=== PATIENT | female | born 1975 | race Caucasian/White ===

== ENCOUNTER 2023-03-31 22:08 | Emergency (ER) | payer MEDICARE, MEDICAID, SELFPAY ==
[2023-03-31 22:15] VITALS: BP 126/83; PULSE 85; RESP 16; TEMP 36.7; O2SAT 96; BMI 14.8
[2023-03-31 22:23] LABS: Appearance Urine Clear (Clear); Bilirubin Urine Negative (Negative); Blood Urine Negative (Negative); Color Urine Yellow (Yellow); Glucose Urine Negative (Negative); Ketones Urine Negative (Negative); Leukocyte Esterase Urine Negative (Negative); Nitrite Urine Negative (Negative); Protein Urine Negative (Negative); Urobilinogen Urine 0.2 (0.2-1.0)
--- NOTE | 2023-03-31 22:23 | ED.GENADULT ---
HPI - General Adult General Time Seen by Provider: 22:24 Date Seen: 03/31/23 Chief complaint: Flank Pain Stated complaint: Abdominal Right-side pain Time Seen by Provider: 03/31/23 22:10 Source: patient Mode of arrival: ambulatory Limitations: no limitations History of Present Illness HPI narrative: Patient is a 47-year-old female history of chronic degenerative disc disease presented emergency department for right flank pain. She says she initially thought the pain was just her back pain flaring up prescribed the past 24 hours. She states it got worse around 20:00 she took a Percocet which is not improving her symptoms. She denies having pain like this before. No history of kidney stones. Denies fevers, chills, shortness of breath, vaginal bleeding, vaginal discharge, nausea, vomiting, dysuria, weakness, numbness, diarrhea, constipation. States the pain is nonradiating but is very sharp in nature. Order previous abdominal surgery was gastric bypass surgery 23 years ago with no residual complications. Related Data Home Medications Medication Instructions Recorded Confirmed amitriptyline 10 mg PO DAILY 03/31/23 03/31/23 cyclobenzaprine 5 mg PO .8h PRN 03/31/23 03/31/23 gabapentin 800 mg PO QID 03/31/23 03/31/23 oxycodone-acetaminophen 1 tab PO Q4H PRN 03/31/23 03/31/23 Allergies Allergy/AdvReac Type Severity Reaction Status Date / Time erythromycin base Allergy Mild Itching Verified 03/31/23 23:03 dexamethasone AdvReac Intermediate Verified 03/31/23 23:03 NSAIDS (Non-Steroidal AdvReac Intermediate Verified 03/31/23 23:03 Anti-Inflamma Review of Systems Status of ROS: Reports: 10 or more systems reviewed and unremarkable except as noted in History and below [facility] Medical History (Updated 03/31/23 @ 23:22 by Vignesh Sloan, DO) Chronic back pain ?M54.9 - Dorsalgia, unspecified (ICD-10) ?G89.29 - Other chronic pain (ICD-10) Social History Smoking Status: Current every day smoker What tobacco products do you use: cigarettes Smoking packs per day: 2 Smoking cigarettes per day: 40.0 How often do you have a drink containing alcohol: never AUDIT-C Alcohol total score: 0 Non-prescribed substance use: denies use Exam Narrative: Exam Narrative: Const: Thin build, in moderate distress Eyes: PERRL, no conjunctival injection, and symmetrical lids ENMT: Atraumatic external nose and ears. Moist mucous membranes. Neck: Symmetric, trachea midline, No thyromegaly. CVS: RRR, No murmurs or gallops. Peripheral pulses 2+ and equal in all extremities RESP: Unlabored respiratory effort. Clear to auscultation bilaterally. GI: Nontender/Nondistended, No rebound or guarding. Right CVA tenderness MSK:Extremities w/o deformity, Normal Active ROM Skin: Warm, Dry. No rashes or lesions. Neuro: Normal Muscle tone, No focal neurological deficits. Psych: Awake, Alert, & Oriented x3. Appropriate mood and affect. Const: Vital Signs, click to edit/add: Vital Signs - 24 hr 03/31/23 22:15 03/31/23 22:32 Temperature 98.0 F Pulse Rate [Left P ulse Oximeter] 85 Respiratory Rate 16 Blood Pressure [Ri ght Upper Arm] 126/83 Pulse Oximetry 96 99 Oxygen Delivery Me thod Room Air Course Vital Signs Vital signs: Initial Vital Signs Temperature 98.0 F 03/31/23 22:15 Temperature Source Temporal Artery Scan 03/31/23 22:15 Pulse Rate 85 03/31/23 22:15 Respiratory Rate 16 03/31/23 22:15 Blood Pressure 126/83 03/31/23 22:15 Blood Pressure Mean 97 03/31/23 22:15 Blood Pressure Position Sitting 03/31/23 22:15 Pulse Oximetry 96 03/31/23 22:15 Oxygen Delivery Method Room Air 03/31/23 22:15 Vital Signs Temperature 98.0 F 03/31/23 22:15 Pulse Rate 85 03/31/23 22:15 Respiratory Rate 16 03/31/23 22:15 Blood Pressure 126/83 03/31/23 22:15 Pulse Oximetry 96 03/31/23 22:15 Oxygen Delivery Method Room Air 03/31/23 22:15 Temperature 98.0 F 03/31/23 22:15 Pulse Rate 85 03/31/23 22:15 Respiratory Rate 16 03/31/23 22:15 Blood Pressure 126/83 03/31/23 22:15 Pulse Oximetry 99 03/31/23 22:32 Oxygen Delivery Method Room Air 03/31/23 22:15 Medical Decision Making MDM Narrative Medical decision making narrative: Patient's for 47-year-old year female presenting for right flank pain that started she thinks yesterday but got worse around 20:00 today. She has tried Percocet without improvement in her symptoms. She has no history of kidney stones. Continue her symptoms nephrolithiasis is high on my differential at this time is CT scan without contrast will be ordered. We will also order CBC, CMP, lipase urinalysis, urine test. Patient was given morphine for pain. Other things on the differential would be cholelithiasis, muscle strain. With her age unlikely to be aortic aneurysm she is a smoker though. However returned showing no concerning abnormalities. No signs of UTI. LFTs are only mildly elevated and unlikely to be a sign that was causing her pain. CT scan was done. It shows avascular necrosis of the right femoral head but this is not anywhere near where her pain is is unlikely associated. She does not have a gallbladder. No signs of kidney stones. CBC shows no concerning abnormalities. I am unsure what is clearly causing her pain at this time. Is not appear to be any immediate life-threatening or debilitating cause. After she received morphine she states her symptoms resolved. She will be discharged home agrees with this plan. Lab Data Labs: Lab Results 03/31/23 03/31/23 Range/Units 22:17 22:31 WBC 5.62 (4.50-11.00) K/uL RBC 4.10 (4.00-5.20) m/uL Hgb 13.4 (12.0-16.0) gm/dL Hct 39.7 (33.0-51.0) % MCV 97 (80-100) fL MCH 33 (26-34) pg MCHC 34 (32-36) gm/dL RDW Coeff of Carlos 13.1 (11.5-15.5) % Plt Count 371 (140-440) K/uL Neut % (Auto) 32.7 L (42.0-72.0) % Lymph % (Auto) 58.0 H (20-44) % [place] % (Auto) 5.5 (0.0-11.0) % Eos % (Auto) 1.4 (0.0-7.0) % Baso % (Auto) 2.0 (0.0-3.0) % Neut # (Auto) 1.80 (1.7-7.0) K/uL Lymph # (Auto) 3.30 H (0.90-2.90) K/uL [place] # (Auto) 0.30 (0.00-0.90) K/UL Eos # (Auto) 0.08 (0.00-0.50) K/uL Baso # (Auto) 0.11 (0.00-0.30) K/uL Abs Immat Gran (auto) 0.02 (0.00-0.30) K/uL Imm/Tot Granulo (auto) 0.4 % Sodium 133 L (135-149) mmol/L Potassium 3.8 (3.6-5.1) mmol/L Chloride 100 (96-114) mmol/L Carbon Dioxide 26 (20-32) mmol/L BUN 7 (5-24) mg/dL Creatinine 0.6 (0.5-1.5) mg/dL Estimated Creat Clear 83.00 Estimated GFR 111 ml/min Glucose 212 H (60-115) mg/dL Calcium 9.4 (8.4-10.6) mg/dL Total Bilirubin 0.5 (0.1-1.5) mg/dL AST 50 H (12-35) U/L ALT 40 H (4-35) U/L Alkaline Phosphatase 80 (40-150) U/L Total Protein 7.9 (6.0-8.3) g/dL Albumin 4.7 (3.3-5.0) g/dL Lipase 42 (23-300) U/L Urine Color Yellow (Yellow) Urine Appearance Clear (Clear) Urine pH 6.0 (5.0-8.5) Ur Specific [place] 1.010 (1.000-1.030) Urine Protein Negative (Negative) Urine Glucose (UA) Negative (Negative) Urine Ketones Negative (Negative) Urine Blood Negative (Negative) Urine Nitrite Negative (Negative) Urine Bilirubin Negative (Negative) Urine Urobilinogen 0.2 (0.2-1.0) Ur Leukocyte Esterase Negative (Negative) Urine RBC 0-2 (0-2) Urine WBC 0-2 (0-5) Ur Squamous Epith Cells Few (None-Few) Urine Bacteria None (None) Urine HCG, Qual Negative (Negative) Discharge Plan Discharge Clinical Impression: Acute flank pain, Avascular necrosis of bone of right hip Patient Disposition: Home, Self-Care Condition: Stable Instructions: Flank Pain (ED) Additional Instructions: Your lab work returns showing no concerning abnormalities. The CT scan showed no signs of a kidney stone. I am unsure right now was causing this pain. Follow-up with the primary care provider. Speak to him about the possible avascular necrosis of the right hip and possibly need to see orthopedic referral. Return for any new or worsening symptoms. Prescriptions: No Action oxycodone-acetaminophen [Percocet] 1 tab PO Q4H PRN Rx Instructions: 10-325 gabapentin 800 mg PO QID amitriptyline 10 mg PO DAILY cyclobenzaprine 5 mg PO .8h PRN Stand Alone Forms: [employer] Info Instructions
[2023-03-31 22:31] LABS: Ur HCG Qualitative* Negative (Negative)
[2023-03-31 22:32] VITALS: O2SAT 99
--- NOTE | 2023-03-31 22:33 | CRLHL7_ITS ---
For Patients: As a result of the Century Cures Act, medical imaging exams and procedure reports are released immediately into your electronic medical record. You may view this report before your referring provider. If you have questions, please contact your health care provider. INDICATION: Right flank pain TECHNIQUE: CT abdomen and pelvis acquired with 49 cc Isovue 370 IV contrast. COMPARISON: None FINDINGS: Lower chest: Unremarkable. Liver: Unremarkable. Spleen: Unremarkable. Pancreas: Unremarkable. Gallbladder and bile ducts: S/p cholecystectomy. Adrenal glands: Unremarkable. Kidneys: Unremarkable. No renal stone or hydronephrosis. GI tract: Status post gastric bypass. Appendix is not seen. Vascular structures: Unremarkable. Lymph nodes: Unremarkable. Miscellaneous: Marked lack of body fat. No free air or significant free fluid. Pelvic Organs: Unremarkable. Bones: Mild dextroscoliosis of the lumbar spine. Degenerative changes in the lumbar spine. Curvilinear sclerotic densities on the right femoral head. IMPRESSION: Study is limited by marked lack of body fat. No acute abnormality identified. AVN of the right femoral head. Status post gastric bypass procedure and cholecystectomy. Please note that all CT scans at this facility use dose modulation, iterative reconstruction, and/or weight-based dosing when appropriate to reduce radiation dose to as low as reasonably achievable. Dictated by Hannah Vick MD @ 03/31/2023 11:14:03 PM (Electronically Signed)
[2023-03-31 22:38] LABS: RBC Urine 0-2 (0-2); Squamous Epithelial Cell Urine Few (None-Few); WBC Urine 0-2 (0-5)
[2023-03-31 22:39] LABS: Basophils Absolute Auto 0.11 K/uL (0.00-0.30); Eosinophils Absolute Auto 0.08 K/uL (0.00-0.50); Eosinophils Percent Auto 1.4 % (0.0-7.0); Hematocrit 39.7 % (33.0-51.0); Hemoglobin* 13.4 gm/dL (12.0-16.0); Immature Granulocytes Abs Auto 0.02 K/uL (0.00-0.30); Immature Granulocytes Pct Auto 0.4 %; Mean Corpuscular HGB Conc 34 gm/dL (32-36); Mean Corpuscular Hemoglobin 33 pg (26-34); Mean Corpuscular Volume 97 fL (80-100); Monocytes Percent Auto 5.5 % (0.0-11.0); Neutrophils Percent Auto 32.7 % (42.0-72.0); Platelet Count* 371 K/uL (140-440); RDW Coefficient of Variation % 13.1 % (11.5-15.5); White Blood Count* 5.62 K/uL (4.50-11.00)
[2023-03-31] MEDS: MORPHINE 4 MG/ML INJ IVP (22:41)
[2023-03-31 22:43] LABS: Slide Review Reflex No
[2023-03-31 22:52] LABS: Albumin* 4.7 g/dL (3.3-5.0); Chloride* 100 mmol/L (96-114)
[2023-03-31 22:53] LABS: Potassium* 3.8 mmol/L (3.6-5.1); Sodium* 133 mmol/L (135-149)
[2023-03-31 22:55] LABS: Alkaline Phosphatase* 80 U/L (40-150); Aspartate Amino Transferase* 50 U/L (12-35); Bilirubin Total* 0.5 mg/dL (0.1-1.5); Blood Urea Nitrogen* 7 mg/dL (5-24); Carbon Dioxide* 26 mmol/L (20-32); Creatinine* 0.6 mg/dL (0.5-1.5); Estimated Glomerular Filt Rate 111 ml/min; Lipase* 42 U/L (23-300); Total Protein* 7.9 g/dL (6.0-8.3)
[2023-03-31 22:56] LABS: Alanine Aminotransferase* 40 U/L (4-35); Calcium* 9.4 mg/dL (8.4-10.6); Glucose* 212 mg/dL (60-115)
[2023-03-31 23:35] VITALS: BP 118/74; PULSE 79; RESP 16; TEMP 36.7; O2SAT 99
[2023-03-31 23:44] VITALS: BP 118/74; PULSE 79; RESP 16; TEMP 36.7
== END 2023-03-31 23:51 | disposition home or self-care (01) ==
LOC: ED 23:49
PROVIDERS: Emergency Provider Student in an Organized Health Care Education/Training Program; PCP Family Medicine
DX: R10.9 Unspecified abdominal pain (principal); M87.9 Osteonecrosis, unspecified
CPT/HCPCS: 36415; 74177; 80053; 81001; 81025; 83690; 85025; 94761; 96374; 99283; 99284; 99285; J2270; Q9967

== ENCOUNTER 2023-12-14 00:40 | Emergency (ER) | payer MEDICARE, MEDICAID, SELFPAY ==
[2023-12-14 00:48] VITALS: BP 96/72; PULSE 99; RESP 16; TEMP 36.6; O2SAT 97; BMI 16.7
--- NOTE | 2023-12-14 01:07 | CT_ITS ---
Patient: NATALY DOOLEY Facility:?[facility] Patient ID:?[id number] Site Patient ID:?[id number]. Site :?[id number] Study:?CT-Abdomen/Pelvis W/56CC [id number]/22/2024 1:46:46 AM Ordering Physician:DANNY Final Report: INDICATION: Epigastric pain. TECHNIQUE: CT abdomen and pelvis acquired with 56 cc Isovue 370 IV contrast. COMPARISON: None. FINDINGS: Lower chest: Unremarkable. Liver: Unremarkable. Normal in size and attenuation. No suspicious masses. Gallbladder and bile ducts: Mildly prominent bile ducts, likely secondary to post cholecystectomy state. Spleen: Unremarkable. Normal in size. No masses. Adrenal glands: Unremarkable. No nodules. Pancreas: Unremarkable. No mass or inflammation. Kidneys: Unremarkable. No suspicious masses, stones, or hydronephrosis. GI tract: Postsurgical changes of gastric bypass. GI tract is normal in caliber. No evidence of obstruction. Appendix is not visualized. Lymph nodes: No lymphadenopathy. Vasculature: Mild scattered atherosclerotic calcifications. Abdominal aorta is normal in caliber. Omentum/Peritoneum/Abdominal Wall: Unremarkable. No free air or significant free fluid. Pelvis: Unremarkable. Bones: Degenerative changes. Dextroconvex curvature of the lumbar spine. Chronic L1 superior endplate deformity. Right femoral head AVN. IMPRESSION: No acute abdominal or pelvic abnormality. Please note that all CT scans at this facility use dose modulation, iterative reconstruction, and/or weight-based dosing when appropriate to reduce radiation dose to as low as reasonably achievable. Dictated by Tacos Luna MD @ 12/14/2023 2:48:52 AM Signed by:?Tacos Luna MD @12/14/2023 2:48:52 AM (Electronic Signature)
--- NOTE | 2023-12-14 01:11 | ED_ITS ---
HPI - General Adult General Chief complaint: Abdominal Pain Stated complaint: abdominal pain Time Seen by Provider: 12/14/23 00:49 Source: patient Mode of arrival: ambulatory History of Present Illness HPI narrative: 48-year-old female presents to the emergency department with 4 hour history of increased nausea and epigastric pain. Does have chronic nausea and takes Zofran 1-2 times daily for this. She does use cannabis containing products either in the form of vape or edibles daily as well. 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 She states that she has had ongoing issues with chronic nausea, epigastric issues and weight loss. She has a history of gastric bypass 10 years ago. She reports that she had gastric perforation about 5 years ago and had a pancreatic mass around that time. She had follow-up CTs but it has been at least 4 probably closer to 5 years on that as well. From her description, I question it it was a pancreatic pseudocyst but I do not have quickly available records on this. States that she has had very poor weight gain over the last 5 years. Weight had been stable at 180 lb after her gastric bypass for several years and then she has been around 110 lb for the last few years. It does not sound as though she is regularly using recommended vitamins. Reports that they also took out her gallbladder and she still has her appendix. Has not had a menstrual cycle in about 4 years, is not on control. States that her periods stopped when she continued to lose weight. She takes omeprazole daily for her chronic GI issues and Zofran 1-2 times per day. Pain today is worse than usual, constant and achy, does radiate down to the lower abdomen and a little bit into the anterior thighs which is new for her. No unusual vaginal discharge, no dysuria, no history of kidney stones. No fever or bloody stools. Did not try any other interventions besides her home oral Zofran prior to coming to ED. Past medical history notable for chronic pain. Home medications are Flexeril, amitriptyline, gabapentin and oxycodone. Total daily dosing of the oxycodone is 40-50 mg daily in the gabapentin is over 3000 mg daily. Drug allergies listed, noted. Does vape and uses cannabis containing products every day. Denies alcohol. ROS notable for the GI issues and abdominal pain as stated above, otherwise denies times 12 systems. Related Data Home Medications Medication Instructions Recorded Confirmed amitriptyline 10 mg PO DAILY 03/31/23 03/31/23 cyclobenzaprine 5 mg PO .8h PRN 03/31/23 03/31/23 gabapentin 800 mg PO QID 03/31/23 03/31/23 oxycodone-acetaminophen 1 tab PO Q4H PRN 03/31/23 03/31/23 Previous Rx's Medication Instructions Recorded olanzapine 5 mg tablet 5 mg PO QHS #30 tabs 12/14/23 Allergies Allergy/AdvReac Type Severity Reaction Status Date / Time erythromycin base Allergy Mild Itching Verified 12/14/23 01:47 dexamethasone AdvReac Intermediate Verified 12/14/23 01:47 NSAIDS (Non-Steroidal AdvReac Intermediate Verified 12/14/23 01:47 Anti-Inflamma [facility] Medical History Tobacco abuse ?Z72.0 - Tobacco use (ICD-10) ROBERTO II (cervical intraepithelial neoplasia II) ?N87.1 - Moderate cervical dysplasia (ICD-10) Hyperopic astigmatism of left eye ?H52.202 - Unspecified astigmatism, left eye (ICD-10) Pancreatic lesion ?K86.9 - Disease of pancreas, unspecified (ICD-10) Myopia of right eye with astigmatism ?H52.11 - Myopia, right eye (ICD-10) ?H52.201 - Unspecified astigmatism, right eye (ICD-10) Presbyopia ?H52.4 - Presbyopia (ICD-10) Chronic prescription opiate use ?Z79.891 - 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 of opiate analgesic (ICD-10) Multiple lung nodules ?R91.8 - Other nonspecific abnormal finding of lung field (ICD-10) Lumbar herniated disc ?M51.26 - Other intervertebral disc displacement, lumbar region (ICD-10) STALIN (generalized anxiety disorder) ?F41.1 - Generalized anxiety disorder (ICD-10) Chronic back pain ?M54.9 - Dorsalgia, unspecified (ICD-10) ?G89.29 - Other chronic pain (ICD-10) Surgical History History of gastric bypass ?Z98.84 - Bariatric surgery status (ICD-10) Social History Smoking Status: Current every day smoker What tobacco products do you use: cigarettes Smoking packs per day: 2 Smoking cigarettes per day: 40.0 How often do you have a drink containing alcohol: never AUDIT-C Alcohol total score: 0 Non-prescribed substance use: denies use Exam Const: Vital Signs, click to edit/add: Vital Signs - 24 hr 12/14/23 00:48 Temperature 98 F Pulse Rate [Pulse Oximeter] 99 Respiratory Rate 16 Blood Pressure [Ri ght Upper Arm] 96/72 Pulse Oximetry 97 Oxygen Delivery Me thod Room Air Documenting provider has reviewed patient's vital signs: yes Common normals: no apparent distress General appearance: cooperative Other: Appears mildly uncomfortable, not in acute distress. Good historian. HENMT: Common normals: normocephalic Head and scalp: normocephalic Face and sinus: normal facial exam Mouth: oral and palatal mucosa normal Eye: Common normals: conjunctivae normal General eye: normal appearance of both eyes Conjunctiva: conjunctiva(e) normal Neck & C-Spine: Common normals: full ROM and no lymphadenopathy General: normal visual inspection Resp: Common normals: normal respiratory effort and no use of accessory muscles Effort & inspection: able to speak in complete sentences Cardio: Common normals: regular rate, regular rhythm, S1 normal heart sound, S2 normal heart sound and no murmurs Rate: regular rate Rhythm: regular rhythm Heart sounds: S1 normal and S2 normal GI: Other: Thin. Abdomen consistent with prior obesity and surgical scars consistent with history. No obvious mass, no hepatosplenomegaly. Bowel sounds are normoactive throughout. Diffusely tender to epigastrium and suprapubic area, no rebound tenderness or guarding. Extremity: Common normals: normal to inspection and normal capillary refill Neuro: Speech: speech normal Psych: Appearance: grossly normal Attitude: engaged Insight: insight good Judgement: judgment good Skin: Common normals: no rashes or lesions noted General skin exam: no ra shes or lesions noted Course Course ED Course: 48-year-old female with complicated prior abdominal history, chronic pain and chronic nausea. History of gastric perforation and pancreatic mass as well as cervical dysplasia. Differential diagnosis including gastric perforation, gastritis, gastroenteritis, obstruction, pancreatitis, colitis, gynecological issues, complication, exacerbation of chronic pain, kidney stone, among others. Recommend basic labs, 1 L normal saline, IV Zofran, will withhold pain medication for now. CT of the abdomen and pelvis, urinalysis and test. Reevaluation(s) Time of Reevaluation #1: 03:24 Reevaluation #1: Counseled patient on findings. Overall CT looks great. No obstruction, no perforation. There is some gas and constipation and unfortunately some chronic degenerative changes which are not likely the cause of her acute symptoms. Counseled patient that I do think that her chronic nausea could be multifactorial but she may have cyclic vomiting syndrome. We discussed need for vitamin replacement in the setting of her bariatric surgery. She admitted that she has not been doing this for quite some time and is willing to restart this at least somewhat. We discussed continuing her Zofran as needed but I recommended a trial of olanzapine at bedtime preventatively for a week or 2 and see if this makes a difference with her nausea. She will get a dose here tonight and then a 30 day prescription. She needs to follow up with her primary care provider in 48 hours if she is not starting to improve and then long-term in a couple of weeks to see how the olanzapine is going. Written instructions provided, all questions answered. She was given a copy of her CT report that shows that she has no further pancreatic mass. Vital Signs Vital signs: Initial Vital Signs Temperature 98 F 12/14/23 00:48 Temperature Source Temporal Artery Scan 12/14/23 00:48 Pulse Rate 99 12/14/23 00:48 Respiratory Rate 16 12/14/23 00:48 Blood Pressure 96/72 12/14/23 00:48 Blood Pressure Mean 80 12/14/23 00:48 Blood Pressure Position Sitting 12/14/23 00:48 Pulse Oximetry 97 12/14/23 00:48 Oxygen Delivery Method Room Air 12/14/23 00:48 Vital Signs Temperature 98 F 12/14/23 00:48 Pulse Rate 99 12/14/23 00:48 Respiratory Rate 16 12/14/23 00:48 Blood Pressure 96/72 12/14/23 00:48 Pulse Oximetry 97 12/14/23 00:48 Oxygen Delivery Method Room Air 12/14/23 00:48 Temperature 98 F 12/14/23 00:48 Pulse Rate 99 12/14/23 00:48 Respiratory Rate 16 12/14/23 00:48 Blood Pressure 96/72 12/14/23 00:48 Pulse Oximetry 97 12/14/23 00:48 Oxygen Delivery Method Room Air 12/14/23 00:48 Medications Administered Medications: Discontinued Medications Generic Name Dose Route Start Last Admin Trade Name Freq PRN Reason Stop Dose Admin Sodium Chloride 1,000 mls @ 1,000 mls/hr 12/14/23 01:08 12/14/23 02:21 0.9 % Sodium Chloride 1000 Ml IV 12/14/23 02:07 Infused .Q1H LAURA Infusion Ondansetron HCl 4 mg 12/14/23 01:07 12/14/23 01:25 Ondansetron 2 Mg/Ml Inj IVP 12/14/23 01:08 4 mg ONCE ONE Administration Medical Decision Making Lab Data Labs: Lab Results 12/14/23 12/14/23 Range/Units 01:20 01:27 WBC 6.87 (4.50-11.00) K/uL RBC 3.83 L (4.00-5.20) m/uL Hgb 12.2 (12.0-16.0) gm/dL Hct 36.3 (33.0-51.0) % MCV 95 (80-100) fL MCH 32 (26-34) pg MCHC 34 (32-36) gm/dL RDW Coeff of Carlos 13.4 (11.5-15.5) % Plt Count 309 (140-440) K/uL Neut % (Auto) 63.6 (42.0-72.0) % Lymph % (Auto) 28.1 (20-44) % [place] % (Auto) 4.5 (0.0-11.0) % Eos % (Auto) 1.3 (0.0-7.0) % Baso % (Auto) 1.5 (0.0-3.0) % Neut # (Auto) 4.37 (1.7-7.0) K/uL Lymph # (Auto) 1.93 (0.90-2.90) K/uL [place] # (Auto) 0.30 (0.00-0.90) K/UL Eos # (Auto) 0.09 (0.00-0.50) K/uL Baso # (Auto) 0.10 (0.00-0.30) K/uL Abs Immat Gran (auto) 0.07 (0.00-0.30) K/uL Imm/Tot Granulo (auto) 1.0 % Sodium 133 L (135-149) mmol/L Potassium 3.7 (3.6-5.1) mmol/L Chloride 105 (96-114) mmol/L Carbon Dioxide 25 (20-32) mmol/L Anion Gap 3 L (7-15) mEq/L BUN 4 L (5-24) mg/dL Creatinine 0.5 (0.5-1.5) mg/dL Estimated Creat Clear 108.38 Estimated GFR 116 ml/min Glucose 103 (60-115) mg/dL Lactate 1.2 (0.5-1.9) mmol/L Calcium 9.2 (8.4-10.6) mg/dL Total Bilirubin 0.4 (0.1-1.5) mg/dL AST 51 H (12-35) U/L ALT 72 H (4-35) U/L Alkaline Phosphatase 92 (40-150) U/L C-Reactive Protein < 0.5 L (0.5-1.0) mg/dL Total Protein 7.1 (6.0-8.3) g/dL Albumin 4.0 (3.3-5.0) g/dL Lipase 80 (23-300) U/L Urine Color Yellow (Yellow) Urine Appearance Clear (Clear) Urine pH 7.0 (5.0-8.5) Ur Specific [place] 1.020 (1.000-1.030) Urine Protein Negative (Negative) Urine Glucose (UA) Negative (Negative) Urine Ketones Negative (Negative) Urine Blood Negative (Negative) Urine Nitrite Negative (Negative) Urine Bilirubin Negative (Negative) Urine Urobilinogen 0.2 (0.2-1.0) Ur Leukocyte Esterase Negative (Negative) Urine HCG, Qual Negative (Negative) Imaging Data CT scan - abdomen: Attestation: I have reviewed the pertinent imaging results. My impression: Scoliosis and degenerative changes in hip and back. Lots of gas, some mild constipation but no signs of obstruction, perforation or other significant abnormality. Radiologist's impression: IMPRESSION: No acute abdominal or pelvic abnormality. Discharge Plan Discharge Clinical Impression: Vomiting Patient Disposition: Home w/ Parent or Adult Condition: Improved Instructions: Cyclic Vomiting Syndrome (ED) Additional Instructions: As we discussed, your CT scan today looks great. There is certainly some gas and constipation which could be contributing to your lower abdominal pain but there are no signs of perforation, obstruction or surgical complication today. This is great news. As we discussed, I think her chronic nausea and the episode of vomiting today could part of a chronic condition called cyclic vomiting syndrome. This is commonly seen in people who use cannabis containing products long-term and tends to worsen over time. This certainly could just be a stomach flu but as we discussed, I think he might benefit from a trial of olanzapine, also known as Zyprexa to see if this helps your symptoms on an ongoing basis. Your given a dose here in the emergency department. I will send a 30 day supply to your pharmacy. You may take this once nightly to hopefully reduce and prevent some of your ongoing nausea. If it makes you too sleepy or you have side effects, you could save it for the episodes of flare up with your vomiting. You may continue taking your Zofran if needed as well. Follow up with your primary care provider if you are not noticing any improvement in 48 hours. Remember that after bariatric surgery, it is important that you are taking your vitamins. It will be impossible for your gut to absorb nutrients an your medications properly without these. At the bare minimum, please take a Flintstones chewables with iron once daily, a sublingual B12 twice weekly, and A B complex vitamin once weekly. If your primary care provider has recommended a different, stronger regimen, please default to that. These are the bare minimum that our surgical team likes for us to pass along to patients who have gotten behind on their vitamin recommendations. Activity Level: No Restrictions Discharge Diet: Regular Prescriptions: New olanzapine 5 mg tablet 5 mg PO QHS Qty: 30 0RF No Action oxycodone-acetaminophen [Percocet] 1 tab PO Q4H PRN Rx Instructions: 10-325 gabapentin 800 mg PO QID amitriptyline 10 mg PO DAILY cyclobenzaprine 5 mg PO .8h PRN Follow Up/Referrals: Ilia Connors MD [Primary Care Provider] - Stand Alone Forms: [employer]! Info Instructions
[2023-12-14 01:25] LABS: Lactate* 1.2 mmol/L (0.5-1.9)
[2023-12-14] MEDS: ONDANSETRON 2 MG/ML inj 4 MG IVP (01:25)
[2023-12-14] MEDS: 0.9 % SODIUM CHLORIDE 1000 ml 1,000 ML IV (01:25)
--- OUTSIDE RECORDS SUMMARY | 2023-12-14 01:26 | XMS_ITS | Encounter Summary ---
Author Name Unknown Organization [place] Address [facility] [place] [address] Care Team Providers Care Roofer Assistant Name Role Phone Guerita Romero MD Primary Care Provider [phone] Jose Rabago MD Unavailable [phone] [facility] Primary Care Pr ovider Unavailable Encounter Details Date Type Department Care Team (Late st Contact Info) Description 03/01/2021 Documentation Only [facility] Emergency Dept [address] [place] [address] Unknown, Provider Social History Tobacco Use Types Packs/Day Years Used Date Smoking Tobacco: Every Day Cigarettes Smokeless Tobacco: Never Alcohol Use Standard Drinks/Week Comments No 0 (1 standard drink = 0.6 oz pur e alcohol) Sex and Gender Information Value Date Recorded Sex Assigned at Not on file Gender Identity Not on file Sexual Orientation Not on file COVID-19 Exposure Response Date Recorded In the last month, have you been in contact with someone who was confirmed or suspected to have Coronavirus / COVID-19? No / Unsure 02/28/2021 11:04 AM CDT documented as of this encounter Plan of Treatment Not on file documented as of this encounter Visit Diagnoses Not on filedocumented in this encounter Care Teams Roofer Assistant Relationship Specialty Start Date End Date Guerita Romero MD PCP - General 09/06/11 09/29/22 [facility] [address] [address] PCP - General 09/30/22 11/28/22 Jose Rabago MD [address] [id number] Assigned Surgical Provider 02/24/2108/29/22 documented as of this encounter
--- OUTSIDE RECORDS SUMMARY | 2023-12-14 01:26 | XMS_ITS | Referral Summary ---
Author Name Unknown Organization [facility] Address [address] [place] [address]. [place] [address] Care Team Providers Care Data Steward Name Role Phone Unavailable Primary Care Provider Unavailabl e Allergies Active Allergy Reactions Criticality Noted Date Comments Dexamethasone Visual Disturbance 06/09/2019 Erythromycin Itching 09/06/2011 Medications Medication Sig Dispensed Refills Start Date End Date Status pantoprazole (PROTONIX) 40 MG enteric coated tabletIndications:U pper GI bleed Take 1 tablet by mouth 2 times daily. Take 30-60 minutes before a meal. 90 tablet 1 04/10/2012 Active ALPRAZolam (XANAX PO) Take 0.5 mg by mouth 2 times daily as needed Active AMITRIPTYLINE HCL PO Take 20 mg by mouth nightly as needed Active ondansetron (ZOFRAN ODT) 4 MG ODT tab Take 1 tablet (4 mg) by mouth every 8 hours as needed for nausea or vomiting 15 tablet 02/20/2021 Active gabapentin (NEURONTIN) 800 MG tablet Take 800 mg by mouth 4 times daily Active oxyCODONE-acetamino phen (PERCOCET) 10-325 MG per tablet Take 1 tablet by mouth every 6 hours as needed for severe pain Active albuterol (PROAIR HFA/PROVENTIL HFA/VENTOLIN HFA) 108 (90 Base) MCG/ACT inhaler 1-2 puffs every 6 hours as needed 12/04/2019 Active multivitamins w/minerals tablet Take 1 tablet by mouth daily Active naloxone (NARCAN) 4 MG/0.1ML nasal spray [place] 4 mg into one nostril alternating nostrils once as needed Active norethindrone (MICRONOR) 0.35 MG tablet Take 0.35 mg by mouth daily 12/05/2020 Active sodium fluoride 1.1 % CREA BRUSH 2 TIMES PER DAY. DO NOT EAT OR DRINK FOR 30 MINUTES AFTER 06/23/2020 Active cyclobenzaprine (FLEXERIL) 5 MG tabletIndications:B iliary colic Take 1 tablet (5 mg) by mouth 3 times daily as needed for muscle spasms 15 tablet 03/05/2021 Active Buprenorphine HCl (BELBUCA) [address] 600 mcg inside cheek every 12 hours Active Active Problems Problem Noted Date Diagnosed Date Biliary colic 02/21/2021 Overview: Added automatically from request for surgery [id number] Lumbago 11/05/2012 Hematemesis 04/09/2012 Rhabdomyolysis 09/13/2011 Foot drop, left 09/13/2011 Acute renal failure (H24) 09/13/2011 Overview: Problem list name updated by automated process. Provider to review Lumbar radiculopathy 09/13/2011 Nicotine dependence 09/13/2011 Immunizations Name Administration Dates Next Due Pneumococcal 23 valent 01/26/2012 Social History Tobacco Use Types Packs/Day Years Used Date Smoking Tobacco: Every Day Cigarettes Smokeless Tobacco: Never Tobacco Cessation:Counseling Given: Yes Alcohol Use Standard Drinks/Week Comments No 0 (1 standard drink = 0.6 oz pur e alcohol) Adolescent Education Answer Date Record ed Getting School Help Needed Not on file 05/23 Sex and Gender Information Value Date Recorded Sex Assigned at Not on file Gender Identity Not on file Sexual Orientation Not on file Last Filed Vital Signs Vital Sign Reading Time Taken Comments Blood Pressure 97/68 09/30/2022 8:21 PM GRADING CLERK Pulse 81 09/30/2022 8:21 PM GRADING CLERK Temperature 36.7 ??C (98.1 ??F) 09/30/2022 4:57 PM CS T Respiratory Rate 22 09/30/2022 4:57 PM GRADING CLERK Oxygen Saturation 98% 09/30/2022 8:11 PM GRADING CLERK Inhaled Oxygen Concentration - - Weight 77.1 kg (170 lb) 03/01/2021 2:51 PM CDT Height 172.7 cm (5' 8) 09/30/2022 4:57 PM GRADING CLERK Body Mass Index 25.1 03/01/2021 2:51 PM CDT Plan of Treatment Not on file Procedures Procedure Name Priority Date/Time Associated Diagnosis Comments COMPREHENSIVE METABOLIC PANEL STAT 09/30/2022 5:05 PM GRADING CLERK ZZCL AFF HEMOGRAM/PLATELET Routine 04/22/1999 1:14 PM CDT Malig Ned Temporal Lobe (H) Chemotherapy Session from Last 3 Months or Most Recently Relevant to Health Maintenance Results * (ABNORMAL) Comprehensive metabolic panel (09/30/2022 5:05 PM GRADING CLERK) [facility] Sodium 139 136 - 145 mmol/L 09/30/2022 6:21 PM [facility] Potassium 3.8 3.4 - 5.3 mmol/L 09/30/2022 6:21 PM [facility] Chloride 101 98 - 107 mmol/L 09/30/2022 6:21 PM [facility] Carbon Dioxide (CO2) 28 22 - 29 mmol/L 09/30/2022 6:21 PM [facility] Anion Gap 10 7 - 15 mmol/L 09/30/2022 6:21 PM [facility] Urea Nitrogen 6.6 6.0 - 20.0 mg/dL 09/30/2022 6:21 PM [facility] Creatinine 0.73 0.51 - 0.95 mg/dL 09/30/2022 6:21 PM [facility] Calcium 9.2 8.6 - 10.0 mg/dL 09/30/2022 6:21 PM [facility] Glucose 95 70 - 99 mg/dL 09/30/2022 6:21 PM [facility] Alkaline Phosphatase 105(H) 35 - 104 U/L 09/30/2022 6:21 PM [facility] AST 76(H) 10 - 35 U/L 09/30/2022 6:21 PM [facility] ALT 147(H) 10 - 35 U/L 09/30/2022 6:21 PM [facility] Protein Total 6.6 6.4 - 8.3 g/dL 09/30/2022 6:21 PM [facility] Albumin 3.8 3.5 - 5.2 g/dL 09/30/2022 6:21 PM [facility] Bilirubin Total 0.3 <=1.2 mg/dL 09/30/2022 6:21 PM GRADING CLERK [facility] GFR Estimate >90 >60 mL/min/1.7 3m2 09/30/2022 6:21 PM GRADING CLERK LABORATORY Comment:eGFR calculated us2020 CKD-EPI equation. Blood VENOUS LINE / Unknown Venipuncture / Unknown 09/30/2022 5:05 PM GRADING CLERK 09/30/2022 5:23 PM GRADING CLERK Jose Murrell MD LAB - BLOOD ORDERABL ES RH LABORATORY [facility] [address] (1st floor, no room number) [place] [address], [facility] [phone] * (ABNORMAL) HEMOGRAM W/ PLATELET COUNT (04/22/1999 1:14 PM CDT) WBC 2.6(A) 4.3 - 11 Thousand/CU. MM [facility] RBC Count 4.14(A) 4.2 - 5.4 Thousand/CU. MM [facility] Hemoglobin 12.5 12 - 16 G/DL [facility] Hematocrit 36.3(A) 38 - 47 Percent [facility] MCV 87.7 82 - 100 FL [facility] MCH 30.2 26 - 33 PG [facility] MCHC 34.4 31 - 36 PERCENT [facility] Platelet Count 79.0(A) 150 - 375 Thousand/CU. MM [facility] Whole blood specimen (specimen) 04/22/1999 1:14 PM CDT Tsering Beltrán MD LABORATORY [facility] from Last 3 Months or Most Recently Relevant to Health Maintenance Advance Directives For more information, please contact: [phone] * Full Code (Latest Code Status on File) Date Activated Date Inactivated Comments 09/30/2022 8:46 PM 10/01/2022 9:50 AM All basic and advanced life-sustaining interventions are performed as appropriate Question Answer Comments Code status determined by: Discussion with patie nt/ legal decision maker * Full Code Date Activated Date Inactivated Comments 04/09/2012 6:42 AM 04/10/2012 3:59 PM * Full Code Date Activated Date Inactivated Comments 01/25/2012 3:44 PM 01/26/2012 3:11 PM
--- OUTSIDE RECORDS SUMMARY | 2023-12-14 01:26 | XMS_ITS | Encounter Summary ---
Author Name Unknown Organization [employer] [place] Address [facility] [place] [address] Care Team Providers Care Nephrologist Name Role Phone Guerita Romero MD Primary Care Provider [phone] Jose Rabago MD Unavailable [phone] Clinic, [facility] Primary Care Pr ovider Unavailable Encounter Details Date Type Department Care Team (Late st Contact Info) Description 03/18/2021 [facility] Medical Advice [facility] [place] [address] [place] [address] Shira Martins PA-C [address] [address] [place] [address] Social History Tobacco Use Types Packs/Day Years [...] on filedocumented in this encounter Care Teams Nephrologist Relationship Specialty Start Date End Date Guerita Romreo MD PCP - General 09/06/11 09/29/22 [facility] [address] [address] PCP - General 09/30/22 11/28/22 Jose Rabago MD [address] [id number] Assigned Surgical Provider 02/24/2108/29/22 documented as of this encounter
--- OUTSIDE RECORDS SUMMARY | 2023-12-14 01:26 | XMS_ITS | Clinical Summary ---
Author Name Unknown Organization [facility] Address [address] [place] [address]. [place] [address] Care Team Providers Care Account [employer] Name Role Phone Unavailable Primary Care Provider [...] Active naloxone (NARCAN) 4 MG/0.1ML nasal spray [place] 4 mg into one nostril alternating nostrils [...] Overview: Added automatically from request for surgery [id number] Lumbago 11/05/2012 Hematemesis 04/09/2012 Rhabdomyolysis 09/13/2011 Foot [...] Comments Blood Pressure 97/68 09/30/2022 8:21 PM BEHAVIORAL SCIENCE CHAIR Pulse 81 09/30/2022 8:21 PM BEHAVIORAL SCIENCE CHAIR Temperature 36.7 ??C (98.1 ??F) 09/30/2022 4:57 PM CS T Respiratory Rate 22 09/30/2022 4:57 PM BEHAVIORAL SCIENCE CHAIR Oxygen Saturation 98% 09/30/2022 8:11 PM BEHAVIORAL SCIENCE CHAIR Inhaled Oxygen Concentration - - Weight 77.1 kg (170 lb) 03/01/2021 2:51 PM CDT Height 172.7 cm (5' 8) 09/30/2022 4:57 PM BEHAVIORAL SCIENCE CHAIR Body Mass Index 25.1 03/01/2021 2:51 PM CDT Plan of Treatment Health Maintenance Due Date Last Done Comments ADVANCE CARE PLANNING 1975 ANNUAL REVIEW OF HM ORDERS 1975 CT COLONOGRAPHY 1975 FIT 1975 FLEX SIG 1975 sDNA (Cologuard) 1975 COLONOSCOPY 1985 COLORECTAL CANCER SCREENING 1985 HIV SCREENING 1990 HEPATITIS C SCREENING 1993 HEPATITIS B IMMUNIZATION (1 of 3 - 19+ 3-dose series) 1994 PAP 1996 Pneumococcal Vaccine: Pediatrics (0 to 5 Years) and At-Risk Patients (6 to 64 Years) (2 of 2 - PCV) 01/25/2013 01/26/2012 LIPID 2015 MAMMO SCREENING 02/04/2023 02/04/2021 MEDICARE ANNUAL WELLNESS VISIT 04/16/2023 04/16/2022 COVID-19 Vaccine ( season) 2023 INFLUENZA VACCINE (#1) 2023 , 06/08/2019, 06/26/2018, Additional history exists PHQ-2 (once per calendar year) 2023 GLUCOSE 09/30/2025 09/30/2022, 07/0 04/2021, 02/20/2021, Additional history exists DTAP/TDAP/TD IMMUNIZATION (3 - Td or Tdap) 11/08/2028 11/08/2018, 06/11/2006, 08/24/1996 HPV IMMUNIZATION Aged Out No longer e ligible based on patient's age to complete this topic IPV IMMUNIZATION Aged Out No longer e ligible based on patient's age to complete this topic MENINGITIS IMMUNIZATION Aged Out No l onger eligible based on patient's age to complete this topic RSV MONOCLONAL ANTIBODY Aged Out No l onger eligible based on patient's age to complete this topic Procedures Procedure Name Priority Date/Time Associated Diagnosis Comments COMPREHENSIVE METABOLIC PANEL STAT 09/30/2022 5:05 PM BEHAVIORAL SCIENCE CHAIR ZZCL AFF HEMOGRAM/PLATELET Routine 04/22/1999 1:14 PM CDT Malig Ned Temporal Lobe (H) Chemotherapy Session from Last 3 Months or Most Recently Relevant to Health Maintenance Results * (ABNORMAL) Comprehensive metabolic panel (09/30/2022 5:05 PM [facility]) [facility] Sodium 139 136 - 145 mmol/L 09/30/2022 6:21 PM [facility] Potassium 3.8 3.4 - 5.3 mmol/L 09/30/2022 6:21 PM [facility] Chloride 101 98 - 107 mmol/L 09/30/2022 6:21 PM [facility] Carbon Dioxide (CO2) 28 22 - 29 mmol/L 09/30/2022 6:21 PM [facility] Anion Gap 10 7 - 15 mmol/L 09/30/2022 6:21 PM [facility] Urea Nitrogen 6.6 6.0 - 20.0 mg/dL 09/30/2022 6:21 PM [facility] Creatinine 0.73 0.51 - 0.95 mg/dL 09/30/2022 6:21 PM [facility] Calcium 9.2 8.6 - 10.0 mg/dL 09/30/2022 6:21 PM [facility] Glucose 95 70 - 99 mg/dL 09/30/2022 6:21 PM [facility] Alkaline Phosphatase 105(H) 35 - 104 U/L 09/30/2022 6:21 PM [facility] AST 76(H) 10 - 35 U/L 09/30/2022 6:21 PM [facility] ALT 147(H) 10 - 35 U/L 09/30/2022 6:21 PM [facility] Protein Total 6.6 6.4 - 8.3 g/dL 09/30/2022 6:21 PM [facility] Albumin 3.8 3.5 - 5.2 g/dL 09/30/2022 6:21 PM [facility] Bilirubin Total 0.3 <=1.2 mg/dL 09/30/2022 6:21 PM [facility] GFR Estimate >90 >60 mL/min/1.7 3m2 09/30/2022 6:21 PM [facility] Comment:eGFR calculated us2020 CKD-EPI equation. Blood VENOUS LINE / Unknown Venipuncture / Unknown 09/30/2022 5:05 PM BEHAVIORAL SCIENCE CHAIR 09/30/2022 5:23 PM BEHAVIORAL SCIENCE CHAIR Jose Murrell MD LAB - BLOOD ORDERABL ES LABORATORY [facility] [address] [facility] (1st floor, no room number) [place] [address], [facility] [phone] * (ABNORMAL) HEMOGRAM W/ PLATELET COUNT (04/22/1999 [...] Advance Directives For more information, please contact: [phone] * Full Code (Latest Code Status on File) Date Activated Date Inactivated Comments 09/30/2022 8:46 PM 10/01/2022 9:50 AM All basic and advanced life-sustaining interventions are performed as appropriate Question Answer Comments Code status determined by: Discussion with heena nt/ legal decision maker * Full Code Date Activated Date Inactivated Comments 04/09/2012 6:42 AM 04/10/2012 3:59 PM * Full Code Date Activated Date Inactivated Comments 01/25/2012 3:44 PM 01/26/2012 3:11 PM
[2023-12-14 01:27] LABS: Basophils Percent Auto 1.5 % (0.0-3.0); Eosinophils Absolute Auto 0.09 K/uL (0.00-0.50); Eosinophils Percent Auto 1.3 % (0.0-7.0); Hematocrit 36.3 % (33.0-51.0); Hemoglobin* 12.2 gm/dL (12.0-16.0); Immature Granulocytes Abs Auto 0.07 K/uL (0.00-0.30); Lymphocytes Absolute Auto 1.93 K/uL (0.90-2.90); Lymphocytes Percent Auto 28.1 % (20-44); Mean Corpuscular HGB Conc 34 gm/dL (32-36); Mean Corpuscular Hemoglobin 32 pg (26-34); Mean Corpuscular Volume 95 fL (80-100); Monocytes Percent Auto 4.5 % (0.0-11.0); Neutrophils Absolute Auto 4.37 K/uL (1.7-7.0); Neutrophils Percent Auto 63.6 % (42.0-72.0); Platelet Count* 309 K/uL (140-440); RDW Coefficient of Variation % 13.4 % (11.5-15.5); Red Blood Count 3.83 m/uL (4.00-5.20); White Blood Count* 6.87 K/uL (4.50-11.00)
--- OUTSIDE RECORDS SUMMARY | 2023-12-14 01:27 | XMS_ITS | Continuity of Care Document ---
Author Name Unknown Organization [facility] Address [address] [address] [place] [address] Phone Care Team Providers Care Cover Assembler Name Role Phone Jr VALENCIAMona Unavailable Unavailabl e Allergies, Adverse Reactions, Alerts Substance Reaction Status Criticality erythromycin base ItchingItching Active No Infor mation erythromycin base Itching Active No Informa tion Medications Medication Instructions Dosage Effective Dates (start - stop) Status Comments lansoprazole 30 mg capsule,delayed release take 1 capsule by oral route 2 times every day before a meal 30 MG - Active Open capsule and sprinkle on apple sauce or yogurt sucralfate 1 gram tablet take 1 tablet by oral route 2 times every day as a slurry - Active fluconazole 100 mg tablet take 1 tablet by oral route every day 100 MG - Active tizanidine 4 mg tablet take 1 tablet by oral route every day 4 MG - Active oxycodone-acetamino phen 10 mg-325 mg tablet take 1 tablet by oral route every 6 hours as needed 1.00 tablet - Active amitriptyline 10 mg tablet take 1-2 tablets by oral route at bedtime - Active gabapentin 800 mg tablet take as directed - Active multivitamin tablet take 1 tablet by ORAL route every day with food 1 tablet - Active Procedures Procedure Date Ugi Endo; Dx W/wo Collec Specm Established Level 4 Offic/outpt E&m Estab Low-mod 1 Ugi Endo; W/us Guid Asp/bx Ugi Endo; W/bx 1/mx Offic/outpt E&m Estab Mod-hi 2 19 Routine Serum Collection Gg; Iga, Igd, Igg, Igm, Ea Offic/outpt E&m Estab Low-mod 9 Ugi Endo; W/bx 1/mx Level Iv-surg Path Gross/micro 19 Special Stains; Grp I Microorg 19 Offic/outpt E&m Estab Mod-hi 2 19 Routine Serum Collection Bld Ct; Hg/pltlt Ct Auto/compl 19 Comp Metabolic Panel Offic/outpt E&m Estab Low-mod 8 Offic/outpt E&m Estab Low-mod 8 Ugi Endo; W/bx 1/mx Level Iv-surg Path Gross/micro 17 Offic/outpt E&m Estab Mod-hi 2 17 Routine Serum Collection Lipase Hepatic Function Panel Offic/outpt E&m Estab Mod-hi 2 15 Ugi Endo; W/bx 1/mx Level Iv-surg Path Gross/micro 15 Advance Directives Directive Yes / No Effective Date File Name No Information Encounters Encounter Description Practice Location Reason(s) For Visit Diagnoses Date Provider Providers Copied on Encounter [facility], [address] [address], [place], [id number], [place] tel:[phone] [facility] No Information 3 Jr Dunn. [address] [facility], [place], [place], [id number], [place]. tel:[phone] [facility], [address] [address], [place], [id number], [place] tel:[phone] [facility] No Information 3 Mart Balderrama. [address] [facility], [facility] [address], [place], [place], [id number], [place]. tel:[phone] [facility], [address] [address], [place], [id number], [place] tel:[phone] [facility] History of gastric bypassAnastomoti c ulcerNausea with vomiting, unspecifiedHeart burn 2 Mart Balderrama. [address] [facility], [facility] [address], [place], [id number], [place]. tel:[phone] Referring Provider: Referral Self, USE FOR SELF REFERRALS. Established Level 4 [facility], [address] [address], [place], [id number], [place] tel:[phone] [facility] GI Symptoms or Concerns (chief complaint) Epigastric painBariatric surgery status 2 Jr Dunn. [address] [facility], [address], [id number], [place]. tel:[phone] Referring Provider: Referral Self, USE FOR SELF REFERRALS. [facility], [address] [address], [place], [id number], [place] tel:[phone] [facility] No Information 2 Saud Roberts. [address] [facility], [address], [id number], [place]. tel:[phone] [facility], [address] [address], [place], [address], [place] tel:[phone] [facility] RUQ pain 1 Janet Parrish [address] [facility], [address], [id number], [place]. tel:[phone] Referring Provider: Referral Self, USE FOR SELF REFERRALS. [facility], [address] [address], [place], [id number], [place] tel:[phone] [facility] Pancreas cyst 1 Janet Parrish [address] [facility], [facility] [address], [place], [id number], [place]. tel:[phone] [facility], [address] [address], [place], [id number], [place] tel:[phone] [facility] No Information 1 Janet Parrish [address] [facility], [facility] [address], [place], [address], [place]. tel:[phone] Offic/outpt E&m Estab Low-mod [facility], [address] [address], [place], [id number], [place] tel:[phone] [facility] GI Symptoms or Concerns (chief complaint) Chronic GERDPancreas cyst 1 Janet Parrish [address] [facility], [address], [id number], [place]. [phone] Referring Provider: Referral Self, USE FOR SELF REFERRALS. [facility], [address] [address], [place], [address], [place] tel:[phone] [facility] No Information 1 Janet Parrish [address] [facility], [facility] [address], [id number], [place]. tel:[phone] [facility], [address] [address], [facility] [place], [address], [place] tel:[phone] [facility] No Information 1 Saud Roberts. [address] [facility], [facility] [address], [place], [address], [place]. tel:[phone] [facility], [address] [address], [place], [id number], [place] tel:[phone] [facility] Pancreas cyst 0 Janet Parrish [address] [facility], [facility] [address], [place], [address], [place]. tel:[phone] [facility], [address] [address], [place], [id number], [place] tel:[phone] [facility] No Information Jan- 0 Janet Parrish [address] [facility], [facility] [address], [place], [place], [id number], [place]. tel:[phone] Referring Provider: Haley Gonzales MD, [address] [facility] [address], [place], [address] . tel:[phone] [facility], [address] [address], [place], [address], [place] tel:[phone] [facility] Pancreas cyst 9 Janet Parrish [address] [facility], [facility] [address], [place], [place], [address], [place]. tel:[phone] [facility], [address] [address], [place], [address], [place] tel:[phone] [facility] Unintentional weight lossPancreas cyst 0 9 Janet Parrish [address] [facility], [facility] [address], [place], [place], [address], [place]. tel:[phone] Offic/outpt E&m Estab Mod-hi 2 [facility], [address] [address], [place], [address], [place] tel:[phone] [facility] GI Symptoms or Concerns (chief complaint) Unintentional weight lossGastric perforationPancr eas cyst Jun-0 9 Janet Parrish [address] [facility], [facility] [address], [place], [place], [address], [place]. tel:[phone] Referring Provider: Guerita Romero MD C, [address], [place], [address]. tel:[phone] [facility], [address] [address], [place], [id number], [place] tel:[phone] [facility] No Information Saud Roberts. [address] [facility], [address] [address], [place], [place], [address], [place]. tel:[phone] Offic/outpt E&m Estab Low-mod [facility], [address] [address], [place], [place], [address], [place] tel:[phone] [facility] GI Symptoms or Concerns (chief complaint) Candidal esophagitisWeigh t loss, abnormal 9 [facility] PAC Sujata. [address] [facility], [facility] [address], [place], [address], [place]. tel:[phone] Referring Provider: Referral Self, USE FOR SELF REFERRALS. [facility], [address] [address], [place], [place], [address], [place] tel:[phone] [facility] Other somatoform disordersDysphag ia, unspecified typeBariatric surgery statusReflux esophagitisCandi neela esophagitisDysph agia, unspecifiedBaria tric surgery status Eliot Camarillo. [address] [facility], [address], [id number], [place]. tel:[phone] Referring Provider: Referral Self, USE FOR SELF REFERRALS. Offic/outpt E&m Estab Mod-hi 2 [facility], [address] [address], [place], [place], [id number], tel:[phone] [facility] GI Symptoms or Concerns (chief complaint) Globus sensationWeight loss, abnormal 9 [facility] Sujata. [address] [facility], [facility] [address], [place], [id number], [place]. tel:[phone] Referring Provider: Referral Self, USE FOR SELF REFERRALS. Offic/outpt E&m Estab Low-mod [facility], [address] [address], [place], [place], [address], [place] tel:[phone] [facility] GI Symptoms or Concerns (chief complaint) HeartburnEpigast christian painGlobus sensationDietary counseling and surveillance 8 No Information Referring Provider: Guerita Gonzalez, [address], [place], [address]. tel:[phone] Offic/outpt E&m Estab Low-mod [facility], [address] [address], [place], [place], [address], [place] tel:[phone] [facility] GI Symptoms or Concerns (chief complaint) Gastritis, unspecified, without bleedingLeft upper quadrant painBariatric surgery status 8 No Information [facility], [address] [address], [place], [place], [address], [place] tel:[phone] [facility] Status post gastric banding surgeryGastritis without bleeding, unspecified chronicity, unspecified gastritis typePeriumbilica l abdominal painDisease of stomach and duodenum, unspecifiedBaria tric surgery statusGastritis, unspecified, without bleeding Shawn Haley. [address] [place] [address], [id number], [place]. tel:[phone] Referring Provider: Referral Self, USE FOR SELF REFERRALS. Offic/outpt E&m Estab Mod-hi 2 [facility], [address] [address], [place], [place], [address], [place] tel:[phone] [facility] GI Symptoms or Concerns (chief complaint) Periumbilical abdominal painDietary counseling and surveillance No Information Referring Provider: Referral Self, USE FOR SELF REFERRALS. Offic/outpt E&m Estab Mod-hi 2 [facility], [address] [address], [place], [place], [address], [place] tel:[phone] [facility] GI Symptoms or Concerns (chief complaint) GERDAbdominal PainDietary Surveil/pet counselor 5 Shawn Haley. [address] [place] [address], [id number], [place]. tel:[phone] Referring Provider: Guerita Gonzalez, [address], [place], [address]. tel:[phone] [facility], [address] [address], [place], [address], [place] tel:[phone] Anders [facility] GastritisGastrit is, biopsy fpr H. pyloriGastroduod enal Dis NosAbdominal Pain 5 Shawn Haley. [address] [facility], [facility] [address], [place], [id number], [place]. tel:[phone] Referring Provider: Guerita Gonzalez, [address], [place], [address]. tel:[phone] [facility], [address] [address], [facility] [place], [address], [place] tel:[phone] [facility] External Referral 5 Biju Johnson. [address] [facility] [address], [place], [address], [place]. tel:[phone] Referring Provider: Guerita Gonzalez, [address], [place], [address]. tel:[phone] Family History Family Member Type Diagnosis Age At Onset Son Problem (finding) Alive and well Brother Problem (finding) Alive and well Sister Problem (finding) Alive and well Mother Problem (finding) Colon polyps Father Problem (finding) Alive and well Immunizations Vaccine Date Status Comments Afluria Qd administered Note: M [facility] bi-directional interface ; Source: Other Registry Afluria Qd administered Note: M [facility]IC bi-directional interface ; Source: Other Registry Influenza administered Note: [facility] bi-d irectional interface ; Source: Other Registry tetanus toxoid, reduced diphtheria toxoid, and acellular pertussis vaccine, adsorbed administered Note: [facility] bi-direct ional interface ; Source: Other Registry Influenza, injectable, MDCK, preservative free Flucelvax Quad Y administered Source: Other Provid er Influenza administered Note: [facility] bi-d irectional interface ; Source: Other Registry Influenza administered Note: [facility] bi-d irectional interface ; Source: Other Registry Influenza virus vaccine, injectable, quadrivalent, split virus, preservative free, 3 years or older Fluarix, Flulaval or Fluzone Quad administered Note: Invalid docume nted admin date was . ; Source: Other Provider Pneumovax 23 administered Note: [facility] bi-d irectional interface ; Source: Other Registry tetanus and diphtheria toxoi ds, adsorbed, preservative free, for adult use (5 Lf of tetanus toxoid and 2 Lf of diphtheria toxoid) administered Note: [facility] bi-direct ional interface ; Source: Other Registry measles, mumps and rubella virus vaccine administered Note: [facility] bi-direct ional interface ; Source: Other Registry Payers Payer name Insurance type Covered alliance party ID Authoriza tion(s) No Information Social History Type Description Quantity Date Captured Comments Alcohol Use Details Unknown Caffeine Use Details Unknown Tobacco Use Status Smoking Status No Information Sex Female Chief Complaint And Reason For Visit No Information Reason For Referral Reason For Referral No Information Plan Of Treatment Date Type Action Status Goal Lifestyle education regardin g diet completed Goal Lifestyle education regardin g diet completed Goal Lifestyle education regardin g diet completed Referral Ordered: Hepatic Function Panel Appointment date/timeframe: -today ordered Referral Ordered: follow-up visit 1 Year Appointment date/timeframe: 1 Year ordered Referral Ordered: MRI Pancreas WITH Contrast Appointment date/timeframe: 07/12/2019 ordered Referral Ordered: Colonoscopy Appointment date/timeframe: 08/30/2019 ordered Referral Ordered: MRI Pancreas WITHOUT Contrast Appointment date/timeframe: 08/28/2019 ordered Referral Ordered: EUS Appointment date/timeframe: 12/27/2019 ordered Referral Ordered: Xray Chest; AP Lateral Appointment date/timeframe: 05/24/2019 ordered Referral Ordered: CT Abdomen And Pelvis WITH Contrast Appointment date/timeframe: 05/24/2019 ordered Referral Ordered: CT Abdomen And Pelvis WITHOUT And WITH Contrast Appointment date/timeframe: 02/12/2017 ordered History Of Present Illness Encounter Date Complaint History Of Prese nt Illness GI Symptoms or Concerns Sandy is a 46-year-old female seen today in follow-up for concern of abdominal pain, reflux, recurrent nausea and vomiting and unintentional weight loss. Patient consented to being seen via virtual visit. She was in a private place and her , Aayush was present for the visit as well. Past medical history is significant for gastric bypass, gastric perforation and pancreatic cyst. She has been maintained on pantoprazole 40 milligram twice daily for some time for management of reflux. Last visit was with Dr. Gonzales in December of 2020. At this visit she had reported reflux symptoms were under good control . An MRI of the pancreas was completed in January of 2021 to follow-up of pancreatic cyst. This revealed a stable cystic lesion within the distal pancreatic body. Follow-up MRI was advised in about 2 years. Recently, patient reports she has developed abdominal pain that occasionally makes her double over. Pain has been constant for approximately the last week and is associated with some nausea and vomiting. She continues to take pantoprazole 40 milligrams twice daily. Denies any clear exacerbating factors although reports she does feel nauseous with eating. She has been taking a large amount of Tums and notes this is briefly helpful. She denies any difficulty swallowing, early satiety, fever or chills. She does note an unintentional weight loss of about 10 pounds over the last month. Patient continues to smoke tobacco. Reports she smokes 1 pack per day. Denies any alcohol use. Patient has never had a colonoscopy. She reports she did have a grandmother that of colon cancer in her 70s. Denies family history of colon cancer in immediate family. GI Symptoms or Concerns Sandy Lemus is a pleasant 45-year-old female with history of acid reflux and pancreas cyst. I saw her in followup today with a virtual visit. From a GI standpoint, she is doing well. Last January I did an EUS for a small benign-appearing pancreas cyst. She is post gastric bypass. An MRI was ordered for January 2021 to follow up on her cyst.When I last saw her, her reflux symptoms were not under good control and I increased the dose of her pantoprazole to 40 mg p.o. b.i.d. This is working well for her. She has no breakthrough reflux or heartburn symptoms. She had a shoulder injury earlier this year and had to take ibuprofen for few days and did get some GI upset with that. She has since stopped taking the ibuprofen. She does need a refill on her pantoprazole. Otherwise, she has no complaints today. GI Symptoms or Concerns Sandy Lemus is a pleasant 43-year-old female with history of gastric bypass surgery done 20 years ago, reflux, obesity, peptic ulcer disease, discectomy. I saw her in clinic today in followup. She was recently hospitalized at [facility] for hemoperitoneum. She was originally presented to [facility]. CT scan showed pneumoperitoneum likely originating from a gastric pouch. This was not certain. Her small bowel anastomotic loop was dilated to 4.4 cm. She was transferred to [place]. She was managed conservatively with antibiotics. She was discharged on June 13, 2019. She was thought to have a perforation around her gastric pouch, but this was not definitively defined. 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 She was started on antibiotics and made NPO. Repeat CT scan showed clearance of the intraperitoneal air. Of note, the CT also showed a 1 cm GI Symptoms or Concerns Najma christianson is a 43-year-old female who presents for followup of dysphagia and weight loss.She was evaluated in clinic 1 month ago for symptoms of heartburn, dysphagia, globus sensation, and weight loss. EGD on May 11 revealed jeferson esophagitis and postsurgical stomach. She was treated with fluconazole for 3 weeks and notes that her dysphagia symptoms have considerably improved. She had been taking pantoprazole 40 mg twice daily, but is now only taking it once daily with good relief of reflux. She denies abdominal pain, nausea, vomiting, bowel changes, or rectal bleeding.Extensive evaluation was performed for weight loss including CBC, CMP, chest x-ray, and CT abdomen and pelvis. All were unremarkable except for CT, which revealed endometrial thickening up to 3 cm. The patient reviewed this finding with her PCP who did not recommend further evaluation. The patient continues to report for appetite and early satiety. She has lost an additional 5 pounds in the p GI Symptoms or Concerns Najma christianson is a 43-year-old female with chronic GERD who presents in clinic today with continued symptoms.For the past 1 year, she has experienced a persistent sensation of a lump in her throat. This is associated with some intermittent dysphagia to solids and liquids. It feels like food is stuck in the back of the throat and has trouble moving down the esophagus. Over the past few months, the patient has also begun to developed hoarseness and scratchy voice. She continues to experience daily heartburn, which is worse on an empty stomach. There is associated nausea and rare vomiting. Most notably, the patient reports 20-pound weight loss unintentionally, and in review of our prior records, it does appear that she has lost 20 pounds since December 2017. This is despite no changes to diet or medications. The patient denies abdominal pain, diarrhea, constipation, or rectal bleeding. Currently, she takes omeprazole 40 mg in the morning and ranitidine in the evening. She may take GI Symptoms or Concerns Ms. Daja wilder is a very pleasant 42-year-old female who presents in followup today regarding epigastric pain and heartburn.Her history is significant for Leonides-en-Y and degenerative disk disease, which she was previously taking high doses of NSAIDs. We have maintained her on daily PPI to help protect her stomach as we have previously discussed the risks of NSAID use in Leonides-en-Y patient. She is also a daily smoker.She is currently maintained on omeprazole 40 mg once a day and uses ranitidine as needed. She needs ranitidine/Zantac on a daily basis. She is taking the omeprazole before bedtime. She reports that the epigastric pain is mildly improved, but remains an issue for her. She describes this as a burning pain with associated heartburn and reflux. In the past few weeks, she has noticed a globus sensation in the back of her throat. This may be acid related. She has not noticed any cold or postnasal drip. She is a smoker and we did discuss that if it persists, upper e GI Symptoms or Concerns Sandy is a very pleasant 42-year-old female who presents in followup today regarding abdominal pain.Her past medical history is significant for reported history of Leonides-en-Y. She also has chronic degenerative disk disease causing significant pain. She reports she is taking 1600 to 2400 mg of ibuprofen daily for this pain. She does follow up with the pain clinic and reports that she has a followup with them next week.She was last seen a year ago regarding abdominal pain. Given her ibuprofen use as well as continued tobacco use, an upper endoscopy was recommended. This was completed on 02/05/2017 with findings of gastritis. Stomach biopsy showed mild reactive gastropathy, but negative for chronic gastritis and H. pylori. She reports that she has been taking omeprazole at bedtime and ranitidine 2 to 3 times per day. Despite taking these medicines, she has ongoing abdominal pain. She describes the pain as a left upper quadrant burning that is worse when she has an empty GI Symptoms or Concerns Ms. Daja wilder is a very pleasant 41-year-old female with a past medical history of previous Leonides-en-Y, who presents today regarding periumbilical abdominal pain.She reports that she has been having worsening pain symptoms for the past few weeks. She describes the pain as a sharp burning pain, that is right above the umbilicus. It does seem to come on when she has an empty stomach. Eating or taking her heartburn medicines somewhat relieves the pain, but it generally takes quite a few hours. She has been taking Advil about four per week. She also continues to smoke about a pack per day. She is currently taking omeprazole 40 mg at night as well as ranitidine about four to six times per day. She thinks that this somewhat helps, but has not completely alleviated the pain. She has not had any blood work or imaging to further evaluate this.Her last endoscopy was in December 2014, and at that time, she had a normal esophagus, gastritis with mild erosions and a normal anastomosis, GI Symptoms or Concerns Brayan rowley is a very pleasant 39-year-old woman whom we are evaluating [facility] for gastroesophageal reflux and abdominal pain.The patient reports today that she has constant heartburn. She reports that she has had symptoms for at least ten years. She describes it as a reflux of acid up into her chest and it also causes burning in her mouth and burning in her mid-abdomen. She describes a burning in her abdomen as abdominal pain, it sometimes radiates straight to the back and sometimes radiates to her left shoulder. It is worse when her stomach is empty and it is worse with high-fat foods. She has no symptoms of vomiting or nausea and has had no significant weight loss. She reports that her symptoms are not worse with any particular food group except spicy foods.The patient has been on long-term proton-pump inhibitors. She was on pantoprazole and Carafate, but she felt like Carafate did not improve her symptoms and caused foaming and more reflux. She Functional Status Date Functional Assessmen t No Information Instructions Date Instruction Additional Infor anthony 1. MRI of the pancre as, January 2021.2. Continue pantoprazole 40 mg b.i.d. This was refilled for 1 year. She can try weaning down the dose if able.3. Follow up in 1 year.Thank you for allowing me to participate in the care of your patient. Please feel free to call with any questions or concerns. Related to Chronic GERD 1. Schedule EGD to e valuate to her stomach and for small bowel biopsies to exclude celiac disease. We will schedule colonoscopy as well. Terminal ileum should be evaluated to look for signs of inflammatory bowel disease. We will do this in 6 to 8 week giving time for her stomach to heal.2. For pancreatic cyst, we will get an MRI now and plan to do an EUS in 6 months depending on the results of her MRI.3. For further evaluation of her weight loss, we will check celiac antibodies as well as a thyroid cascade profile.4. We will have the patient follow up in clinic in 2 to 3 months. Related to Unintentional weight loss -Increase omeprazole to 40 mg twice a day. It is most effective before a meal. Increase the dose for 2-4 weeks. Notify me if no improvement of heartburn/feeling of something in your throat. Upper endoscopy and ENT referral should be considered-You can you ranitidine/Zantac as needed at bedtime or for breakthrough symptoms-I strongly encourage you to quit smoking. I would be hopeful to decrease the omeprazole dose skilled nursing to 20 mg once a day if you quit smoking and work on healthy eating-Continue to avoid NSAID medications such as ibuprofen/Advil/Aleve-Follow up as needed or in 1 year if you need annual refill. Call if no improvement on higher dose Related to Heartburn Lifestyle education regarding di et Related to Dietary counseling and surveillance -Talk to pain medici ne doctor about decreasing NSAID use-I strongly encourage you to quit smoking as this also irritates the stomach-Take omperazole (Prilosec) 30 minutes before breakfast and dinner-Take Zantac/ranitidine at bedtime -Follow up in 6 months. If you are doing well and decreasing NSAIDs, then you can decrease omeprazole to once a day Related to Gastritis, unspecified, without bleeding CT Abdomen And Pelvi s WITHOUT And WITH Contrast Lifestyle education regarding di et Related to Dietary counseling and surveillance Lifestyle education regarding di et Related to Dietary surveillance and counseling Gastroesophageal Reflux Disease Related to GERD Assessments Type Assessment Date No Information Patient Care Teams Name Effective Dates (start - stop) Status Members No Information
--- OUTSIDE RECORDS SUMMARY | 2023-12-14 01:27 | XMS_ITS | Clinical Summary ---
Author Name Unknown Organization [facility] Address [place], [place] [address] Care Team Providers Care Registered Nurse Maternity Name Role Phone Heriberto Valencia Unavailable Ilia Connors MD Primary Care Provider Wagner Dahl DO Unavailable [phone] Allergies Active Allergy Reactions Criticality Noted Date Comments Dexamethasone Psychosis,Visual Disturbances Erythromycin Hives,Itching 03/05/2006 Erythromycin Base Flushing,Itching Medium 04/16/2020 Medications Medication Sig Dispensed Refills Start Date End Date Status multivitamins with minerals tablet Take 1 tablet by mouth once daily. Active naloxone (NARCAN) 4 mg/actuation spry Narcan 4 mg/actuation nasal spray 03/01/2019 Active oxyCODONE-acetaminoph en, 10-325 mg, (PERCOCET) 10-325 mg per tabletIndications:Lum bar herniated disc,Cervical spinal stenosis,Chronic bilateral low back pain with left-sided sciatica,Issue of repeat prescription Take 1 tablet by mouth every 4 hours if needed 105 tablet 11/22/2019 Active VENTOLIN HFA 90 mcg/actuation inhalerIndications:SO B (shortness of breath) INHALE 2 PUFFS BY MOUTH EVERY 4 HOURS IF NEEDED 1 Inhaler 12/04/2019 Active gabapentin (NEURONTIN) 800 mg tablet Take 800 mg by mouth 4 times daily. 12/29/2019 Active amitriptyline (ELAVIL) 10 mg tablet 01/21/2020 Act uche Sodium Fluoride 1.1 % crea BRUSH 2 TIMES PER DAY. DO NOT EAT OR DRINK FOR 30 MINUTES AFTER 06/23/2020 Active omeprazole (PRILOSEC) 20 mg Delayed-Release capsule Take 1 capsule by mouth once daily. Active nystatin (MYCOSTATIN) creamIndications:Oral thrush Apply topically to affected area(s) 2 times daily. To corners of mouth 1 Tube 03/31/2021 Active cyclobenzaprine (FLEXERIL) 5 mg tablet TAKE 1-2 tablets by mouth every 8 hours NEEDED 04/08/2022 Active lansoprazole (PREVACID) 30 mg capsule take 1 capsule by ORAL route 2 times every day before a meal. OPEN CAPSULE AND SPRINKLE ON APPLE SAUCE OR YOGURT 04/27/2022 Active hydrOXYzine HCL (ATARAX) 25 mg tabletIndications:Anx iety Take 1 Tablet (25 mg) by mouth every 6 hours if needed for Anxiety. 20 Tablet 2 01/02/2023 Active buprenorphine (Belbuca) 900 mcg buccal filmIndications:Chron ic prescription opiate use Place 1 Film (900 mcg) in mouth, between cheek & gum every 12 hours. 60 Each 01/02/2023 Active norethindrone, Contraceptive, (Betty) 0.35 mg tabletIndications:Enc ounter for contraceptive management, unspecified type Take 1 Tablet (0.35 mg) by mouth once daily. 84 Tablet 1 06/13/2023 Active ondansetron (ZOFRAN ODT) 4 mg disintegrating tabletIndications:Roberth sea Place 1 Tablet (4 mg) on the tongue every 8 hours if needed for Nausea/Vomiting. 30 Tablet 10/09/2023 Active ALPRAZolam (XANAX) 0.5 mg tablet Active chlorhexidine (PERIDEX) 0.12 % solution RINSE WITH 1 CAPFUL TWICE DAILY* 03/26/2023 Active fluconazole (DIFLUCAN) 200 mg tablet Active HYDROcodone-acetamino phen (7.5-325 mg/tablet) TAKE 1 TABLET BY MOUTH EVERY 6 TO 8 HOURS NEEDED FOR PAIN 02/11/2023 Active ibuprofen (ADVIL; MOTRIN) 800 mg tablet TAKE ONE TABLET BY MOUTH EVERY SIX TO EIGHT HOURS NEEDED FOR PAIN* 02/02/2023 Active metroNIDAZOLE (FLAGYL) 500 mg tablet Active pantoprazole (PROTONIX) 40 mg delayed-release tablet Active Active Problems Problem Noted Date Diagnosed Date Underweight 02/04/2023 Pancreatic lesion 02/04/2023 Myopia of right eye with astigmatism 09/09/2018 Presbyopia 11/11/2016 Hyperopic astigmatism of left eye 11/11/2016 STALIN (generalized anxiety disorder) 06/13/2015 Overview: Taper xanax per pain clinic. Sep-Nov 12 30 pills Nov 12-Dec 13 15 pills then off Signed narcotics agreement 01/07/21 Other pulmonary embolism and infarction 01/29/20 12 Multiple lung nodules 01/29/2012 Overview: indeterminant largest 6 mm, recommend repeat CT in 6 months Found incidentally 01/26/2012 Left leg weakness 10/29/2011 Gastric bypass status for obesity 10/29/2011 Lumbar herniated disc 09/17/2011 ROBERTO II (cervical intraepithelial neoplasia II) 0 03/21/2010 Overview: 2006 LEEP, ROBERTO II Pap/HPV every 3 years until 03/2022 NIL/HPV negative Next due 03/2025 Tobacco use disorder 01/22/2007 Chronic prescription opiate use Overview: [facility] Resolved Problems Problem Noted Date Diagnosed Date Resolved Date Abdominal pain 06/09/2019 02/14/2021 Pneumoperitoneum 06/09/2019 02/14/2021 Anticoagulation monitoring, INR range 2-3 02/21/2013 07/20/2013 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 01/06/2012 02/02/2013 Schizoaffective disorder, un specified condition 11/12/2011 01/06/2012 Behavioral disorder 10/29/2011 11/10/19 12 Wound dehiscence 10/29/2011 02/02/2013 Encephalopathy 10/29/2011 11/10/2011 Iatrogenic cushingoid features 10/29/2011 02/02/2013 Complications of gastric bypass surgery 10/29/2011 02/02/2013 Unspecified psychosis 10/26/20112011 Rhabdomyolysis 09/17/2011 10/16/2011 Overview: Cause unknown; presented with acutely swollen L lower leg; w/u did not reveal cause ARF (acute renal failure) 09/17/2011 Overview: Secondary to rhabdomyolysis Sinus bradycardia 09/17/2011 10/16/2011 Elevated blood pressure read ing without diagnosis of hypertension 09/17/2011 02/02/2013 Overview: Secondary to ARF from rhabdomyolysis. On chlorthalidone for a few weeks. Now with normalized BP and creatinine. Supervision of other normal 10/12/2008 01/28/2009 Encounters Date Type Department Care Team Description 12/09/2023 2:30 PM CDT Office Visit [facility] [address] [place] [address] Paul Baez MD Follow Up (Discuss surgical options - cervical) 12/09/2023 Travel 11/27/2023 Telephone [facility] at [facility] [address] [place] [address] Heriberto Valencia PA Questions 11/27/2023 Orders Only [facility] [address] [place] [address] Heriberto Valencia PA 2 scans: (2-Ord) [facility], CERVICAL SPINE WO CONTRAST, 11/24/2023 11/25/2023 9:30 AM CDT Office Visit [facility] [address] [place] [address] Paul Baez MD Follow Up (Cervical Spine) 11/25/2023 Travel 11/04/2023 11:45 AM CDT Office Visit [facility] [address] [place] [address] Heriberto Valencia PA Follow Up 11/04/2023 Travel 10/09/2023 Refill [facility] [address] [place] [address] Ilia Connors MD Refill Request (ondansetron (ZOFRAN ODT) 4 mg disintegrating tablet) from Last 3 Months Immunizations Name Administration Dates Next Due Influenza Virus, Unspecified 06/26/2018,06/02/20 17,05/14/2016 Influenza, IIV3 (Age >=3 years) 05/24/20 18,05/08/2016,06/13/2013,2011,08/02/2012 Influenza, IIV4 05/07/2020,05/16/2015 Influenza, IIV4 (=>6mos) MDV 06/08/2019,06/02/20 17,05/14/2016 MMR 12/19/1992 Pneumococcal Poly,23-Valent (Pneumovax) 01/26/2012 Td (Age >=7 Years) 08/24/1996 Td, Preservative Free (age > = 7 Years) 06/11/2006 Tdap 11/08/2018 Family History Medical History Relation Name Comments COPD Father Cancer Maternal Grandfather Cancer Maternal Grandmother Cancer-breast Maternal Grandmother unknow n age Diabetes Mother Other Other No anesthesia r xn, bleeding disorders, or blood clots. Cancer Paternal Grandfather Cancer Paternal Grandmother Cancer-breast Paternal Grandmother unknow n age Relation Name Status Comments Father Maternal Grandfather Maternal Grandmother Mother Other great grand mot her Paternal Grandfather Paternal Grandmother Social History Tobacco Use Types Packs/Day Years Used Date Smoking Tobacco: Every Day Cigarettes Smokeless Tobacco: Never Tobacco Cessation:Ready to Q uit: Not Asked; Counseling Given: No Comments:pt declines info Alcohol Use Standard Drinks/Week Comments Not Currently 0 (1 standard drink = 0.6 oz pur e alcohol) increased use PHQ-2 Answer Date Recorded PHQ-2 TOTAL SCORE 2 04/16/2022 Social Connections Answer Date Recorded Frequency of Communication with Friends and Fami ly 0 02/04/2023 Financial Resource Strain Answer Date R ecorded Difficulty of Paying Living Expenses 3 02/04/2023 Difficulty of Paying Living Expenses Not on file 02/04/2023 Food Insecurity Answer Date Recorded Worried About Running Out of Food in the Last Ye ar 1 02/04/2023 Transportation Needs Answer Date Record ed Lack of Transportation (Medical) 1 02/04/2023 Housing Stability Answer Date Recorded Unable to Pay for Housing in the Last Year 1 02/04/2023 Sex and Gender Information Value Date Recorded Sex Assigned at Not on file Gender Identity Not on file Sexual Orientation Not on file Obstetrics History Para Term AB IAB SAB Ectopic Multiple Livin g Live Births 2 2 2 2 Date Outcome GA Total Labor Labor/2nd/3rd Weight Sex Delivery Anes PTL Geetha A1 A5 Name Cl in Term M Vag-Spont Term Last Filed Vital Signs Vital Sign Reading Time Taken Comments Blood Pressure 100/50 02/04/2023 1:30 PM CDT Pulse 85 02/04/2023 1:30 PM CDT Temperature 36.7 ??C (98.1 ??F) 02/04/2023 1:30 PM CD T Respiratory Rate 18 01/24/2020 1:11 PM CDT Oxygen Saturation 98% 02/04/2023 1:30 PM CDT Inhaled Oxygen Concentration - - Weight 49.9 kg (110 lb) 12/09/2023 2:28 PM CDT Height 172.7 cm (5' 8) 12/09/2023 2:28 PM CDT Body Mass Index 16.73 12/09/2023 2:28 PM CDT Plan of Treatment Health Maintenance Due Date Last Done Comments HIV for age 15-65 1990 Hepatitis C screening for ag e 18-79 1993 Pneumococcal series for age 6-64 (2 of 2 - PCV) 01/25/2013 01/26/2012 Colonoscopy through age 75 2020 Mammogram for age 45-75 02/04/2022 02/05/20 21, 02/03/2020, 11/12/2018, Additional history exists Depression screening for age 12+ 04/16/2023 04/16/2022, 12/18/2021, 03/25/2021, Additional history exists COVID-19 vaccine series ( season) 2023 Lipids for age 45-75 11/09/2023 11/08/2018 Influenza for age 9-49 04/24/2024 0, 06/08/2019, 06/26/2018, Additional history exists BMI (ht and wt on same day) for age 18+ 12/08/2024 12/09/2023, 11/25/2023, 11/04/2023, Additional history exists Pap test for age 21-65 04/16/2025 2, 04/16/2022, 11/05/2017, Additional history exists Tetanus booster 11/08/2028 11/08/2018, 05/24, 06/11/2006, Additional history exists Tdap Completed 11/08/2018 Procedures Procedure Name Priority Date/Time Associated Diagnosis Comments MR SPINE CERVICAL WO Routine 11/24/2023 12:00 AM CDT Cervical radiculopathy XR SPINE CERVICAL 4 OR 5 VIEWS Routine 11/24/2023 12:00 AM CDT Cervical radiculopathy HPV THIN PREP Routine 04/16/2022 1:43 PM CDT Pap smear for cervical cancer screening XR MAMMO OKSANA BILAT SCREEN Routine 02/04/2021 3:18 PM CDT Visit for screening mammogram LIPID PANEL W REFLEX MEASURED LDL Routine 11/08/2018 11:23 AM CDT Lipid screening from Last 3 Months or Most Recently Relevant to Health Maintenance Results * MR SPINE CERVICAL WO (11/24/2023 12:00 AM CDT) Anatomical Region Laterality Modality Spine, CERVICAL SPINE Magnetic R esonance Heriberto LLAMAS MR * XR SPINE CERVICAL 4 OR 5 VIEWS (11/24/2023 12:00 AM CDT) Anatomical Region Laterality Modality Spine, CERVICAL SPINE Digital Ra diography Heriberto LLAMAS GENERAL IMAGI NG * HPV HIGH RISK (04/16/2022 1:43 PM CDT) TYPE 16 Negative Negative 04/18/2022 5:13 PM CDT [facility] TYPE 18 Negative Negative 04/18/2022 5:13 PM CDT [facility] OTHER HIGH RISK TYPES Negative Negative 04/18/2022 5:13 PM CDT [facility] Other (Cervical) Non-Blood / Unknown 04/16/2022 1:43 PM CDT 04/17/2022 9:25 AM CDT [facility]ative [facility] - 04/18/2022 5:13 PM CDT HPV types 16, 18, 31, 33, 35, 39, 45, 51, 52, 56, 58, 59, 66 and 68 DNA were undetectable or below the pre-set threshold. Methodology: Adriana Napoleon 4800 HPV Test Guerita Romero MD MICROBIOLOGY [facility] [address] [place] [address], [place] * XR MAMMO OKSANA BILAT SCREEN (02/04/2021 3:18 PM CDT) Anatomical Region Laterality Modality BREASTS, Breast Left, Breast Right Bilateral Mammography Impressions 02/05/2021 4:46 PM CDT ??There is no radiographic evidence for malignancy. ??Recommend annual mammograms. MAMMOGRAM ASSESSMENT: ??ACR 2 Benign PATIENTS: You will also receive a letter with your examination results in an easy to read format. ??If you have questions about your results, please contact your referring provider. Narrative 02/05/2021 4:46 PM CDT XR MAMMO OKSANA BILAT SCREEN [[id number]] CLINICAL HISTORY: ??This is an asymptomatic 45 y.o. patient. INDICATION FOR EXAM: Mammogram Screening. TECHNIQUE: CC & MLO views were obtained. ??This ?? study was evaluated with the assistance of Computer-Aided Detection. Breast Tomosynthesis was used in interpretation. COMPARISON FILMS: Yes 02/03/20 ?? 11/08/18 ?? FINDINGS: ??The breasts have scattered areas of fibroglandular density. ??No suspicious masses or microcalcifications. ??Benign appearing mass(es) within left breast, previously biopsied as a fibroadenoma. Guerita Romero MD MAMMO * LIPID PANEL W REFLEX MEASURED LDL (11/08/2018 11:23 AM CDT) CHOLESTEROL,TOTAL 190 100 - 199 mg/dL 11/08/2018 7:14 PM CDT [facility] TRIGLYCERIDES 80 <150 mg/dL 11/08/2018 7:14 PM CDT [email or web address] HDL CHOLESTEROL 54 >40 mg/dL 9 7:14 PM CDT [facility] NON-HDL CHOLESTEROL 136 <145 mg/dl 11/08/2018 7:14 PM CDT [email or web address] CHOL/HDL RATIO 3.52 <4.50 11/08/2018 7:14 PM CDT [facility] LDL CHOLESTEROL 120 <=130 mg/dL 11/08/2018 7:14 PM CDT [email or web address] PROVIDER ORDERED STATUS RANDOM 11/08/2018 7:14 PM CDT [email or web address] Blood BLOOD SPECIMEN / Unknown Venipuncture / Unknown 11/08/2018 11:23 AM CDT 11/08/2018 11:23 AM CDT Guerita Romero MD CHEMISTRY [email or web address] [address] [place] [address], [place] from Last 3 Months or Most Recently Relevant to Health Maintenance Advance Directives * Full Code (Latest Code Status on File) Date Activated Date Inactivated Comments 06/09/2019 8:13 PM 06/13/2019 5:52 PM * Full Code Date Activated Date Inactivated Comments 10/26/2011 3:38 AM 11/21/2011 5:02 PM * Full Code Date Activated Date Inactivated Comments 11/10/2008 6:46 AM 11/11/2008 2:01 PM * Full Code Date Activated Date Inactivated Comments 11/10/2008 3:15 AM 11/10/2008 6:46 AM * Full Code Date Activated Date Inactivated Comments 11/10/2008 2:47 AM 11/10/2008 3:15 AM Care Teams Registered Nurse Maternity Relationship Specialty [place] [address] [place] [address] PCP - General Family Practice 07/02/22 Heriberto Valencia PA Neurosurgery 02/02/13 Wagner Dahl DO [address] [facility] [address] [place] [address] Endocrinology 10/14/22
--- OUTSIDE RECORDS SUMMARY | 2023-12-14 01:27 | XMS_ITS | Clinical Summary ---
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 Formerly [facility] Allergies Active Allergy Reactions Criticality Noted Date Comments Erythromycin Hives High 08/03/2017 Medications Medication Sig Dispensed Refills Start Date End Date Status gabapentin (NEURONTIN) 600 MG tablet Take 600 mg by mouth three times a day. Active cyclobenzaprine (FLEXERIL) 5 MG tablet Take 5 mg by mouth three times a day as needed for Muscle Spasms. Active oxyCODONE-acetamin ophen (PERCOCET) 7.5-500 MG tablet Take 5 Tablets by mouth every 4 hours as needed for Pain. Active raNITIdine (ZANTAC) 75 MG tablet Take 75 mg by mouth two times a day. Active amitriptyline (ELAVIL) 25 MG tablet Take 25 mg by mouth every evening. Active sodium fluoride (AKA DENTA,PREVIDENT) 1.1 % cream [place] 2x/day. Do not eat or drink for 30 minutes after. 51 g 6 08/03/2017 Active Additional Information Patient not taking.Reported on 07/11/2021 dexamethasone (DECADRON) 6 MG tablet Take 6 mg by mouth two times a day with meals. Active multivitamin with minerals (CERTAVITE,MYADEC) tablet Take 1 Tab by mouth daily. Active Collagen 500 MG Active cyanocobalamin (VITAMIN B12) 100 MCG tablet Take 100 mcg by mouth daily. Active cholecalciferol (VITAMIND3) 2000 units tablet Take 2,000 Units by mouth daily. Active Biotin [address] [place] Wort 300 MG Active sodium fluoride (PREVIDENT) 1.1 % cream [place] 2x/day. Do not eat or drink for 30 minutes after. 51 g 6 06/12/2020 Active Additional Information Patient not taking.Reported on 03/28/2021 ALPRAZolam (XANAX) 0.5 MG tablet Take 0.5 mg by mouth. 12/03/2020 Active Norethindrone, Contraceptive, (ANGIE) 0.35 MG tablet Take 0.35 mg by mouth. 12/05/2020 Active omeprazole (PRILOSEC) 20 MG capsule Take 1 Capsule by mouth. Active pantoprazole (PROTONIX) 40 MG tablet take 1 tablet by mouth 2 times every day 11/22/2020 Active tiZANidine (ZANAFLEX) 4 MG tablet Take 4 mg by mouth three times a day. 11/22/2020 Active amitriptyline (ELAVIL) 10 MG tablet 10 mg two times a day. 11/22/2020 Active gabapentin (NEURONTIN) 800 MG tablet TAKE ONE TABLET BY MOUTH FOUR TIMES DAILY FOR CHRONIC PAIN 11/22/2020 Active oxyCODONE-acetamin ophen (PERCOCET) 10-325 MG tablet TAKE 1 TABLET EVERY 4 TO 6 HOURS NEEDED. MAXIMUM OF 5 TABLETS PER DAY. 11/22/2020 Active ibuprofen (MOTRIN) 600 MG tablet Take 1 Tablet by mouth every 6 hours as needed for Pain. 30 Tablet 1 03/26/2021 Active amoxicillin (AMOXIL) 500 MG capsule Take 1 Capsule (500 mg) by mouth three times a day. 21 Capsule 07/24/2022 Active Active Problems No known active problems Social History Tobacco Use Types Packs/Day Years Used Date Smoking Tobacco: Every Day Cigarettes 1 25 Smokeless Tobacco: Never Alcohol Use Standard Drinks/Week Comments No 0 (1 standard drink = 0.6 oz pur e alcohol) Sex and Gender Information Value Date Recorded Sex Assigned at Female 05/15/2021 7:21 PM CDT Gender Identity Female 05/15/2021 7:21 PM CDT Sexual Orientation Straight 05/15/2021 7: 21 PM CDT Last Filed Vital Signs Vital Sign Reading Time Taken Comments Blood Pressure 112/78 09/23/2018 12:[address] Pulse 83 03/28/2021 7:17 AM CDT Temperature - - Respiratory Rate - - Oxygen Saturation 100% 03/26/2021 8:15 AM CDT Inhaled Oxygen Concentration - - Weight 77.1 kg (170 lb) 12/06/2020 2:21 PM CDT Height 175.3 cm (5' 9) 12/06/2020 2:21 PM CDT Body Mass Index 25.1 12/06/2020 2:21 PM CDT Plan of Treatment Health Maintenance Due Date Last Done Comments Cervical Cancer Screening Due 1975 Colon Cancer Screening Plan Due 1975 Hep C Screening (Preventive Services) 1975 HIV Screening (Preventive Services) 1991 Adult Preventive Visit 1993 HepB (1) 1994 Pneumococcal (2 - PCV) 01/25/2013 01/26/2012 Cholesterol 2020 COVID-19 Vaccine (1 - season) 2023 Influenza (#1) 2023 05/07/2020, 05/24, 06/26/2018, Additional history exists Zoster/Shingles (1 of 2) 2025 DTaP/Tdap/Td (2 - Tdap) 11/08/2028 11/09/19 19, 06/11/2006, 08/24/1996 HepA Aged Out No longer eligi ble based on patient's age to complete this topic Hib Aged Out No longer eligi ble based on patient's age to complete this topic IPV (Polio) Aged Out No longer eligi ble based on patient's age to complete this topic MCV4 Aged Out No longer eligi ble based on patient's age to complete this topic Care Teams [employer] 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
--- OUTSIDE RECORDS SUMMARY | 2023-12-14 01:27 | XMS_ITS | Continuity of Care Document ---
Author Name Unknown Organization [facility] Address [address] [place] [address] Phone Care Team Providers Care Heel Packer Name Role Phone Will Manish DESAI Unavailable Unavailabl e Allergies, Adverse Reactions, Alerts Substance Reaction Status Criticality dexamethasone Drug-induced psychosis Active No I nformation erythromycin base itching Active No Informa tion Medications Medication Instructions Dosage Effective Dates (start - stop) Status Comments Narcan 4 mg/actuation nasal spray spray 0.1 milliliter by intranasal route in 1 nostril may repeat dose every 2-3 minutes as needed alternating nostrils with each dose 4 MG - Active Prilosec OTC 20 mg tablet,delayed release take 1 tablet by oral route once per day as directed - Active alprazolam 0.5 mg tablet take 1 tablet by oral route 2 times every day 0.5 MG - Active ranitidine 150 mg capsule take 1 capsule by oral route every day - Active omeprazole 20 mg capsule,delayed release take 1 capsule by oral route every day 30 minutes to 1 hour before a meal 20 MG - Active Procedures Procedure Date OFFICE/OUTPATIENT VISIT, EST Drug Urine Toxology With Chromatography OFFICE/OUTPATIENT VISIT, EST OFFICE/OUTPATIENT VISIT, EST OFFICE/OUTPATIENT VISIT, EST OFFICE/OUTPATIENT VISIT, EST Drug test def 22+ classes Drug Urine Toxology With Chromatography OFFICE/OUTPATIENT VISIT, EST OFFICE/OUTPATIENT VISIT, EST OFFICE/OUTPATIENT VISIT, EST OFFICE/OUTPATIENT VISIT, EST OFFICE/OUTPATIENT VISIT, EST OFFICE/OUTPATIENT VISIT, EST OFFICE/OUTPATIENT VISIT, EST OFFICE/OUTPATIENT VISIT, EST Drug test def 22+ classes Drug Urine Toxology With Chromatography OFFICE/OUTPATIENT VISIT, EST OFFICE/OUTPATIENT VISIT, EST OFFICE/OUTPATIENT VISIT, EST Drug test def 22+ classes Drug Urine Toxology With Chromatography OFFICE/OUTPATIENT VISIT, EST OFFICE/OUTPATIENT VISIT, EST OFFICE/OUTPATIENT VISIT, EST OFFICE/OUTPATIENT VISIT, EST OFFICE/OUTPATIENT VISIT, EST OFFICE/OUTPATIENT VISIT, EST OFFICE/OUTPATIENT VISIT, EST N BLOCK INJ, OCCIPITAL Betamethasone acet sod phosp Lidocaine injection OFFICE/OUTPATIENT VISIT, EST OFFICE/OUTPATIENT VISIT, EST OFFICE/OUTPATIENT VISIT, EST OFFICE/OUTPATIENT VISIT, EST OFFICE/OUTPATIENT VISIT, EST OFFICE/OUTPATIENT VISIT, EST OFFICE/OUTPATIENT VISIT, EST OFFICE/OUTPATIENT VISIT, EST OFFICE/OUTPATIENT VISIT, EST OFFICE/OUTPATIENT VISIT, EST OFFICE/OUTPATIENT VISIT, EST OFFICE/OUTPATIENT VISIT, EST OFFICE/OUTPATIENT VISIT, EST OFFICE/OUTPATIENT VISIT, EST OFFICE/OUTPATIENT VISIT, EST OFFICE/OUTPATIENT VISIT, EST OFFICE/OUTPATIENT VISIT, EST OFFICE/OUTPATIENT VISIT, EST OFFICE/OUTPATIENT VISIT, EST OFFICE/OUTPATIENT VISIT, EST OFFICE/OUTPATIENT VISIT, EST OFFICE/OUTPATIENT VISIT, EST OFFICE/OUTPATIENT VISIT, EST OFFICE/OUTPATIENT VISIT, EST OFFICE/OUTPATIENT VISIT, EST OFFICE/OUTPATIENT VISIT, EST OFFICE/OUTPATIENT VISIT, EST OFFICE/OUTPATIENT VISIT, EST INJECT SPINE C/T RIGHT Surgical trays FLUOROGUIDE FOR SPINE INJECT Lidocaine injection Betamethasone acet&sod phosp Omnipaque 240 50ml Omnipaque 240 Per 50ml Fentanyl citrate injeciton Inj midazolam hydrochloride MOD CS BY SAME PHYS, 5 YRS + OFFICE/OUTPATIENT VISIT, EST OFFICE/OUTPATIENT VISIT, EST OFFICE/OUTPATIENT VISIT, EST OFFICE/OUTPATIENT VISIT, EST RF Lumb/Sacral Single Level LEFT 2014 RF Lumb/Sacral 2nd Level LEFT 5 FLUOROGUIDE FOR SPINE INJECT MOD CS BY SAME PHYS, 5 YRS + Surgical trays Dexamethasone sodium phos Inj midazolam hydrochloride Fentanyl citrate injeciton OFFICE/OUTPATIENT VISIT, EST INJ FORAMEN EPIDURAL L/S RIGHT 15 Surgical trays FLUOROGUIDE FOR SPINE INJECT Dexamethasone sodium phos Omnipaque 240 50ml Omnipaque 240 Per 50ml Fentanyl citrate injeciton Inj midazolam hydrochloride MOD CS BY SAME PHYS, 5 YRS + OFFICE/OUTPATIENT VISIT, EST RF Lumb/Sacral Single Level RIGHT RF Lumb/Sacral 2nd Level RIGHT 14 Surgical trays FLUOROGUIDE FOR SPINE INJECT MOD CS BY SAME PHYS, 5 YRS + Dexamethasone sodium phos Fentanyl citrate injeciton Inj midazolam hydrochloride OFFICE/OUTPATIENT VISIT, EST OFFICE/OUTPATIENT VISIT, EST OFFICE/OUTPATIENT VISIT, EST NEUROMUSCULAR REEDUCATION THERAPEUTIC EXERCISES INJ TRIGGER POINT, 08/25 MUSCL Betamethasone acet&sod phosp OFFICE/OUTPATIENT VISIT, EST NEUROMUSCULAR REEDUCATION THERAPEUTIC EXERCISES INJECT SPINE C/T-Office Surgical trays FLUOROGUIDE FOR SPINE INJECT Betamethasone acet&sod phosp Omnipaque 240 50ml Omnipaque 240 Per 50ml OFFICE/OUTPATIENT VISIT, EST INJ FORAMEN EPIDURAL L/S BILATERAL INJ FORAMEN EPIDURAL ADD-ON Surgical trays FLUOROGUIDE FOR SPINE INJECT Dexamethasone sodium phos Omnipaque 240 50ml Omnipaque 240 Per 50ml NEUROMUSCULAR REEDUCATION PT EVALUATION OFFICE/OUTPATIENT VISIT, EST OFFICE/OUTPATIENT VISIT, NEW Advance Directives Directive Yes / No Effective Date File Name No Information Encounters Encounter Description Practice Location Reason(s) For Visit Diagnoses Date Provider Providers Copied on Encounter [facility], [address], [place], [id number] , [place] tel:[phone] [facility] No Information 2 Martinez Hammond. [address], [place], [id number], [place]. tel:[phone] OFFICE/OUTPA TIENT VISIT, [facility], [address], [place], [id number] , [place] tel:[phone] [facility] [place] low back pain (chief complaint) Neck pain (chief complaint) Other intervertebral disc displacement, lumbar regionPostlaminec allan syndrome, not elsewhere classifiedOther cervical disc degeneration at C5-C6 levelOther intervertebral disc displacement, lumbosacral regionLong term (current) use of opiate analgesic 9 Manny Dunn. [address] [place] [address], [id number], [place]. tel:[phone] Specialist: Heriberto VALENCIA, [address] [place] [address] [address], [place], [address]. tel:[phone] ring Provider: Manish Sweeney, [address] [place] [address], [address]. tel:[phone] OFFICE/OUTPA TIENT VISIT, [facility], [address] [place] [address], [id number] , [place] tel:[phone] [facility] low back pain (chief complaint) Neck Pain (chief complaint) intermediate (current) use of opiate analgesicOther intervertebral disc displacement, lumbar regionPostlaminec allan syndrome, not elsewhere classifiedOther cervical disc degeneration at C5-C6 levelOther intervertebral disc displacement, lumbosacral regionEncounter for therapeutic drug level monitoring Manny Mona. [address] [place] [address], [id number], [place]. tel:[phone] Specialist: Heriberto VALENCIA, [address] [place] [address] [address], [place], [address]. tel:[phone] ring Provider: Manish Sweeney, [address] [place] [address], [address]. 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 [address], [place], [id number], [place]. tel:[phone] Specialist: Heriberto VALENCIA, [address] [place] [address] [address], [place], [address]. tel:[phone] ring Provider: Manish Sweeney, [address] [place] [address], [address]. tel:[phone] OFFICE/OUTPA TIENT VISIT, [facility], [address] [place] [address], [id number] , [place] tel:[phone] [facility] low back pain (chief complaint) intermediate (current) use of opiate analgesicOther intervertebral disc displacement, lumbar regionPostlaminec allan syndrome, not elsewhere classifiedOther cervical disc degeneration at C5-C6 levelOther intervertebral disc displacement, lumbosacral region Jeramie-0 9-201 9 Manny Mona. [address] [place] [address], [id number], [place]. tel:[phone] Specialist: Heriberto VALENCIA, [address] [address], [place], [address]. tel:[phone] Provider: Manish Sweeney, [address] [place] [address], [address]. tel:[phone] OFFICE/OUTPA TIENT VISIT, [facility], [address] [place] [address], [id number] , [place] tel:[phone] [facility] low back pain (chief complaint) intermediate (current) use of opiate analgesicOther intervertebral disc displacement, lumbar regionPostlaminec allan syndrome, not elsewhere classifiedOther cervical disc degeneration at C5-C6 levelOther intervertebral disc displacement, lumbosacral region May-1 0-201 9 Manny Dunn. [address] [place] [address], [id number], [place]. tel:[phone] Specialist: Heriberto VALENCIA, [address] [address], [place], [address]. tel:[phone] Provider: Manish Sweeney, [address] [place] [address], [address]. tel:[phone] OFFICE/OUTPA TIENT VISIT, [facility], [address] [place] [address], [id number] , [place] tel:[phone] [facility] low back pain (chief complaint) Neck Pain (chief complaint) Other intervertebral disc displacement, lumbar regionPostlaminec allan syndrome, not elsewhere classifiedOther cervical disc degeneration at C5-C6 levelOther intervertebral disc displacement, lumbosacral regionLong term (current) use of opiate analgesicEncounte r for therapeutic drug level monitoring Manny Mona. [address] [place] [address], [id number], [place]. tel:[phone] Specialist: Heriberto VALENCIA, [facility] [address] [place] [address], [place], [address]. tel:[phone] ring Provider: Manish Sweeney, [address] [place] [address], [address]. tel:[phone] OFFICE/OUTPA TIENT VISIT, [facility], [address] [place] [address], [id number] , [place] tel:[phone] [facility] low back pain (chief complaint) Other intervertebral disc displacement, lumbar regionRadiculopat hy, cervical regionPostlaminec allan syndrome, not elsewhere classifiedOther cervical disc degeneration at C5-C6 levelOther intervertebral disc displacement, lumbosacral region Manny Dunn. [address] [place] [address], [id number], [place]. tel:[phone] Specialist: Heriberto VALENCIA, [facility] [address] [address], [place], [address]. tel:[phone] ring Provider: Manish Sweeney, [address] [place] [address], [address]. tel:[phone] OFFICE/OUTPA TIENT VISIT, [facility], [address] [place] [address], [id number] , [place] [phone] [facility] low back pain (chief complaint) Other intervertebral disc displacement, lumbar regionOther intervertebral disc displacement, lumbosacral regionOther cervical disc degeneration at C5-C6 levelRadiculopath y, cervical regionPostlaminec allan syndrome, not elsewhere classified Manny Dunn. [address] [place] [address], [id number], [place]. tel:[phone] Specialist: Heriberto VALENCIA, [address] [address], [place], [address]. tel:[phone] Provider: Manish Sweeney, [address] [place] [address], [address]. tel:[phone] OFFICE/OUTPA TIENT VISIT, EST [facility], [address] [place] [address], [id number] , [place] tel:[phone] [facility] low back pain (chief complaint) Radiculopathy, cervical regionPostlaminec allan syndrome, not elsewhere classifiedOther intervertebral disc displacement, lumbosacral regionOther cervical disc degeneration at C5-C6 levelOther intervertebral disc displacement, lumbar region 8 Manny Dunn. [address] [place] [address], [id number], [place]. tel:[phone] Specialist: Heriberto VALENCIA, [facility] [address] [address], [place], [address]. tel:[phone] ring Provider: Manish Sweeney, [address] [place] [address], [address]. tel:[phone] OFFICE/OUTPA TIENT VISIT, EST [facility], [address] [place] [address], [id number] , [place] tel:[phone] [facility] low back pain (chief complaint) Neck pain (chief complaint) Other intervertebral disc displacement, lumbar regionOther intervertebral disc displacement, lumbosacral regionLong term (current) use of opiate analgesicPostlami nectomy syndrome, not elsewhere classifiedOther cervical disc degeneration at C5-C6 levelRadiculopath y, cervical region 8 Manny Dunn. [address] [place] [address], [id number], [place]. tel:[phone] Specialist: Heriberto VALENCIA, [address] [address], [place], [address]. tel:[phone] ring Provider: Manish Sweeney, [address] [place] [address], [address]. tel:[phone] OFFICE/OUTPA TIENT VISIT, [facility], [address] [place] [address], [id number] , [place] tel:[phone] [facility] low back pain (chief complaint) Neck pain (chief complaint) Other intervertebral disc displacement, lumbosacral regionOther intervertebral disc displacement, lumbar regionPostlaminec allan syndrome, not elsewhere classifiedOther cervical disc degeneration at C5-C6 level 8 Manny Dunn. [address] [place] [address], [id number], [place]. tel:[phone] Specialist: Heriberto VALENCIA, [address] [address], [place], [address]. tel:[phone] ring Provider: Manish Sweeney, [address] [place] [address], [address]. tel:[phone] OFFICE/OUTPA TIENT VISIT, EST [facility], [address] [place] [address], [id number] , [place] tel:[phone] [facility] low back pain (chief complaint) Other intervertebral disc displacement, lumbar regionOther intervertebral disc displacement, lumbosacral regionPostlaminec allan syndrome, not elsewhere classifiedOther cervical disc degeneration at C5-C6 level 8 Manny Dunn. [address] [place] [address], [id number], [place]. tel:[phone] Specialist: Heriberto VALENCIA, [address] [facility], [place], [address]. tel:[phone] ring Provider: Manish Sweeney, [address] [place] [address], [address]. tel:[phone] OFFICE/OUTPA TIENT VISIT, [facility], [address] [place] [address], [id number] , [place] tel:[phone] [facility] low back pain (chief complaint) Other intervertebral disc displacement, lumbosacral regionOther intervertebral disc displacement, lumbar regionPostlaminec allan syndrome, not elsewhere classifiedOther cervical disc degeneration at C5-C6 level 8 Manny Dunn. [address] [place] [address], [id number], [place]. tel:[phone] Specialist: Heriberto VALENCIA, [address] [facility], [place], [address]. tel:[phone] ring Provider: Manish Sweeney, [address] [place] [address], [address]. tel:[phone] OFFICE/OUTPA TIENT VISIT, [facility], [address] [place] [address], [id number] , [place] tel:[phone] [facility] low back pain (chief complaint) Other intervertebral disc displacement, lumbosacral regionOther intervertebral disc displacement, lumbar regionPostlaminec allan syndrome, not elsewhere classifiedOther cervical disc degeneration at C5-C6 level 8 Manny Dunn. [address] [place] [address], [id number], [place]. tel:[phone] Specialist: Heriberto VALENCIA, [address] [place] [place] [address], [place], [address]. tel:[phone] ring Provider: Manish Sweeney, [address] [place] [address], [address]. tel:[phone] OFFICE/OUTPA TIENT VISIT, [facility], [address] [place] [address], [id number] , [place] [phone] [facility] Back Pain (chief complaint) Other intervertebral disc displacement, lumbosacral regionPostlaminec allan syndrome, not elsewhere classifiedOther cervical disc degeneration at C5-C6 levelOther intervertebral disc degeneration, lumbar regionRadiculopat hy, cervical region Manny Dunn. [address], [place], [id number], [place]. tel:[phone] Specialist: Heriberto VALENCIA, [facility] [address] [address], [place], [address]. tel:[phone] ring Provider: Manish Sweeney, [address] [place] [address], [address]. tel:[phone] OFFICE/OUTPA TIENT VISIT, [facility], [address] [place] [address], [id number] , [place] tel:[phone] [facility] Back Pain (chief complaint) Postlaminectomy syndrome, not elsewhere classifiedOther intervertebral disc displacement, lumbar regionOther intervertebral disc displacement, lumbosacral regionOther cervical disc degeneration at C5-C6 level Manny Dunn. [address] [place] [address], [id number], [place]. tel:[phone] Specialist: Heriberto VALENCIA, [facility] [address], [place], [address]. tel:[phone] ring Provider: Manish Sweeney, [address] [place] [address], [address]. tel:[phone] OFFICE/OUTPA TIENT VISIT, [facility], [address] [place] [address], [id number] , [place] tel:[phone] [facility] [place] Back Pain (chief complaint) Postlaminectomy syndrome, not elsewhere classifiedOther intervertebral disc displacement, lumbar regionOther intervertebral disc displacement, lumbosacral regionOther cervical disc degeneration at C5-C6 level 0 8 Manny Dunn. [address] [place] [address], [id number], [place]. tel:[phone] Heriberto Valencia PAC, [address] [address], [place], [address]. tel:[phone] ring Provider: Manish Sweeney, [address] [place] [address], [address]. tel:[phone] OFFICE/OUTPA TIENT VISIT, EST [facility], [address] [place] [address], [id number] , [place] [phone] [facility] [place] Back Pain (chief complaint) Postlaminectomy syndrome, not elsewhere classifiedOther intervertebral disc displacement, lumbar regionOther intervertebral disc displacement, lumbosacral regionOther cervical disc degeneration at C5-C6 level 8 Manny Dunn. [address] [place] [address], [id number], [place]. tel:[phone] Heriberto Valencia [facility], [address], [address]. tel:[phone] ring Provider: Manish Sweeney, [address] [place] [address], [address]. tel:[phone] OFFICE/OUTPA TIENT VISIT, EST [facility], [address] [place] [address], [id number] , [place] tel:[phone] [facility] [place] Back Pain (chief complaint) Postlaminectomy syndrome, not elsewhere classifiedOther intervertebral disc displacement, lumbar regionOther intervertebral disc displacement, lumbosacral regionOther cervical disc degeneration at C5-C6 level 7 Manny Dunn. [address] [place] [address], [id number], [place]. tel:[phone] Heriberto Valencia PAC, [facility] [address], [place], [address]. tel:[phone] ring Provider: Manish Sweeney, [address] [place] [address], [address]. tel:[phone] OFFICE/OUTPA TIENT VISIT, [facility], [address] [place] [address], [id number] , [place] tel:[phone] [facility] low back pain (chief complaint) Neck pain (chief complaint) Postlaminectomy syndrome, not elsewhere classifiedOther intervertebral disc displacement, lumbosacral regionOther intervertebral disc displacement, lumbar regionOther cervical disc degeneration at C5-C6 level Manny Dunn. [address] [place] [address], [id number], [place]. tel:[phone] Heriberto Valencia PAC, [address] [address], [place], [address]. tel:[phone] ring Provider: Manish Sweeney, [address] [place] [address], [address]. tel:[phone] OFFICE/OUTPA TIENT VISIT, [facility], [address] [place] [address], [id number] , [place] tel:[phone] [facility] Back Pain (chief complaint) Lumbago with sciatica, right sideOther cervical disc degeneration at C5-C6 levelOther intervertebral disc degeneration, lumbar regionPostlaminec allan syndrome, not elsewhere classified Manny Dunn. [address] [place] [address], [id number], [place]. tel:[phone] , [address] [place] [place] [address], [place], [address].Refer [facility] Provider: Manish Sweeney, [address] [place] [address], [address]. tel:[phone] OFFICE/OUTPA TIENT VISIT, EST [facility], [address], [place], [id number] , [place] tel:[phone] [facility] Back Pain (chief complaint) Lumbago with sciatica, right sideOther cervical disc degeneration at C5-C6 levelOther intervertebral disc degeneration, lumbar regionPostlaminec allan syndrome, not elsewhere classifiedHeadach e Manny Dunn. [address], [place], [id number], [place]. [phone] , [facility] [address], [place], [address].Refer ring Provider: Manish Sweeney, [address] [place] [address], [address]. tel:[phone] OFFICE/OUTPA TIENT VISIT, [facility], [address], [place], [id number] , [place] tel:[phone] [facility] Back Pain (chief complaint) Lumbago with sciatica, right sidePostlaminecto my syndrome, not elsewhere classifiedOther cervical disc degeneration at C5-C6 levelOther intervertebral disc degeneration, lumbar regionHeadache Leavitt Yesi. [address] [place], [address], [place]. tel:[phone] , [address], [place], [address].Refer ring Provider: Manish Sweeney, [address] [place] [address], [address]. tel:[phone] [facility], [address] [place] [address], [id number] , [place] [phone] [facility] [place] Headache 7 Manny Dunn. [address], [place], [id number], [place]. tel:[phone] Referring Provider: Manish Sweeney, [address] [place] [address], [address]. tel:[phone] OFFICE/OUTPA TIENT VISIT, EST [facility], [address], [place], [id number] , [place] tel:[phone] [facility] [place] Back Pain (chief complaint) Lumbago with sciatica, right sidePostlaminecto my syndrome, not elsewhere classifiedOther cervical disc degeneration at C5-C6 levelOther intervertebral disc degeneration, lumbar regionHeadache Manny Dunn. [address], [place], [id number], [place]. tel:[phone] , [facility] [address], [place], [address].Refer ring Provider: Manish Sweeney, [address] [place] [address], [address]. tel:[phone] OFFICE/OUTPA TIENT VISIT, [facility], [address] [place] [address], [id number] , [place] [phone] [facility] Back Pain (chief complaint) Neck pain (chief complaint) CervicalgiaOther cervical disc degeneration at C5-C6 levelOther intervertebral disc degeneration, lumbar regionPostlaminec allan syndrome, not elsewhere classifiedLumbago with sciatica, right side Manny Dunn. [address], [place], [id number], [place]. tel:[phone] , [address] [facility], [place], [address].Refer ring Provider: Manish Sweeney, [address] [place] [address], [address]. tel:[phone] OFFICE/OUTPA TIENT VISIT, [facility], [address] [place] [address], [id number] , [place] [phone] [facility] Back Pain (chief complaint) CervicalgiaLumbag o with sciatica, right sideOther cervical disc degeneration at C5-C6 levelOther intervertebral disc degeneration, lumbar regionPostlaminec allan syndrome, not elsewhere classified Manny Dunn. [address], [place], [id number], [place]. tel:[phone] , [address], [place], [address].Refer ring Provider: Manish Sweeney, [address] [place] [address], [address]. tel:[phone] OFFICE/OUTPA TIENT VISIT, [facility], [address] [place] [address], [id number] , [place] tel:[phone] [facility] Back Pain (chief complaint) CervicalgiaLumbag o with sciatica, right sideOther cervical disc degeneration at C5-C6 levelOther intervertebral disc degeneration, lumbar regionPostlaminec allan syndrome, not elsewhere classified Manny Dunn. [address], [place], [id number], [place]. tel:[phone] , [address] [facility], [place], [address].Refer ring Provider: Manish Sweeney, [address] [place] [address], [address]. tel:[phone] OFFICE/OUTPA TIENT VISIT, [facility], [address] [place] [address], [id number] , [place] tel:[phone] [facility] Back Pain (chief complaint) Other intervertebral disc displacement, lumbar regionPostlaminec allan syndrome, not elsewhere classifiedOther cervical disc degeneration at C5-C6 levelCervicalgiaL umbago with sciatica, right side Manny Dunn. [address], [place], [id number], [place]. tel:[phone] , [address], [place], [address].Refer ring Provider: Manish Sweeney, [address] [place] [address], [address]. tel:[phone] [facility], [address] [place] [address], [id number] , [place] tel:[phone] [facility] No Information 0 7 Manny Dunn. [address] [place] [address], [id number], [place]. tel:[phone] OFFICE/OUTPA TIENT VISIT, EST [facility], [address] [place] [address], [id number] , [place] tel:[phone] [facility] Back Pain (chief complaint) Other intervertebral disc displacement, lumbar regionPostlaminec allan syndrome, not elsewhere classified Sep-2 Manny Mona. [address] [place] [address], [id number], [place]. tel:[phone] , [address] [place] [address], [id number].Refer ring Provider: Manish Sweeney, [address] [place] [address], [address]. tel:[phone] OFFICE/OUTPA TIENT VISIT, [facility], [address] [place] [address], [id number] , [place] tel:[phone] [facility] ([facility]) Other intervertebral disc displacement, lumbar regionPostlaminec allan syndrome, not elsewhere classified 0 Te Aguilar. [address] [place] [address], [id number], [place]. tel:[phone] , [address], [place], [address].Refer ring Provider: Manish Sweeney, [address] [place] [address], [address]. tel:[phone] OFFICE/OUTPA TIENT VISIT, [facility], [address] [place] [address], [id number] , [place] [phone] [facility] Back Pain (chief complaint) Postlaminectomy syndrome, not elsewhere classifiedOther intervertebral disc displacement, lumbar region Manny Dunn. [address], [place], [id number], [place]. tel:[phone] , [address], [place], [address].Refer ring Provider: Manish Sweeney, [address] [place] [address], [address]. tel:[phone] OFFICE/OUTPA TIENT VISIT, [facility], [address] [place] [address], [id number] , [place] [phone] [facility] Back Pain (chief complaint) Postlaminectomy syndrome, not elsewhere classifiedOther intervertebral disc displacement, lumbar region Manny Dunn. [address] [place] [address], [id number], [place]. tel:[phone] , [address] [facility], [place], [address].Refer ring Provider: Manish Sweeney, [address] [place] [address], [address]. tel:[phone] OFFICE/OUTPA TIENT VISIT, [facility], [address] [place] [address], [id number] , [place] tel:[phone] [facility] Back Pain (chief complaint) Postlaminectomy syndrome, not elsewhere classifiedOther intervertebral disc displacement, lumbar region Manny Dunn. [address] [place] [address], [id number], [place]. tel:[phone] , [address] [facility], [place], [address].Refer ring Provider: Manish Sweeney, [address] [place] [address], [address]. tel:[phone] OFFICE/OUTPA TIENT VISIT, [facility], [address] [place] [address], [id number] , [place] tel:[phone] [facility] Back Pain (chief complaint) Other intervertebral disc displacement, lumbosacral regionOther intervertebral disc displacement, lumbar regionLumbago with sciatica, right sideOther cervical disc degeneration at C5-C6 level 6 6 Manny Dunn. [address], [place], [id number], [place]. tel:[phone] Heriberto VALENCIA, [address] [address], [place], [address]. [phone] ring Provider: Manish Sweeney, [address] [place] [address], [address]. tel:[phone] OFFICE/OUTPA TIENT VISIT, [facility], [address] [place] [address], [id number] , [place] [phone] [facility]) Other intervertebral disc displacement, lumbosacral regionOther intervertebral disc displacement, lumbar regionLumbago with sciatica, right side 4 6 Manny Dunn. [address], [place], [id number], [place]. tel:[phone] Heriberto VALENCIA, [address] [address], [place], [address]. tel:[phone] InfoAssure Provider: Manish Sweeney, [address] [place] [address], [address]. tel:[phone] OFFICE/OUTPA TIENT VISIT, [facility], [address] [place] [address], [id number] , [place] [phone] [facility] Back Pain (chief complaint) Other intervertebral disc displacement, lumbosacral regionOther intervertebral disc displacement, lumbar regionLumbago with sciatica, right sideOther muscle spasmMyalgiaInsom idalia Sep-2 0-201 6 Waterproof Yesi. [address] [place], [address], [place]. tel:[phone] Heriberto Valencia [facility], [facility] [address], [place], [address]. tel:[phone] ring Provider: Manish Sweeney, [address] [place] [address], [address]. tel:[phone] OFFICE/OUTPA TIENT VISIT, [facility], [address] [place] [address], [id number] , [place] tel:[phone] [facility] Back Pain (chief complaint) Other intervertebral disc degeneration, lumbar regionPostlaminec allan syndrome, not elsewhere classifiedOther cervical disc degeneration, mid-cervical region Manny Dunn. [address] [place] [address], [id number], [place]. tel:[phone] , [address], [place], [address].Refer ring Provider: Manish Sweeney, [address] [place] [address], [address]. [phone] OFFICE/OUTPA TIENT VISIT, [facility], [address] [place] [address], [id number] , [place] [phone] [facility] Back Pain (chief complaint) Other intervertebral disc degeneration, lumbar regionPostlaminec allan syndrome, not elsewhere classifiedOther cervical disc degeneration, mid-cervical region 6 Manny Dunn. [address] [place] [address], [id number], [place]. tel:[phone] , [address], [place], [address].Refer ring Provider: Manish Sweeney, [address] [place] [address], [address]. tel:[phone] OFFICE/OUTPA TIENT VISIT, [facility], [address] [place] [address], [id number] , [place] [phone] [facility] Back Pain (chief complaint) Other intervertebral disc degeneration, lumbar regionPostlaminec allan syndrome, not elsewhere classifiedOther cervical disc degeneration, mid-cervical region 6 Manny Dunn. [address] [place] [address], [id number], [place]. tel:[phone] , [facility] [place] 675 [facility] 675 [facility] [address], [place], [address].Refer ring Provider: Manish Sweeney, [address] [place] [address], [address]. tel:[phone] OFFICE/OUTPA TIENT VISIT, [facility], [address] [place] [address], [id number] , [place] tel:[phone] [facility] Back Pain (chief complaint) Low back painCervicalgia 6 Manny Dunn. [address] [place] [address], [id number], [place]. tel:[phone] Referring Provider: Manish Sweeney, [address] [place] [address], [address]. tel:[phone] OFFICE/OUTPA TIENT VISIT, [facility], [address] [place] [address], [id number] , [place] tel:[phone] [facility] Back Pain (chief complaint) intermediate (current) use of opiate analgesicOther cervical disc degeneration, mid-cervical regionPostlaminec allan syndrome, not elsewhere classifiedOther intervertebral disc degeneration, lumbar region 6 Elizabeth Wilks. [address] [place] [address], [id number], [place]. tel:[phone] Referring Provider: Manish Sweeney, [address] [place] [address], [address]. tel:[phone] OFFICE/OUTPA TIENT VISIT, [facility], [address] [place] [address], [id number] , [place] tel:[phone] [facility] Back Pain (chief complaint) Postlaminectomy syndrome, not elsewhere classifiedOther intervertebral disc degeneration, lumbar regionLong term (current) use of opiate analgesic 6 Manny Figueredohanie. [address] [place] [address], [id number], [place]. tel:[phone] , [address] [facility] [address], [place], [address].Refer ring Provider: Manish Sweeney, [address] [place] [address], [address]. tel:[phone] OFFICE/OUTPA TIENT VISIT, [facility], [address] [place] [address], [id number] , [place] tel:[phone] [facility] Back Pain (chief complaint) Postlaminectomy syndrome, not elsewhere classifiedOther intervertebral disc degeneration, lumbar region 6 Manny Figueredohanie. [address], [place], [id number], [place]. tel:[phone] , [address] [address], [place], [address].Refer ring Provider: Manish Sweeney, [address] [place] [address], [address]. tel:[phone] OFFICE/OUTPA TIENT VISIT, [facility], [address] [place] [address], [id number] , [place] tel:[phone] [facility] Back Pain (chief complaint) Other cervical disc degeneration, mid-cervical regionPostlaminec allan syndrome, not elsewhere classifiedOther intervertebral disc degeneration, lumbar region 6 Manny Figueredohanie. [address], [place], [id number], [place]. tel:[phone] Specialist: Heriberto VALENCIA, [facility] [address] [address], [place], [address]. tel:[phone] ring Provider: Manish Sweeney, [address] [place] [address], [address]. tel:[phone] OFFICE/OUTPA TIENT VISIT, [facility], [address] [place] [address], [id number] , [place] tel:[phone] [facility] Back Pain (chief complaint) Other cervical disc degeneration, mid-cervical regionOther intervertebral disc degeneration, lumbar region No Head Of Design: Heriberto VALENCIA, [facility] [address] [address], [place], [address]. [phone] ring Provider: Manish Sweeney, [address] [place] [address], [address]. [phone] OFFICE/OUTPA TIENT VISIT, [facility], [address] [place] [address], [id number] , [place] tel:[phone] [facility] Back Pain (chief complaint) Postlaminectomy syndrome, not elsewhere classifiedLong term (current) use of opiate analgesicOther cervical disc degeneration, mid-cervical regionOther intervertebral disc degeneration, lumbar region No Head Of Design: Heriberto VALENCIA, [facility] [address] [address], [place], [address]. tel:[phone] ring Provider: Manish Sweeney, [address] [place] [address], [address]. [phone] OFFICE/OUTPA TIENT VISIT, [facility], [address] [place] [address], [id number] , [place] [phone] [facility] Back Pain (chief complaint) Postlaminectomy syndrome, not elsewhere classified 5 No Information Referring Provider: Manish Sweeney, [address] [place] [address], [address]. [phone] OFFICE/OUTPA TIENT VISIT, [facility], [address] [place] [address], [id number] , [place] tel:[phone] [facility] Back Pain (chief complaint) Degeneration of cervical intervertebral discDegeneration of lumbar or lumbosacral intervertebral discPostlaminecto my syndrome of lumbar regionMyalgia and myositis, unspecified 5 No Head Of Design: Heriberto VALENCIA, [address], [place], [address]. tel:[phone] ring Provider: Manish Sweeney, [address] [place] [address], [address]. tel:[phone] OFFICE/OUTPA TIENT VISIT, [facility], [address] [place] [address], [id number] , [place] tel:[phone] [facility] Back Pain (chief complaint) Displacement of cervical intervertebral disc without myelopathyPostlam inectomy syndrome of lumbar region 5 Manny Dunn. [address], [place], [id number], [place]. tel:[phone] Specialist: Heriberto VALENCIA, [address] [facility], [place], [address]. tel:[phone] Provider: Manish Sweeney, [address] [place] [address], [address]. tel:[phone] OFFICE/OUTPA TIENT VISIT, [facility], [address] [place] [address], [id number] , [place] tel:[phone] [facility] Back Pain (chief complaint) Displacement of cervical intervertebral disc without myelopathyPostlam inectomy syndrome of lumbar regionDegeneratio n of cervical intervertebral disc 5 Manny Dunn. [address], [place], [id number], [place]. tel:[phone] Specialist: Heriberto VALENCIA, [address], [place], [address]. tel:[phone] ring Provider: Manish Sweeney [address] [place] [address], [address]. tel:[phone] OFFICE/OUTPA TIENT VISIT, EST [facility], [address] [place] [address], [id number] , [place] tel:[phone] [facility] Back Pain (chief complaint) Degeneration of cervical intervertebral discPostlaminecto my syndrome of lumbar region Manny Dunn. [address] [place] [address], [id number], [place]. tel:[phone] Referring Provider: Manish Sweeney, [address] [place] [address], [address]. tel:[phone] [facility], [address] [place] [address], [id number] , [place] tel:[phone] [facility] Degeneration of cervical intervertebral disc Martinez Hammond. [address] [place] [address], [id number], [place]. tel:[phone] Referring Provider: Manish Sweeney, [address] [place] [address], [address]. tel:[phone] OFFICE/OUTPA TIENT VISIT, [facility], [address] [place] [address], [id number] , [place] tel:[phone] [facility] Back Pain (chief complaint) Degeneration of cervical intervertebral discDisplacement of cervical intervertebral disc without myelopathyPostlam inectomy syndrome of lumbar region Manny Dunn. [address] [place] [address], [id number], [place]. tel:[phone] Referring Provider: Manish Sweeney, [address] [place] [address], [address]. tel:[phone] OFFICE/OUTPA TIENT VISIT, [facility], [address] [place] [address], [id number] , [place] tel:[phone] [facility] Back Pain (chief complaint) Degeneration of lumbar or lumbosacral intervertebral discDegeneration of cervical intervertebral discHeadache 5 Manny Mona. [address], [place], [id number], [place]. tel:[phone] Referring Provider: Manish Sweeney, [address] [place] [address], [address]. tel:[phone] OFFICE/OUTPA TIENT VISIT, EST [facility], [address] [place] [address], [id number] , [place] tel:[phone] [facility] Back Pain (chief complaint) Degeneration of lumbar or lumbosacral intervertebral discPostlaminecto my syndrome of lumbar regionDegeneratio n of cervical intervertebral discHeadache 5 Manny Mona. [address] [place] [address], [id number], [place]. tel:[phone] Referring Provider: Manish Sweeney, [address] [place] [address], [address]. tel:[phone] OFFICE/OUTPA TIENT VISIT, EST [facility], [address] [place] [address], [id number] , [place] tel:[phone] [facility] low back pain (chief complaint) Degeneration of lumbar or lumbosacral intervertebral discUnspecified arthropathy involving other specified sitesPostlaminect kelly syndrome of lumbar region Oct-0 2- 5 Manny Mona. [address] [place] [address], [id number], [place]. tel:[phone] Referring Provider: Manish Sweeney, [address] [place] [address], [address]. tel:[phone] [facility], [address] [place] [address], [id number] , [place] tel:[phone] [facility] Unspecified arthropathy involving other specified sites 0- 5 Bryan Guillen. [address] [place] [address], [id number], [place]. tel:[phone] Referring Provider: Manish Sweeney, [address] [place] [address], [address]. tel:[phone] OFFICE/OUTPA TIENT VISIT, EST [facility], [address] [place] [address], [id number] , [place] tel:[phone] [facility] low back pain (chief complaint) Displacement of lumbar intervertebral disc without myelopathyUnspeci fied arthropathy involving other specified sitesPostlaminect kelly syndrome of lumbar region 5 Manny Dunn. [address] [place] [address], [id number], [place]. tel:[phone] Referring Provider: Manish Sweeney, [address] [place] [address], [address]. tel:[phone] [facility], [address] [place] [address], [id number] , [place] tel:[phone] [facility] Displacement of lumbar intervertebral disc without myelopathy 5 Bryan Guillen. [address] [place] [address], [id number], [place]. tel:[phone] Referring Provider: Manish Sweeney, [address] [place] [address], [address]. tel:[phone] OFFICE/OUTPA TIENT VISIT, EST [facility], [address] [place] [address], [id number] , [place] tel:[phone] [facility] Back Pain (chief complaint) Sciatica Due To Displacement Of Lumbar DiscUnspecified arthropathy involving other specified sites 4 No Information Referring Provider: Manish Sweeney, [address] [place] [address], [address]. tel:[phone] [facility], [address] [place] [address], [id number] , [place] tel:[phone] [facility] Unspecified arthropathy involving other specified sites 4 Will Manish. [address] [place] [address], [id number], [place]. tel:[phone] Referring Provider: Manish Sweeney, [address] [place] [address], [address]. tel:[phone] OFFICE/OUTPA TIENT VISIT, EST [facility], [address] [place] [address], [id number] , [place] tel:[phone] [facility] low back pain (chief complaint) Degeneration of lumbar or lumbosacral intervertebral discUnspecified arthropathy involving other specified sites 4 Manny Dunn. [address] [place] [address], [id number], [place]. tel:[phone] Referring Provider: Manish Sweeney, [address] [place] [address], [address]. tel:[phone] OFFICE/OUTPA TIENT VISIT, [facility], [address] [place] [address], [id number] , [place] [phone] [facility] neck pain (chief complaint) low back pain (chief complaint) Postlaminectomy syndrome of lumbar regionDegeneratio n of cervical intervertebral discUnspecified arthropathy involving other specified sites 4 Manny Dunn. [address] [place] [address], [id number], [place]. tel:[phone] Referring Provider: Manish Sweeney, [address] [place] [address], [address]. tel:[phone] OFFICE/OUTPA TIENT VISIT, [facility], [address] [place] [address], [id number] , [place] tel:[phone] [facility] neck pain (chief complaint) Myalgia and myositis, unspecifiedPostla minectomy syndrome of lumbar regionDegeneratio n of cervical intervertebral disc 4 Manny Dunn. [address] [place] [address], [id number], [place]. tel:[phone] Referring Provider: Manish Sweeney, [address] [place] [address], [address]. tel:[phone] [facility], [address] [place] [address], [id number] , [place] tel:[phone] [facility] back pain (chief complaint) neck pain (chief complaint) No Information Oct-0 1-201 4 Cynthia Wilkins. [address] [place] [address], [id number], [place]. tel:[phone] Referring Provider: Manish Sweeney, [address] [place] [address], [address]. tel:[phone] [facility], [address] [place] [address], [id number] , [place] tel:[phone] [facility] [facility] (chief complaint) Myalgia and myositis, unspecified Sep-2 2-201 4 Manny Dunn. [address] [place] [address], [id number], [place]. tel:[phone] Referring Provider: Manish Sweeney, [address] [place] [address], [id number]. tel:[phone] OFFICE/OUTPA TIENT VISIT, EST [facility], [address] [place] [address], [id number] , [place] tel:[phone] [facility] low back pain (chief complaint) neck pain (chief complaint) Postlaminectomy syndrome of lumbar regionDegeneratio n of cervical intervertebral discSpasm of muscle Sep-1 8-201 4 Manny Dunn. [address] [place] [address], [id number], [place]. tel:[phone] Referring Provider: Manish Sweeney, [address] [place] [address], [id number]. tel:[phone] [facility], [address] [place] [address], [id number] , [place] [phone] [facility] back pain (chief complaint) neck pain (chief complaint) No Information Sep-0 9-201 4 Cynthia Wilkins. [address] [place] [address], [id number], [place]. tel:[phone] Referring Provider: Manish Sweeney, [address] [place] [address], [id number]. tel:[phone] [facility], [address] [place] [address], [id number] , [place] tel:[phone] [facility] Degeneration of cervical intervertebral disc 4 Adams Mindy. [address] [place] [address], [id number], [place]. tel:[phone] Referring Provider: Manish Sweeney, [address] [place] [address], [id number]. tel:[phone] OFFICE/OUTPA TIENT VISIT, EST [facility], [address] [place] [address], [id number] , [place] [phone] [facility] neck pain (chief complaint) low back pain (chief complaint) Postlaminectomy syndrome of lumbar regionDegeneratio n of cervical intervertebral discSpondylolisth esis, congenital 4 Manny Dunn. [address] [place] [address], [id number], [place]. tel:[phone] Referring Provider: Manish Sweeney, [address] [place] [address], [id number]. tel:[phone] [facility], [address] [place] [address], [id number] , [place] tel:[phone] [facility] Degeneration of lumbar or lumbosacral intervertebral disc 4 Adams Mindy. [address] [place] [address], [id number], [place]. tel:[phone] Referring Provider: Manish Sweeney, [address] [place] [address], [id number]. tel:[phone] [facility], [address] [place] [address], [id number] , [place] tel:[phone] [facility] back pain (chief complaint) Sciatica Due To Displacement Of Lumbar Disc 4 Cynthia Wilkins. [address] [place] [address], [id number], [place]. tel:[phone] Referring Provider: Manish Sweeney, [address] [place] [address], [id number]. tel:[phone] OFFICE/OUTPA TIENT VISIT, [facility], [address] [place] [address], [id number] , tel:[phone] [facility] left low back pain (chief complaint) left leg pain (chief complaint) Postlaminectomy syndrome of lumbar regionDegeneratio n of cervical intervertebral disc 4 Manny Mona. [address] [place] [address], [id number], [place]. tel:[phone] Referring Provider: Manish Sweeney, [address] [place] [address], [id number]. tel:[phone] OFFICE/OUTPA TIENT VISIT, [facility], [address] [place] [address], [id number] , tel:[phone] [facility] left low back pain (chief complaint) left leg pain (chief complaint) Spondylolisthesis , congenitalPostlam inectomy syndrome of lumbar regionDegeneratio n of lumbar or lumbosacral intervertebral discDegeneration of cervical intervertebral discTherapeutic Drug Monitoring Manny Dunn. [address] [place] [address], [id number], [place]. tel:[phone] Referring Provider: Manish Sweeney, [address] [place] [address], [id number]. tel:[phone] Family History Family Member Type Diagnosis Age At Onset Mother Problem (finding) discectomy Problem (finding) Family history of Back pain Brother Problem (finding) Discectomy Father Problem (finding) discectomy Brother Problem (finding) 2 discectomies Payers Payer name Insurance type Covered libertarian ID Lowell contreras(s) Medicare MB [id number] [facility] [id number] Social History Type Description Quantity Date Captured Comments Sex Female Smoking Status No Information Chief Complaint And Reason For Visit No Information Reason For Referral Reason For Referral No Information Plan Of Treatment Date Type Action Status Goal Tobacco cessation counseling completed Goal Tobacco cessation counseling completed Goal Tobacco cessation counseling completed Referral Ordered: [facility] -Family Medicine (related to Other cervical disc degeneration at C5-C6 level) ordered Referral Referred To: [facility] [address] [place], [id number] Ordered: Referrals: Family Medicine. [facility] ordered Future Order: Lab Order COMPLIAN CE DRUG ANALYSIS, URINE, WITH MED REPORT ([id number]), Ordered on: Ordered Future Order: Lab Order Drug Madyson t Def 22+ Classes ([id number]), Ordered on: Ordered Future Order: Lab Order COMPLIAN CE DRUG ANALYSIS, URINE, WITH MED REPORT ([id number]), Ordered on: Ordered Future Order: Lab Order Drug Madyson t Def 22+ Classes ([id number]), Ordered on: Ordered Future Order: Lab Order COMPLIAN CE DRUG ANALYSIS, URINE, WITH MED REPORT ([id number]), Ordered on: Ordered Future Order: Lab Order COMPLIAN CE DRUG ANALYSIS, URINE, WITH MED REPORT ([id number]), Ordered on: Ordered History Of Present Illness Encounter Date Complaint History Of Prese nt Illness low back pain (comments) Crystal is here for follow up and medication refill. Ongoing neck and low back pain. Reports her pain has been worse secondary to esophageal thrush. Reports weight loss and expresses concern over her weight. Ongoing usage of CBD products--obtained through local tobacco shop. Reports benefit from using CBD oil. Denies using recreational marijuana.She presents with #14 Percocet 10-325mg - on track. The prescribed medication provides at least 50% pain relief which allows her to increase daily activity levels. No medication SE noted. low back pain Severity level i s 6. The problem is fluctuating. It occurs persistently. Location of pain is lower back and neck. Pain is radiated to the left calf.The patient describes the pain as an ache, sharp and tingling. Symptoms are aggravated by ascending stairs, bending, descending stairs, lifting, lying/rest, sitting, standing, twisting, walking, housework, movement and prolonged positioning. Symptoms are relieved by heat, lying down, pain meds/drugs, stretching, sitting, standing, walking, TENS and changing positions. Neck pain low back pain Severity level i s 6. Duration: chronic. The problem is fluctuating. It occurs persistently. Location of pain is lower back. Pain is radiated to the left calf.The patient describes the pain as an ache, burning, sharp and tingling. Symptoms are aggravated by ascending stairs, bending, descending stairs, lifting, lying/rest, running, sitting, standing, twisting, walking, housework, movement and prolonged position. Symptoms are relieved by heat, lying down, pain meds/drugs, rest, sitting, standing, stretching, TENS and changing position. low back pain (comments) Sandy is here for follow up and medication refill. Increased pain in her low back with radiation into her left calf. Requests her parking disability to be updated at today's OV. Ongoing neck pain. Still working with [facility], who have recommended against additional injections at this time.She presents with #29 Percocet 10-325mg - on track. The prescribed medication reduces pain from 8/10 to 6/10 which allows her to increase daily activity levels, no SE noted. Continues to take amitriptyline with benefit, tolerating current dose well with no side effects. Neck Pain Pertinent negati ves include bladder incontinence. Low back pain Severity level i s 6. Duration: chronic. The problem is fluctuating. It occurs persistently. Location of pain is lower back.The patient describes the pain as an ache, sharp and tingling. Symptoms are aggravated by ascending stairs, bending, descending stairs, lifting, lying/rest, sitting, standing, twisting, walking, prolonged positioning, housework and movement. Symptoms are relieved by heat, lying down, pain meds/drugs, rest, sitting, changing positions, standing and TENS. Low back pain (comments) Sandy is here for follow up and medications refill. Completed low back injections about 3 weeks ago. Right side injection provided minimal relief. Second injection completed about 2 weeks later on the left side provided significant relief. Reports significant pain relief from RFA. However, lower priority pain was revealed. Reports amitriptyline helpful at night with headaches.Presents with #14 Percocet - on track. Reports current medication regimen provides 50% pain relief and allows for increased functionality. Denies side effects from current medication regimen.No other concerns today. low back pain (comments) Sandy is here for follow up and medication refill. Pain is most bothersome in low back with radicular symptoms into BL thighs. Additional complaints of neck pain, described as stiff. Denies radicular symptoms. Interventions done through [facility]. DId notice benefit from recent lumbar RFA, but now having more SIJ pain.She presents with #19 Percocet 10-325mg - on track. The prescribed medication provides at least 25% pain relief which allows her to increase daily activity levels, no SE. Continues to take amitriptyline with benefit and is tolerating the current dose well. low back pain Severity level i s 6. Duration: chronic. The problem is stable. It occurs persistently. Location of pain is lower back and neck. Pain is radiated to the left thigh and right thigh.The patient describes the pain as sharp. Symptoms are aggravated by ascending stairs, bending, descending stairs, lifting, running, sitting, standing, twisting, walking, housework, movement and prolonged position. Symptoms are relieved by heat, lying down and rest. low back pain Severity level i s 7. Duration: chronic. The problem is fluctuating. It occurs persistently. Location of pain is lower back and neck. Pain is radiated to the left calf, left foot and left thigh.The patient describes the pain as an ache, sharp and tingling. Symptoms are aggravated by ascending stairs, bending, descending stairs, lifting, lying/rest, sitting, standing, twisting, walking, housework, movement and prolonged positioning. Symptoms are relieved by heat, pain meds/drugs and changing positions. low back pain (comments) Sandy is here for follow up and medication refill. Complaints of low back pain with radicular symptoms into RLE. Radicular pain is described as shocking.She is s/p bilateral lumbar RFA completed at [facility], right side completed 12/10 and left side completed 12/24. She is ambivalent about the benefit she is receiving from her RFA. Complains of increased thigh pain over the past few day.She presents with #19 Percocet 10-325mg - on track. The prescribed medication provides at least 25% pain relief which allows her to increase daily activity levels, no SE. Neck Pain Location of pain is bilateral posterior neck. low back pain Severity level i s 6. Duration: chronic. It occurs persistently. Location of pain is lower back and neck. Pain is radiated to the left calf, left foot and bilateral shoulder.The patient describes the pain as an ache, burning, sharp and tingling. Symptoms are aggravated by ascending stairs, bending, descending stairs, lifting, running, sitting, standing, twisting, walking, housework, movement and prolonged positioning. Symptoms are relieved by ice, lying down, massage, pain meds/drugs, physical therapy, stretching, rest, sitting, standing, TENS and changing position. low back pain (comments) Sandy is here today for follow up and medication refill. Pain today is most bothersome in neck, described as pulling. Pain is worse with cold and humidity. Complaints of radiations into shoulders. Reports decreased frequency of headaches from daily to 2x/week. Reports spells of dizziness and slurred speech.S/p SI injection from [facility] with benefit. Currently pursing RFA with Dr. Brannon through [facility].She presents with #9 Percocet 10-325mg - on track. The prescribed medication relieves at least 50% of her pain which allows her to increase daily activity levels, no SE. Reports benefit with Amitriptyline to reduce headaches low back pain (comments) Sandy is here for follow up and medications refill. Reports her low back pain has been relatively stable since last OV and MICHAEL. Is scheduled for repeat Lumbar MICHAEL and b/l SI joint injections scheduled in September with [facility]. Considering repeat RFA and possibly surgery if injections fail. Presents with #19 Percocet - on track. Reports current medication regimen provides 50% pain relief and allows for increased functionality. Denies side effects from current medication regimen.No other concerns today. low back pain Severity level i s 6. Duration: chronic. The problem is fluctuating. It occurs intermittently. Location of pain is lower back. Pain is radiated to the left calf.The patient describes the pain as an ache, sharp and tingling. Symptoms are aggravated by ascending stairs, daily activities, descending stairs, standing and walking. Symptoms are relieved by heat, lying down, pain meds/drugs, stretching and rest. low back pain Severity level i s 7. Duration: chronic. The problem is fluctuating. It occurs persistently. Location of pain is lower back and neck. Pain is radiated to the left calf.The patient describes the pain as numbness, sharp and tingling. Symptoms are aggravated by ascending stairs, bending, descending stairs, lifting, lying/rest, sitting, standing, twisting, housework, moement and prolonged positioning. Symptoms are relieved by heat, lying down, pain meds/drugs, stretching, rest, sitting, changing positions, standing, walking and TENS. low back pain (comments) Sandy is here today for follow up and medication refill. LESI completed 6 weeks ago at [facility] is providing significant relief. She continues to experience LBP with radiation into the buttock, but radiation into her BLE has resolved. Her neck pain is described as stiff, but is overall stable. She presents with #4 percocet 10-325mg - on track, d/o today. The medication relieves at least 50% of her pain, which allows her to increase daily activity levels. Denies SE. low back pain Severity level i s 8. Duration: chronic. The problem is worsening. It occurs persistently. Location of pain is lower back and neck. Pain is radiated to the left calf.The patient describes the pain as sharp and tingling. Symptoms are aggravated by ascending stairs, bending, daily activities, descending stairs and standing. Symptoms are relieved by heat, injection and pain meds/drugs. low back pain (comments) Sandy is here for follow up and medications refill. Reports of having 3 back injections recently with no relief of back pain (although relief of leg pain). Reports of her back pain to have been worsening and describes it as sharp and sporadic. Vision blurriness has subsided with recent switch to gabapentin from Lyrica. No relief from trial of Flector patches. Expressed her hesitation with pursuing surgical treatment options at this time. Presents with #9 Perocet - on track. Reports current medication regimen provides 25% pain relief and allows for increased functionality. Denies side effects from current medication regimen.No other concerns today. low back pain (comments) Crystal is here for follow up and medications refill. Presents with #19 Percocet- on track. Reports current medication regimen provides 30% pain relief and allows for increased ability to function. She c/o increased blurry vision, possibly a SE from use of Lyrica. Reports of her back pain to be worse this month. She describes of the pain to be achy and radiates to her LE which restricts activity at times. Says she will contact FARHAD Christensen of [facility] if she is able to resume injections as it was put on hold. No other concerns today. low back pain Severity level i s 7. Duration: chronic. The problem is worsening. It occurs persistently. Location of pain is lower back and neck. Pain is radiated to the left ankle.The patient describes the pain as an ache, sharp and tingling. Symptoms are aggravated by bending, daily activities, sitting, standing and twisting. Symptoms are relieved by heat, pain meds/drugs, stretching, rest and TENS. Neck pain Pertinent negati ves include bladder incontinence. low back pain (comments) Patient is here for follow-up and medication refills. Patient has #11 Percocet and #1 Fentanyl remaining today - on track. Reports at least 30% relief from the medication which increases her daily activity level. States tht she does not want to take Fentanyl anymore due to side effects of light headedness and dizziness. 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 Continues with PT, which is somewhat helpful. Asa Valencia has discourgaed further injections at this point due to number allready done this year. low back pain Severity level i s 6-8. Duration: chronic. The problem is fluctuating. It occurs persistently. Location of pain is lower back. Pain is radiated to the left calf, left foot and left thigh.The patient describes the pain as an ache, sharp and tingling. Symptoms are aggravated by ascending stairs, bending, descending stairs, lifting, lying/rest, sitting, standing, twisting, walking, movement, housework and prolonged positioning. Symptoms are relieved by heat, lying down, pain meds/drugs, physical therapy, stretching, rest, sitting, standing, TENS and changing positions. Neck pain Location of pain is bilateral posterior neck. Pertinent negatives include bladder incontinence. low back pain Duration: chroni c. The problem is fluctuating. It occurs persistently. Location of pain is lower back and neck.The patient describes the pain as an ache, sharp and tingling. Symptoms are aggravated by bending, lifting, sitting, standing, twisting, walking, housework, movement, lying down and prolonged positioning. Symptoms are relieved by heat, lying down, pain meds/drugs, stretching, sitting, changing positions, TENS unit, walking and standing. low back pain (comments) Sandy is here for follow up and medication refill. She has #7 Percocet remaining and is wearing her last Fentanyl patch - on track. Reports 40% pain relief from the current medication regimen, allowing her to be more active. Reports increased drowsiness the day she puts on a new Fentanyl patch, this subsides the next day. Does feel that Fentanyl has given her more stability with her pain control, and she is back to her basline. Continues Lyrica, which she finds more helpful than gabapentin. Ongoing pain of her neck and low back. Working with [facility] for interventions such as injections and consideration of additional surgery (which she would like to avoid). Patient is accompanied by her two sons. low back pain Severity level i s 6-8. Duration: chronic. The problem is fluctuating. It occurs persistently. Location of pain is lower back and neck. Pain is radiated to the left calf, left foot and left thigh.The patient describes the pain as an ache, burning, sharp and tingling. Symptoms are aggravated by ascending stairs, bending, descending stairs, lifting, lying/rest, running, sitting, standing, twisting, walking, housework, movement and prolonged positioning. Symptoms are relieved by heat, lying down, pain meds/drugs, stretching, rest, sitting, TENS and walking. low back pain (comments) Patient is here for follow-up and medication refills. Patient has #9 Percocet remaining today - on track. Reports at least 25% relief from the medication which increases her daily activity level. Denies side effects. She had a Cervical and Lumbar MRI completed at [facility] since her last OV. low back pain Severity level i s 7-8. Duration: chronic. The problem is worsening. It occurs persistently. Location of pain is lower back. Pain is radiated to the left calf, left posterior thigh and.The patient describes the pain as an ache, sharp and tingling. Symptoms are aggravated by ascending stairs, bending, descending stairs, lifting, lying/rest, sitting, standing, twisting, walking, housework, movement and prolonged positioning. Symptoms are relieved by heat, lying down, pain meds/drugs, stretching, rest, sitting, standing, TENS unit and changing positions. low back pain (comments) Patient is here for f/u and medication refills. She has #7 MSER and #35 PErcocet left, which is 4 days short on PErcocet. She is struggling with her current regimen and reports 15% relief. She has a h/o gastric bypass, and feels like MSER is not effective (likely due to malabsorption). She would like to return to her previous regiemn of PErcocet 7.5-325 mg 5/day. Was recently evaluated by a new PT, who feels that he can offer some benefit. continues with Asa Valencia at [facility] for injections and surgical consideration. Back Pain Severity level i s 6. Duration: chronic. The problem is fluctuating. It occurs persistently. Location of pain is lower back and neck. Pain is radiated to the left calf and chest.The patient describes the pain as an ache, burning, sharp and tingling. Symptoms are aggravated by bending, daily activities, lifting, standing, twisting, walking and stairs. Symptoms are relieved by lying down, stretching, sitting and changing positions. Back Pain (comments) Crystal is here for f/u and medication management. Has #2 MSER (1 tab short) and #28 Percocet (surplus). Pain medications relieve 25% of her pain. She reports the MSER does not seem to work well for her and has not been taking the MSER and Percocet at the same time. States she is concerned she may not be absorbing her medication regularly because of a previous GI surgery. C/o tenderness on her chest and a bruised feeling, which she is concerned about. Amitriptyline continues to be very helpful for her. Back Pain (comments) Sandy is here today for f/u and medication refill. She has #34 Percocet, on track. Her pain was worse this past month in both her neck and low back. C/o increased pain and fluctuates throughout the day in pain. Amitriptyline continues to provide significant relief of her headaches. Does not notice pain relief from tizanidine, so changed back to cyclobenzaprine.Patient had two injections at L3 and L5 at [facility], which provided relief. Reported no relief from the lumbar RFA several months ago. [facility] has recommended surgery on her cervical spine. Patient declines at this time.Did discuss SCS with a provider at [facility]. Is considering a [employer] stimulator over a [employer] stimulator. Back Pain Severity level i s 6. Duration: chronic. The problem is fluctuating. It occurs persistently. Location of pain is lower back and neck. Pain is radiated to the left calf.The patient describes the pain as an ache, sharp and tingling. Symptoms are aggravated by ascending stairs, bending, descending stairs, lifting, lying/rest, sitting, standing, twisting, walking and prolonged positioning. Symptoms are relieved by heat, massage, pain meds/drugs, stretching and TENS. Back Pain Severity level i s 5. Duration: chronic. The problem is fluctuating. It occurs persistently. Location of pain is lower back and neck. Pain is radiated to the left calf.The patient describes the pain as an ache, sharp and tingling. Symptoms are aggravated by ascending stairs, bending, descending stairs, lifting, lying/rest, running, sitting, standing, twisting, walking, housework, movement and prolonged positioning. Symptoms are relieved by heat, lying down, pain meds/drugs, physical therapy, stretching, rest, sitting, TENS and changing positions. Back Pain (comments) aSndy is here for a followup and medication refill. She presents with #34 Percocet- surplus. Medications provide 50% relief from pain. States she is disappointed in the results of her RFA and MICHAEL, will have f/u with Dr. Blair to discuss. Most recent RFA was October 02. States her sciatic pain is returning. No other concerns today. Back Pain (comments) Sandy is here for a followup and medication refill. She presents with #25 Percocet- on track. Medications provide 50% relief from pain. She had L3-4 lumbar MICHAEL on 08/21, and has not gotten much pain relief. She is not interested in implantable devices at this time. Has concerns about the possibilty of feeling the stimulation. Her neuro surgical PA Asa believes she may need a fusion. No other concerns today. Back Pain Severity level i s 5. Duration: chronic. The problem is fluctuating. It occurs persistently. Location of pain is lower back. Pain is radiated to the L lower leg.The patient describes the pain as an ache, sharp and tingling. Symptoms are aggravated by ascending stairs, bending, changing positions, descending stairs, lifting, sitting, standing, twisting, walking, movement and housework. Symptoms are relieved by heat, lying down, pain meds/drugs, physical therapy, stretching, rest, sitting, standing and walking. Back Pain Severity level i s 7. Duration: chronic. The problem is fluctuating. It occurs persistently. Location of pain is upper back, lower back and neck.The patient describes the pain as an ache, sharp and tingling. Symptoms are aggravated by ascending stairs, bending, changing positions, daily activities, descending stairs, lifting, lying/rest, sitting, standing, twisting and walking. Symptoms are relieved by heat and TENS. Back Pain (comments) Patient is here for follow-up and medication refills. Patient has #29 Percocet remaining today - on track. Denies significant relief from medication. States the amitrtiptyline 10mg are very beneficial for headaches but that the 25mg knock her out. Pain is worse and radiating into bilateral legs. Saw Asa Valencia at [facility] yesterday, who recommended LESI at L3 and L5. Neck pain Location of pain is bilateral posterior neck. There is no radiation of pain. low back pain Severity level i s 5-7. Duration: chronic. The problem is fluctuating. It occurs persistently. Location of pain is lower back and neck. Pain is radiated to the bilateral gluteals.The patient describes the pain as an ache, sharp and tingling. Symptoms are aggravated by ascending stairs, bending, lifting, lying/rest, sitting, standing, twisting, walking, housework and prolonged positioning. Symptoms are relieved by heat, lying down, injection: MICHAEL, RFA, massage, pain meds/drugs, physical therapy, stretching, rest, sitting, standing, walking, TENS and changing positions. Neck pain (comments) Patient is here for f/u and medication refills. She has #15 Percocet left, which is appropriate. Reports 50% relief with medications and denies side effects. Is participating in PT, and then plans to start pool therapy. Notes pain of both neck and low back, but not typically radiating. Plans on pursuing RFA of neck and lumbar spine through [facility], but needs to complete PT first. Reports the decrease in amitriptyline has not diminished pain relief, but has eliminated the drowsiness she used to feel. Continues to use CBD oil at bedtime for additional relief. Back Pain (comments) Sandy is here for follow up and medications refill. Presents with #29 Percocet - on track. Patient did not provide a percentage of pain relief from medications. Denies side effects from current medication regimen. Pain is fluctuating. Neck pain is worse - likely d/t weather changes. 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 Steroids had no effect, and a recent spinal tap at [facility] (Dr. Wiseman) came back normal, but did not provide any additional information about her Kilpatrick's Palsy. Prescribed medications continue to be helpful for pain relief; allow her to take care of her children. Attends PT as requirement for RFA in back and neck. Back Pain Severity level i s 6. Duration: chronic. The problem is fluctuating. It occurs persistently. Location of pain is upper back, lower back and neck.There is no radiation of pain. The patient describes the pain as an ache, sharp and tingling. Symptoms are aggravated by ascending stairs, bending, daily activities, descending stairs, lifting, lying/rest, sitting, standing, twisting, walking and prolonged positioning. Symptoms are relieved by heat, lying down, pain meds/drugs, stretching, rest, sitting, standing, walking, changing positions and TENS. Sep-15-2017 Back Pain (comments) Patient is here for follow-up and medication refills. Patient has #55 Percocet remaining today - on track. Reports at least 50% relief from the medication. C/o new facial numbness, localized in square area on the lower L side, starting 1 week ago. Neurologist ruled out stroke, thought it could be Kilpatrick's Palsy. Think the Tizanidine might be giving her more headaches and would like to stick only with Flexeril. Planning to have lumbar RFA in near future. Back Pain Severity level i s 6. Duration: chronic. The problem is fluctuating. It occurs persistently. Location of pain is middle back, lower back and neck.The patient describes the pain as an ache, burning, sharp and tingling. Symptoms are aggravated by ascending stairs, bending, changing positions, daily activities, descending stairs, lifting, lying/rest, sitting, standing and twisting. Symptoms are relieved by lying down, pain meds/drugs, physical therapy, stretching, rest, sitting, walking, standing andchanging positions. Back Pain Severity level i s 6-8. Duration: chronic. The problem is fluctuating. It occurs persistently. Location of pain is lower back and gluteal area. Pain is radiated to the left calf.The patient describes the pain as an ache, sharp and tingling. Symptoms are aggravated by ascending stairs, bending, descending stairs, lifting, lying/rest, sitting, standing, twisting, walking, housework and prolonged positioning. Symptoms are relieved by heat, lying down, pain meds/drugs, stretching, rest, sitting, standing and walking. Back Pain (comments) Sandy is here for follow-up and medication refills. Patient has #29 Percocet remaining today - on track. Reports at least 50% relief from the medication which increases her daily activity level. Sandy had TPIs on 03/18/17 and states that this did seem to help her pain. She reports that she had excrutiating low back spasms last night and she does not know why this happened. States that she stopped taking her Tizanidine because it was lowering her blood pressure and she thinks that it also made her headaches worse, so she re-started taking Cyclobenzaprine. She is seeing Asa Valencia at [facility] tomorrow (04/14/17) and hoping he will order a Lumbar MRI for her. Back Pain Severity level i s 6. Duration: chronic. The problem is fluctuating. It occurs persistently. Location of pain is upper back, middle back, lower back and neck.The patient describes the pain as an ache, burning, sharp and tingling. Symptoms are aggravated by ascending stairs, bending, changing positions, daily activities, descending stairs, lifting, lying/rest, running, sitting, standing, twisting and walking. Symptoms are relieved by heat, lying down, massage, pain meds/drugs, stretching, rest, sitting, chiropractic, walking, TENS and changing positions. Back Pain (comments) Patient is here for follow-up and medication refills. Patient has #13 Percocet remaining today - on track. Reports at least 50% relief from the medication. States she tweaked her low back a couple days ago and has been having increase LBP since. /o daily severe headaches and vertigo. BP at dentist recently was very low; likely due to Tizanidine and would like to switch back to Flexeril. Will try occipital nerve blocks to help with cervical tenderness and headaches. Neck pain Back Pain Severity level i s 5. Duration: chronic. The problem is fluctuating. It occurs persistently. Location of pain is upper back, middle back, lower back and neck.The patient describes the pain as an ache, sharp and tingling. Symptoms are aggravated by ascending stairs, bending, changing positions, daily activities, descending stairs, lifting, running, sitting, standing, twisting and walking. Symptoms are relieved by heat, lying down, massage, pain meds/drugs, physical therapy, stretching, rest, sitting, walking and chiropractic. Back Pain (comments) Patient is here for follow-up and medication refills. Patient has #4 Percocet remaining today - on track. Reports at least 50% relief from the medication. Does not think the cyclobenzaprine is beneficial and would like to try a different muscle relaxent. LBP is improving- had lumbar MICHAEL last week and has noticed significant relief. No longer having shooting pain going down legs. Neck pain has been worse and describes the pain has aching.Started Chantex and continues to try and quit smoking. Has decreased to 10 cigarettes per day. Back Pain (comments) Sandy is here for follow-up and medication refill. She has #18 Percocet- on track. Patient reports that her pain is about the same and has not had any other health changes. Medication provides 40% pain relief and wishes to continue with current regiment. Has not seen Dr. Asa Valencia for over a month. Recently got a new traction device to help with her posture. Last MICHAEL was 08/15/[address] Blair. Hoping to repeat injections after follow-up with Dr. Valencia soon. Back Pain Severity level i s 6-8. Duration: chronic. The problem is fluctuating. It occurs persistently. Location of pain is middle back.The patient describes the pain as an ache and tingling. Symptoms are aggravated by bending, lifting, lying/rest, standing, twisting, walking and housework. Symptoms are relieved by heat, lying down, pain meds/drugs, stretching, sitting and walking. Back Pain (comments) Patient is here for follow-up and medication refills. Patient has #8 Percocet remaining today - on track. Reports significant relief from the medication. States she has been experiencing vertigo and blurry/fading vision. Has not started traction yet because the machine is on back order. Back Pain Severity level i s 6. Duration: chronic. The problem is fluctuating. It occurs persistently. Location of pain is middle back, lower back and neck. Pain is radiated to the left calf.The patient describes the pain as an ache, sharp and tingling. Symptoms are aggravated by ascending stairs, changing positions, daily activities, descending stairs, lifting, lying/rest, sitting, standing, twisting and walking. Symptoms are relieved by heat, lying down, pain meds/drugs, stretching, rest, sitting, walking and chiropractic. Back Pain (comments) Patient is here for follow-up and medication refills. Patient has #4 Percocet remaining today - on track. Reports at least 50% relief from the medication. Had MRI of L shoulder, showed nothing concerning. Will be getting traction unit for her neck. Her UDT from last appt. was appropriate-it was the hemp oil that had caused a +THC results. No other concerns today. Back Pain Severity level i s 5. Duration: chronic. The problem is fluctuating. It occurs persistently. Location of pain is upper back, middle back, lower back and neck.The patient describes the pain as an ache, burning, sharp and tingling. Symptoms are aggravated by daily activities. Symptoms are relieved by heat, lying down, pain meds/drugs, stretching, sitting, standing and walking. Back Pain Severity level i s 6. Duration: chronic. The problem is fluctuating. It occurs persistently. Location of pain is lower back and neck.The patient describes the pain as an ache, burning, sharp and tingling. Symptoms are aggravated by ascending stairs, bending, changing positions, lifting, lying/rest, sitting, standing, twisting, walking and movement. Symptoms are relieved by heat, lying down, massage, pain meds/drugs, physical therapy, stretching, rest, sitting and chiropractic. Back Pain (comments) Patient is here for follow-up. Patient has #19 Percocet remaining--on track. Medications provide 50% pain relief; denies any SE. Shoulder pain has improved. F/u with Asa Valencia for neck surgery consultation. Patient states there is not enough THC in her hemp oil to show up in a UDT according to the pharmacognosy teacher. She rolls her own cigarettes. Denies smoking marijuana. Back Pain (comments) Crystal is here for a followup and does not need medication refilled today. She is upset about recieving a letter regarding THC found in UDT. She states she has been using hemp oil for hair and for relieving inflammation, states the hemp oil should not have a measurable amount of THC. She reports the hemp oil also helps with anxiety. Back Pain Severity level i s 6. Duration: chronic. The problem is fluctuating. It occurs persistently. Location of pain is lower back.The patient describes the pain as an ache, burning, sharp and tingling. Symptoms are aggravated by bending, changing positions, lifting, lying/rest, sitting, standing, twisting, walking, housework, movement and stairs. Symptoms are relieved by heat, lying down, massage, pain meds/drugs, physical therapy, stretching, rest, sitting, standing and chiropractic. Back Pain Severity level i s 7. Duration: chronic. It occurs persistently. The patient describes the pain as an ache, sharp and tingling. Symptoms are aggravated by daily activities and movement. Symptoms are relieved by heat, lying down, pain meds/drugs, physical therapy, stretching, rest, sitting and chiropractic. Back Pain (comments) Patient is here for follow-up. Patient has #15 Percocet remaining--on track. Medications provide pain relief; denies any SE. C/o inability to sleep more than 2 hours d/t pain. Asa VALENCIA ordered a repeat MRI of left shoulder. Back Pain (comments) Patient is here for follow-up. Reports she accidently brought cyclobenzaprine instead of Percocet--2 days short Percocet. Medications provide 25% pain relief with increased collar bone pain; denies any SE. Was in the ER on 08/21 d/t increased collar bone pain; imaging and labs completed. Increased WBC found. Was referred to [facility] who did a CT scan--inflamation was found. Steroid pack was ineffective; [facility] did not believe it is a problem. Collar bone pain is persistent and described as an ache. Follows up with Asa for surgery consult next week. Has completed cervical MICHAEL on 08/15 at [facility]. Back Pain Severity level i s 7. Duration: chronic. The problem is fluctuating. It occurs persistently. Location of pain is lower back, neck, left collar bone and left shoulder. Pain is radiated to the left calf and left foot.The patient describes the pain as an ache, sharp and tingling. Symptoms are aggravated by bending, changing positions, lifting, lying/rest, sitting, standing, twisting and walking. Symptoms are relieved by lying down, physical therapy, sitting and chiropractic. Back Pain (comments) Patient is here for a follow-up and medication refill. Presents with #3 Percocet - on track. Reports current medication regimen provides 50% pain relief. Patient had FUP with Dr. Maldonado last night who recommended three level fusion. She is apprehensive about this and does not seem interested at this time. Is scheduled for cervical MICHAEL next week. Was also recommended SCS but she is not interested. Duloxetine continues to cause fatigue so she has been taking it at night. It helps with sleep so she would like to continue it. Back Pain Severity level i s 6. Duration: chronic. The problem is fluctuating. It occurs persistently. Location of pain is lower back, gluteal area, neck, left hand and left calf.The patient describes the pain as an ache, sharp and tingling. Symptoms are aggravated by ascending stairs, bending, changing positions, descending stairs, lifting, lying/rest, running, sitting, standing, twisting, walking, movement and housework. Symptoms are relieved by heat, lying down, stretching, sitting, standing and chiropractic. Back Pain (comments) Patient is here for follow-up and medication refill. Patient has #7 Percocet remaining--all surplus. Medications provide at least 50% pain relief; denies any SE. C/o worsening neck pain; was recommmended a fusion in the past. Has a repeat lumbar MICHAEL on Thursday. Lumbar disc bulge on left has receded and bulge on right has become worse. If MICHAEL provides relief, decompression surgery is recommended. Is reluctant to have surgery. Back Pain Severity level i s 7. Duration: chronic. The problem is fluctuating. It occurs persistently. Location of pain is lower back and neck. Pain is radiated to the right anterior thigh.The patient describes the pain as an ache, sharp, shooting and tingling. Symptoms are aggravated by housework, movement and weather. Symptoms are relieved by heat and pain meds/drugs. Back Pain (comments) Patient is here for follow-up and medication refill. Patient has #23 Percocet 7.5-325mg remaining--on track. Stable on new regimen. Medications provide at least 50% pain relief; denies any SE. Completed a bilateral TFESI with Dr. Blair last Thursday which is providing some relief. C/o worsening neck pain and headacehes. Back Pain Severity level i s 5. Duration: chronic. The problem is fluctuating. It occurs persistently. Location of pain is lower back and neck. Pain is radiated to the left arm and left calf.The patient describes the pain as an ache and tingling. Symptoms are aggravated by daily activities and movement. Symptoms are relieved by pain meds/drugs. Back Pain Severity level i s 8. Duration: chronic. The problem is worsening. It occurs persistently. Location of pain is lower back and neck. Pain is radiated to the right ankle and left calf.The patient describes the pain as an ache, burning, sharp and tingling. Symptoms are aggravated by ascending stairs, bending, descending stairs, lifting, sitting, standing, twisting and walking. Symptoms are relieved by rest. Back Pain (comments) Crystal is here for follow up. Has #7 Percocet. Pain medications relieve 25% of her pain. She states that since her last appointment the pain has increased significantly. C/o increased pain in her low back radiating down her legs. She has an MRI scheduled for tomorrow to see what is going on. She was on a steroid pack for a week in early April to help kick out the pain but it didn't help significantly. Back Pain Severity level i s 6. Duration: chronic. The problem is fluctuating. It occurs persistently. Location of pain is lower back. Pain is radiated to the left calf.The patient describes the pain as an ache, numbness and tingling. Symptoms are aggravated by daily activities and movement. Symptoms are relieved by lying down, pain meds/drugs, physical therapy, stretching, rest, sitting and chiropractic. Back Pain (comments) Patient is here for follow-up and medication refill. Patient has #19 Percocet remaining--on track. Medications provide 50% pain relief; denies any SE. RFA is providing pain relief including reduction in shooting pain and headaches. No other concerns today. Back Pain (comments) Patient is here for follow-up and medication refill. Patient has #7 Percocet remaining--on track. Medications provide 70% pain relief; denies any SE. Left and right RFA have provided pain relief. She will start chiropractor and PT again. Back Pain Severity level i s 7. Duration: chronic. The problem is fluctuating. It occurs persistently. Location of pain is lower back and neck. Pain is radiated to the left calf.The patient describes the pain as an ache, burning and tingling. Symptoms are aggravated by bending, lifting, sitting, twisting and walking. Symptoms are relieved by lying down, injection: facet rhizotomy, pain meds/drugs, physical therapy, rest and chiropractic. Back Pain (comments) Patient is here for follow-up and medication refill. Patient has #11 Percocet remaining--on track. Medications provide at least 50% pain relief; denies any SE. Since right side RFA on 02/05, her right side pain has decreased from constant to intermittent pain. She will have left side RFA on 02/19. Her headaches have improved. Since last OV, she went to the ER for bilateral leg swelling; no acute problems detected. Back Pain Severity level i s 7. Duration: chronic. The problem is fluctuating. It occurs persistently. The patient describes the pain as an ache, sharp and tingling. Symptoms are aggravated by bending, sitting, standing and prolonged positioning. Symptoms are relieved by pain meds/drugs. Back Pain (comments) Crystal is here for f/u and med refill. She has #22 Percocet which is on track. Medication regimen provide moderate pain relief. She reports worse pain and sensitivity since Thursday. Neck pain: Saw Asa Valencia last month. Surgery recommended but patient will wait until it much worse. She had an cervical MICHAEL at [facility] with Dr. Blair on 01/03. Lumbar RF BL throughout the next month. Back Pain Severity level i s 7. Duration: chronic. The problem is fluctuating. It occurs persistently. Location of pain is lower back and neck. Pain is radiated to the left arm and left calf. Symptoms are aggravated by sitting, standing, reaching and crouching. Symptoms are relieved by pain meds/drugs. Back Pain Severity level i s 7. Duration: chronic. The problem is fluctuating. It occurs persistently. Location of pain is lower back and neck. Pain is radiated to the left ankle, left arm, left calf, left foot and left thigh.The patient describes the pain as an ache and tingling. Symptoms are aggravated by sitting, standing, twisting, reaching and crouching. Symptoms are relieved by pain meds/drugs. Back Pain (comments) Sandy is in today for a follow-up and medication refill. She has #10 Percocet remaining, which is on track. She is unable to state a percentage of relief, but reports that it relieves an adequate amount of pain. Her medication regimen helps improve her function. She does not have any side effects associated with her medication.Her pain has been stable over the past month, with the exception of a pain flare this past week (due to changes in the weather). She continues to participate in physical therapy and chiropractic therapy. She plans to move forward with an RFA once this therapy is completed. She is hesistant about an SCS at this point in time. Her neck has been more bothersome as of recent. She has been experiencing increased numbness/tingling in her left hand. She has a follow-up appointment scheduled with her surgeon on Thursday.When asked about the ritalinic acid in her previous UDT, she reports that her son is prescribed this medication. She thinks she may have accidently confused his bottle of medication with her bottle of medication. Back Pain Severity level i s 7. Duration: chronic. The problem is fluctuating. It occurs persistently. Location of pain is upper back, lower back and neck. Pain is radiated to the left ankle, left arm and left calf.The patient describes the pain as an ache, burning and tingling. Symptoms are aggravated by bending, sitting/standing too long, crouching and reaching. Symptoms are relieved by pain meds/drugs. Back Pain (comments) Sandy is in today for a follow-up and medication refill. She has #31 Percocet remaining, which is on track. Her current medication regimen relieves her pain and helps improve her function. She does not have any side effects associated with her medication.She continues to participate in physical therapy and chiropractic therapy at [facility] [facility] in [place]. She continues to be interested in pursuing RFA, but reports that she needs to complete physical therapy in order for the procedure to be authorized by insurance. Back Pain Severity level i s 8. Duration: chronic. The problem is fluctuating. It occurs persistently. Location of pain is lower back.The patient describes the pain as an ache, sharp and tingling. Symptoms are aggravated by bending, daily activities, lifting, sitting, standing and prolonged positioning. Symptoms are relieved by injection: facet rhizotomy, movement, pain meds/drugs, physical therapy, stretching and rest. Back Pain (comments) The patient is in for medication refills and a follow up visit. She is on track with her medication, reports her regimen is effectively providing greater than 50 % pain relief. She is actively pursuing both healthcare insurance sales agent as well as PT for low back pain at [facility]. She will likely be repeating low back RFA in the near future. Back Pain (comments) Patient is here for f/u. She has #15 Percocet left. Patient reports medications work well and denies side effects. States that she saw Asa Valencia from [facility]; he recommended repeating cervical rhizotomy unless she wanted to proceed with surgery. She would like to hold off on surgery as long as possible, so will pursue RF. She is having to complete either PT or chiro prior to repeat procedure. She will do chiro as PT has not offered relief in the past. Back Pain Onset: year ago. Severity level is 7. Duration: chronic. The problem is fluctuating. It occurs persistently. Location of pain is upper back, lower back and neck. Pain is radiated to the left hand and LLE.The patient describes the pain as an ache, sharp and tingling. Symptoms are aggravated by bending, lifting, sitting, standing, crouching and prolonged positioning. Symptoms are relieved by pain meds/drugs, light activity and reclining. Back Pain Severity level i s 8. Duration: chronic. The problem is worsening. It occurs persistently. Location of pain is lower back and neck. Pain is radiated to the left ankle, left arm, left calf and left foot.The patient describes the pain as an ache, burning, sharp and tingling. Symptoms are aggravated by lying/rest, sitting and standing. Back Pain (comments) Crystal is here for f/u and medication refill. She has #13 Percocet which is about one day short. Patient plans to be seen by Dr. Valencia as she has severe neck spasms. She would like to repeat MRI with outside provider to ensure that nothing has changed; MRI last completed in December 2014. Patient states she may consider proceeding with cervical surgery. Pain fluctuates with the weather. Her neck spasms are waking her through the night. Patient continues with biking for activity. Back Pain Severity level i s 6. Duration: chronic. The problem is fluctuating. It occurs persistently. Location of pain is upper back, middle back, lower back, gluteal area and neck. Pain is radiated to the left calf, left foot, right foot and left forearm.The patient describes the pain as an ache, sharp and tingling. Symptoms are aggravated by bending, sitting, standing and reaching. Back Pain (comments) Sandy is here for f/u and medication refill. She has #7 Percocet which is appropriate. Medications are working adequately for her and denies any SEs from the medications. She reports relief with Flexeril; no change in relief with gabapentin. States pain is worse with the cold weather. Her right sciatic pain is worsening; plans to complete an injection for this. She states following right cervical injection her HAs have decreased in severity. Back Pain Severity level i s 7. Duration: chronic. The problem is fluctuating. It occurs persistently. Location of pain is upper back, lower back, neck, left shoulder, left elbow and bilateral hands. Pain is radiated to the left ankle, left calf and left foot.The patient describes the pain as an ache, burning, sharp and tingling. Symptoms are aggravated by bending, sitting, standing, reaching, crouching and sharp movements.The patient denies relieving factors. Back Pain (comments) Sandy is here for f/u and medication refill.She has #7 oxycodone which is appropriate. Pt states she is having increased left leg pain. Last week she had a consult with her surgeon who suggested increasing her gabapentin further. Currently she is at 600mg TID. She denies side effects with this medication. States no relief with tizanidine and would like to switch back to Flexeril.She is getting her injections completed at [facility] which has completed bilateral SI joint and cervical injections. These have provided relief with her cervical spine but has not provided any relief with her left leg. She is not interested in an SCS. Back Pain (comments) Patient is here for f/u and medication refill.She has #15 oxycodone which is on track. Her medications are providing some relief. She is at 1800mg of gabapentin currently. She feels sore and is worse with the current weather (rainy).Had BRE in the neck on the right side about 5 weeks ago. Patient is being seen at [facility] in [place] which she has had a great experience. She is trying to hold off on having cervical spine surgery. She would like to continue with injections at this time. She states having increased pain in the legs- right greater than the left. Reports only being able to sleep for 3 hours at a time, due to pain. She takes melatonin and Xanax for help with sleep. Back Pain Severity level i s 6. Duration: chronic. The problem is fluctuating. It occurs persistently. Location of pain is upper back, lower back and neck. Pain is radiated to the left ankle, left calf and bilateral hands.The patient describes the pain as an ache, burning, sharp and tingling. Symptoms are aggravated by sitting, standing and holding objects. Symptoms are relieved by reclining. Back Pain Onset: year ago. Severity level is 6. Duration: chronic. The problem is fluctuating. It occurs persistently. Location of pain is upper back and lower back. Pain is radiated to the left anterior calf and b/l arms.The patient describes the pain as an ache, burning, sharp and tingling. Symptoms are aggravated by lifting, sitting, standing, stretching, reaching and prolonged positioning. Symptoms are relieved by injection: epidural injection and pain meds/drugs. Back Pain (comments) Patient is here for f/u. She has #7 Percocet left. Patient reports medications work well and denies side effects. She states that Asa Valencia [facility] has referred her for one additional injection (possibly C5-6 discogram?), and she will them f/u with him to discuss possible cervical surgery. Continues to have Back Pain (comments) Patient is here for f/u. She has #7 Percocet left. Patient reports medications work well and denies side effects. Received minimal relief with C7-T1 MICHAEL, but had a C5-[address] [facility] last week, and feels that it has been offering some relief. She plans to f/u with Asa Valencia at [facility] to discuss cervical surgery, likely 04/2015. Back Pain Onset: year ago. Severity level is 6. Duration: chronic. The problem is fluctuating. It occurs persistently. Location of pain is upper back and lower back. Pain is radiated to the left arm, right arm and left foot.The patient describes the pain as burning, sharp and tingling. Symptoms are aggravated by lifting, sitting, standing, prolonged positioning, reaching and crouching. Symptoms are relieved by lying down, pain meds/drugs, rest and changing positions. Back Pain Onset: year ago. Severity level is 6. Duration: chronic. The problem is fluctuating. It occurs persistently. Location of pain is upper back and lower back. Pain is radiated to the left calf.The patient describes the pain as an ache, sharp and tingling. Symptoms are aggravated by lifting, sitting, standing, walking and prolonged positioning. Symptoms are relieved by injection: epidural injection and pain meds/drugs. Back Pain (comments) Patient is here for f/u. She has #14 Percocet left, which is appropriate. Patient reports medications work well and denies side effects. States cervical MICHAEL offered minimal relief. Would like to repeat lumbar MICHAEL as she has noticed increasing sciatic pain--last done 08/2014. Back Pain Onset: year ago. Severity level is 6. Duration: chronic. The problem is fluctuating. It occurs persistently. Location of pain is upper back, lower back and neck. Pain is radiated to the bilateral hands (left is worse) and left lower leg.The patient describes the pain as an ache, numbness and tingling. Symptoms are aggravated by standing, walking, leaning and prolonged positioning. Symptoms are relieved by pain meds/drugs and rest. Back Pain (comments) Patient is here for f/u. She has #14 Percocet left, which is appropriate. Patient reports medications work well and denies side effects. She underwent cervical MRI earlier in the month, and plans to f/u with her neurosurgeon to discuss his recommendations. She is open to trying another cervical MICHAEL; last one was 04/20/2014. Back Pain Onset: year ago. Severity level is 6. Duration: chronic. The problem is stable. Location of pain is upper back and neck.The patient describes the pain as an ache and tingling. Symptoms are aggravated by sitting, standing and prolonged positioning. Symptoms are relieved by pain meds/drugs. Back Pain (comments) Patient is here for f/u. She has #7 Percocet left. She reports that propanolol did not offer any relief for her HAs. BP wa slow today, although patient denies side effects. She has tried multiple interventions without relief, but feels she is stable at this time. Back Pain Onset: year ago. Severity level is 6. Duration: chronic. The problem is fluctuating. It occurs persistently. Location of pain is upper back and lower back.The patient describes the pain as an ache and tingling. Symptoms are aggravated by sitting, standing and reaching. Symptoms are relieved by pain meds/drugs. Back Pain (comments) Patient is here for f/u. She has #3 Percocet left, which is appropriate. Patient reports medications work well and denies side effects. She continues to have chronic daily headaches. Occipital nerve blocks have offered no relief. Patient has gotten multiple cervical and lumbar interventions (MICHAEL and RF). low back pain Onset: year ago. Severity level is 5. Duration: chronic. The problem is fluctuating. It occurs persistently. Location of pain is lower back. Pain is radiated to the left foot.The patient describes the pain as an ache, burning and tingling. Symptoms are aggravated by bending, sitting, standing and reaching. Symptoms are relieved by injection: facet rhizotomy and pain meds/drugs. low back pain (comments) Patient is here for f/u. She has #1 [place] left, which is appropriate. She had lumbar rhizotomy 09/22/2014 and reports relief after the procedure. She had tried Percocet for pain relief following the procedure and felt it worked better than [place]. She denies side effects with either medication. low back pain (comments) Patient is here for f/u. She has #14 [place] left. Patient reports medications work well and denies side effects. She is scheduled for lumbar rhizotomy tomorrow. She is requesting to try Percocet as she does question the effectiveness of [place] at times. low back pain Onset: year ago. Severity level is 5. Duration: chronic. The problem is fluctuating. It occurs persistently. Location of pain is lower back. Pain is radiated to the right lower extremity.The patient describes the pain as an ache and tingling. Symptoms are aggravated by bending, sitting, standing and reaching. Symptoms are relieved by injection: facet rhizotomy and pain meds/drugs. Back Pain (comments) She reports the RFA was slightly effective in reliving her symptoms. Frequency is unchanged as she has constant pain, though she reports greater than 50% reduction in intensity. She still has occasional pain that shoots down her leg to her foot. She is interested in a right lumbar MICHAEL, her last one was in May. Back Pain Severity level i s 5. The problem is fluctuating. It occurs persistently. Location of pain is lower back and neck. Pain is radiated to the left foot. Symptoms are aggravated by sitting, standing, reaching and stooping. low back pain Onset: year ago. Severity level is 5. Duration: chronic. The problem is fluctuating. It occurs persistently. Location of pain is lower back, gluteal area and right sided. Pain is radiated to the left lower leg.The patient describes the pain as an ache, sharp and tingling. Symptoms are aggravated by lifting, sitting, standing and stretching. Symptoms are relieved by injection: facet rhizotomy and pain meds/drugs. low back pain (comments) Patient is here for f/u. She has #3 [place] left, which is a small surplus. Patient reports medications work well and denies side effects. She is requesting to have repeat bilateral lumbar rhizotomies, as she has previously had significant relief with this procedure. Functional Status Date Functional Assessmen t No Information Instructions Date Instruction Additional Infor mation Continue current medication Reviewed medications New medication is prescribed Medications counted, patient is on track. Medications counted, patient has a surplus Continue current medication Reviewed medications Change medication Reviewed medications Medications counted, patient has self-escalated dose. Reviewed medications Continue current medication Medications counted, patient has a surplus Medications counted, patient has a surplus Reviewed medications Continue current medication Depression Screen New medication is prescribed Reviewed medications Discontinue current medication Oswestry Score Assessments Type Assessment Date No Information Patient Care Teams Name Effective Dates (start - stop) Status Members No Information
[2023-12-14 01:28] LABS: Slide Review Reflex No
--- OUTSIDE RECORDS SUMMARY | 2023-12-14 01:28 | XMS_ITS | Continuity of Care Document ---
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 [address], [place], [place], [address], [place]. tel:[phone] [facility], [address] [address], [place], [id number], [place] tel:[phone] [facility] No Information 3 Mart Balderrama. [address], [facility] [address], [place], [place], [address], [place]. tel:[phone] [facility], [address] [address], [place], [id number], [place] tel:[phone] [facility] History of gastric bypassAnastomoti c ulcerNausea with vomiting, unspecifiedHeart burn 2 Mart Balderrama. [address] [facility] [address], [facility] [address], [place], [address], [place]. tel:[phone] Referring Provider: Referral Self, USE FOR SELF REFERRALS. Established Level 4 [facility], [address] [address], [place], [id number], [place] tel:[phone] [facility] GI Symptoms or Concerns (chief complaint) Epigastric painBariatric surgery status 2 Jr Dunn. [address] [facility], [address], [id number], [place]. tel:[phone] Referring Provider: Referral Self, USE FOR SELF REFERRALS. [facility], [address] [address], [place], [id number], [place] tel:[phone] [facility] No Information 2 Saud Roberts. [address], [address], [id number], [place]. tel:[phone] [facility], [address] [address], [place], [address], [place] tel:[phone] [facility] RUQ pain 1 Janet Parrish [address] [facility], [address], [id number], [place]. tel:[phone] Referring Provider: Referral Self, USE FOR SELF REFERRALS. [facility], [address] [address], [place], [address], [place] tel:[phone] [facility] Pancreas cyst 1 Janet Parrish [address], [facility] [address], [place], [address], [place]. tel:[phone] [facility], [address] [address], [place], [address], [place] tel:[phone] [facility] No Information 1 Janet Parrish [address] [facility] [address], [facility] [address], [place], [address], [place]. tel:[phone] Offic/outpt E&m Estab Low-mod [facility], [address] [address], [place], [address], [place] tel:[phone] [facility] GI Symptoms or Concerns (chief complaint) Chronic GERDPancreas cyst 1 Janet Parrish [address] [facility], [address], [id number], [place]. [phone] Referring Provider: Referral Self, USE FOR SELF REFERRALS. [facility], [address] [address], [place], [address], [place] tel:[phone] [facility] No Information 1 Janet Parirsh [address] [facility], [facility] [address], [place], [address], [place]. tel:[phone] [facility], [address] [address], [facility] [place], [address], [place] tel:[phone] [facility] No Information 1 Saud Roberts. [address] [facility], [facility] [address], [place], [address], [place]. tel:[phone] [facility], [address] [address], [place], [address], [place] tel:[phone] [facility] Pancreas cyst 0 Janet Parrish [address] [facility], [facility] [address], [place], [address], [place]. tel:[phone] [facility], [address] [address], [place], [id number], [place] tel:[phone] [facility] No Information Jan- 0 Janet Parrish [address], [facility] [address], [place], [place], [address], [place]. tel:[phone] Referring Provider: Haley Gonzales MD, [address] [facility] [address], [place], [address] . tel:[phone] [facility], [address] [address], [place], [id number], [place] tel:[phone] [facility] Pancreas cyst 9 Janet Parrish [address] [facility] [address], [facility] [address], [place], [place], [address], [place]. tel:[phone] [facility], [address] [address], [place], [address], [place] tel:[phone] [facility] Unintentional weight lossPancreas cyst 0 9 Janet Parrish [address] [facility] [address], [facility] [address], [place], [place], [address], [place]. tel:[phone] Offic/outpt E&m Estab Mod-hi 2 [facility], [address] [address], [place], [address], [place] tel:[phone] [facility] GI Symptoms or Concerns (chief complaint) Unintentional weight lossGastric perforationPancr eas cyst Jun-0 9 Janet Parrish [address] [facility] [address], [facility] [address], [place], [place], [address], [place]. tel:[phone] Referring Provider: Guerita Romero MD C, [address], [place], [address]. tel:[phone] [facility], [address] [address], [place], [address], [place] tel:[phone] [facility] No Information Saud Roberts. [address], [place] [address], [place], [place], [address], [place]. tel:[phone] Offic/outpt E&m Estab Low-mod [facility], [address] [address], [place], [place], [address], [place] tel:[phone] [facility] GI Symptoms or Concerns (chief complaint) Candidal esophagitisWeigh t loss, abnormal 9 [facility] PAC Sujata. [address] [facility] [address], [facility] [address], [place], [address], [place]. tel:[phone] Referring Provider: Referral Self, USE FOR SELF REFERRALS. [facility], [address] [address], [place], [place], [address], [place] tel:[phone] [facility] Other somatoform disordersDysphag ia, unspecified typeBariatric surgery statusReflux esophagitisCandi neela esophagitisDysph agia, unspecifiedBaria tric surgery status Eliot Camarillo. [address], [address], [id number], [place]. tel:[phone] Referring Provider: Referral Self, USE FOR SELF REFERRALS. Offic/outpt E&m Estab Mod-hi 2 [facility], [address] [address], [place], [place], [address], tel:[phone] [facility] GI Symptoms or Concerns (chief complaint) Globus sensationWeight loss, abnormal 9 [facility] Sujata. [address] [facility] [address], [facility] [address], [place], [address], [place]. tel:[phone] Referring Provider: Referral Self, USE FOR SELF REFERRALS. Offic/outpt E&m Estab Low-mod [facility], [address] [address], [place], [place], [id number], [place] tel:[phone] [facility] GI Symptoms or Concerns (chief complaint) HeartburnEpigast christian painGlobus sensationDietary counseling and surveillance 8 No Information Referring Provider: Guerita Gonzalez, [address], [place], [address]. tel:[phone] Offic/outpt E&m Estab Low-mod [facility], [address] [address], [place], [place], [address], [place] tel:[phone] [facility] GI Symptoms or Concerns (chief complaint) Gastritis, unspecified, without bleedingLeft upper quadrant painBariatric surgery status 8 No Information [facility], [address] [address], [place], [place], [address], [place] tel:[phone] [facility] Status post gastric banding surgeryGastritis without bleeding, unspecified chronicity, unspecified gastritis typePeriumbilica l abdominal painDisease of stomach and duodenum, unspecifiedBaria tric surgery statusGastritis, unspecified, without bleeding Shawn Haley. [address] [place] [address], [id number], [place]. tel:[phone] Referring Provider: Referral Self, USE FOR SELF REFERRALS. Offic/outpt E&m Estab Mod-hi 2 [facility], [address] [address], [place], [place], [address], [place] tel:[phone] [facility] GI Symptoms or Concerns (chief complaint) Periumbilical abdominal painDietary counseling and surveillance No Information Referring Provider: Referral Self, USE FOR SELF REFERRALS. Offic/outpt E&m Estab Mod-hi 2 [facility]ive [facility], [address] [address], [place], [place], [id number], [place] tel:[phone] [facility] GI Symptoms or Concerns (chief complaint) GERDAbdominal PainDietary Surveil/apprise counselor 5 Shawn Haley. [address] [place] [address], [id number], [place]. tel:[phone] Referring Provider: Guerita Gonzalez, [address], [place], [address]. tel:[phone] [facility], [address] [address], [place], [address], [place] tel:[phone] Anders [facility] GastritisGastrit is, biopsy fpr H. pyloriGastroduod enal Dis NosAbdominal Pain 5 Shawn Haley. [address] [facility], [facility] [address], [place], [address], [place]. tel:[phone] Referring Provider: Guerita Gonzalez, [address], [place], [address]. tel:[phone] [facility], [address] [address], [facility] [place], [address], [place] tel:[phone] [facility] External Referral 5 Biju Johnson. [address] [facility] [address], [place], [address], [place]. tel:[phone] Referring Provider: Geurita Gonzalez, [address], [place], [address]. tel:[phone] Family History Family Member Type Diagnosis Age [...] Source: Other Provider Pneumovax 23 administered Note: [facility] bi-d irectional interface ; Source: Other Registry tetanus and diphtheria toxoi ds, adsorbed, preservative free, for adult use (5 Lf of tetanus toxoid and 2 Lf of diphtheria toxoid) administered Note: [facility] bi-direct ional interface ; Source: Other Registry measles, mumps and rubella virus vaccine administered Note: [facility] bi-direct ional interface ; Source: Other Registry [...] in followup. She was recently hospitalized at [facility] for hemoperitoneum. She was originally presented to [facility]. CT scan showed pneumoperitoneum likely originating from a gastric pouch. This was not certain. Her small bowel anastomotic loop was dilated to 4.4 cm. She was transferred to [place]. She was managed conservatively with antibiotics. She [...] be hopeful to decrease the omeprazole dose jail to 20 mg once a day if [...]
--- OUTSIDE RECORDS SUMMARY | 2023-12-14 01:28 | XMS_ITS | Continuity of Care Document ---
Author Name Unknown Organization [facility] Address [address] [place] [address] Phone Care Team Providers Care Enginehouse Brakeman Name Role Phone Will Manish DESAI Unavailable [...] times every day 0.5 MG - Active omeprazole 20 mg capsule,delayed release take 1 capsule by oral route every day 30 minutes to 1 hour before a meal 20 MG - Active ranitidine 150 mg capsule take 1 capsule by oral route every day - Active Procedures Procedure Date OFFICE/OUTPATIENT VISIT, [...] Diagnoses Date Provider Providers Copied on Encounter [facility], [address] [place], [place], [id number] , [place] tel:[phone] [facility] [place] No Information 2 Martinez Hammond. [address], [place], [id number], [place]. tel:[phone] OFFICE/OUTPA TIENT VISIT, [facility], [address], [place], [id number] , [place] tel:[phone] [facility] [place] low back pain (chief complaint) Neck pain (chief complaint) Other intervertebral disc displacement, lumbar regionPostlaminec allan syndrome, not elsewhere classifiedOther cervical disc degeneration at C5-C6 levelOther intervertebral disc displacement, lumbosacral regionLong term (current) use of opiate analgesic 9 Manny Dunn. [address] [place] [address], [id number], [place]. tel:[phone] Specialist: Heriberto VALENCIA, [address] [place] [address] [address], [place], [address]. tel:[phone] ring Provider: Manish Sweeney, [address] [place] [address], [address]. tel:[phone] OFFICE/OUTPA TIENT VISIT, [facility], [address] [place] [address], [id number] , [place] tel:[phone] [facility] low back pain (chief complaint) Neck Pain (chief complaint) skilled nursing (current) use of opiate analgesicOther intervertebral disc displacement, lumbar regionPostlaminec allan syndrome, not elsewhere classifiedOther cervical disc degeneration at C5-C6 levelOther intervertebral disc displacement, lumbosacral regionEncounter for therapeutic drug level monitoring Manny Mona. [address] [place] [address], [id number], [place]. tel:[phone] Specialist: Heriberto VALENCIA, [address] [place] [address] [address], [place], [address]. tel:[phone] ring Provider: Manish Sweeney, [address] [place] [address], [address]. tel:[phone] OFFICE/OUTPA TIENT VISIT, [facility], [address] [place] [address], [id number] , [place] tel:[phone] [facility] Low back pain (chief complaint) take away attendant (current) use of opiate analgesicOther intervertebral disc displacement, lumbar regionPostlaminec allan syndrome, not elsewhere classifiedOther cervical disc degeneration at C5-C6 levelOther intervertebral disc displacement, lumbosacral region Aug 9 Manny Figueredohanie. [address], [place], [id number], [place]. tel:[phone] Specialist: Heriberto VALENCIA, [address] [place] [address] [address], [place], [address]. tel:[phone] ring Provider: Manish Sweeney, [address] [place] [address], [id number]. tel:[phone] OFFICE/OUTPA TIENT VISIT, [facility], [address] [place] [address], [id number] , [place] tel:[phone] [facility] low back pain (chief complaint) skilled nursing (current) use of opiate analgesicOther intervertebral disc displacement, lumbar regionPostlaminec allan syndrome, not elsewhere classifiedOther cervical disc degeneration at C5-C6 levelOther intervertebral disc displacement, lumbosacral region Jeramie-0 9-201 9 Manny Mona. [address] [place] [address], [id number], [place]. tel:[phone] Specialist: Heriberto VALENCIA, [address] [address], [place], [address]. tel:[phone] Provider: Manish Sweenye, [address] [place] [address], [id number]. tel:[phone] OFFICE/OUTPA TIENT VISIT, [facility], [address] [place] [address], [id number] , [place] tel:[phone] [facility] low back pain (chief complaint) skilled nursing (current) use of opiate analgesicOther intervertebral disc displacement, lumbar regionPostlaminec allan syndrome, not elsewhere classifiedOther cervical disc degeneration at C5-C6 levelOther intervertebral disc displacement, lumbosacral region May-1 0-201 9 Manny Dunn. [address] [place] [address], [id number], [place]. tel:[phone] Specialist: Heriberto VALENCIA, [address] [address], [place], [address]. tel:[phone] Provider: Manish Sweeney, [address] [place] [address], [id number]. tel:[phone] OFFICE/OUTPA TIENT VISIT, [facility], [address] [place] [address], [id number] , [place] tel:[phone] [facility] low back pain (chief complaint) Neck Pain (chief complaint) Other intervertebral disc displacement, lumbar regionPostlaminec allan syndrome, not elsewhere classifiedOther cervical disc degeneration at C5-C6 levelOther intervertebral disc displacement, lumbosacral regionLong term (current) use of opiate analgesicEncounte r for therapeutic drug level monitoring Manny Mona. [address] [place] [address], [id number], [place]. tel:[phone] Specialist: Heriberto VALENCIA, [facility] [address] [place] [address], [place], [address]. tel:[phone] ring Provider: Manish Sweeney, [address] [place] [address], [id number]. tel:[phone] OFFICE/OUTPA TIENT VISIT, [facility], [address] [place] [address], [id number] , [place] tel:[phone] [facility] low back pain (chief complaint) Other intervertebral disc displacement, lumbar regionRadiculopat hy, cervical regionPostlaminec allan syndrome, not elsewhere classifiedOther cervical disc degeneration at C5-C6 levelOther intervertebral disc displacement, lumbosacral region Manny Dunn. [address] [place] [address], [id number], [place]. tel:[phone] Specialist: Heriberto VALENCIA, [facility] [address] [place] [address], [place], [address]. tel:[phone] ring Provider: Manish Sweeney, [address] [place] [address], [id number]. tel:[phone] OFFICE/OUTPA TIENT VISIT, [facility], [address] [place] [address], [id number] , [place] [phone] [facility] low back pain (chief complaint) Other intervertebral disc displacement, lumbar regionOther intervertebral disc displacement, lumbosacral regionOther cervical disc degeneration at C5-C6 levelRadiculopath y, cervical regionPostlaminec allan syndrome, not elsewhere classified Manny Dunn. [address] [place] [address], [id number], [place]. tel:[phone] Specialist: Heriberto VALENCIA, [address] [address], [place], [address]. tel:[phone] Provider: Manish Sweeney, [address] [place] [address], [address]. tel:[phone] OFFICE/OUTPA TIENT VISIT, EST [facility], [address] [place] [address], [id number] , [place] tel:[phone] [facility] low back pain (chief complaint) Radiculopathy, cervical regionPostlaminec allan syndrome, not elsewhere classifiedOther intervertebral disc displacement, lumbosacral regionOther cervical disc degeneration at C5-C6 levelOther intervertebral disc displacement, lumbar region 8 Manny Dunn. [address] [place] [address], [id number], [place]. tel:[phone] Specialist: Heriberto VALENCIA, [facility] [address] [address], [place], [address]. tel:[phone] ring Provider: Manish Sweeney, [address] [place] [address], [address]. tel:[phone] OFFICE/OUTPA TIENT VISIT, EST [facility], [address] [place] [address], [id number] , [place] tel:[phone] [facility] low back pain (chief complaint) Neck pain (chief complaint) Other intervertebral disc displacement, lumbar regionOther intervertebral disc displacement, lumbosacral regionLong term (current) use of opiate analgesicPostlami nectomy syndrome, not elsewhere classifiedOther cervical disc degeneration at C5-C6 levelRadiculopath y, cervical region 8 Manny Dunn. [address] [place] [address], [id number], [place]. tel:[phone] Specialist: Heriberto VALENCIA, [address] [address], [place], [address]. tel:[phone] ring Provider: Manish Sweeney, [address] [place] [address], [address]. tel:[phone] OFFICE/OUTPA TIENT VISIT, [facility], [address] [place] [address], [id number] , [place] tel:[phone] [facility] low back pain (chief complaint) Neck pain (chief complaint) Other intervertebral disc displacement, lumbosacral regionOther intervertebral disc displacement, lumbar regionPostlaminec allan syndrome, not elsewhere classifiedOther cervical disc degeneration at C5-C6 level 8 Manny Dunn. [address] [place] [address], [id number], [place]. tel:[phone] Specialist: Heriberto VALENCIA, [address] [address], [place], [address]. tel:[phone] ring Provider: Manish Sweeney, [address] [place] [address], [address]. tel:[phone] OFFICE/OUTPA TIENT VISIT, EST [facility], [address] [place] [address], [id number] , [place] tel:[phone] [facility] low back pain (chief complaint) Other intervertebral disc displacement, lumbar regionOther intervertebral disc displacement, lumbosacral regionPostlaminec allan syndrome, not elsewhere classifiedOther cervical disc degeneration at C5-C6 level 8 Manny Dunn. [address] [place] [address], [id number], [place]. tel:[phone] Specialist: Heriberto VALENCIA, [address] [facility], [place], [address]. tel:[phone] ring Provider: Manish Sweeney, [address] [place] [address], [address]. tel:[phone] OFFICE/OUTPA TIENT VISIT, [facility], [address] [place] [address], [id number] , [place] tel:[phone] [facility] low back pain (chief complaint) Other intervertebral disc displacement, lumbosacral regionOther intervertebral disc displacement, lumbar regionPostlaminec allan syndrome, not elsewhere classifiedOther cervical disc degeneration at C5-C6 level 8 Manny Dunn. [address] [place] [address], [id number], [place]. tel:[phone] Specialist: Heriberto VALENCIA, [address] [facility], [place], [address]. tel:[phone] ring Provider: Manish Sweeney, [address] [place] [address], [address]. tel:[phone] OFFICE/OUTPA TIENT VISIT, [facility], [address] [place] [address], [id number] , [place] tel:[phone] [facility] low back pain (chief complaint) Other intervertebral disc displacement, lumbosacral regionOther intervertebral disc displacement, lumbar regionPostlaminec allan syndrome, not elsewhere classifiedOther cervical disc degeneration at C5-C6 level 8 Manny Dunn. [address] [place] [address], [id number], [place]. tel:[phone] Specialist: Heriberto VALENCIA, [address] [place] [address], [place], [address]. tel:[phone] ring Provider: Manish Sweeney, [address] [place] [address], [id number]. tel:[phone] OFFICE/OUTPA TIENT VISIT, [facility], [address] [place] [address], [id number] , [place] [phone] [facility] Back Pain (chief complaint) Other intervertebral disc displacement, lumbosacral regionPostlaminec allan syndrome, not elsewhere classifiedOther cervical disc degeneration at C5-C6 levelOther intervertebral disc degeneration, lumbar regionRadiculopat hy, cervical region Manny Dunn. [address], [place], [id number], [place]. tel:[phone] Specialist: Heriberto VALENCIA, [facility] [address] [address], [place], [address]. tel:[phone] ring Provider: Manish Sweeney, [address] [place] [address], [address]. tel:[phone] OFFICE/OUTPA TIENT VISIT, [facility], [address] [place] [address], [id number] , [place] tel:[phone] [facility] Back Pain (chief complaint) Postlaminectomy syndrome, not elsewhere classifiedOther intervertebral disc displacement, lumbar regionOther intervertebral disc displacement, lumbosacral regionOther cervical disc degeneration at C5-C6 level Manny Dunn. [address] [place] [address], [id number], [place]. tel:[phone] Specialist: Heriberto VALENCIA, [facility] [address] [facility] [address], [place], [address]. tel:[phone] ring Provider: Manish Sweeney, [address] [place] [address], [address]. tel:[phone] OFFICE/OUTPA TIENT VISIT, [facility], [address] [place] [address], [id number] , [place] tel:[phone] [facility] [place] Back Pain (chief complaint) Postlaminectomy syndrome, not elsewhere classifiedOther intervertebral disc displacement, lumbar regionOther intervertebral disc displacement, lumbosacral regionOther cervical disc degeneration at C5-C6 level 0 8 Manny Dunn. [address] [place] [address], [id number], [place]. tel:[phone] Heriberto Valencia PAC, [address] [address], [place], [address]. tel:[phone] ring Provider: Manish Sweeney, [address] [place] [address], [address]. tel:[phone] OFFICE/OUTPA TIENT VISIT, EST [facility], [address] [place] [address], [id number] , [place] [phone] [facility] [place] Back Pain (chief complaint) Postlaminectomy syndrome, not elsewhere classifiedOther intervertebral disc displacement, lumbar regionOther intervertebral disc displacement, lumbosacral regionOther cervical disc degeneration at C5-C6 level 8 Manny Dunn. [address] [place] [address], [id number], [place]. tel:[phone] Heriberto Valencia [facility], [address], [address]. tel:[phone] ring Provider: Manish Sweeney, [address] [place] [address], [address]. tel:[phone] OFFICE/OUTPA TIENT VISIT, EST [facility], [address] [place] [address], [id number] , [place] tel:[phone] [facility] [place] Back Pain (chief complaint) Postlaminectomy syndrome, not elsewhere classifiedOther intervertebral disc displacement, lumbar regionOther intervertebral disc displacement, lumbosacral regionOther cervical disc degeneration at C5-C6 level 7 Manny Dunn. [address] [place] [address], [id number], [place]. tel:[phone] Heriberto Valencia PAC, [facility] [address], [place], [address]. tel:[phone] ring Provider: Manish Sweeney, [address] [place] [address], [address]. tel:[phone] OFFICE/OUTPA TIENT VISIT, [facility], [address] [place] [address], [id number] , [place] tel:[phone] [facility] low back pain (chief complaint) Neck pain (chief complaint) Postlaminectomy syndrome, not elsewhere classifiedOther intervertebral disc displacement, lumbosacral regionOther intervertebral disc displacement, lumbar regionOther cervical disc degeneration at C5-C6 level Manny Dunn. [address] [place] [address], [id number], [place]. tel:[phone] Heriberto Valencia PAC, [address] [address], [place], [address]. tel:[phone] ring Provider: Manish Sweeney, [address] [place] [address], [address]. tel:[phone] OFFICE/OUTPA TIENT VISIT, [facility], [address] [place] [address], [id number] , [place] tel:[phone] [facility] Back Pain (chief complaint) Lumbago with sciatica, right sideOther cervical disc degeneration at C5-C6 levelOther intervertebral disc degeneration, lumbar regionPostlaminec allan syndrome, not elsewhere classified Manny Dunn. [address] [place] [address], [id number], [place]. tel:[phone] , [address] [place] [address], [place], [address].Refer [facility] Provider: Manish Sweeney, [address] [place] [address], [address]. tel:[phone] OFFICE/OUTPA TIENT VISIT, EST [facility], [address] [place], [place], [id number] , [place] tel:[phone] [facility] [place] Back Pain (chief complaint) Lumbago with sciatica, right sideOther cervical disc degeneration at C5-C6 levelOther intervertebral disc degeneration, lumbar regionPostlaminec allan syndrome, not elsewhere classifiedHeadach e Manny Dunn. [address] [place], [place], [id number], [place]. [phone] , [facility] [address], [place], [address].Refer ring Provider: Manish Sweeney, [address] [place] [address], [address]. tel:[phone] OFFICE/OUTPA TIENT VISIT, [facility], [address] [place], [place], [id number] , [place] tel:[phone] [facility] [place] Back Pain (chief complaint) Lumbago with sciatica, right sidePostlaminecto my syndrome, not elsewhere classifiedOther cervical disc degeneration at C5-C6 levelOther intervertebral disc degeneration, lumbar regionHeadache Leavitt Yesi. [address] [place], [address], [place]. tel:[phone] , [address], [place], [address].Refer ring Provider: Manish Sweeney, [address] [place] [address], [address]. tel:[phone] [facility], [address] [place] [address], [id number] , [place] [phone] [facility] [place] Headache 7 Manny Dunn. [address], [place], [id number], [place]. tel:[phone] Referring Provider: Manish Sweeney, [address] [place] [address], [address]. tel:[phone] OFFICE/OUTPA TIENT VISIT, EST [facility], [address] [place], [place], [id number] , [place] tel:[phone] [facility] [place] Back Pain (chief complaint) Lumbago with sciatica, right sidePostlaminecto my syndrome, not elsewhere classifiedOther cervical disc degeneration at C5-C6 levelOther intervertebral disc degeneration, lumbar regionHeadache Manny Dunn. [address], [place], [id number], [place]. tel:[phone] , [facility] [address], [place], [address].Refer ring Provider: Manish Sweeney, [address] [place] [address], [address]. tel:[phone] OFFICE/OUTPA TIENT VISIT, [facility], [address] [place] [address], [id number] , [place] [phone] [facility] [place] Back Pain (chief complaint) Neck pain (chief complaint) CervicalgiaOther cervical disc degeneration at C5-C6 levelOther intervertebral disc degeneration, lumbar regionPostlaminec allan syndrome, not elsewhere classifiedLumbago with sciatica, right side Manny Dunn. [address], [place], [id number], [place]. tel:[phone] , [address] [facility], [place], [address].Refer ring Provider: Manish Sweeney, [address] [place] [address], [address]. tel:[phone] OFFICE/OUTPA TIENT VISIT, [facility], [address] [place] [address], [id number] , [place] [phone] [facility] [place] Back Pain (chief complaint) CervicalgiaLumbag o with sciatica, right sideOther cervical disc degeneration at C5-C6 levelOther intervertebral disc degeneration, lumbar regionPostlaminec allan syndrome, not elsewhere classified Manny Dunn. [address], [place], [id number], [place]. tel:[phone] , [address], [place], [address].Refer ring Provider: Manish Sweeney, [address] [place] [address], [address]. tel:[phone] OFFICE/OUTPA TIENT VISIT, [facility], [address] [place] [address], [id number] , [place] tel:[phone] [facility] [place] Back Pain (chief complaint) CervicalgiaLumbag o with sciatica, right sideOther cervical disc degeneration at C5-C6 levelOther intervertebral disc degeneration, lumbar regionPostlaminec allan syndrome, not elsewhere classified Manny Dunn. [address], [place], [id number], [place]. tel:[phone] , [address] [facility], [place], [address].Refer ring Provider: Manish Sweeney, [address] [place] [address], [address]. tel:[phone] OFFICE/OUTPA TIENT VISIT, [facility], [address] [place] [address], [id number] , [place] tel:[phone] [facility] [place] Back Pain (chief complaint) Other intervertebral disc displacement, lumbar regionPostlaminec allan syndrome, not elsewhere classifiedOther cervical disc degeneration at C5-C6 levelCervicalgiaL umbago with sciatica, right side Manny Dunn. [address], [place], [id number], [place]. tel:[phone] , [address], [place], [address].Refer ring Provider: Manish Sweeney, [address] [place] [address], [id number]. tel:[phone] [facility], [address] [place] [address], [id number] , [place] tel:[phone] [facility] [place] No Information 0 7 Manny Dunn. [address] [place] [address], [id number], [place]. tel:[phone] OFFICE/OUTPA TIENT VISIT, EST [facility], [address] [place] [address], [id number] , [place] tel:[phone] [facility] [place] Back Pain (chief complaint) Other intervertebral disc displacement, lumbar regionPostlaminec allan syndrome, not elsewhere classified Sep-2 Manny Mona. [address] [place] [address], [id number], [place]. tel:[phone] , [address] [place] [address], [address].Refer ring Provider: Manish Sweeney, [address] [place] [address], [id number]. tel:[phone] OFFICE/OUTPA TIENT VISIT, [facility], [address] [place] [address], [id number] , [place] tel:[phone] [facility] Other intervertebral disc displacement, lumbar regionPostlaminec allan syndrome, not elsewhere classified 0 Te Aguilar. [address] [place] [address], [id number], [place]. tel:[phone] , [address], [place], [address].Refer ring Provider: Manish Sweeney, [address] [place] [address], [id number]. tel:[phone] OFFICE/OUTPA TIENT VISIT, [facility], [address] [place] [address], [id number] , [place] [phone] [facility] Back Pain (chief complaint) Postlaminectomy syndrome, not elsewhere classifiedOther intervertebral disc displacement, lumbar region Manny Dunn. [address], [place], [id number], [place]. tel:[phone] , [address], [place], [address].Refer ring Provider: Manish Sweeney, [address] [place] [address], [address]. tel:[phone] OFFICE/OUTPA TIENT VISIT, [facility], [address] [place] [address], [id number] , [place] [phone] [facility] [place] Back Pain (chief complaint) Postlaminectomy syndrome, not elsewhere classifiedOther intervertebral disc displacement, lumbar region Manny Dunn. [address] [place] [address], [id number], [place]. tel:[phone] , [address] David [facility], [place], [address].Refer ring Provider: Manish Sweeney, [address] [place] [address], [id number]. tel:[phone] OFFICE/OUTPA TIENT VISIT, [facility], [address] [place] [address], [id number] , [place] tel:[phone] [facility] [place] Back Pain (chief complaint) Postlaminectomy syndrome, not elsewhere classifiedOther intervertebral disc displacement, lumbar region Manny Dunn. [address] [place] [address], [id number], [place]. tel:[phone] , [address] David [facility], [place], [address].Refer ring Provider: Manish Sweeney, [address] [place] [address], [address]. tel:[phone] OFFICE/OUTPA TIENT VISIT, [facility], [address] [place] [address], [id number] , [place] tel:[phone] [facility] [place] Back Pain (chief complaint) Other intervertebral disc displacement, lumbosacral regionOther intervertebral disc displacement, lumbar regionLumbago with sciatica, right sideOther cervical disc degeneration at C5-C6 level 6 6 Manny Dunn. [address], [place], [id number], [place]. tel:[phone] Heriberto VALENCIA, [address] [address], [place], [address]. [phone] ring Provider: Manish Sweeney, [address] [place] [address], [id number]. tel:[phone] OFFICE/OUTPA TIENT VISIT, [facility], [address] [place] [address], [id number] , [place] [phone] [facility] ([facility] complaint) Other intervertebral disc displacement, lumbosacral regionOther intervertebral disc displacement, lumbar regionLumbago with sciatica, right side 4 6 Manny Dunn. [address], [place], [id number], [place]. tel:[phone] Heriberto VALENCIA, [address] [address], [place], [address]. tel:[phone] [employer] Provider: Manish Sweeney, [address] [place] [address], [address]. tel:[phone] OFFICE/OUTPA TIENT VISIT, [facility], [address] [place] [address], [id number] , [place] [phone] [facility] [place] Back Pain (chief complaint) Other intervertebral disc displacement, lumbosacral regionOther intervertebral disc displacement, lumbar regionLumbago with sciatica, right sideOther muscle spasmMyalgiaInsom idalia Sep-2 0-201 6 Covington Yesi. [address] [place], [address], [place]. tel:[phone] Heriberto Valencia [facility], [facility] [address], [place], [address]. tel:[phone] ring Provider: Manish Sweeney, [address] [place] [address], [address]. tel:[phone] OFFICE/OUTPA TIENT VISIT, [facility], [address] [place] [address], [id number] , [place] tel:[phone] [facility] [place] Back Pain (chief complaint) Other intervertebral disc degeneration, lumbar regionPostlaminec allan syndrome, not elsewhere classifiedOther cervical disc degeneration, mid-cervical region Manny Dunn. [address] [place] [address], [id number], [place]. tel:[phone] , [address], [place], [address].Refer ring Provider: Manish Sweeney, [address] [place] [address], [address]. [phone] OFFICE/OUTPA TIENT VISIT, [facility], [address] [place] [address], [id number] , [place] [phone] [facility] [place] Back Pain (chief complaint) Other intervertebral disc degeneration, lumbar regionPostlaminec allan syndrome, not elsewhere classifiedOther cervical disc degeneration, mid-cervical region 6 Manny Dunn. [address] [place] [address], [id number], [place]. tel:[phone] , [address], [place], [address].Refer ring Provider: Manish Sweeney, [address] [place] [address], [address]. tel:[phone] OFFICE/OUTPA TIENT VISIT, [facility], [address] [place] [address], [id number] , [place] [phone] [facility] [place] Back Pain (chief complaint) Other intervertebral disc degeneration, lumbar regionPostlaminec allan syndrome, not elsewhere classifiedOther cervical disc degeneration, mid-cervical region 6 Manny Dunn. [address] [place] [address], [id number], [place]. tel:[phone] , [facility] [place] [address] [facility] 675 [facility] [address], [place], [address].Refer ring Provider: Manish Sweeney, [address] [place] [address], [address]. tel:[phone] OFFICE/OUTPA TIENT VISIT, [facility], [address] [place] [address], [id number] , [place] tel:[phone] [facility] Back Pain (chief complaint) Low back painCervicalgia 6 Manny Dunn. [address] [place] [address], [id number], [place]. tel:[phone] Referring Provider: Manish Sweeney, [address] [place] [address], [address]. tel:[phone] OFFICE/OUTPA TIENT VISIT, [facility], [address] [place] [address], [id number] , [place] tel:[phone] [facility] Back Pain (chief complaint) skilled nursing (current) use of opiate analgesicOther cervical disc degeneration, mid-cervical regionPostlaminec allan syndrome, not elsewhere classifiedOther intervertebral disc degeneration, lumbar region 6 Elizabeth Wilks. [address] [place] [address], [id number], [place]. tel:[phone] Referring Provider: Manish Sweeney, [address] [place] [address], [address]. tel:[phone] OFFICE/OUTPA TIENT VISIT, [facility], [address] [place] [address], [id number] , [place] tel:[phone] [facility] [place] Back Pain (chief complaint) Postlaminectomy syndrome, not elsewhere classifiedOther intervertebral disc degeneration, lumbar regionLong term (current) use of opiate analgesic 6 Manny Figueredohanie. [address] [place] [address], [id number], [place]. tel:[phone] , [address] [facility] [address], [place], [address].Refer ring Provider: Manish Sweeney, [address] [place] [address], [address]. tel:[phone] OFFICE/OUTPA TIENT VISIT, [facility], [address] [place] [address], [id number] , [place] tel:[phone] [facility] [place] Back Pain (chief complaint) Postlaminectomy syndrome, not elsewhere classifiedOther intervertebral disc degeneration, lumbar region 6 Manny Figueredohanie. [address], [place], [id number], [place]. tel:[phone] , [address] [address], [place], [address].Refer ring Provider: Manish Sweeney, [address] [place] [address], [address]. tel:[phone] OFFICE/OUTPA TIENT VISIT, [facility], [address] [place] [address], [id number] , [place] tel:[phone] [facility] [place] Back Pain (chief complaint) Other cervical disc degeneration, mid-cervical regionPostlaminec allan syndrome, not elsewhere classifiedOther intervertebral disc degeneration, lumbar region 6 Manny Figueredohanie. [address], [place], [id number], [place]. tel:[phone] Specialist: Heriberto VALENCIA, [facility] [address] [address], [place], [address]. tel:[phone] ring Provider: Manish Sweeney, [address] [place] [address], [address]. tel:[phone] OFFICE/OUTPA TIENT VISIT, [facility], [address] [place] [address], [id number] , [place] tel:[phone] [facility] [place] Back Pain (chief complaint) Other cervical disc degeneration, mid-cervical regionOther intervertebral disc degeneration, lumbar region No [employer] Apprentice: Heriberto VALENCIA, [facility] [address] [address], [place], [address]. [phone] ring Provider: Manish Sweeney, [address] [place] [address], [address]. [phone] OFFICE/OUTPA TIENT VISIT, [facility], [address] [place] [address], [id number] , [place] tel:[phone] [facility] [place] Back Pain (chief complaint) Postlaminectomy syndrome, not elsewhere classifiedLong term (current) use of opiate analgesicOther cervical disc degeneration, mid-cervical regionOther intervertebral disc degeneration, lumbar region No [employer] Apprentice: Heriberto VALENCIA, [facility] [address] [address], [place], [address]. tel:[phone] ring Provider: Manish Sweeney, [address] [place] [address], [address]. [phone] OFFICE/OUTPA TIENT VISIT, [facility], [address] [place] [address], [id number] , [place] [phone] [facility] [place] Back Pain (chief complaint) Postlaminectomy syndrome, not elsewhere classified 5 No Information Referring Provider: Manish Sweeney, [address] [place] [address], [address]. [phone] OFFICE/OUTPA TIENT VISIT, [facility], [address] [place] [address], [id number] , [place] tel:[phone] 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 tel:[phone] ring Provider: Manish Sweeney, [address] [place] [address], [address]. tel:[phone] OFFICE/OUTPA TIENT VISIT, [facility], [address] [place] [address], [id number] , [place] tel:[phone] [facility] Back Pain (chief complaint) Displacement of cervical intervertebral disc without myelopathyPostlam inectomy syndrome of lumbar region 5 Manny Dunn. [address], [place], [id number], [place]. tel:[phone] Specialist: Heriberto VALENCIA, [address] [facility], [place], [address]. tel:[phone] Provider: Manish Sweeney, [address] [place] [address], [address]. tel:[phone] OFFICE/OUTPA TIENT VISIT, [facility], [address] [place] [address], [id number] , [place] tel:[phone] [facility] [place] Back Pain (chief complaint) Displacement of cervical intervertebral disc without myelopathyPostlam inectomy syndrome of lumbar regionDegeneratio n of cervical intervertebral disc 5 Manny Dunn. [address], [place], [id number], [place]. tel:[phone] Specialist: Heriberto VALENCIA, [address], [place], [address]. tel:[phone] ring Provider: Manish Sweeney [address] [place] [address], [address]. tel:[phone] OFFICE/OUTPA TIENT VISIT, EST [facility], [address] [place] [address], [id number] , [place] tel:[phone] [facility] [place] Back Pain (chief complaint) Degeneration of cervical intervertebral discPostlaminecto my syndrome of lumbar region Manny Dunn. [address] [place] [address], [id number], [place]. tel:[phone] Referring Provider: Manish Sweeney, [address] [place] [address], [address]. tel:[phone] [facility], [address] [place] [address], [id number] , [place] tel:[phone] [facility] [place] Degeneration of cervical intervertebral disc Martinez Hammond. [address] [place] [address], [id number], [place]. tel:[phone] Referring Provider: Manish Sweeney, [address] [place] [address], [address]. tel:[phone] OFFICE/OUTPA TIENT VISIT, [facility], [address] [place] [address], [id number] , [place] tel:[phone] [facility] [place] Back Pain (chief complaint) Degeneration of cervical intervertebral discDisplacement of cervical intervertebral disc without myelopathyPostlam inectomy syndrome of lumbar region Manny Dunn. [address] [place] [address], [id number], [place]. tel:[phone] Referring Provider: Manish Sweeney, [address] [place] [address], [address]. tel:[phone] OFFICE/OUTPA TIENT VISIT, [facility], [address] [place] [address], [id number] , [place] tel:[phone] [facility] [place] Back Pain (chief complaint) Degeneration of lumbar or lumbosacral intervertebral discDegeneration of cervical intervertebral discHeadache 5 Manny Mona. [address], [place], [id number], [place]. tel:[phone] Referring Provider: Manish Sweeney, [address] [place] [address], [address]. tel:[phone] OFFICE/OUTPA TIENT VISIT, EST [facility], [address] [place] [address], [id number] , [place] tel:[phone] [facility] [place] Back Pain (chief complaint) Degeneration of lumbar or lumbosacral intervertebral discPostlaminecto my syndrome of lumbar regionDegeneratio n of cervical intervertebral discHeadache 5 Manny Mona. [address] [place] [address], [id number], [place]. tel:[phone] Referring Provider: Manish Sweeney, [address] [place] [address], [address]. tel:[phone] OFFICE/OUTPA TIENT VISIT, EST [facility], [address] [place] [address], [id number] , [place] tel:[phone] [facility] [place] low back pain (chief complaint) Degeneration of lumbar or lumbosacral intervertebral discUnspecified arthropathy involving other specified sitesPostlaminect kelly syndrome of lumbar region Oct-0 2- 5 Manny Mona. [address] [place] [address], [id number], [place]. tel:[phone] Referring Provider: Manish Sweeney, [address] [place] [address], [address]. tel:[phone] [facility], [address] [place] [address], [id number] , [place] tel:[phone] [facility] [place] Unspecified arthropathy involving other specified sites 0- 5 Bryan Guillen. [address] [place] [address], [id number], [place]. tel:[phone] Referring Provider: Manish Sweeney, [address] [place] [address], [address]. tel:[phone] OFFICE/OUTPA TIENT VISIT, EST [facility], [address] [place] [address], [id number] , [place] tel:[phone] [facility] [place] low back pain (chief complaint) Displacement of lumbar intervertebral disc without myelopathyUnspeci fied arthropathy involving other specified sitesPostlaminect kelly syndrome of lumbar region 5 Manny Dunn. [address] [place] [address], [id number], [place]. tel:[phone] Referring Provider: Manish Sweeney, [address] [place] [address], [address]. tel:[phone] [facility], [address] [place] [address], [id number] , [place] tel:[phone] [facility] [place] Displacement of lumbar intervertebral disc without myelopathy 5 Bryan Guillen. [address] [place] [address], [id number], [place]. tel:[phone] Referring Provider: Manish Sweeney, [address] [place] [address], [address]. tel:[phone] OFFICE/OUTPA TIENT VISIT, EST [facility], [address] [place] [address], [id number] , [place] tel:[phone] [facility] [place] Back Pain (chief complaint) Sciatica Due To Displacement Of Lumbar DiscUnspecified arthropathy involving other specified sites 4 No Information Referring Provider: Manish Sweeney, [address] [place] [address], [address]. tel:[phone] [facility], [address] [place] [address], [id number] , [place] tel:[phone] [facility] [place] Unspecified arthropathy involving other specified sites 4 Will Manish. [address] [place] [address], [id number], [place]. tel:[phone] Referring Provider: Manish Sweeney, [address] [place] [address], [address]. tel:[phone] OFFICE/OUTPA TIENT VISIT, EST [facility], [address] [place] [address], [id number] , [place] tel:[phone] [facility] [place] low back pain (chief complaint) Degeneration of lumbar or lumbosacral intervertebral discUnspecified arthropathy involving other specified sites 4 Manny Dunn. [address] [place] [address], [id number], [place]. tel:[phone] Referring Provider: Manish Sweeney, [address] [place] [address], [address]. tel:[phone] OFFICE/OUTPA TIENT VISIT, [facility], [address] [place] [address], [id number] , [place] [phone] [facility] [place] neck pain (chief complaint) low back pain (chief complaint) Postlaminectomy syndrome of lumbar regionDegeneratio n of cervical intervertebral discUnspecified arthropathy involving other specified sites 4 Manny Dunn. [address] [place] [address], [id number], [place]. tel:[phone] Referring Provider: Manish Sweeney, [address] [place] [address], [address]. tel:[phone] OFFICE/OUTPA TIENT VISIT, [facility], [address] [place] [address], [id number] , [place] tel:[phone] [facility] Pain [facility] neck pain (chief complaint) Myalgia and myositis, unspecifiedPostla minectomy syndrome of lumbar regionDegeneratio n of cervical intervertebral disc 4 Manny Dunn. [address] [place] [address], [id number], [place]. tel:[phone] Referring Provider: Manish Sweeney, [address] [place] [address], [address]. tel:[phone] [facility], [address] [place] [address], [id number] , [place] tel:[phone] [facility] [place] back pain (chief complaint) neck pain (chief complaint) No Information Oct-0 1-201 4 Cynthia Wilkins. [address] [place] [address], [id number], [place]. tel:[phone] Referring Provider: Manish Sweeney, [address] [place] [address], [address]. tel:[phone] [facility], [address] [place] [address], [id number] , [place] tel:[phone] [facility] [place] migraine (chief complaint) Myalgia and myositis, unspecified Sep-2 2-201 4 Manny Dunn. [address] [place] [address], [id number], [place]. tel:[phone] Referring Provider: Manish Sweeney, [address] [place] [address], [address]. tel:[phone] OFFICE/OUTPA TIENT VISIT, EST [facility], [address] [place] [address], [id number] , [place] tel:[phone] [facility] [place] low back pain (chief complaint) neck pain (chief complaint) Postlaminectomy syndrome of lumbar regionDegeneratio n of cervical intervertebral discSpasm of muscle Sep-1 8-201 4 Manny Dunn. [address] [place] [address], [id number], [place]. tel:[phone] Referring Provider: Manish Sweeney, [address] [place] [address], [address]. tel:[phone] [facility], [address] [place] [address], [id number] , [place] [phone] [facility] back pain (chief complaint) neck pain (chief complaint) No Information Sep-0 9-201 4 Cynthia Wilkins. [address] [place] [address], [id number], [place]. tel:[phone] Referring Provider: Manish Sweeney, [address] [place] [address], [address]. tel:[phone] [facility], [address] [place] [address], [id number] , [place] tel:[phone] [facility] [place] Degeneration of cervical intervertebral disc 4 Adams Mindy. [address] [place] [address], [id number], [place]. tel:[phone] Referring Provider: Manish Sweeney, [address] [place] [address], [address]. tel:[phone] OFFICE/OUTPA TIENT VISIT, EST [facility], [address] [place] [address], [id number] , [place] [phone] [facility] [place] neck pain (chief complaint) low back pain (chief complaint) Postlaminectomy syndrome of lumbar regionDegeneratio n of cervical intervertebral discSpondylolisth esis, congenital 4 Manny Dunn. [address] [place] [address], [id number], [place]. tel:[phone] Referring Provider: Manish Sweeney, [address] [place] [address], [address]. tel:[phone] [facility], [address] [place] [address], [id number] , [place] tel:[phone] [facility] [place] Degeneration of lumbar or lumbosacral intervertebral disc 4 Adams Mindy. [address] [place] [address], [id number], [place]. tel:[phone] Referring Provider: Manish Sweeney, [address] [place] [address], [id number]. tel:[phone] [facility], [address] [place] [address], [id number] , [place] tel:[phone] [facility] back pain (chief complaint) Sciatica Due To Displacement Of Lumbar Disc 4 Cynthia Wilkins. [address] [place] [address], [id number], [place]. tel:[phone] Referring Provider: Manish Sweeney, [address] [place] [address], [id number]. tel:[phone] OFFICE/OUTPA TIENT VISIT, [facility], [address] [place] [address], [id number] , tel:[phone] [facility] left low back pain (chief complaint) left leg pain (chief complaint) Postlaminectomy syndrome of lumbar regionDegeneratio n of cervical intervertebral disc 4 Manny Mona. [address] [place] [address], [id number], [place]. tel:[phone] Referring Provider: Manish Sweeney, [address] [place] [address], [id number]. tel:[phone] OFFICE/OUTPA TIENT VISIT, [facility], [address] [place] [address], [id number] , tel:[phone] [facility] left low back pain (chief complaint) left leg pain (chief complaint) Spondylolisthesis , congenitalPostlam inectomy syndrome of lumbar regionDegeneratio n of lumbar or lumbosacral intervertebral discDegeneration of cervical intervertebral discTherapeutic Drug Monitoring Manny Dunn. [address] [place] [address], [id number], [place]. tel:[phone] Referring Provider: Manish Sweeney, [address] [place] [address], [id number]. tel:[phone] Family History Family Member Type Diagnosis Age At Onset Mother Problem (finding) discectomy Problem (finding) Family history of Back pain Brother Problem (finding) Discectomy Father Problem (finding) discectomy Brother Problem (finding) 2 discectomies Payers Payer name Insurance type Covered democrat ID Lowell contreras(s) Medicare MB [id number] [facility] [id number] Social History Type Description Quantity Date Captured Comments Sex Female Smoking Status No Information Chief Complaint And Reason For Visit No Information Reason For Referral Reason For Referral No Information Plan Of Treatment Date Type Action Status Goal Tobacco cessation counseling completed Goal Tobacco cessation counseling completed Goal Tobacco cessation counseling completed Referral Ordered: ActionFlow -Family Medicine (related to Other cervical disc degeneration at C5-C6 level) ordered Referral Referred To: [facility] [address] [place], [phone] Ordered: Referrals: Family Medicine. ActionFlow ordered Future Order: Lab Order COMPLIAN CE DRUG ANALYSIS, URINE, WITH MED REPORT ([id number]), Ordered on: Ordered Future Order: Lab Order Drug Madyson t Def 22+ Classes ([id number]), Ordered on: Ordered Future Order: Lab Order COMPLIAN CE DRUG ANALYSIS, URINE, WITH MED REPORT ([id number]), Ordered on: Ordered Future Order: Lab Order Drug Madyson t Def 22+ Classes ([id number]), Ordered on: Ordered Future Order: Lab Order COMPLIAN CE DRUG ANALYSIS, URINE, WITH MED REPORT ([id number]), Ordered on: Ordered Future Order: Lab Order COMPLIAN CE DRUG ANALYSIS, URINE, WITH MED REPORT ([id number]), Ordered on: Ordered History Of Present Illness [...] walking, TENS and changing positions. Neck pain Neck Pain Pertinent negati ves include bladder incontinence. low back pain (comments) Sandy is here for follow up and medication refill. Increased pain in her low back with radiation into her left calf. Requests her parking disability to be updated at today's OV. Ongoing neck pain. Still working with [facility], who have recommended against additional injections at this time.She presents with #29 Percocet 10-325mg - on track. The prescribed medication reduces pain from 8/10 to 6/10 which allows her to increase daily activity levels, no SE noted. Continues to take amitriptyline with benefit, tolerating current dose well with no side effects. low back pain Severity level i s [...] sitting, standing, stretching, TENS and changing position. Low back pain Severity level i s [...] stiff. Denies radicular symptoms. Interventions done through [facility]. DId notice benefit from recent lumbar [...] lying down and rest. low back pain (comments) Sandy is here for follow up and medication refill. Complaints of low back pain with radicular symptoms into RLE. Radicular pain is described as shocking.She is s/p bilateral lumbar RFA completed at [facility], right side completed 12/10 and left side completed 12/24. She is ambivalent about the benefit she is receiving from her RFA. Complains of increased thigh pain over the past few day.She presents with #19 Percocet 10-325mg - on track. The prescribed medication provides at least 25% pain relief which allows her to increase daily activity levels, no SE. low back pain Severity level i [...] by heat, pain meds/drugs and changing positions. Neck Pain Location of pain is bilateral [...] dizziness and slurred speech.S/p SI injection from [facility] with benefit. Currently pursing RFA with Dr. Brannon through [facility].She presents with #9 Percocet 10-325mg - on track. The prescribed medication relieves at least 50% of her pain which allows her to increase daily activity levels, no SE. Reports benefit with Amitriptyline to reduce headaches low back pain Severity level i s [...] meds/drugs, stretching and rest. low back pain (comments) Sandy is here for follow up and medications refill. Reports her low back pain has been relatively stable since last OV and MICHAEL. Is scheduled for repeat Lumbar MICHAEL and b/l SI joint injections scheduled in September with [facility]. Considering repeat RFA and possibly surgery [...] refill. LESI completed 6 weeks ago at [facility] is providing significant relief. She continues to [...] Says she will contact FARHAD Christensen of [facility] if she is able to resume injections as it was put on hold. No other concerns today. Neck pain Pertinent negati ves include bladder incontinence. low back pain Severity level i s [...] heat, pain meds/drugs, stretching, rest and TENS. low back pain (comments) Patient is here [...] her neck and low back. Working with [facility] for interventions such as injections and [...] a Cervical and Lumbar MRI completed at [facility] since her last OV. low back pain [...] some benefit. continues with Asa Valencia at [facility] for injections and surgical consideration. Back Pain [...] two injections at L3 and L5 at [facility], which provided relief. Reported no relief from the lumbar RFA several months ago. [facility] has recommended surgery on her cervical spine. Patient declines at this time.Did discuss SCS with a provider at [facility]. Is considering a [employer] stimulator over a [employer] stimulator. Back [...] TENS and changing positions. Back Pain (comments) Sandy is here for [...] into bilateral legs. Saw Asa Valencia at [facility] yesterday, who recommended LESI at L3 [...] RFA of neck and lumbar spine through [facility], but needs to complete PT first. [...] effect, and a recent spinal tap at [facility] (Dr. Wiseman) came back normal, but [...] sitting, walking, standing andchanging positions. Back Pain (comments) Sandy is here for [...] her. Back Pain Severity level i s 6-8. [...] posture. Last MICHAEL was 08/15/[address] lBair. Hoping to repeat injections after follow-up with [...] meds/drugs, stretching, sitting and walking. Back Pain Severity level i [...] order. Back Pain Severity level i s 5. Duration: chronic. The problem is fluctuating. It occurs persistently. Location of pain is upper back, middle back, lower back and neck.The patient describes the pain as an ache, burning, sharp and tingling. Symptoms are aggravated by daily activities. Symptoms are relieved by heat, lying down, pain meds/drugs, stretching, sitting, standing and walking. Back Pain (comments) Patient is [...] today. Back Pain Severity level i s 6. 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 She rolls her own cigarettes. Denies smoking [...] Has completed cervical MICHAEL on 08/15 at [facility]. Back Pain Severity level i s 7. [...] worse. She had an cervical MICHAEL at [facility] with Dr. Blair on 01/03. Lumbar RF [...] in physical therapy and chiropractic therapy at [facility] in [place]. She continues to be interested in pursuing [...] pain relief. She is actively pursuing both spiritual care coordinator as well as PT for low back pain at [facility]. She will likely be repeating low back RFA in the near future. Back Pain Onset: year ago. Severity level [...] meds/drugs, light activity and reclining. Back Pain (comments) Patient is here for f/u. She has #15 Percocet left. Patient reports medications work well and denies side effects. States that she saw Asa Valencia from [facility]; he recommended repeating cervical rhizotomy unless she wanted to proceed with surgery. She would like to hold off on surgery as long as possible, so will pursue RF. She is having to complete either PT or chiro prior to repeat procedure. She will do chiro as PT has not offered relief in the past. Back Pain Severity level i s 8. [...] Flexeril.She is getting her injections completed at [place] which has completed bilateral SI joint and cervical injections. These have provided relief with her cervical spine but has not provided any relief with her left leg. She is not interested in an SCS. Back Pain Severity level i s 6. [...] Symptoms are relieved by reclining. Back Pain (comments) Patient is here for f/u and medication refill.She has #15 oxycodone which is on track. Her medications are providing some relief. She is at 1800mg of gabapentin currently. She feels sore and is worse with the current weather (rainy).Had BRE in the neck on the right side about 5 weeks ago. Patient is being seen at [facility] in [place] which she has had a great experience. [...] Xanax for help with sleep. Back Pain Onset: year ago. Severity level [...] side effects. She states that Asa Valencia [facility] has referred her for one additional injection (possibly C5-6 discogram?), and she will them f/u with him to discuss possible cervical surgery. Continues to have Back Pain Onset: year ago. Severity level [...] meds/drugs, rest and changing positions. Back Pain (comments) Patient is here for f/u. She has #7 Percocet left. Patient reports medications work well and denies side effects. Received minimal relief with C7-T1 MICHAEL, but had a C5-6 MICHAEL at [facility] last week, and feels that it has been offering some relief. She plans to f/u with Asa Valencia at [facility] to discuss cervical surgery, likely 04/2015. [...] is here for f/u. She has #1 Schuyler left, which is appropriate. She had lumbar rhizotomy 09/22/2014 and reports relief after the procedure. She had tried Percocet for pain relief following the procedure and felt it worked better than Schuyler. She denies side effects with either medication. low back pain Onset: year ago. Severity [...] is here for f/u. She has #14 Schuyler left. Patient reports medications work well and denies side effects. She is scheduled for lumbar rhizotomy tomorrow. She is requesting to try Percocet as she does question the effectiveness of Schuyler at times. Back Pain Severity level i s 5. The problem is fluctuating. It occurs persistently. Location of pain is lower back and neck. Pain is radiated to the left foot. Symptoms are aggravated by sitting, standing, reaching and stooping. Back Pain (comments) She reports the RFA was slightly effective in reliving her symptoms. Frequency is unchanged as she has constant pain, though she reports greater than 50% reduction in intensity. She still has occasional pain that shoots down her leg to her foot. She is interested in a right lumbar MICHAEL, her last one was in May. low back pain Onset: year ago. Severity [...] is here for f/u. She has #3 Schuyler left, which is a small surplus. Patient reports medications work well and denies side effects. She is requesting to have repeat bilateral lumbar rhizotomies, as she has previously had significant relief with this procedure. Functional Status Date Functional Assessmen t No Information Instructions Date Instruction Additional Infor mation Continue current medication Reviewed medications New medication is prescribed Medications counted, patient is on track. Continue current medication Reviewed medications Medications counted, patient has a surplus Change medication Reviewed medications Medications counted, patient has self-escalated dose. Reviewed medications Continue current medication Medications counted, patient has a surplus Continue current medication Reviewed medications Medications counted, patient has a surplus Discontinue current medication Reviewed medications New medication is prescribed Depression Screen Oswestry Score Assessments Type Assessment Date No Information Patient Care Teams Name Effective Dates (start - stop) Status Members No Information
[2023-12-14 01:32] LABS: Appearance Urine Clear (Clear); Bilirubin Urine Negative (Negative); Blood Urine Negative (Negative); Color Urine Yellow (Yellow); Glucose Urine Negative (Negative); Ketones Urine Negative (Negative); Leukocyte Esterase Urine Negative (Negative); Nitrite Urine Negative (Negative); Protein Urine Negative (Negative); Urobilinogen Urine 0.2 (0.2-1.0)
[2023-12-14 01:35] LABS: Ur HCG Qualitative* Negative (Negative)
[2023-12-14 01:42] LABS: Chloride* 105 mmol/L (96-114)
[2023-12-14 01:43] LABS: Potassium* 3.7 mmol/L (3.6-5.1); Sodium* 133 mmol/L (135-149)
[2023-12-14 01:45] LABS: Alkaline Phosphatase* 92 U/L (40-150); Anion Gap 3 mEq/L (7-15); Aspartate Amino Transferase* 51 U/L (12-35); Bilirubin Total* 0.4 mg/dL (0.1-1.5); Blood Urea Nitrogen* 4 mg/dL (5-24); Carbon Dioxide* 25 mmol/L (20-32); Creatinine* 0.5 mg/dL (0.5-1.5); Est. Creatinine Clearance* 108.38; Estimated Glomerular Filt Rate 116 ml/min; Glucose* 103 mg/dL (60-115); Lipase* 80 U/L (23-300); Total Protein* 7.1 g/dL (6.0-8.3)
[2023-12-14 01:46] LABS: Alanine Aminotransferase* 72 U/L (4-35); Calcium* 9.2 mg/dL (8.4-10.6)
[2023-12-14 01:48] LABS: C Reactive Protein* < 0.5 mg/dL (0.5-1.0)
[2023-12-14 03:34] VITALS: BP 102/77; PULSE 79; RESP 16
[2023-12-14] MEDS: OLANZapine 5 MG TAB.RAPDIS PO (03:34)
[2023-12-14 03:41] VITALS: BP 102/77; PULSE 79; RESP 16; O2SAT 95
== END 2023-12-14 03:42 | disposition home or self-care (01) ==
PROVIDERS: Emergency Provider Family Medicine; PCP Family Medicine
DX: Z53.21 Procedure and treatment not carried out due to patient leaving prior to being seen by health care provider (principal)
CPT/HCPCS: 36415; 74177; 80053; 81003; 81025; 83605; 83690; 85025; 86140; 99284; A9270; J2405; J7030; Q9967

== ENCOUNTER 2023-12-14 15:03 | Emergency (ER) | payer MEDICARE, MEDICAID, SELFPAY ==
[2023-12-14 15:18] VITALS: BP 135/83; PULSE 81; RESP 18; TEMP 36.6; O2SAT 98; BMI 16.7
--- OUTSIDE RECORDS SUMMARY | 2023-12-14 19:25 | XMS_ITS | Encounter Summary ---
Author Name Unknown Organization [place] Address [facility] [place] [address] Care Team Providers Care Fibre Optic Cable Splicer Name Role Phone Guerita Romero MD Primary Care Provider [phone] Jose Rabago MD Unavailable [phone] [facility] Primary Care Pr ovider Unavailable Encounter Details Date Type Department Care Team (Late st Contact Info) Description 03/01/2021 Documentation Only [facility] Emergency Dept [address] [place] [address] Unknown, Provider Social History Tobacco Use Types [...] on filedocumented in this encounter Care Teams Fibre Optic Cable Splicer Relationship Specialty Start Date End Date Guerita Romero MD PCP - General 09/06/11 09/29/22 [facility] [address] [address] PCP - General 09/30/22 11/28/22 Jose Rabago MD [address] [id number] Assigned Surgical Provider 02/24/2108/29/22 documented as of this encounter
--- OUTSIDE RECORDS SUMMARY | 2023-12-14 19:25 | XMS_ITS | Referral Summary ---
Author Name Unknown Organization [place] Address [address] [place] [address]. [place] [address] Care Team Providers Care Gravity Meter Observer Name Role Phone Unavailable Primary Care Provider [...] Active naloxone (NARCAN) 4 MG/0.1ML nasal spray [place] 4 mg into one nostril alternating nostrils [...] Overview: Added automatically from request for surgery [id number] Lumbago 11/05/2012 Hematemesis 04/09/2012 Rhabdomyolysis 09/13/2011 Foot [...] Comments Blood Pressure 97/68 09/30/2022 8:21 PM HOSPITAL NURSE Pulse 81 09/30/2022 8:21 PM HOSPITAL NURSE Temperature 36.7 ??C (98.1 ??F) 09/30/2022 4:57 PM CS T Respiratory Rate 22 09/30/2022 4:57 PM HOSPITAL NURSE Oxygen Saturation 98% 09/30/2022 8:11 PM HOSPITAL NURSE Inhaled Oxygen Concentration - - Weight 77.1 kg (170 lb) 03/01/2021 2:51 PM CDT Height 172.7 cm (5' 8) 09/30/2022 4:57 PM HOSPITAL NURSE Body Mass Index 25.1 03/01/2021 2:51 PM CDT Plan of Treatment Not on file Procedures Procedure Name Priority Date/Time Associated Diagnosis Comments COMPREHENSIVE METABOLIC PANEL STAT 09/30/2022 5:05 PM HOSPITAL NURSE ZZCL AFF HEMOGRAM/PLATELET Routine 04/22/1999 1:14 PM CDT Malig Ned Temporal Lobe (H) Chemotherapy Session from Last 3 Months or Most Recently Relevant to Health Maintenance Results * (ABNORMAL) Comprehensive metabolic panel (09/30/2022 5:05 PM HOSPITAL NURSE) [facility] Sodium 139 136 - 145 mmol/L 09/30/2022 6:21 PM [facility] Potassium 3.8 3.4 - 5.3 mmol/L 09/30/2022 6:21 PM [facility] Chloride 101 98 - 107 mmol/L 09/30/2022 6:21 PM [facility] Carbon Dioxide (CO2) 28 22 - 29 mmol/L 09/30/2022 6:21 PM [facility] Anion Gap 10 7 - 15 mmol/L 09/30/2022 6:21 PM [facility] Urea Nitrogen 6.6 6.0 - 20.0 mg/dL 09/30/2022 6:21 PM [facility] Creatinine 0.73 0.51 - 0.95 mg/dL 09/30/2022 6:21 PM [facility] Calcium 9.2 8.6 - 10.0 mg/dL 09/30/2022 6:21 PM [facility] Glucose 95 70 - 99 mg/dL 09/30/2022 6:21 PM [facility] Alkaline Phosphatase 105(H) 35 - 104 U/L 09/30/2022 6:21 PM [facility] AST 76(H) 10 - 35 U/L 09/30/2022 6:21 PM [facility] ALT 147(H) 10 - 35 U/L 09/30/2022 6:21 PM [facility] Protein Total 6.6 6.4 - 8.3 g/dL 09/30/2022 6:21 PM [facility] Albumin 3.8 3.5 - 5.2 g/dL 09/30/2022 6:21 PM [facility] Bilirubin Total 0.3 <=1.2 mg/dL 09/30/2022 6:21 PM HOSPITAL NURSE LABORATORY GFR Estimate >90 >60 mL/min/1.7 3m2 09/30/2022 6:21 PM HOSPITAL NURSE LABORATORY Comment:eGFR calculated us2020 CKD-EPI equation. Blood VENOUS LINE / Unknown Venipuncture / Unknown 09/30/2022 5:05 PM HOSPITAL NURSE 09/30/2022 5:23 PM HOSPITAL NURSE Jose Murrell MD LAB - BLOOD ORDERABL ES RH LABORATORY [facility] Acute Care Lab [address] Lab (1st floor, no room number) [place] [address], [facility] [phone] * (ABNORMAL) HEMOGRAM W/ PLATELET COUNT (04/22/1999 [...] Advance Directives For more information, please contact: [phone] * Full Code (Latest Code Status on [...]
--- OUTSIDE RECORDS SUMMARY | 2023-12-14 19:25 | XMS_ITS | Encounter Summary ---
Author Name Unknown Organization [place] Address [facility] [place] [address] Care Team Providers Care Care Coordination Manager Name Role Phone Guerita Romero MD Primary Care Provider [phone] Jose Rabago MD Unavailable [phone] Clinic, [facility] Primary Care Pr ovider Unavailable Encounter Details Date Type Department Care Team (Late st Contact Info) Description 03/18/2021 [facility] Medical Advice [facility] [place] [address] [place] [address] Shira Martins PA-C [address] [facility] [address] [place] [address] Social History Tobacco Use Types [...] on filedocumented in this encounter Care Teams Care Coordination Manager Relationship Specialty Start Date End Date Guerita Romero MD PCP - General 09/06/11 09/29/22 [facility] [address] [address] PCP - General 09/30/22 11/28/22 Jose Rabago MD [address] [id number] Assigned Surgical Provider 02/24/2108/29/22 documented as of this encounter
--- OUTSIDE RECORDS SUMMARY | 2023-12-14 19:25 | XMS_ITS | Clinical Summary ---
Author Name Unknown Organization [place] Address [address] [place] [address]. [place] [address] Care Team Providers Care Manager Android Name Role Phone Unavailable Primary Care Provider [...] Active naloxone (NARCAN) 4 MG/0.1ML nasal spray [place] 4 mg into one nostril alternating nostrils [...] Overview: Added automatically from request for surgery [id number] Lumbago 11/05/2012 Hematemesis 04/09/2012 Rhabdomyolysis 09/13/2011 Foot [...] Comments Blood Pressure 97/68 09/30/2022 8:21 PM DENTAL ASSISTANT INSTRUCTOR Pulse 81 09/30/2022 8:21 PM DENTAL ASSISTANT INSTRUCTOR Temperature 36.7 ??C (98.1 ??F) 09/30/2022 4:57 PM CS T Respiratory Rate 22 09/30/2022 4:57 PM DENTAL ASSISTANT INSTRUCTOR Oxygen Saturation 98% 09/30/2022 8:11 PM DENTAL ASSISTANT INSTRUCTOR Inhaled Oxygen Concentration - - Weight 77.1 kg (170 lb) 03/01/2021 2:51 PM CDT Height 172.7 cm (5' 8) 09/30/2022 4:57 PM DENTAL ASSISTANT INSTRUCTOR Body Mass Index 25.1 03/01/2021 2:51 PM [...] COMPREHENSIVE METABOLIC PANEL STAT 09/30/2022 5:05 PM DENTAL ASSISTANT INSTRUCTOR ZZCL AFF HEMOGRAM/PLATELET Routine 04/22/1999 1:14 PM CDT Malig Ned Temporal Lobe (H) Chemotherapy Session from Last 3 Months or Most Recently Relevant to Health Maintenance Results * (ABNORMAL) Comprehensive metabolic panel (09/30/2022 5:05 PM [facility]) [facility] Sodium 139 136 - 145 mmol/L 09/30/2022 6:21 PM [facility] Potassium 3.8 3.4 - 5.3 mmol/L 09/30/2022 6:21 PM [facility] Chloride 101 98 - 107 mmol/L 09/30/2022 6:21 PM [facility] Carbon Dioxide (CO2) 28 22 - 29 mmol/L 09/30/2022 6:21 PM [facility] Anion Gap 10 7 - 15 mmol/L 09/30/2022 6:21 PM [facility] Urea Nitrogen 6.6 6.0 - 20.0 mg/dL 09/30/2022 6:21 PM [facility] Creatinine 0.73 0.51 - 0.95 mg/dL 09/30/2022 6:21 PM [facility] Calcium 9.2 8.6 - 10.0 mg/dL 09/30/2022 6:21 PM [facility] Glucose 95 70 - 99 mg/dL 09/30/2022 6:21 PM [facility] Alkaline Phosphatase 105(H) 35 - 104 U/L 09/30/2022 6:21 PM [facility] AST 76(H) 10 - 35 U/L 09/30/2022 6:21 PM [facility] ALT 147(H) 10 - 35 U/L 09/30/2022 6:21 PM [facility] Protein Total 6.6 6.4 - 8.3 g/dL 09/30/2022 6:21 PM [facility] Albumin 3.8 3.5 - 5.2 g/dL 09/30/2022 6:21 PM [facility] Bilirubin Total 0.3 <=1.2 mg/dL 09/30/2022 6:21 PM [facility] GFR Estimate >90 >60 mL/min/1.7 3m2 09/30/2022 6:21 PM [facility] Comment:eGFR calculated us2020 CKD-EPI equation. Blood VENOUS LINE / Unknown Venipuncture / Unknown 09/30/2022 5:05 PM DENTAL ASSISTANT INSTRUCTOR 09/30/2022 5:23 PM DENTAL ASSISTANT INSTRUCTOR Jose Murrell MD LAB - BLOOD ORDERABL ES LABORATORY [facility] Acute Care Lab [address] [facility] Lab (1st floor, no room number) [place] [address], [facility] [phone] * (ABNORMAL) HEMOGRAM W/ PLATELET COUNT (04/22/1999 [...] Advance Directives For more information, please contact: [phone] * Full Code (Latest Code Status on [...]
--- OUTSIDE RECORDS SUMMARY | 2023-12-14 19:25 | XMS_ITS | Clinical Summary ---
Author Name Unknown Organization [employer] [facility] Address [place], [place] [address] Care Team Providers Care Database Administration Manager Name Role Phone Heriberto Valencia Unavailable Ilia Connors MD Primary Care Provider [phone] Wagner Dahl DO Unavailable [phone] Allergies Active Allergy Reactions Criticality Noted Date [...] Description 12/09/2023 2:30 PM CDT Office Visit [facility] [address] [place] [address] Paul Baez MD Follow Up (Discuss surgical options - cervical) 12/09/2023 Travel 11/27/2023 Telephone [facility] at [facility] [address] [place] [address] Heriberto Valencia PA Questions 11/27/2023 Orders Only [facility] [address] [place] [address] Heriberto Valencia PA 2 scans: (2-Ord) [facility], CERVICAL SPINE WO CONTRAST, 11/24/2023 11/25/2023 9:30 AM CDT Office Visit [facility] [place] [address] [place] [address] Paul Baez MD Follow Up (Cervical Spine) 11/25/2023 Travel 11/04/2023 11:45 AM CDT Office Visit [facility] [place] [address] [place] [address] Heriberto Valencia PA Follow Up 11/04/2023 Travel 10/09/2023 [place] [facility] [place] [address] [place] [address] Ilia Connors MD Refill Request ([email or web address] ([email or web address] [...] 16 Negative Negative 04/18/2022 5:13 PM CDT [facility] TYPE 18 Negative Negative 04/18/2022 5:13 PM CDT [facility] OTHER HIGH RISK TYPES Negative Negative 04/18/2022 5:13 PM CDT [facility] Other (Cervical) Non-Blood / Unknown 04/16/2022 1:43 PM CDT 04/17/2022 9:25 AM CDT [facility] 04/18/2022 5:13 PM CDT HPV types 16, 18, 31, 33, 35, 39, 45, 51, 52, 56, 58, 59, 66 and 68 DNA were undetectable or below the pre-set threshold. Methodology: Adriana Napoleon 4800 HPV Test Guerita Romero MD MICROBIOLOGY [facility] [address] [place] [address], [place] * XR MAMMO OKSANA BILAT SCREEN [...] PM CDT XR MAMMO OKSANA BILAT SCREEN [[id number]] CLINICAL HISTORY: ??This is an asymptomatic 45 [...] - 199 mg/dL 11/08/2018 7:14 PM CDT [facility] TRIGLYCERIDES 80 <150 mg/dL 11/08/2018 7:14 PM CDT [facility] HDL CHOLESTEROL 54 >40 mg/dL 9 7:14 PM CDT [facility] NON-HDL CHOLESTEROL 136 <145 mg/dl 11/08/2018 7:14 PM CDT [facility] CHOL/HDL RATIO 3.52 <4.50 11/08/2018 7:14 PM CDT [facility] LDL CHOLESTEROL 120 <=130 mg/dL 11/08/2018 7:14 PM CDT [facility] PROVIDER ORDERED STATUS RANDOM 11/08/2018 7:14 PM CDT [facility] Blood BLOOD SPECIMEN / Unknown Venipuncture / Unknown 11/08/2018 11:23 AM CDT 11/08/2018 11:23 AM CDT Guerita Romero MD CHEMISTRY [facility] [address] [place] [address], [place] from Last 3 Months or Most [...] 2:47 AM 11/10/2008 3:15 AM Care Teams Database Administration Manager Relationship Specialty [place] [address] [place] [address] PCP - General Family Practice 07/02/22 Heriberto Valencia PA Neurosurgery 02/02/13 Wagner Dahl DO [address] [facility] [address] [place] [address] Endocrinology 10/14/22
--- OUTSIDE RECORDS SUMMARY | 2023-12-14 19:25 | XMS_ITS | Clinical Summary ---
Author Name Unknown Organization [facility] Address [address] [place] [address] Care Team Providers Care Forging Machine Hand Name Role Phone Unassigned, Provider Primary Care Provider Unava ilable Source Comments You are receiving this document as you are listed as the primary care provider,follow-up provider, or the patient has been referred to you for consultation.This is in compliance with the Medicare and[facility] E[facility] Incentive Program,which states Providers who transition their patient to another setting of careor provider of care or refers their patient to another provider of care shouldprovide summary care record for each transition of care or referral. [facility] Allergies Active Allergy Reactions Criticality Noted Date [...] sodium fluoride (AKA DENTA,PREVIDENT) 1.1 % cream [place] 2x/day. Do not eat or drink for [...] 2,000 Units by mouth daily. Active Biotin [address] [place] Wort 300 MG Active sodium fluoride (PREVIDENT) 1.1 % cream [place] 2x/day. Do not eat or drink for [...] Comments Blood Pressure 112/78 09/23/2018 12:15 PM [employer] TECHNICAL OFFICER Pulse 83 03/28/2021 7:17 AM CDT Temperature [...] age to complete this topic Care Teams Forging Machine Hand Relationship Specialty Start Date End Date Unassigned, Provider [address] [place] [address] PCP - General 08/28/01
--- OUTSIDE RECORDS SUMMARY | 2023-12-14 19:27 | XMS_ITS | Continuity of Care Document ---
Author Name Unknown Organization [facility] Address [address] [facility] [place] [address] Phone Care Team Providers Care Dermatology Procedural Physician Name Role Phone Will Manish DESAI Unavailable [...] Diagnoses Date Provider Providers Copied on Encounter [facility], [address] [place], [place], [id number] , [place] tel:[phone] [facility] [place] No Information 2 Martinez Hammond. [address] [place], [place], [id number], [place]. tel:[phone] OFFICE/OUTPA TIENT VISIT, [facility], [address] [place], [place], [id number] , [place] tel:[phone] [facility] [place] low back pain (chief complaint) Neck pain (chief complaint) Other intervertebral disc displacement, lumbar regionPostlaminec allan syndrome, not elsewhere classifiedOther cervical disc degeneration at C5-C6 levelOther intervertebral disc displacement, lumbosacral regionLong term (current) use of opiate analgesic 9 Manny Dunn. [address] [place] [address], [id number], [place]. tel:[phone] Specialist: Heriberto VALENCIA, [address] [address], [place], [address]. tel:[phone] ring Provider: Manish Sweeney, [address] [place] [address], [address]. tel:[phone] OFFICE/OUTPA TIENT VISIT, [facility], [address] [place] [address], [id number] , [place] tel:[phone] [facility] low back pain (chief complaint) Neck Pain (chief complaint) detention (current) use of opiate analgesicOther intervertebral disc displacement, lumbar regionPostlaminec allan syndrome, not elsewhere classifiedOther cervical disc degeneration at C5-C6 levelOther intervertebral disc displacement, lumbosacral regionEncounter for therapeutic drug level monitoring Manny Mona. [address] [place] [address], [id number], [place]. tel:[phone] Specialist: Heriberto VALENCIA, [address] [place] [address] [address], [place], [address]. tel:[phone] ring Provider: Manish Sweeney, [address] [place] [address], [address]. tel:[phone] OFFICE/OUTPA TIENT VISIT, [facility], [address] [place] [address], [id number] , [place] tel:[phone] [facility] Low back pain (chief complaint) parts counterman (current) use of opiate analgesicOther intervertebral disc displacement, lumbar regionPostlaminec allan syndrome, not elsewhere classifiedOther cervical disc degeneration at C5-C6 levelOther intervertebral disc displacement, lumbosacral region Aug 9 Manny Fiugeredohanie. [address] [place], [place], [id number], [place]. tel:[phone] Specialist: Heriberto VALENCIA, [address] [address], [place], [address]. tel:[phone] ring Provider: Manish Sweeney, [address] [place] [address], [address]. tel:[phone] OFFICE/OUTPA TIENT VISIT, [facility], [address] [place] [address], [id number] , [place] tel:[phone] [facility] low back pain (chief complaint) detention (current) use of opiate analgesicOther intervertebral disc displacement, lumbar regionPostlaminec allan syndrome, not elsewhere classifiedOther cervical disc degeneration at C5-C6 levelOther intervertebral disc displacement, lumbosacral region Jeramie-0 9-201 9 Manny Mona. [address] [place] [address], [id number], [place]. tel:[phone] Specialist: Heriberto VALENCIA, [address] [address], [place], [address]. tel:[phone] Provider: Manish Sweeney, [address] [place] [address], [address]. tel:[phone] OFFICE/OUTPA TIENT VISIT, [facility], [address] [place] [address], [id number] , [place] tel:[phone] [facility] low back pain (chief complaint) detention (current) use of opiate analgesicOther intervertebral disc displacement, lumbar regionPostlaminec allan syndrome, not elsewhere classifiedOther cervical disc degeneration at C5-C6 levelOther intervertebral disc displacement, lumbosacral region May-1 0-201 9 Manny Dunn. [address] [place] [address], [id number], [place]. tel:[phone] Specialist: Heriberto VALENCIA, [address] [address], [place], [address]. tel:[phone] Provider: Manish Sweeney, [address] [place] [address], [address]. tel:[phone] OFFICE/OUTPA TIENT VISIT, [facility], [address] [place] [address], [id number] , [place] tel:[phone] [facility] low back pain (chief complaint) Neck Pain (chief complaint) Other intervertebral disc displacement, lumbar regionPostlaminec allan syndrome, not elsewhere classifiedOther cervical disc degeneration at C5-C6 levelOther intervertebral disc displacement, lumbosacral regionLong term (current) use of opiate analgesicEncounte r for therapeutic drug level monitoring Manny Mona. [address] [place] [address], [id number], [place]. tel:[phone] Specialist: Heriberto VALENCIA, [facility] [address] [place] [address], [place], [address]. tel:[phone] ring Provider: Manish Sweeney, [address] [place] [address], [address]. tel:[phone] OFFICE/OUTPA TIENT VISIT, [facility], [address] [place] [address], [id number] , [place] tel:[phone] [facility] low back pain (chief complaint) Other intervertebral disc displacement, lumbar regionRadiculopat hy, cervical regionPostlaminec allan syndrome, not elsewhere classifiedOther cervical disc degeneration at C5-C6 levelOther intervertebral disc displacement, lumbosacral region Manny Dunn. [address] [place] [address], [id number], [place]. tel:[phone] Specialist: Heriberto VALENCIA, [facility] [address] [place] [address], [place], [address]. tel:[phone] ring Provider: Manish Sweeney, [address] [place] [address], [address]. tel:[phone] OFFICE/OUTPA TIENT VISIT, [facility], [address] [place] [address], [id number] , [place] [phone] [facility] low back pain (chief complaint) Other intervertebral disc displacement, lumbar regionOther intervertebral disc displacement, lumbosacral regionOther cervical disc degeneration at C5-C6 levelRadiculopath y, cervical regionPostlaminec allan syndrome, not elsewhere classified Manny Dunn. [address] [place] [address], [id number], [place]. tel:[phone] Specialist: Heriberto VALENCIA, [address] [address], [place], [address]. tel:[phone] Provider: Manish Sweeney, [address] [place] [address], [address]. tel:[phone] OFFICE/OUTPA TIENT VISIT, EST [facility], [address] [place] [address], [id number] , [place] tel:[phone] [facility] low back pain (chief complaint) Radiculopathy, cervical regionPostlaminec allan syndrome, not elsewhere classifiedOther intervertebral disc displacement, lumbosacral regionOther cervical disc degeneration at C5-C6 levelOther intervertebral disc displacement, lumbar region 8 Manny Dunn. [address] [place] [address], [id number], [place]. tel:[phone] Specialist: Heriberto VALENCIA, [facility] [address] [address], [place], [address]. tel:[phone] ring Provider: Manish Sweeney, [address] [place] [address], [address]. tel:[phone] OFFICE/OUTPA TIENT VISIT, EST [facility], [address] [place] [address], [id number] , [place] tel:[phone] [facility] low back pain (chief complaint) Neck pain (chief complaint) Other intervertebral disc displacement, lumbar regionOther intervertebral disc displacement, lumbosacral regionLong term (current) use of opiate analgesicPostlami nectomy syndrome, not elsewhere classifiedOther cervical disc degeneration at C5-C6 levelRadiculopath y, cervical region 8 Manny Dunn. [address] [place] [address], [id number], [place]. tel:[phone] Specialist: Heriberto VALENCIA, [address] [address], [place], [address]. tel:[phone] ring Provider: Manish Sweeney, [address] [place] [address], [address]. tel:[phone] OFFICE/OUTPA TIENT VISIT, [facility], [address] [place] [address], [id number] , [place] tel:[phone] [facility] low back pain (chief complaint) Neck pain (chief complaint) Other intervertebral disc displacement, lumbosacral regionOther intervertebral disc displacement, lumbar regionPostlaminec allan syndrome, not elsewhere classifiedOther cervical disc degeneration at C5-C6 level 8 Manny Dunn. [address] [place] [address], [id number], [place]. tel:[phone] Specialist: Heriberto VALENCIA, [address] [address], [place], [address]. tel:[phone] ring Provider: Manish Sweeney, [address] [place] [address], [address]. tel:[phone] OFFICE/OUTPA TIENT VISIT, EST [facility], [address] [place] [address], [id number] , [place] tel:[phone] [facility] low back pain (chief complaint) Other intervertebral disc displacement, lumbar regionOther intervertebral disc displacement, lumbosacral regionPostlaminec allan syndrome, not elsewhere classifiedOther cervical disc degeneration at C5-C6 level 8 Manny Dunn. [address] [place] [address], [id number], [place]. tel:[phone] Specialist: Heriberto VALENCIA, [address] [facility], [place], [address]. tel:[phone] ring Provider: Manish Sweeney, [address] [place] [address], [id number]. tel:[phone] OFFICE/OUTPA TIENT VISIT, [facility], [address] [place] [address], [id number] , [place] tel:[phone] [facility] low back pain (chief complaint) Other intervertebral disc displacement, lumbosacral regionOther intervertebral disc displacement, lumbar regionPostlaminec allan syndrome, not elsewhere classifiedOther cervical disc degeneration at C5-C6 level 8 Manny Dunn. [address] [place] [address], [id number], [place]. tel:[phone] Specialist: Heriberto VALENCIA, [address] [facility], [place], [address]. tel:[phone] ring Provider: Manish Sweeney, [address] [place] [address], [address]. tel:[phone] OFFICE/OUTPA TIENT VISIT, [facility], [address] [place] [address], [id number] , [place] tel:[phone] [facility] low back pain (chief complaint) Other intervertebral disc displacement, lumbosacral regionOther intervertebral disc displacement, lumbar regionPostlaminec allan syndrome, not elsewhere classifiedOther cervical disc degeneration at C5-C6 level 8 Manny Dunn. [address] [place] [address], [id number], [place]. tel:[phone] Specialist: Heriberto VALENCIA, [address] [place] [address], [place], [address]. tel:[phone] ring Provider: Manish Sweeney, [address] [place] [address], [address]. tel:[phone] OFFICE/OUTPA TIENT VISIT, [facility], [address] [place] [address], [id number] , [place] [phone] [facility] Back Pain (chief complaint) Other intervertebral disc displacement, lumbosacral regionPostlaminec allan syndrome, not elsewhere classifiedOther cervical disc degeneration at C5-C6 levelOther intervertebral disc degeneration, lumbar regionRadiculopat hy, cervical region Manny Dunn. [address] [place], [place], [id number], [place]. tel:[phone] Specialist: Heriberto VALENCIA, [facility] [address] [address], [place], [address]. tel:[phone] ring Provider: Manish Sweeney, [address] [place] [address], [address]. tel:[phone] OFFICE/OUTPA TIENT VISIT, [facility], [address] [place] [address], [id number] , [place] tel:[phone] [facility] Back Pain (chief complaint) Postlaminectomy syndrome, not elsewhere classifiedOther intervertebral disc displacement, lumbar regionOther intervertebral disc displacement, lumbosacral regionOther cervical disc degeneration at C5-C6 level Manny Dunn. [address] [place] [address], [id number], [place]. tel:[phone] Specialist: Heriberto VALENCIA, [facility] [address] [facility] [address], [place], [address]. tel:[phone] ring Provider: Manish Sweeney, [address] [place] [address], [address]. tel:[phone] OFFICE/OUTPA TIENT VISIT, [facility], [address] [place] [address], [id number] , [place] tel:[phone] [facility] [place] Back Pain (chief complaint) Postlaminectomy syndrome, not elsewhere classifiedOther intervertebral disc displacement, lumbar regionOther intervertebral disc displacement, lumbosacral regionOther cervical disc degeneration at C5-C6 level 0 8 Manny Dunn. [address] [place] [address], [id number], [place]. tel:[phone] Heriberto Valencia PAC, [address] [address], [place], [address]. tel:[phone] ring Provider: Manish Sweeney, [address] [place] [address], [address]. tel:[phone] OFFICE/OUTPA TIENT VISIT, EST [facility], [address] [place] [address], [id number] , [place] [phone] [facility] [place] Back Pain (chief complaint) Postlaminectomy syndrome, not elsewhere classifiedOther intervertebral disc displacement, lumbar regionOther intervertebral disc displacement, lumbosacral regionOther cervical disc degeneration at C5-C6 level 8 Manny Dunn. [address] [place] [address], [id number], [place]. tel:[phone] Heriberto Valencia [facility], [address], [address]. tel:[phone] ring Provider: Manish Sweeney, [address] [place] [address], [address]. tel:[phone] OFFICE/OUTPA TIENT VISIT, EST [facility], [address] [place] [address], [id number] , [place] tel:[phone] [facility] [place] Back Pain (chief complaint) Postlaminectomy syndrome, not elsewhere classifiedOther intervertebral disc displacement, lumbar regionOther intervertebral disc displacement, lumbosacral regionOther cervical disc degeneration at C5-C6 level 7 Manny Dunn. [address] [place] [address], [id number], [place]. tel:[phone] Heriberto Valencia PAC, [facility] [address], [place], [address]. tel:[phone] ring Provider: Manish Sweeney, [address] [place] [address], [address]. tel:[phone] OFFICE/OUTPA TIENT VISIT, [facility], [address] [place] [address], [id number] , [place] tel:[phone] [facility] low back pain (chief complaint) Neck pain (chief complaint) Postlaminectomy syndrome, not elsewhere classifiedOther intervertebral disc displacement, lumbosacral regionOther intervertebral disc displacement, lumbar regionOther cervical disc degeneration at C5-C6 level Manny Dunn. [address] [place] [address], [id number], [place]. tel:[phone] Heriberto Valencia PAC, [address] [address], [place], [address]. tel:[phone] ring Provider: Manish Sweeney, [address] [place] [address], [address]. tel:[phone] OFFICE/OUTPA TIENT VISIT, [facility], [address] [place] [address], [id number] , [place] tel:[phone] [facility] Back Pain (chief complaint) Lumbago with sciatica, right sideOther cervical disc degeneration at C5-C6 levelOther intervertebral disc degeneration, lumbar regionPostlaminec allan syndrome, not elsewhere classified Manny Dunn. [address] [place] [address], [id number], [place]. tel:[phone] , [address] [place] [address], [place], [address].[facility] Provider: Manish Sweeney, [address] [place] [address], [address]. tel:[phone] OFFICE/OUTPA TIENT VISIT, EST [facility], [address] [place], [place], [id number] , [place] tel:[phone] [facility] [place] Back Pain (chief complaint) Lumbago with sciatica, right sideOther cervical disc degeneration at C5-C6 levelOther intervertebral disc degeneration, lumbar regionPostlaminec allan syndrome, not elsewhere classifiedHeadach e Manny Dunn. [address] [place], [place], [id number], [place]. [phone] , [facility] [address], [place], [address].Refer ring Provider: Manish Sweeney, [address] [place] [address], [address]. tel:[phone] OFFICE/OUTPA TIENT VISIT, [facility], [address] [place], [place], [id number] , [place] tel:[phone] [facility] [place] Back Pain (chief complaint) Lumbago with sciatica, right sidePostlaminecto my syndrome, not elsewhere classifiedOther cervical disc degeneration at C5-C6 levelOther intervertebral disc degeneration, lumbar regionHeadache Leavitt Yesi. [address] [place], [address], [place]. tel:[phone] , [address], [place], [address].Refer ring Provider: Manish Sweeney, [address] [place] [address], [address]. tel:[phone] [facility], [address] [place] [address], [id number] , [place] [phone] [facility] [place] Headache 7 Manny Dunn. [address] [place], [place], [id number], [place]. tel:[phone] Referring Provider: Manish Sweeney, [address] [place] [address], [address]. tel:[phone] OFFICE/OUTPA TIENT VISIT, EST [facility], [address] [place], [place], [id number] , [place] tel:[phone] [facility] [place] Back Pain (chief complaint) Lumbago with sciatica, right sidePostlaminecto my syndrome, not elsewhere classifiedOther cervical disc degeneration at C5-C6 levelOther intervertebral disc degeneration, lumbar regionHeadache Manny Dunn. [address] [place], [place], [id number], [place]. tel:[phone] , [facility] [address], [place], [address].Refer ring Provider: Manish Sweeney, [address] [place] [address], [address]. tel:[phone] OFFICE/OUTPA TIENT VISIT, [facility], [address] [place] [address], [id number] , [place] [phone] [facility] [place] Back Pain (chief complaint) Neck pain (chief complaint) CervicalgiaOther cervical disc degeneration at C5-C6 levelOther intervertebral disc degeneration, lumbar regionPostlaminec allan syndrome, not elsewhere classifiedLumbago with sciatica, right side Manny Dunn. [address] [place], [place], [id number], [place]. tel:[phone] , [address] [facility], [place], [address].Refer ring Provider: Manish Sweeney, [address] [place] [address], [address]. tel:[phone] OFFICE/OUTPA TIENT VISIT, [facility], [address] [place] [address], [id number] , [place] [phone] [facility] [place] Back Pain (chief complaint) CervicalgiaLumbag o with sciatica, right sideOther cervical disc degeneration at C5-C6 levelOther intervertebral disc degeneration, lumbar regionPostlaminec allan syndrome, not elsewhere classified Manny Dunn. [address] [place], [place], [id number], [place]. tel:[phone] , [address], [place], [address].Refer ring Provider: Manish Sweeney, [address] [place] [address], [address]. tel:[phone] OFFICE/OUTPA TIENT VISIT, [facility], [address] [place] [address], [id number] , [place] tel:[phone] [facility] [place] Back Pain (chief complaint) CervicalgiaLumbag o with sciatica, right sideOther cervical disc degeneration at C5-C6 levelOther intervertebral disc degeneration, lumbar regionPostlaminec allan syndrome, not elsewhere classified Manny Dunn. [address] [place], [place], [id number], [place]. tel:[phone] , [address] [facility], [place], [address].Refer ring Provider: Manish Sweeney, [address] [place] [address], [address]. tel:[phone] OFFICE/OUTPA TIENT VISIT, [facility], [address] [place] [address], [id number] , [place] tel:[phone] [facility] [place] Back Pain (chief complaint) Other intervertebral disc displacement, lumbar regionPostlaminec allan syndrome, not elsewhere classifiedOther cervical disc degeneration at C5-C6 levelCervicalgiaL umbago with sciatica, right side Manny Dunn. [address] [place], [place], [id number], [place]. tel:[phone] , [address], [place], [address].Refer ring Provider: Manish Sweeney, [address] [place] [address], [address]. tel:[phone] [facility], [address] [place] [address], [id number] , [place] tel:[phone] [facility] [place] No Information 0 7 Manny Dunn. [address] [place] [address], [id number], [place]. tel:[phone] OFFICE/OUTPA TIENT VISIT, EST [facility], [address] [place] [address], [id number] , [place] tel:[phone] [facility] [place] Back Pain (chief complaint) Other intervertebral disc displacement, lumbar regionPostlaminec allan syndrome, not elsewhere classified Sep-2 Manny Mona. [address] [place] [address], [id number], [place]. tel:[phone] , [address] [place] [address], [address].Refer ring Provider: Manish Sweeney, [address] [place] [address], [address]. tel:[phone] OFFICE/OUTPA TIENT VISIT, [facility], [address] [place] [address], [id number] , [place] tel:[phone] [facility] Back Pain (chief complaint) Other intervertebral disc displacement, lumbar regionPostlaminec allan syndrome, not elsewhere classified 0 Te Aguilar. [address] [place] [address], [id number], [place]. tel:[phone] , [address], [place], [address].Refer ring Provider: Manish Sweeney, [address] [place] [address], [address]. tel:[phone] [id number] OFFICE/OUTPA TIENT VISIT, [facility], [address] [place] [address], [id number] , [place] [phone] [facility] Back Pain (chief complaint) Postlaminectomy syndrome, not elsewhere classifiedOther intervertebral disc displacement, lumbar region Manny Dunn. [address] [place], [place], [id number], [place]. tel:[phone] , [address], [place], [address].Refer ring Provider: Manish Sweeney, [address] [place] [address], [address]. tel:[phone] OFFICE/OUTPA TIENT VISIT, [facility], [address] [place] [address], [id number] , [place] [phone] [facility] Back Pain (chief complaint) Postlaminectomy syndrome, not elsewhere classifiedOther intervertebral disc displacement, lumbar region Manny Dunn. [address] [place] [address], [id number], [place]. tel:[phone] , [address] David [facility], [place], [address].Refer ring Provider: Manish Sweeney, [address] [place] [address], [address]. tel:[phone] OFFICE/OUTPA TIENT VISIT, [facility], [address] [place] [address], [id number] , [place] tel:[phone] [facility] Back Pain (chief complaint) Postlaminectomy syndrome, not elsewhere classifiedOther intervertebral disc displacement, lumbar region Manny Dunn. [address] [place] [address], [id number], [place]. tel:[phone] , [address] David [facility], [place], [address].Refer ring Provider: Manish Sweeney, [address] [place] [address], [address]. tel:[phone] OFFICE/OUTPA TIENT VISIT, [facility], [address] [place] [address], [id number] , [place] tel:[phone] [facility] [place] Back Pain (chief complaint) Other intervertebral disc displacement, lumbosacral regionOther intervertebral disc displacement, lumbar regionLumbago with sciatica, right sideOther cervical disc degeneration at C5-C6 level 6 6 Manny Dunn. [address] [place], [place], [id number], [place]. tel:[phone] Heriberto VALENCIA, [address] [address], [place], [address]. [phone] ring Provider: Manish Sweeney, [address] [place] [address], [address]. tel:[phone] OFFICE/OUTPA TIENT VISIT, [facility], [address] [place] [address], [id number] , [place] [phone] [facility]) Other intervertebral disc displacement, lumbosacral regionOther intervertebral disc displacement, lumbar regionLumbago with sciatica, right side 4 6 Manny Dunn. [address] [place], [place], [id number], [place]. tel:[phone] Heriberto VALENCIA, [address] [address], [place], [address]. tel:[phone] Tang Song Provider: Manish Sweeney, [address] [place] [address], [address]. tel:[phone] OFFICE/OUTPA TIENT VISIT, [facility], [address] [place] [address], [id number] , [place] [phone] [facility] Back Pain (chief complaint) Other intervertebral disc displacement, lumbosacral regionOther intervertebral disc displacement, lumbar regionLumbago with sciatica, right sideOther muscle spasmMyalgiaInsom idalia Sep-2 0-201 6 [place] Yesi. [address] [place], [address], [place]. tel:[phone] Heriberto Valencia [facility], [facility] [address], [place], [address]. tel:[phone] ring Provider: Manish Sweeney, [address] [place] [address], [address]. tel:[phone] OFFICE/OUTPA TIENT VISIT, [facility], [address] [place] [address], [id number] , [place] tel:[phone] [facility] Back Pain (chief complaint) Other intervertebral disc degeneration, lumbar regionPostlaminec allan syndrome, not elsewhere classifiedOther cervical disc degeneration, mid-cervical region Manny Dunn. [address] [place] [address], [id number], [place]. tel:[phone] , [address], [place], [address].Refer ring Provider: Manish Sweeney, [address] [place] [address], [address]. [phone] OFFICE/OUTPA TIENT VISIT, [facility], [address] [place] [address], [id number] , [place] [phone] [facility] Back Pain (chief complaint) Other intervertebral disc degeneration, lumbar regionPostlaminec allan syndrome, not elsewhere classifiedOther cervical disc degeneration, mid-cervical region 6 Manny Dunn. [address] [place] [address], [id number], [place]. tel:[phone] , [address], [place], [address].Refer ring Provider: Manish Sweeney, [address] [place] [address], [address]. tel:[phone] OFFICE/OUTPA TIENT VISIT, [facility], [address] [place] [address], [id number] , [place] [phone] [facility] Back Pain (chief complaint) Other intervertebral disc degeneration, lumbar regionPostlaminec allan syndrome, not elsewhere classifiedOther cervical disc degeneration, mid-cervical region 6 Manny Dunn. [address] [place] [address], [id number], [place]. tel:[phone] , [facility] [place] [address] [facility] 675 [facility] [address], [place], [address].Refer ring Provider: Manish Sweeney, [address] [place] [address], [address]. tel:[phone] OFFICE/OUTPA TIENT VISIT, [facility], [address] [place] [address], [id number] , [place] tel:[phone] [facility] Back Pain (chief complaint) Low back painCervicalgia 6 Manny Dunn. [address] [place] [address], [id number], [place]. tel:[phone] Referring Provider: Manish Sweeney, [address] [place] [address], [address]. tel:[phone] OFFICE/OUTPA TIENT VISIT, [facility], [address] [place] [address], [id number] , [place] tel:[phone] [facility] Back Pain (chief complaint) detention (current) use of opiate analgesicOther cervical disc degeneration, mid-cervical regionPostlaminec allan syndrome, not elsewhere classifiedOther intervertebral disc degeneration, lumbar region 6 Elizabeth Wilks. [address] [place] [address], [id number], [place]. tel:[phone] Referring Provider: Manish Sweeney, [address] [place] [address], [address]. tel:[phone] OFFICE/OUTPA TIENT VISIT, [facility], [address] [place] [address], [id number] , [place] tel:[phone] [facility] Back Pain (chief complaint) Postlaminectomy syndrome, not elsewhere classifiedOther intervertebral disc degeneration, lumbar regionLong term (current) use of opiate analgesic 6 Manny Figueredohanie. [address] [place] [address], [id number], [place]. tel:[phone] , [address] [facility] [address], [place], [address].Refer ring Provider: Manish Sweeney, [address] [place] [address], [address]. tel:[phone] OFFICE/OUTPA TIENT VISIT, [facility], [address] [place] [address], [id number] , [place] tel:[phone] [facility] Back Pain (chief complaint) Postlaminectomy syndrome, not elsewhere classifiedOther intervertebral disc degeneration, lumbar region 6 Manny Figueredohanie. [address] [place], [place], [id number], [place]. tel:[phone] , [address] [address], [place], [address].Refer ring Provider: Manish Sweeney, [address] [place] [address], [address]. tel:[phone] OFFICE/OUTPA TIENT VISIT, [facility], [address] [place] [address], [id number] , [place] tel:[phone] [facility] Back Pain (chief complaint) Other cervical disc degeneration, mid-cervical regionPostlaminec allan syndrome, not elsewhere classifiedOther intervertebral disc degeneration, lumbar region 6 Manny Figueredohanie. [address] [place], [place], [id number], [place]. tel:[phone] Specialist: Heriberto VALENCIA, [facility] [address] [address], [place], [address]. tel:[phone] ring Provider: Manish Sweeney, [address] [place] [address], [address]. tel:[phone] OFFICE/OUTPA TIENT VISIT, [facility], [address] [place] [address], [id number] , [place] tel:[phone] [facility] Back Pain (chief complaint) Other cervical disc degeneration, mid-cervical regionOther intervertebral disc degeneration, lumbar region No Patcher: Heriberto VALENCIA, [facility] [address] [address], [place], [address]. [phone] ring Provider: Manish Sweeney, [address] [place] [address], [address]. [phone] OFFICE/OUTPA TIENT VISIT, [facility], [address] [place] [address], [id number] , [place] tel:[phone] [facility] [place] Back Pain (chief complaint) Postlaminectomy syndrome, not elsewhere classifiedLong term (current) use of opiate analgesicOther cervical disc degeneration, mid-cervical regionOther intervertebral disc degeneration, lumbar region No Patcher: Heriberto VALENCIA, [facility] [address] [address], [place], [address]. tel:[phone] ring Provider: Manish Sweeney, [address] [place] [address], [address]. [phone] OFFICE/OUTPA TIENT VISIT, [facility], [address] [place] [address], [id number] , [place] [phone] [facility] Back Pain (chief complaint) Postlaminectomy syndrome, not elsewhere classified 5 No Information Referring Provider: Manish Sweeney, [address] [place] [address], [address]. [phone] OFFICE/OUTPA TIENT VISIT, [facility], [address] [place] [address], [id number] , [place] tel:[phone] [facility] Back Pain (chief complaint) Degeneration of cervical intervertebral discDegeneration of lumbar or lumbosacral intervertebral discPostlaminecto my syndrome of lumbar regionMyalgia and myositis, unspecified 5 No Patcher: Heriberto VALENCIA, [address], [place], [address]. tel:[phone] ring Provider: Manish Sweeney, [address] [place] [address], [address]. tel:[phone] OFFICE/OUTPA TIENT VISIT, [facility], [address] [place] [address], [id number] , [place] tel:[phone] [facility] Back Pain (chief complaint) Displacement of cervical intervertebral disc without myelopathyPostlam inectomy syndrome of lumbar region 5 Manny Dunn. [address] [place], [place], [id number], [place]. tel:[phone] Specialist: Heriberto VALENCIA, [address] [facility], [place], [address]. tel:[phone] Provider: Manish Sweeney, [address] [place] [address], [address]. tel:[phone] OFFICE/OUTPA TIENT VISIT, [facility], [address] [place] [address], [id number] , [place] tel:[phone] [facility] Back Pain (chief complaint) Displacement of cervical intervertebral disc without myelopathyPostlam inectomy syndrome of lumbar regionDegeneratio n of cervical intervertebral disc 5 Manny Dunn. [address] [place], [place], [id number], [place]. tel:[phone] Specialist: Heriberto VALENCIA, [address], [place], [address]. tel:[phone] ring Provider: Manish Sweeney [address] [place] [address], [address]. tel:[phone] OFFICE/OUTPA TIENT VISIT, EST [facility], [address] [place] [address], [id number] , [place] tel:[phone] [facility] Back Pain (chief complaint) Degeneration of cervical intervertebral discPostlaminecto my syndrome of lumbar region Manny Dunn. [address] [place] [address], [id number], [place]. tel:[phone] Referring Provider: Manish Sweeney, [address] [place] [address], [address]. tel:[phone] [facility], [address] [place] [address], [id number] , [place] tel:[phone] [facility] Degeneration of cervical intervertebral disc Martinez Hammond. [address] [place] [address], [id number], [place]. tel:[phone] Referring Provider: Manish Sweeney, [address] [place] [address], [address]. tel:[phone] OFFICE/OUTPA TIENT VISIT, [facility], [address] [place] [address], [id number] , [place] tel:[phone] [facility] Back Pain (chief complaint) Degeneration of cervical intervertebral discDisplacement of cervical intervertebral disc without myelopathyPostlam inectomy syndrome of lumbar region Manny Dunn. [address] [place] [address], [id number], [place]. tel:[phone] Referring Provider: Manish Sweeney, [address] [place] [address], [address]. tel:[phone] OFFICE/OUTPA TIENT VISIT, [facility], [address] [place] [address], [id number] , [place] tel:[phone] [facility] Back Pain (chief complaint) Degeneration of lumbar or lumbosacral intervertebral discDegeneration of cervical intervertebral discHeadache 5 Manny Mona. [address] [place], [place], [id number], [place]. tel:[phone] Referring Provider: Manish Sweeney, [address] [place] [address], [address]. tel:[phone] OFFICE/OUTPA TIENT VISIT, EST [facility], [address] [place] [address], [id number] , [place] tel:[phone] [facility] Back Pain (chief complaint) Degeneration of lumbar or lumbosacral intervertebral discPostlaminecto my syndrome of lumbar regionDegeneratio n of cervical intervertebral discHeadache 5 Manny Mona. [address] [place] [address], [id number], [place]. tel:[phone] Referring Provider: Manish Sweeney, [address] [place] [address], [address]. tel:[phone] OFFICE/OUTPA TIENT VISIT, EST [facility], [address] [place] [address], [id number] , [place] tel:[phone] [facility] [place] low back pain (chief complaint) Degeneration of lumbar or lumbosacral intervertebral discUnspecified arthropathy involving other specified sitesPostlaminect kelly syndrome of lumbar region Oct-0 2- 5 Manny Mona. [address] [place] [address], [id number], [place]. tel:[phone] Referring Provider: Manish Sweeney, [address] [place] [address], [address]. tel:[phone] [facility], [address] [place] [address], [id number] , [place] tel:[phone] [facility] Unspecified arthropathy involving other specified sites 0- 5 Bryan Guillen. [address] [place] [address], [id number], [place]. tel:[phone] Referring Provider: Manish Sweeney, [address] [place] [address], [address]. tel:[phone] OFFICE/OUTPA TIENT VISIT, EST [facility], [address] [place] [address], [id number] , [place] tel:[phone] [facility] low back pain (chief complaint) Displacement of lumbar intervertebral disc without myelopathyUnspeci fied arthropathy involving other specified sitesPostlaminect kelly syndrome of lumbar region 5 Manny Dunn. [address] [place] [address], [id number], [place]. tel:[phone] Referring Provider: Manish Sweeney, [address] [place] [address], [address]. tel:[phone] [facility], [address] [place] [address], [id number] , [place] tel:[phone] [facility] Displacement of lumbar intervertebral disc without myelopathy 5 Bryan Guillen. [address] [place] [address], [id number], [place]. tel:[phone] Referring Provider: Manish Sweeney, [address] [place] [address], [address]. tel:[phone] OFFICE/OUTPA TIENT VISIT, EST [facility], [address] [place] [address], [id number] , [place] tel:[phone] [facility] Back Pain (chief complaint) Sciatica Due To Displacement Of Lumbar DiscUnspecified arthropathy involving other specified sites 4 No Information Referring Provider: Manish Sweeney, [address] [place] [address], [address]. tel:[phone] [facility], [address] [place] [address], [id number] , [place] tel:[phone] [facility] Unspecified arthropathy involving other specified sites 4 Will Manish. [address] [place] [address], [id number], [place]. tel:[phone] Referring Provider: Manish Sweeney, [address] [place] [address], [address]. tel:[phone] OFFICE/OUTPA TIENT VISIT, EST [facility], [address] [place] [address], [id number] , [place] tel:[phone] [facility] low back pain (chief complaint) Degeneration of lumbar or lumbosacral intervertebral discUnspecified arthropathy involving other specified sites 4 Manny Dunn. [address] [place] [address], [id number], [place]. tel:[phone] Referring Provider: Manish Sweeney, [address] [place] [address], [address]. tel:[phone] OFFICE/OUTPA TIENT VISIT, [facility], [address] [place] [address], [id number] , [place] [phone] [facility] neck pain (chief complaint) low back pain (chief complaint) Postlaminectomy syndrome of lumbar regionDegeneratio n of cervical intervertebral discUnspecified arthropathy involving other specified sites 4 Manny Dunn. [address] [place] [address], [id number], [place]. tel:[phone] Referring Provider: Manish Sweeney, [address] [place] [address], [address]. tel:[phone] OFFICE/OUTPA TIENT VISIT, [facility], [address] [place] [address], [id number] , [place] tel:[phone] [facility] neck pain (chief complaint) Myalgia and myositis, unspecifiedPostla minectomy syndrome of lumbar regionDegeneratio n of cervical intervertebral disc 4 Manny Dunn. [address] [place] [address], [id number], [place]. tel:[phone] Referring Provider: Manish Sweeney, [address] [place] [address], [address]. tel:[phone] [facility], [address] [place] [address], [id number] , [place] tel:[phone] [facility] back pain (chief complaint) neck pain (chief complaint) No Information Oct-0 1-201 4 Cynthia Wilkins. [address] [place] [address], [id number], [place]. tel:[phone] Referring Provider: Manish Sweeney, [address] [place] [address], [address]. tel:[phone] [facility], [address] [place] [address], [id number] , [place] tel:[phone] [facility] migraine (chief complaint) Myalgia and myositis, unspecified Sep-2 2-201 4 Manny Dunn. [address] [place] [address], [id number], [place]. tel:[phone] Referring Provider: Manish Sweeney, [address] [place] [address], [address]. tel:[phone] OFFICE/OUTPA TIENT VISIT, EST [facility], [address] [place] [address], [id number] , [place] tel:[phone] [facility] low back pain (chief complaint) neck pain (chief complaint) Postlaminectomy syndrome of lumbar regionDegeneratio n of cervical intervertebral discSpasm of muscle Sep-1 8-201 4 Manny Dunn. [address] [place] [address], [id number], [place]. tel:[phone] Referring Provider: Manish Sweeney, [address] [place] [address], [address]. tel:[phone] [facility], [address] [place] [address], [id number] , [place] [phone] [facility] back pain (chief complaint) neck pain (chief complaint) No Information Sep-0 9-201 4 Cynthia Wilkins. [address] [place] [address], [id number], [place]. tel:[phone] Referring Provider: Manish Sweeney, [address] [place] [address], [address]. tel:[phone] [facility], [address] [place] [address], [id number] , [place] tel:[phone] [facility] Degeneration of cervical intervertebral disc 4 Adams Mindy. [address] [place] [address], [id number], [place]. tel:[phone] Referring Provider: Manish Sweeney, [address] [place] [address], [address]. tel:[phone] OFFICE/OUTPA TIENT VISIT, EST [facility], [address] [place] [address], [id number] , [place] [phone] [facility] neck pain (chief complaint) low back pain (chief complaint) Postlaminectomy syndrome of lumbar regionDegeneratio n of cervical intervertebral discSpondylolisth esis, congenital 4 Manny Dunn. [address] [place] [address], [id number], [place]. tel:[phone] Referring Provider: Manish Sweeney, [address] [place] [address], [address]. tel:[phone] [facility], [address] [place] [address], [id number] , [place] tel:[phone] [facility] Degeneration of lumbar or lumbosacral intervertebral disc 4 Adams Mindy. [address] [place] [address], [id number], [place]. tel:[phone] Referring Provider: Manish Sweeney, [address] [place] [address], [address]. tel:[phone] [facility], [address] [place] [address], [id number] , [place] tel:[phone] [facility] back pain (chief complaint) Sciatica Due To Displacement Of Lumbar Disc 4 Cynthia Wilkins. [address] [place] [address], [id number], [place]. tel:[phone] Referring Provider: Manish Sweeney, [address] [place] [address], [address]. tel:[phone] OFFICE/OUTPA TIENT VISIT, [facility], [address] [place] [address], [id number] , tel:[phone] [facility] left low back pain (chief complaint) left leg pain (chief complaint) Postlaminectomy syndrome of lumbar regionDegeneratio n of cervical intervertebral disc 4 Manny Mona. [address] [place] [address], [id number], [place]. tel:[phone] Referring Provider: Manish Sweeney, [address] [place] [address], [id number]. tel:[phone] OFFICE/OUTPA TIENT VISIT, [facility], [address] [place] [address], [id number] , tel:[phone] [facility] left low back pain (chief complaint) left leg pain (chief complaint) Spondylolisthesis , congenitalPostlam inectomy syndrome of lumbar regionDegeneratio n of lumbar or lumbosacral intervertebral discDegeneration of cervical intervertebral discTherapeutic Drug Monitoring Manny Dunn. [address] [place] [address], [id number], [place]. tel:[phone] Referring Provider: Manish Sweeney, [address] [place] [address], [id number]. tel:[phone] Family History Family Member Type Diagnosis Age At Onset Mother Problem (finding) discectomy Problem (finding) Family history of Back pain Brother Problem (finding) Discectomy Father Problem (finding) discectomy Brother Problem (finding) 2 discectomies Payers Payer name Insurance type Covered constitution party ID Lowell contreras(s) Medicare MB [id number] [id number] Social History Type Description Quantity Date Captured Comments Sex Female Smoking Status No Information Chief Complaint And Reason For Visit No Information Reason For Referral Reason For Referral No Information Plan Of Treatment Date Type Action Status Goal Tobacco cessation counseling completed Goal Tobacco cessation counseling completed Goal Tobacco cessation counseling completed Referral Ordered: Someecards -Family Medicine (related to Other cervical disc degeneration at C5-C6 level) ordered Referral Referred To: [facility] [address] [place], [phone] Ordered: Referrals: Family Medicine. Someecards ordered Future Order: Lab Order COMPLIAN CE DRUG ANALYSIS, URINE, WITH MED REPORT ([id number]), Ordered on: Ordered Future Order: Lab Order Drug Madyson t Def 22+ Classes ([id number]), Ordered on: Ordered Future Order: Lab Order COMPLIAN CE DRUG ANALYSIS, URINE, WITH MED REPORT ([id number]), Ordered on: Ordered Future Order: Lab Order Drug Madyson t Def 22+ Classes ([id number]), Ordered on: Ordered Future Order: Lab Order COMPLIAN CE DRUG ANALYSIS, URINE, WITH MED REPORT ([id number]), Ordered on: Ordered Future Order: Lab Order COMPLIAN CE DRUG ANALYSIS, URINE, WITH MED REPORT ([id number]), Ordered on: Ordered History Of Present Illness [...] OV. Ongoing neck pain. Still working with [facility], who have recommended against additional injections [...] stiff. Denies radicular symptoms. Interventions done through [facility]. DId notice benefit from recent lumbar RFA, [...] is s/p bilateral lumbar RFA completed at [facility], right side completed 12/10 and left [...] dizziness and slurred speech.S/p SI injection from [facility] with benefit. Currently pursing RFA with Dr. Brannon through [facility].She presents with #9 Percocet 10-325mg - [...] and MICHAEL. Is scheduled for repeat Lumbar MICHALE and b/l SI joint injections scheduled in September with [facility]. Considering repeat RFA and possibly surgery [...] refill. LESI completed 6 weeks ago at [facility] is providing significant relief. She continues [...] Says she will contact FARHAD Christensen of [facility] if she is able to resume [...] negatives include bladder incontinence. low back pain (comments) Crystal is here [...] her neck and low back. Working with [facility] for interventions such as injections and consideration of additional surgery (which she would like to avoid). Patient is accompanied by her two sons. low back pain Duration: chroni c. The [...] unit, walking and standing. low back pain Severity level i s [...] a Cervical and Lumbar MRI completed at [facility] since her last OV. low back pain [...] some benefit. continues with Asa Valencia at [facility] for injections and surgical consideration. Back [...] two injections at L3 and L5 at [facility], which provided relief. Reported no relief from the lumbar RFA several months ago. [facility] has recommended surgery on her cervical spine. Patient declines at this time.Did discuss SCS with a provider at [facility]. Is considering a [employer] stimulator over a [employer] stimulator. Back [...] into bilateral legs. Saw Asa Valencia at [facility] yesterday, who recommended LESI at L3 [...] RFA of neck and lumbar spine through [facility], but needs to complete PT first. [...] effect, and a recent spinal tap at [facility] (Dr. Wiseman) came back normal, but did [...] tenderness and headaches. Neck pain Back Pain (comments) Patient is here for [...] to 10 cigarettes per day. Back Pain Severity level i s 5. [...] rest, sitting, walking and chiropractic. Back Pain Severity level i s 6-8. Duration: chronic. The problem is fluctuating. It occurs persistently. Location of pain is middle back.The patient describes the pain as an ache and tingling. Symptoms are aggravated by bending, lifting, lying/rest, standing, twisting, walking and housework. Symptoms are relieved by heat, lying down, pain meds/drugs, stretching, sitting and walking. Back Pain (comments) Crystal is here for follow-up and medication refill. [...] follow-up with Dr. Valencia soon. Back Pain (comments) Patient is here for [...] up in a UDT according to the client services administrator. She rolls her own cigarettes. Denies smoking [...] Has completed cervical MICHAEL on 08/15 at [facility]. Back Pain Severity level i s [...] worse. She had an cervical MICHAEL at [facility] with Dr. Blair on 01/03. Lumbar RF [...] in physical therapy and chiropractic therapy at [facility] in [place]. She continues to be interested in pursuing [...] pain relief. She is actively pursuing both director critical care as well as PT for low back pain at [facility]. She will likely be repeating low [...] States that she saw Asa Valencia from [facility]; he recommended repeating cervical rhizotomy unless [...] Flexeril.She is getting her injections completed at [facility] which has completed bilateral SI joint and [...] weeks ago. Patient is being seen at [facility] in [place] which she has had a great experience. [...] side effects. She states that Asa Valencia [facility] has referred her for one additional [...] MICHAEL, but had a C5-6 MICHAEL at [facility] last week, and feels that it has been offering some relief. She plans to f/u with Asa Valencia at [facility] to discuss cervical surgery, likely 04/2015. [...] MICHAEL; last one was 04/20/2014. Back Pain (comments) Patient is here for [...] are relieved by pain meds/drugs. Back Pain Onset: year ago. Severity level [...] is here for f/u. She has #1 [place] left, which is appropriate. She had lumbar rhizotomy 09/22/2014 and reports relief after the procedure. She had tried Percocet for pain relief following the procedure and felt it worked better than [place]. She denies side effects with either medication. low back pain (comments) Patient is here for f/u. She has #14 [place] left. Patient reports medications work well and denies side effects. She is scheduled for lumbar rhizotomy tomorrow. She is requesting to try Percocet as she does question the effectiveness of [place] at times. low back pain Onset: year [...] facet rhizotomy and pain meds/drugs. Back Pain Severity level i s 5. [...] is here for f/u. She has #3 [place] left, which is a small surplus. Patient reports medications work well and denies side effects. She is requesting to have repeat bilateral lumbar rhizotomies, as she has previously had significant relief with this procedure. Functional Status Date Functional Assessmen t No Information Instructions Date Instruction Additional Infor anthony Reviewed medications Continue current medication New medication is prescribed Medications counted, patient is on track. Medications counted, patient has a surplus Continue current medication Reviewed medications Medications counted, patient has self-escalated dose. Change medication Reviewed medications Continue current medication Medications counted, patient has a surplus Reviewed medications Medications counted, patient has a surplus Reviewed medications Continue current medication Oswestry Score Discontinue current medication Reviewed medications New medication is prescribed Depression Screen Assessments Type Assessment Date No Information Patient Care Teams Name Effective Dates (start - stop) Status Members No Information
--- OUTSIDE RECORDS SUMMARY | 2023-12-14 19:27 | XMS_ITS | Data Portability ---
Author Name Unknown Address [address] [place] [address] Phone [phone] Organization [facility], [facility] Address [address] [place] [address] Assessment Encounter Date Assessment Date Assessment LastModified by Organization Details LastModified Time 10/07/2019 10/07/2019 L1 to S1 degenerative scoliosis with stenosis chronic neck pain due to cervical facet arthritis tobacco abuse chronic pain syndrome Not available 10/07/2019 12:10:17 Plan of Treatment Reminders Order Date Submit Date Provider Last Modified By Organization Details Last Modified Time Details Appointments None record ed. Lab None record ed. Referral None record ed. Procedures None record ed. Surgeries None record ed. Imaging None record ed. Medication Orders None record ed. Patient TargetsNo targets recorded. Patient Instructions Encounter Date Encounter Id Patient Instructions Last Modified By Organization Details Last Modified Time 10/07/2019 [id number] I will recommend further evaluation with CT of lumbar spine and cervical spine. X rays weight bearing. We could potentially do rhyzotomy on her cervical spine and possible low back fusion. Exact plan will depend on the result of the new imaging studies. Spent 45 minute face to face time with patient and . For the pain management meanwhile I will also refer her to [facility]. Not available 10/07/2019 12:09:39 Reason for Referral Pain Management Referral for Spinal stenosis of lumbar region --Referral for Dr. Mckinley Domínguez Pain Managment Referring Physician: Brandon Gregory, Orthopedic Surgery, Encounter Date: 10/27/2019 Results Created Date Observation Date Name Description Value Unit Range Abnormal Flag LastModifiedBy Organization Detail LastModifiedTime 11/24/19 20 11/24/2019 XR, cervi debora spine No observ ation record ed. [facility] [address], [place], [address], 01/19/2020 09:37:38 11/24/19 20 11/24/2019 XR, lumba r spine No observ ation record ed. [email or web address] Not Available 01/19/2020 09:37:38 11/24/19 20 11/24/2019 CT, cervi debora spine , w/o contr ast No observ ation record ed. so[facility]undt Not Available 01/19/2020 09:37:39 11/24/19 20 11/24/2019 CT, lumba r spine , w/o contr ast No observ ation record ed. so[facility]undt Not Available 01/19/2020 09:37:39 Result Notes None recorded. Problems Name Status Onset Date Resolution Date Notes Provider Name and Address Organization Details Recorded Time Chronic back pain Active 0 JIMMY Sanderson - [facility] 10/07/2019 10:55:48 Problem Notes None recorded. Procedures Surgical History None recorded. Imaging Results Imaging Date Name Status LastModified by Organiz atformerly [facility] Details LastModified Time 11/24/2019 XR, cervical spine completed [email or web address] [address], [place], [address], 01/19/2020 09:37:38 11/24/2019 XR, lumbar spine completed Information not available 01/19/2020 09:37:38 11/24/2019 CT, cervical spine, w/o contrast completed Information not available 01/19/2020 09:37:39 11/24/2019 CT, lumbar spine, w/o contrast completed Information not available 01/19/2020 09:37:39 Procedure Notes None recorded. Medical Equipment None Reported. Allergies Allergen ID Allergen Name Allergen Category Reaction Reaction Severity Criticality Documentation Date Start Date Code Code System Note Provider Name and Address Organization Details Recorded Time 3069 erythromy terry medicatio n Not available Not available Not available 10/07/2019 4053 RxNorm JIMMY Sanderson - [facility] 0 10:52:53 3070 dexametha sone medicatio n Not available Not available Not available 10/07/2019 3264 RxNorm Robert russell, [place] - [facility] 0 10:53:22 Medications Name Sig Start Date Stop Date Status Note LastModified by Organization Details LastModified Time cyclobenzaprine 10 mg tablet active Not Available Not Available Not Available tizanidine 4 mg tablet active Not Available Not Available Not Available hydrocodone 5 mg-acetaminophen 325 mg tablet 10/07 completed Not Available Not Available Not Available fluconazole 200 mg tablet active Not Available Not Available No t Available metronidazole 500 mg tablet active Not Available Not Availabl e Not Available ciprofloxacin 500 mg tablet active Not Available Not Availabl e Not Available omeprazole 40 mg capsule,delayed release active Not Available Not Available Not Available oxycodone-acetam inophen 5 mg-325 mg tablet 10/07 completed Not Available Not Available Not Available alprazolam 0.5 mg tablet active Not Available Not Available No t Available amitriptyline 25 mg tablet active Not Available Not Available No t Available oxycodone-acetam inophen 10 mg-325 mg tablet active Not Available Not Avail able Not Available gabapentin 800 mg tablet active Not Available Not Available No t Available amitriptyline 10 mg tablet active Not Available Not Available No t Available pantoprazole 40 mg tablet,delayed release active Not Available Not Available Not Available ranitidine 150 mg tablet active Not Available Not Available No t Available cefdinir 300 mg capsule 10/07 completed Not Available Not Available Not Available amoxicillin 875 mg-potassium clavulanate 125 mg tablet active Not Available Not Available No t Available Ventolin HFA 90 mcg/actuation aerosol inhaler active Not Available Not Availa ble Not Available oxycodone 5 mg tablet 10/07 completed Not Available Not Available Not Available Betty 0.35 mg tablet active Not Available Not Available Not Available Belbuca 600 mcg buccal film 10/07 completed Not Available Not Available Not Available Belbuca 450 mcg buccal film 10/07 completed Not Available Not Available Not Available Narcan 4 mg/actuation nasal spray active Not Available Not Available Not Available Vitals Date Recorded Heart rate Body weight Oxygen saturation Oxygen saturation in Arterial blood by Pulse oximetry Systolic blood pressure Diastolic blood pressure Provider Name and Address Organization Details Last Updated DateTime 0 97 /min 87495.8 2 g 99 % 99 % 95 mm[Hg] 66 mm[Hg] Robert russell, [place] - [facility] 0 10:50:25 Social History None recorded. Functional Status None recorded. Mental Status None recorded. Family History Nothing Reported. Medical History No medical history recorded. Gynecological HistoryNo gynecological history recorded. Obstetrics History GPAL:G 0 P 0 0 0 0 Past Encounters Encounter ID Performer Location Encounter Start Date Encounter Closed Date Diagnosis/Indication Diagnosis SNOMED-CT Code [id number] Brandon Gregory MD [facility] [address] [facility] [address] [facility] [address] [place] [address] 10/07/2019 10:29:33 10/10/2019 15:24:46 Health Concerns Section Related Observation LastModified by Organization Detai ls LastModified Time None Recorded Concern Status LastModified by Organization Details LastModified Time None Recorded Advance Directives Directive None Recorded Payers Encounter Date Sequence Insurance Name Policy Number Policy Garcia Covered Member ID Garcia Member ID Guarantor Name 10/07/2019 2 [employer] - OPEN ACCESS CHOICE (HMO) [id number] Sandy Lemus [id number] Sandy Lemus 10/07/2019 1 [place]: Smart Checkout Sandy Lemus [id number] [employer] Notes Date Note Type Note Provider Name and Address Organization Details Recorded Time 10/07/2019 text/html HPI Notes: Back Pain Reported by patient. Location: cervical; lumbar; sacral; pain radiating to the buttocks; pain radiating to the legs; pain radiating to the foot; pain radiating to the ankle Quality: sharp; tingling; dull; stiffness Prior Imaging: CT scan 2011 she had an incident and paralysis and rhabdomyalisis. Disectomy was done a month later. Left leg was left with neuropathy and she has sustained partial foot drop. Since then chronically she has had neck and shoulder pains. Also she has had chronic low back and right leg pain worse with standing and activites. Dr. Blair has done multiple injections on her including rhyzotomy on the low back. For the neck she had PT and chiro Rx but no injections. Multiple images from [facility] are mostly MRI scans. Last one was in 2018. Cervical MRI scan shows wide open canal but facet arthrosis. Lumbar MRI scan shows degenerative scoliosis of about 30 degrees with foraminal stenosis from L1 to S1. Old L1 compression fracture. Her most recent provider was Rolando Stallworth. She has found about his licensing issues. She currently smokes one pack a day for last 10 years and she is on SSI. Brandon Gregory MD [address], [place], [address], [facility] - [facility] 10/07/2019 12:11:38 OBGyn Episode No OBEpisode recorded.
--- NOTE | 2023-12-15 22:33 | ED_ITS ---
HPI - General Adult General Chief complaint: Abdominal Pain Stated complaint: Abdominal pain Time Seen by Provider: 12/14/23 17:27 History of Present Illness HPI narrative: Left without being seen by provider Related Data Home Medications Medication Instructions Recorded Confirmed amitriptyline 10 mg PO DAILY 03/31/23 12/14/23 cyclobenzaprine 5 mg PO .8h PRN 03/31/23 12/14/23 gabapentin 800 mg PO QID 03/31/23 12/14/23 oxycodone-acetaminophen 1 tab PO Q4H PRN 03/31/23 12/14/23 Previous Rx's Medication Instructions Recorded olanzapine 5 mg tablet 5 mg PO QHS #30 tabs 12/14/23 Allergies Allergy/AdvReac Type Severity Reaction Status Date / Time erythromycin base Allergy Mild Itching Verified 12/14/23 01:47 dexamethasone AdvReac Intermediate Verified 12/14/23 01:47 NSAIDS (Non-Steroidal AdvReac Intermediate Verified 12/14/23 01:47 [facility] History Tobacco abuse ?Z72.0 - Tobacco use (ICD-10) ROBERTO II (cervical intraepithelial neoplasia II) ?N87.1 - Moderate cervical dysplasia (ICD-10) Hyperopic astigmatism of left eye ?H52.202 - Unspecified astigmatism, left eye (ICD-10) Pancreatic lesion ?K86.9 - Disease of pancreas, unspecified (ICD-10) Myopia of right eye with astigmatism ?H52.11 - Myopia, right eye (ICD-10) ?H52.201 - Unspecified astigmatism, right eye (ICD-10) Presbyopia ?H52.4 - Presbyopia (ICD-10) Chronic prescription opiate use ?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 (ICD-10) Multiple lung nodules ?R91.8 - Other nonspecific abnormal finding of lung field (ICD-10) Lumbar herniated disc ?M51.26 - Other intervertebral disc displacement, lumbar region (ICD-10) STALIN (generalized anxiety disorder) ?F41.1 - Generalized anxiety disorder (ICD-10) Chronic back pain ?M54.9 - Dorsalgia, unspecified (ICD-10) ?G89.29 - Other chronic pain (ICD-10) Surgical History History of gastric bypass ?Z98.84 - Bariatric surgery status (ICD-10) Social History Smoking Status: Current every day smoker What tobacco products do you use: cigarettes Smoking packs per day: 2 Smoking cigarettes per day: 40.0 How often do you have a drink containing alcohol: never AUDIT-C Alcohol total score: 0 Non-prescribed substance use: denies use Course Vital Signs Vital signs: Initial Vital Signs Temperature 97.8 F 12/14/23 15:18 Temperature Source Temporal Artery Scan 12/14/23 15:18 Pulse Rate 81 12/14/23 15:18 Respiratory Rate 18 12/14/23 15:18 Blood Pressure 135/83 12/14/23 15:18 Blood Pressure Mean 100 12/14/23 15:18 Blood Pressure Position Sitting 12/14/23 15:18 Pulse Oximetry 98 12/14/23 15:18 Oxygen Delivery Method Room Air 12/14/23 15:18 Vital Signs Temperature 97.8 F 12/14/23 15:18 Pulse Rate 81 12/14/23 15:18 Respiratory Rate 18 12/14/23 15:18 Blood Pressure 135/83 12/14/23 15:18 Pulse Oximetry 98 12/14/23 15:18 Oxygen Delivery Method Room Air 12/14/23 15:18 Temperature 97.8 F 12/14/23 15:18 Pulse Rate 81 12/14/23 15:18 Respiratory Rate 18 12/14/23 15:18 Blood Pressure 135/83 12/14/23 15:18 Pulse Oximetry 98 12/14/23 15:18 Oxygen Delivery Method Room Air 12/14/23 15:18 Discharge Plan Discharge Patient Disposition: Left Without Being Seen Discharge Comment: LWBS
== END 2023-12-14 19:22 | disposition left against medical advice (07) ==
LOC: ED 19:23
PROVIDERS: Emergency Provider Emergency Medicine; PCP Family Medicine
DX: R11.10 Vomiting, unspecified (principal)
CPT/HCPCS: 36415; 74177; 80053; 81003; 81025; 83605; 83690; 85025; 86140; 96374; 99281; 99284; A9270; J2405; J7030; Q9967

== ENCOUNTER 2024-03-09 03:37 | Emergency (ER) | payer MEDICARE, MEDICAID, SELFPAY ==
[2024-03-09] VITALS (25 sets, daily range): BP systolic 94–137; BP diastolic 62–85; PULSE 48–114; RESP 24; O2SAT 89–99; BMI 15.5
--- NOTE | 2024-03-09 04:02 | ED_ITS ---
HPI - General Adult General Chief complaint: Abdominal Pain Stated complaint: stomach pain Time Seen by Provider: 03/09/24 04:01 History of Present Illness HPI narrative: 48-year-old female with history of gastric bypass surgery, cholecystectomy, anxiety, chronic back pain, chronic prescription opiate use, astigmatism, tobacco use, and pancreatic lesion (all apparently found about 5 years ago. No records available) She was most recently seen here in the ER on December 13 for epigastric abdominal pain and nausea. According to that note she had chronic nausea and used Zofran 1-2 times daily. Notes also indicate she uses cannabis containing products every day. Workup in the ER included WBC 6.8 Hemoglobin 12.2 Platelet 309 Sodium 133 Potassium 3.7 Chloride 105 Bicarb 25 Glucose 103 AST 51 ALT 72 Total bilirubin 0.4 Lipase 80 Urinalysis negative. Urine test negative CT scan abdomen/pelvis-impression: No acute abdominal or pelvic abnormality. Treated with IV Zofran and IV fluids in the ER. Her current illness began this evening or this afternoon. She does deal with some chronic nausea. She no longer takes Zofran every day. She has a chronic neck pain and recently had neck surgery (about 5 weeks ago). As part of her neck surgery she had a bone harvest from her right iliac crest. She has been off of (or may be out of) her pain meds for about a week or so. She began to experience pain in her epigastrium this evening or around supper time (she did not eat because she was nauseous) is gotten worse overnight. She has been trying to take antacids and has taken Tums and him up resolved with no relief. She has been nauseous and having multiple episodes of vomiting (nonbloody, nonbilious). Bowel movements normal. Urination normal. No fever. Her abdominal pain is progressively worsening. She is writhing and retching due to pain. Her notes that this pain is worse than when she was here in November and seems reminiscent of when she had a perforated ulcer Related Data Home Medications ?Medication ?Instructions ?Recorded ?Confirmed amitriptyline 10 mg PO DAILY 03/31/23 12/14/23 cyclobenzaprine 5 mg PO .8h PRN 03/31/23 12/14/23 gabapentin 800 mg PO QID 03/31/23 03/09/24 oxycodone-acetaminophen 1 tab PO Q4H PRN 03/31/23 12/14/23 amitriptyline 10 mg tablet 10 - 20 mg PO QPM PRN insomnia 03/09/24 03/09/24 buprenorphine HCl 900 mcg buccal 900 mcg buccal BID 03/09/24 03/09/24 film (Belbuca) cyclobenzaprine 10 mg tablet 10 mg PO Q8H PRN muscle spasm 03/09/24 03/09/24 gabapentin 800 mg tablet 800 mg PO QID 03/09/24 03/09/24 Previous Rx's ?Medication ?Instructions ?Recorded olanzapine 5 mg tablet 5 mg PO QHS #30 tabs 12/14/23 ondansetron HCl 4 mg tablet 4 mg PO TID PRN nausea and 03/09/24 vomiting #10 tabs oxycodone-acetaminophen 5 mg-325 1 - 2 tab PO Q6H PRN pain #10 tabs 03/09/24 mg tablet (Percocet) Allergies Allergy/AdvReac Type Severity Reaction Status Date / Time erythromycin base Allergy Mild Itching Verified 03/09/24 04:05 dexamethasone AdvReac Intermediate Verified 03/09/24 04:05 NSAIDS (Non-Steroidal AdvReac Intermediate Verified 03/09/24 04:05 Anti-Inflamma [facility] Medical History Tobacco abuse ?Z72.0 - Tobacco use (ICD-10) ROBERTO II (cervical intraepithelial neoplasia II) ?N87.1 - Moderate cervical dysplasia (ICD-10) Hyperopic astigmatism of left eye ?H52.202 - Unspecified astigmatism, left eye (ICD-10) Pancreatic lesion ?K86.9 - Disease of pancreas, unspecified (ICD-10) Myopia of right eye with astigmatism ?H52.11 - Myopia, right eye (ICD-10) ?H52.201 - Unspecified astigmatism, right eye (ICD-10) Presbyopia ?H52.4 - Presbyopia (ICD-10) Chronic prescription opiate use ?Z79.891 - longterm (current) use of opiate analgesic (ICD-10) Multiple lung nodules ?R91.8 - Other nonspecific abnormal finding of lung field (ICD-10) Lumbar herniated disc ?M51.26 - Other intervertebral disc displacement, lumbar region (ICD-10) STALIN (generalized anxiety disorder) ?F41.1 - Generalized anxiety disorder (ICD-10) Chronic back pain ?M54.9 - Dorsalgia, unspecified (ICD-10) ?G89.29 - Other chronic pain (ICD-10) Surgical History History of gastric bypass ?Z98.84 - Bariatric surgery status (ICD-10) Social History Smoking Status: Current every day smoker What tobacco products do you use: cigarettes Smoking packs per day: 2 Smoking cigarettes per day: 40.0 How often do you have a drink containing alcohol: never AUDIT-C Alcohol total score: 0 Non-prescribed substance use: denies use Exam Narrative: Exam Narrative: Constitutional: Appears well-developed and well-nourished. Alert. Uncomfortable and moaning, actively spitting (but not vomiting) into an emesis bag. Pulled the sheath up and over her head and body. She does cooperate with exam and pulses she is down. I help her repositioned onto her back for abdominal exam. HENT: Head: Atraumatic. Nose: Nose normal. Mouth/Throat: Oral mucosa is clear but somewhat dry-not desiccated or cracked. Eyes: Conjunctivae normal. EOM normal. Pupils equal, round, and reactive to light. No scleral icterus. Neck: Normal range of motion. Neck supple. No tracheal deviation present. Cardiovascular: Normal rate, regular rhythm. No gallop. No friction rub. No murmur heard. Symmetric radial artery pulses Pulmonary/Chest: Effort normal. No stridor. No respiratory distress. No wheezes. No rales. No rhonchi . No tenderness. Abdominal: Normal inspection. Nondistended. Healing incision over right iliac crest with no sign of any erythema or swelling. Although she indicates her pain was high in the epigastrium, She has diffuse tenderness and guarding. Musculoskeletal: RUE: Normal range of motion. No tenderness. No deformity LUE: Normal range of motion. No tenderness. No deformity RLE: Normal range of motion. No edema. No tenderness. No deformity LLE: Normal range of motion. No edema. No tenderness. No deformity Neurological: Alert and oriented to person, place, and time. Normal strength. CN II-VII intact. No sensory deficit. GCS eye subscore is 4. GCS verbal subscore is 5. GCS motor subscore is 6. Normal coordination Skin: Skin is warm and dry. No rash noted. No pallor. Normal capillary refill. Psychiatric: Limited by pain and nausea Const: Vital Signs, click to edit/add: Vital Signs - 24 hr 03/09/24 04:05 03/09/24 04:40 03/09/24 04:45 Pulse Rate 114 H 48 L Pulse Rate [Left P ulse Oximeter] 51 L Respiratory Rate 24 Blood Pressure Blood Pressure [Ri ght Upper Arm] 128/85 Pulse Oximetry 98 89 99 Oxygen Delivery Me od Room Air 03/09/24 05:00 03/09/24 05:15 03/09/24 05:30 Pulse Rate 63 70 79 Pulse Rate [Left P ulse Oximeter] Respiratory Rate Blood Pressure Blood Pressure [Ri ght Upper Arm] Pulse Oximetry 93 96 91 Oxygen Delivery Pa thod 03/09/24 05:45 03/09/24 06:00 03/09/24 06:15 Pulse Rate 77 72 71 Pulse Rate [Left P ulse Oximeter] Respiratory Rate Blood Pressure Blood Pressure [Ri ght Upper Arm] Pulse Oximetry 95 95 96 Oxygen Delivery Pa thod 03/09/24 06:30 03/09/24 06:45 03/09/24 06:51 Pulse Rate 80 71 71 Pulse Rate [Left P ulse Oximeter] Respiratory Rate Blood Pressure 133/80 Blood Pressure [Ri ght Upper Arm] Pulse Oximetry 97 97 97 Oxygen Delivery Pa thod 03/09/24 06:54 03/09/24 06:55 03/09/24 06:56 Pulse Rate 74 70 Pulse Rate [Left P ulse Oximeter] Respiratory Rate Blood Pressure 137/85 Blood Pressure [Ri ght Upper Arm] Pulse Oximetry 97 97 97 Oxygen Delivery Pa thod 03/09/24 07:00 03/09/24 07:01 03/09/24 07:15 Pulse Rate 66 71 74 Pulse Rate [Left P ulse Oximeter] Respiratory Rate Blood Pressure 112/69 Blood Pressure [Ri ght Upper Arm] Pulse Oximetry 96 96 97 Oxygen Delivery Pa thod 03/09/24 07:30 03/09/24 07:31 Pulse Rate 67 69 Pulse Rate [Left P ulse Oximeter] Respiratory Rate Blood Pressure 123/80 Blood Pressure [Ri ght Upper Arm] Pulse Oximetry 96 96 Oxygen Delivery Me thod Course Course ED Course: Recheck -0 500. Still having pain. No improvement after 0.5 mg of Dilaudid. Additional history reveals that she had previously been on oxycodone 10 mg 5 times a day until last week. Suspect opiate tolerance is for venting much improvement from this dose of Dilaudid. Will order an additional 1 mg dose. My review of the CT scan shows a few fluid dilated loops of small bowel but no definite obstruction. No free air. Awaiting radiology report. CBC shows normal white count. Lactic acid slightly elevated at 2.5. Will order an additional L of saline and recheck. Reevaluation(s) Reevaluation #1: Multiple rechecks. Had some temporarily relief after 1 mg dose of Dilaudid but had no response to the 0.5 mg dose, likely did opiate tolerance. Had recurrent nausea and pain after 2nd dose of Dilaudid. Tried Haldol in case this was CVS or CHS. No definite improvement with the haloperidol. She received a 2nd dose of Dilaudid and Zofran and felt better. She is now tolerating sips of water and feels well enough that she can go home with prescriptions for pain meds. Vital Signs Vital signs: Initial Vital Signs Pulse Rate 51 L 03/09/24 04:05 Respiratory Rate 03/09/24 04:05 Blood Pressure 128/85 03/09/24 04:05 Blood Pressure Mean 99 03/09/24 04:05 Blood Pressure Position Sitting 03/09/24 04:05 Pulse Oximetry 98 03/09/24 04:05 Oxygen Delivery Method Room Air 03/09/24 04:05 Vital Signs Pulse Rate 51 L 03/09/24 04:05 Respiratory Rate 24 03/09/24 04:05 Blood Pressure 128/85 03/09/24 04:05 Pulse Oximetry 98 03/09/24 04:05 Oxygen Delivery Method Room Air 03/09/24 04:05 Pulse Rate 69 03/09/24 07:31 Respiratory Rate 24 03/09/24 04:05 Blood Pressure 123/80 03/09/24 07:31 Pulse Oximetry 96 03/09/24 07:31 Oxygen Delivery Method Room Air 03/09/24 04:05 Medications Administered Medications: Generic Name Dose Route Start Last Admin Trade Name Carrie PRN Reason Stop Dose Admin Hydromorphone HCl 0.5 mg 03/09/24 04:13 03/09/24 04:25 Hydromorphone 0.5 Mg/0.5 Ml Inj IVP 0.5 mg Q1H PRN Administration Pain Discontinued Medications Generic Name Dose Route Start Last Admin Trade Name Carrie PRN Reason Stop Dose Admin Haloperidol Lactate 2.5 mg 03/09/24 06:42 03/09/24 06:54 Haloperidol 5 Mg/Ml Inj IV 03/09/24 06:43 2.5 mg ONCE ONE Administration Hydromorphone HCl 1 mg 03/09/24 05:08 03/09/24 05:22 Hydromorphone 0.5 Mg/0.5 Ml Inj IVP 03/09/24 05:09 1 mg ONCE ONE Administration Hydromorphone HCl 1 mg 03/09/24 07:21 03/09/24 07:37 Hydromorphone 0.5 Mg/0.5 Ml Inj IVP 03/09/24 07:22 1 mg ONCE ONE Administration Sodium Chloride 1,000 mls @ 1,000 mls/hr 03/09/24 04:15 03/09/24 05:20 0.9 % Sodium Chloride 1000 Ml IV 03/09/24 05:14 Infused .Q1H LAURA Infusion Sodium Chloride 1,000 mls @ 1,000 mls/hr 03/09/24 05:15 03/09/24 06:28 0.9 % Sodium Chloride 1000 Ml IV 03/09/24 06:14 Infused .Q1H LAURA Infusion Lidocaine/Aluminum/Magnesium/Simeth 30 ml 03/09/24 05:12 03/09/24 05:20 Gi Cocktail (Visc Lido/Antacid) 30 Ml PO 03/09/24 05:13 30 ml ONCE ONE Administration Ondansetron HCl 4 mg 03/09/24 04:13 03/09/24 04:25 Ondansetron 2 Mg/Ml Inj IVP 03/09/24 04:14 4 mg ONCE ONE Administration Ondansetron HCl 4 mg 03/09/24 07:21 03/09/24 07:37 Ondansetron 2 Mg/Ml Inj IVP 03/09/24 07:22 4 mg ONCE ONE Administration Medical Decision Making MDM Narrative Medical decision making narrative: Presented to the Emergency Department with Nausea, vomiting, and abdominal judah n that began in her epigastrium about 10 or 12 hours prior to presentation is now generalized was diffuse tenderness and guarding.. The differential diagnosis of abdominal pain includes Perforated ulcer but there is no evidence for any free air on her CT. No evidence for intra-abdominal abscess or fluid collection. Differential would also include bowel obstruction or internal hernia but these are not identified on her CT. CT does shows some fluid-filled loops of small bowel which are nonspecific, could be enteritis or could be ileus. Less likely would also be possible early evolving bowel obstruction without a clear lead point. No evidence forAppendicitis, Bowel Obstruction, diverticulitis, pancreatitis. She has had stent previous cholecystectomy. LFTs and lipase are normal. patient is complaining of as city taste in her mouth and heartburn. Pain could be related to peptic ulcer disease or gastritis but with generalized tenderness, that seems less likely. No evidence for GI bleeding. Stable blood pressure. Normal hemoglobin. No recent black or bloody stools. Laboratory testing does not reveal a cause for the patient's pain. Venous lactic is mildly elevated 2.5, likely related to dehydration from several hours of vomiting at home. After 2 L of IV crystalloid, repeat lactic acid is improved to 0.8 Complicating the patient's presentation is that she also has chronic pain in her neck and back. She is also 5 weeks status post neck surgery. She had recently been on opiates with a total daily dose of oxycodone around 50 mg. She has not had any of her pain killers for the past week or so. she has chronic pain and sees a pain specialist in [place]. She has a pain contract. She ran out of her pain killers early and is not due for refill until next week.. opiate tolerance makes her less responsive to IV Dilaudid administered here in the ER. CT scan does demonstrate a significant colonic stool burden as well, which could potentially be related to chronic opiate use.. Constipation could potentially be playing a role with her pain. Also has some chronic trouble with abdominal pain and vomiting. Follows with [place] [facility] for that. Has had endoscopy and needs a barium swallow. The exact etiology of the abdominal pain is not clear at this time. No life threatening cause or need for emergent surgery or hospital admission is detected today. The patient was advised that if symptoms do not completely resolve within another 12-24 hours re-evaluation with primary care or return to the ED is indicated. The patient also understands that if they worsen, they should return to the ER right away. I discussed the uncertainty about the diagnosis and answered the patient's questions. return precautions discussed. I provided [facility] prescriptions for Zofran 4 mg ODT-10 tablets Percocet 5/320 5-10 tablets. Of note the patient does have chronic pain and is out of her pain meds early. She has an appointment to see her doctors today. I agreed to give her a short prescription for Percocet to manage her pain because I suspect chronic pain and opiate withdrawal may be contributing. Lab Data Labs: Lab Results 03/09/24 03/09/24 Range/Units 04:20 06:12 WBC 9.66 (4.50-11.00) K/uL RBC 4.26 (4.00-5.20) m/uL Hgb 13.7 (12.0-16.0) gm/dL Hct 41.0 (33.0-51.0) % MCV 96 (80-100) fL MCH 32 (26-34) pg MCHC 33 (32-36) gm/dL RDW Coeff of Carlos 13.4 (11.5-15.5) % Plt Count 369 (140-440) K/uL Neut % (Auto) 72.5 H (42.0-72.0) % Lymph % (Auto) 23.2 (20-44) % [place] % (Auto) 2.6 (0.0-11.0) % Eos % (Auto) 0.7 (0.0-7.0) % Baso % (Auto) 0.9 (0.0-3.0) % Neut # (Auto) 7.00 (1.7-7.0) K/uL Lymph # (Auto) 2.24 (0.90-2.90) K/uL [place] # (Auto) 0.30 (0.00-0.90) K/UL Eos # (Auto) 0.07 (0.00-0.50) K/uL Baso # (Auto) 0.09 (0.00-0.30) K/uL Abs Immat Gran (auto) 0.01 (0.00-0.30) K/uL Imm/Tot Granulo (auto) 0.1 % Sodium 135 (135-149) mmol/L Potassium 3.7 (3.6-5.1) mmol/L Chloride 99 (96-114) mmol/L Carbon Dioxide 29 (20-32) mmol/L Anion Gap 7 (7-15) mEq/L BUN 5 (5-24) mg/dL Creatinine 0.6 (0.5-1.5) mg/dL Estimated Creat Clear 86.21 Estimated GFR 111 ml/min Glucose 107 (60-115) mg/dL Lactate 2.5 H 0.8 (0.5-1.9) mmol/L Calcium 10.0 (8.4-10.6) mg/dL Total Bilirubin 0.4 (0.1-1.5) mg/dL AST 27 (12-35) U/L ALT 18 (4-35) U/L Alkaline Phosphatase 102 (40-150) U/L Total Protein 7.8 (6.0-8.3) g/dL Albumin 4.6 (3.3-5.0) g/dL Lipase 97 (23-300) U/L Imaging Data CT scan - abdomen: Attestation: I have reviewed the pertinent imaging results. Radiologist's impression: IMPRESSION: 1. Findings of gastric bypass similar in appearance to the prior study without specific visible associated complication. 2. Abnormal small bowel probably representing an enteritis or ileus. No evidence of mechanical obstruction of small bowel or large bowel. Colonic fecal retention. No intramural air, free air or collection. 3. Status post cholecystectomy. 4. Chronic osseous findings similar to the prior study as described Discharge Plan Discharge Clinical Impression: Abdominal pain, Vomiting, Acute dehydration, Chronic pain Patient Disposition: Home, Self-Care Condition: Stable Instructions: Narcotic Safety (ED), Acute Nausea and Vomiting (DC), Abdominal Pain (ED) Additional Instructions: Please follow-up with your appointment with her neck surgeon today and with her pain clinic today for a recheck and medication refill. If you have worsening or uncontrolled pain, vomiting, or other worsening symptoms such as bloody vomiting or bloody or black stool, return to the ER right away. To treat constipation, use MiraLax 2 doses daily as needed until your having re gular bowel movements. Use caution with prescription pain killers because they can be addictive, cause drowsiness, dizziness, and worsening constipation. Prescriptions: New ondansetron HCl 4 mg tablet 4 mg PO TID PRN (Reason: nausea and vomiting) Qty: 10 0RF oxycodone-acetaminophen [Percocet] 5-325 mg tablet 1 - 2 tab PO Q6H PRN (Reason: pain) Qty: 10 0RF No Action olanzapine 5 mg tablet 5 mg PO QHS Qty: 30 0RF oxycodone-acetaminophen [Percocet] 1 tab PO Q4H PRN Rx Instructions: 10-325 gabapentin 800 mg PO QID amitriptyline 10 mg PO DAILY cyclobenzaprine 5 mg PO .8h PRN cyclobenzaprine 10 mg tablet 10 mg PO Q8H PRN (Reason: muscle spasm) gabapentin 800 mg tablet 800 mg PO QID amitriptyline 10 mg tablet 10 - 20 mg PO QPM PRN (Reason: insomnia) buprenorphine HCl [Belbuca] 900 mcg film 900 mcg BUCCAL BID Follow Up/Referrals: Ilia Connors MD [Primary Care Provider] - Stand Alone Forms: [facility] Info Instructions
--- NOTE | 2024-03-09 04:13 | CRLHL7_ITS ---
For Patients: As a result of the Century Cures Act, medical imaging exams and procedure reports are released immediately into your electronic medical record. You may view this report before your referring provider. If you have questions, please contact your health care provider. INDICATION: Pain and vomiting. History of gastric bypass. COMPARISON: December 14, 2023 TECHNIQUE: CT examination of the abdomen and pelvis was performed following the uneventful intravenous administration of 52 cc of Isovue 370. Thin section axial images were obtained from the lung bases through the pubic symphysis. Oral contrast was not administered. Please note that all CT scans at this facility use dose modulation, iterative reconstruction, and/or weight-based dosing when appropriate to reduce radiation dose to as low as reasonably achievable. FINDINGS: LUNG BASES: The lung bases as visualized appear normal.The heart size is normal at the lung bases. LIVER/BILIARY SYSTEM:The liver is normal in size and configuration. Prominent right lobe, a Lisa`s lobe, normal variation. There is no focal mass and there is no intra- or extra hepatic biliary ductal dilatation.Surgically absent gallbladder ADRENALS: Normal KIDNEYS, URETERS and BLADDER:The kidneys appear normal. No visible mass, calculus or hydronephrosis. The ureters and bladder as visualized appear normal. SPLEEN:Normal appearance. PANCREAS: Appears normal. RETROPERITONEUM and MESENTERY: There is no mass, adenopathy or aortic aneurysm. GASTROINTESTINAL SYSTEM: Findings of gastric bypass similar in appearance to the prior exam. No specific visible associated complication. No evidence of mechanical obstruction. There are prominent loops of small bowel without fecalization with a few scattered air-fluid levels and mild wall thickening in several locations. This probably represents an enteritis. There is colonic fecal retention without mechanical obstruction of the large bowel. No intramural air, free air or collection. PELVIS: No mass, adenopathy or free fluid. OSSEOUS STRUCTURES and ABDOMINAL WALL: Degenerative changes of the spine. Chronic loss of height of the superior endplate of L1.Avascular necrosis of the right femoral head. The osseous findings are unchanged. OTHER: No free fluid or free air. IMPRESSION: 1. Findings of gastric bypass similar in appearance to the prior study without specific visible associated complication. 2. Abnormal small bowel probably representing an enteritis or ileus. No evidence of mechanical obstruction of small bowel or large bowel. Colonic fecal retention. No intramural air, free air or collection. 3. Status post cholecystectomy. 4. Chronic osseous findings similar to the prior study as described Please note that all CT scans at this facility use dose modulation, iterative reconstruction, and/or weight-based dosing when appropriate to reduce radiation dose to as low as reasonably achievable. Dictated by Jerry Wolf MD @ 03/09/2024 4:57:01 AM (Electronically Signed)
[2024-03-09] MEDS: ONDANSETRON 2 MG/ML inj 4 MG IVP ×2 (04:25→07:37)
[2024-03-09] MEDS: HYDROmorphone 0.5 mg/0.5 ml inj IVP (04:25)
--- OUTSIDE RECORDS SUMMARY | 2024-03-09 04:29 | XMS_ITS | Encounter Summary ---
Author Organization [facility] Address [address] [place] [address]. [place] [address] Care Team Providers Care Drop Board Man Name Role Phone Guerita Romero MD Primary Care Provider [phone] Jose Rabago MD Unavailable [phone] [facility] Primary Care Pr ovider Unavailable Encounter Details Date Type Department Care Team (Late st Contact Info) Description 03/01/[address] [facility] Emergency Dept [address] [place] [address] Unknown, Provider Social History Tobacco Use Types [...] on filedocumented in this encounter Care Teams Drop Board Man Relationship Specialty Start Date End Date Guerita Romero MD PCP - General 09/06/11 09/29/22 [facility] [address] [place] [id number] PCP - General 09/30/22 11/28/22 Jose Rabago MD [address] [place] [id number] Assigned Surgical Provider 02/24/2108/29/22 documented as of this encounter
--- OUTSIDE RECORDS SUMMARY | 2024-03-09 04:29 | XMS_ITS | Clinical Summary ---
Author Organization [facility] Address [address] [place] [address]. [place] [address] Care Team Providers Care It Application Development Manager Name Role Phone Unavailable Primary Care Provider [...] Active naloxone (NARCAN) 4 MG/0.1ML nasal spray [place] 4 mg into one nostril alternating nostrils [...] Overview: Added automatically from request for surgery [id number] Lumbago 11/05/2012 Hematemesis 04/09/2012 Rhabdomyolysis 09/13/2011 Foot [...] Comments Blood Pressure 97/68 09/30/2022 8:21 PM [facility] Pulse 81 09/30/2022 8:21 PM [facility] Temperature 36.7 ??C (98.1 ??F) 09/30/2022 4:57 PM CS T Respiratory Rate 22 09/30/2022 4:57 PM [facility] Oxygen Saturation 98% 09/30/2022 8:11 PM [facility] Inhaled Oxygen Concentration - - Weight 77.1 kg (170 lb) 03/01/2021 2:51 PM CDT Height 172.7 cm (5' 8) 09/30/2022 4:57 PM [facility] Body Mass Index 25.1 03/01/2021 2:51 PM [...] 04/16/2023 04/16/2022 COVID-19 Vaccine ( season) 2023 PHQ-2 (once per calendar year) 2023 INFLUENZA VACCINE (#1) 2024 , 06/08/2019, 06/26/2018, Additional history exists GLUCOSE 09/30/2025 09/30/2022, 07/0 04/2021, 02/20/2021, Additional [...] COMPREHENSIVE METABOLIC PANEL STAT 09/30/2022 5:05 PM [facility] from Last 3 Months or Most Recently Relevant to Health Maintenance Results * (ABNORMAL) Comprehensive metabolic panel (09/30/2022 5:05 PM [facility]) Sodium 139 136 - 145 mmol/L 09/30/2022 6:[address] [facility] Potassium 3.8 3.4 - 5.3 mmol/L 09/30/2022 6:[address] [facility] Chloride 101 98 - 107 mmol/L 09/30/2022 6:[address] [facility] Carbon Dioxide (CO2) 28 22 - 29 mmol/L 09/30/2022 6:[address] [facility] Anion Gap 10 7 - 15 mmol/L 09/30/2022 6:[address] [facility] Urea Nitrogen 6.6 6.0 - 20.0 mg/dL 09/30/2022 6:[address] [facility] Creatinine 0.73 0.51 - 0.95 mg/dL 09/30/2022 6:[address] [facility] Calcium 9.2 8.6 - 10.0 mg/dL 09/30/2022 6:[address] [facility] Glucose 95 70 - 99 mg/dL 09/30/2022 6:[address] [facility] Alkaline Phosphatase 105(H) 35 - 104 U/L 09/30/2022 6:[address] [facility] AST 76(H) 10 - 35 U/L 09/30/2022 6:[address] [facility] ALT 147(H) 10 - 35 U/L 09/30/2022 6:[address] [facility] Protein Total 6.6 6.4 - 8.3 g/dL 09/30/2022 6:[address] [facility] Albumin 3.8 3.5 - 5.2 g/dL 09/30/2022 6:[address] [facility] Bilirubin Total 0.3 <=1.2 mg/dL 09/30/2022 6:[address] [facility] GFR Estimate >90 >60 mL/min/1.7 3m2 09/30/2022 6:[address] [facility] Comment:eGFR calculated usin g 2020 CKD-EPI equation. Blood VENOUS LINE / Unknown Venipuncture / Unknown 09/30/2022 5:05 PM [facility] 09/30/2022 5:23 PM [facility] Jose Murrell MD LAB - BLOOD ORDERABL ES LABORATORY [facility] [address] Lab (1st floor, no room number) [place] [address], [facility] [phone] from Last 3 Months or Most Recently Relevant to Health Maintenance [facility] Directives For more information, please contact: [phone] * Full Code (Latest Code Status on [...]
--- OUTSIDE RECORDS SUMMARY | 2024-03-09 04:29 | XMS_ITS | Referral Summary ---
Author Organization [facility] Address [address] [place] [address]. [place] [address] Care Team Providers Care Blade Grader Operator Name Role Phone Unavailable Primary Care Provider [...] Active naloxone (NARCAN) 4 MG/0.1ML nasal spray [place] 4 mg into one nostril alternating nostrils [...] Overview: Added automatically from request for surgery [id number] Lumbago 11/05/2012 Hematemesis 04/09/2012 Rhabdomyolysis 09/13/2011 Foot [...] Comments Blood Pressure 97/68 09/30/2022 8:21 PM INFUSION PHARMACIST Pulse 81 09/30/2022 8:21 PM INFUSION PHARMACIST Temperature 36.7 ??C (98.1 ??F) 09/30/2022 4:57 PM CS T Respiratory Rate 22 09/30/2022 4:57 PM INFUSION PHARMACIST Oxygen Saturation 98% 09/30/2022 8:11 PM INFUSION PHARMACIST Inhaled Oxygen Concentration - - Weight 77.1 kg (170 lb) 03/01/2021 2:51 PM CDT Height 172.7 cm (5' 8) 09/30/2022 4:57 PM INFUSION PHARMACIST Body Mass Index 25.1 03/01/2021 2:51 PM CDT Plan of Treatment Not on file Procedures Procedure Name Priority Date/Time Associated Diagnosis Comments COMPREHENSIVE METABOLIC PANEL STAT 09/30/2022 5:05 PM INFUSION PHARMACIST from Last 3 Months or Most Recently Relevant to Health Maintenance Results * (ABNORMAL) Comprehensive metabolic panel (09/30/2022 5:05 PM INFUSION PHARMACIST) Sodium 139 136 - 145 mmol/L 09/30/2022 6:[address] [facility] Potassium 3.8 3.4 - 5.3 mmol/L 09/30/2022 6:[address] [facility] Chloride 101 98 - 107 mmol/L 09/30/2022 6:[address] [facility] Carbon Dioxide (CO2) 28 22 - 29 mmol/L 09/30/2022 6:[address] [facility] Anion Gap 10 7 - 15 mmol/L 09/30/2022 6:[address] [facility] Urea Nitrogen 6.6 6.0 - 20.0 mg/dL 09/30/2022 6:[address] [facility] Creatinine 0.73 0.51 - 0.95 mg/dL 09/30/2022 6:[address] [facility] Calcium 9.2 8.6 - 10.0 mg/dL 09/30/2022 6:[address] [facility] Glucose 95 70 - 99 mg/dL 09/30/2022 6:[address] [facility] Alkaline Phosphatase 105(H) 35 - 104 U/L 09/30/2022 6:[address] [facility] AST 76(H) 10 - 35 U/L 09/30/2022 6:[address] [facility] ALT 147(H) 10 - 35 U/L 09/30/2022 6:[address] [facility] Protein Total 6.6 6.4 - 8.3 g/dL 09/30/2022 6:[address] [facility] Albumin 3.8 3.5 - 5.2 g/dL 09/30/2022 6:[address] [facility] Bilirubin Total 0.3 <=1.2 mg/dL 09/30/2022 6:[address] [facility] GFR Estimate >90 >60 mL/min/1.7 3m2 09/30/2022 6:[address] [facility] Comment:eGFR calculated usin 2020 CKD-EPI equation. Blood VENOUS LINE / Unknown Venipuncture / Unknown 09/30/2022 5:05 PM INFUSION PHARMACIST 09/30/2022 5:23 PM INFUSION PHARMACIST Jose Murrell MD LAB - BLOOD ORDERABL ES LABORATORY [facility] [address] Lab (1st floor, no room number) [place] [address], [facility] [phone] from Last 3 Months or Most Recently Relevant to Health Maintenance Advance Directives For more information, please contact: [phone] * Full Code (Latest Code Status on File) Date Activated Date Inactivated Comments 09/30/2022 8:46 PM 10/01/2022 9:50 AM All basic and advanced life-sustaining interventions are performed as appropriate Question Answer Comments Code status determined by: Discussion with vivianee nt/ legal decision maker * Full Code Date Activated Date Inactivated Comments 04/09/2012 6:42 AM 04/10/2012 3:59 PM * Full Code Date Activated Date Inactivated Comments 01/25/2012 3:44 PM 01/26/2012 3:11 PM
--- OUTSIDE RECORDS SUMMARY | 2024-03-09 04:29 | XMS_ITS | Clinical Summary ---
Author Organization [facility] Address [address] [place] [address] Care Team Providers Care Fixed Wing Aircraft Crew Chief Name Role Phone Unassigned, Provider Primary Care Provider Unava ilable Source Comments You are receiving this document as you are listed as the primary care provider,follow-up provider, or the patient has been referred to you for consultation.This is in compliance with the Medicare andMedicaid EHR Incentive Program,which states Providers who transition their patient to another setting of careor provider of care or refers their patient to another provider of care shouldprovide summary care record for each transition of care or referral. [facility] Allergies Active Allergy Reactions Criticality Noted Date [...] sodium fluoride (AKA DENTA,PREVIDENT) 1.1 % cream [place] 2x/day. Do not eat or drink for [...] 2,000 Units by mouth daily. Active Biotin [address] Melo Wort 300 MG Active sodium fluoride (PREVIDENT) 1.1 % cream [place] 2x/day. Do not eat or drink for [...] Comments Blood Pressure 112/78 09/23/2018 12:15 PM CHIEF ENGINEER PRODUCTION Pulse 83 03/28/2021 7:17 AM CDT Temperature [...] (2 - PCV) 01/25/2013 01/26/2012 Cholesterol 2020 Mammogram 02/04/2022 02/04/2021, 11/08/2018 COVID-19 Vaccine (1 - season) 2023 Influenza (#1) 2024 05/07/2020, 05/24, 06/26/2018, Additional history exists Zoster/Shingles [...] age to complete this topic Care Teams Fixed Wing Aircraft Crew Chief Relationship Specialty Start Date End Date Unassigned, Provider [address] [place] [address] PCP - General 08/28/01
--- OUTSIDE RECORDS SUMMARY | 2024-03-09 04:29 | XMS_ITS | Encounter Summary ---
Author Organization [facility] Address [facility]ly [facility] [place] [address] Care Team Providers Care Governor Assembler Hydraulic Name Role Phone Guerita Romero MD Primary Care Provider [phone] Jose Rabago MD Unavailable Clinic, Former[facility] Primary Care Pr ovider Unavailable Encounter Details Date Type Department Care Team (Late st Contact Info) Description 03/18/2021 [facility] Medical Advice [facility] [place] [address] [place] [address] Shira Martins PA-C [address] [facility] [address] [place] [address] Social History Tobacco Use Types [...] on filedocumented in this encounter Care Teams Governor Assembler Hydraulic Relationship Specialty Start Date End Date Guerita Romero MD PCP - General 09/06/11 09/29/22 [facility] [address] [place] [address] PCP - General 09/30/22 11/28/22 Jose Rabago MD [address] [facility] [place] [id number] Assigned Surgical Provider 02/24/2108/29/22 documented as of this encounter
--- OUTSIDE RECORDS SUMMARY | 2024-03-09 04:29 | XMS_ITS | Clinical Summary ---
Author Organization [facility] Address [place], [place] [address] Care Team Providers Care Hand Button Splitter Name Role Phone Heriberto Valencia PA Unavailable Ilia Connors MD Primary Care Provider Wagner Dahl DO Unavailable [phone] Allergies Active Allergy Reactions Criticality Noted Date Comments Dexamethasone Psychosis,Visual Disturbances Erythromycin Hives,Itching 03/05/2006 Erythromycin Base Flushing,Itching Medium 04/16/2020 Medications Medication Sig Dispensed Refills Start Date End Date Status multivitamins with minerals tablet Take 1 tablet by mouth once daily. Active naloxone (NARCAN) 4 mg/actuation spry Narcan 4 mg/actuation nasal spray 03/01/2019 Active oxyCODONE-acetaminop hen, 10-325 mg, (PERCOCET) 10-325 mg per tabletIndications:Lilian mbar herniated disc,Cervical spinal stenosis,Chronic bilateral low back pain with left-sided sciatica,Issue of repeat prescription Take 1 tablet by mouth every 4 hours if needed 105 tablet 11/22/2019 Active VENTOLIN HFA 90 mcg/actuation inhalerIndications:S OB (shortness of breath) INHALE 2 PUFFS BY MOUTH EVERY 4 HOURS IF NEEDED 1 Inhaler 12/04/2019 Active gabapentin (NEURONTIN) 800 mg tablet Take 800 mg by mouth 4 times daily. 12/29/2019 Active amitriptyline (ELAVIL) 10 mg tablet 01/21/2020 Active omeprazole (PRILOSEC) 20 mg Delayed-Release capsule Take 1 capsule by mouth once daily. Active nystatin (MYCOSTATIN) creamIndications:Ora l thrush Apply topically to affected area(s) 2 times daily. To corners of mouth 1 Tube 03/31/2021 Active cyclobenzaprine (FLEXERIL) 5 mg tablet TAKE 1-2 tablets by mouth every 8 hours NEEDED 04/08/2022 Active lansoprazole (PREVACID) 30 mg capsule take 1 capsule by ORAL route 2 times every day before a meal. 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 60 Each 01/02/2023 Active chlorhexidine (PERIDEX) 0.12 % solution RINSE WITH 1 CAPFUL TWICE DAILY* 03/26/2023 Active pantoprazole (PROTONIX) 40 mg delayed-release tablet Active ergocalciferol (VITAMIN D2; DRISDOL) 50,000 unit capsuleIndications:S /P spinal fusion Take 1 Capsule (50,000 units) by mouth once weekly. 12 Capsule 3 12/22/2023 Active calcium carbonate (TUMS) 200 mg calcium (500 mg) chewable tabletIndications:S/ P spinal fusion Chew 1 Tablet (500 mg) by mouth two times daily with meals. 180 Tablet 3 12/22/2023 Active ondansetron (ZOFRAN ODT) 4 mg disintegrating tabletIndications:Na usea Place 1 Tablet (4 mg) on the tongue every 8 hours if needed for Nausea/Vomitin g. 30 Tablet 01/11/2024 Active OLANzapine (ZYPREXA) 5 mg tablet Take 1 tablet by mouth every day at bedtime* 12/14/2023 Active doxycycline 100 mg tablet TAKE ONE TABLET BY MOUTH TWICE DAILY FOR 5 DAYS* 01/28/2024 Active Senna 8.6 mg tablet TAKE 1 OR 2 TABLETS BY MOUTH TWICE DAILY NEEDED FOR CONSTIPATION* 01/28/2024 Active tiZANidine (ZANAFLEX) 2 mg tablet TAKE ONE OR TWO TABLETS BY MOUTH FOUR TIMES DAILY NEEDED FOR MUSCLE SPASMS* 01/28/2024 Active oxyCODONE (ROXICODONE) 5 mg immediate release tabletIndications:Po st-op pain Take 1-2 Tablets (5-10 mg) by mouth every 4 hours if needed for Pain (max 6/day). 30 Tablet 02/12/2024 Active oxyCODONE (ROXICODONE) 5 mg immediate release tabletIndications:Po st-op pain Take 1-2 Tablets (5-10 mg) by mouth every 4 hours if needed for Pain (max 8/day). 24 Tablet 02/08/2024 4 Discontinue d(Reorder (E-cancel not sent)) Active Problems Problem Noted Date Diagnosed Date Congenital spondylolisthesis 01/25/2024 Other cervical disc degeneration at C5-C6 level 01/25/2024 Displacement of cervical int ervertebral disc without myelopathy 01/25/2024 Unintentional weight loss 01/25/2024 Underweight 02/04/2023 Pancreatic lesion 02/04/2023 Dysphagia 05/11/2019 Myopia of right eye with astigmatism 09/09/2018 Bariatric surgery status 02/05/2017 Presbyopia 11/11/2016 Hyperopic astigmatism of left eye 11/11/2016 STALIN (generalized anxiety disorder) 06/13/2015 Overview: Taper xanax per pain clinic. Sep-Nov 12 30 pills Nov 12-Dec 13 15 pills then off Signed narcotics agreement 01/07/21 Degeneration of cervical intervertebral disc Degeneration of lumbar or lumbosacral interverte bral disc 03/20/2014 Other pulmonary embolism and infarction 01/29/20 12 Multiple lung nodules 01/29/2012 Overview: indeterminant largest 6 mm, recommend repeat CT in 6 months Found incidentally 01/26/2012 Left leg weakness 10/29/2011 Gastric bypass status for obesity 10/29/2011 Lumbar herniated disc 09/17/2011 Foot drop, left 09/13/2011 Nicotine dependence 09/13/2011 ROBERTO II (cervical intraepithelial neoplasia II) 0 [...] Encounters Date Type Department Care Team Description 02/11/2024 Telephone [facility] [address] [place] [address] Heriberto Valencia PA Refill Request 02/09/2024 2:00 PM CDT Office Visit [facility] [address] [place] [phone] Yasemin Harden PA Post-op (C4-5 & C5-6 ACDF, RT Iliac crest bone marrow harvest DOS 01/28/24/(ward) at [facility]) 02/09/2024 1:45 PM CDT Ancillary Procedure [facility] [address] [place] [address] 02/09/2024 Travel 02/08/2024 Telephone [facility] at [facility] [address] [place] [address] Heriberto Valencia PA Questions 02/04/2024 Telephone [facility] [address] [place] [address] Heriberto Valencia PA Refill Request 02/01/2024 Telephone [facility] [address] [place] [address] Heriberto Valencia PA Refill Request 01/28/2024 6:55 AM CDT - 01/28/2024 11:59 PM CDT Hospital Encounter Paul Baez MD 01/28/2024 Surgery [facility] [address] [facility] [address] [place] [address] Paul Baez MD C4-5 AND C5-6 ANTERIOR CERVICAL DECOMPRESSION AND FUSION, RIGHT ILIAC CREST BONE MARROW HARVEST. 01/25/2024 1:35 PM CDT Preop Visit [facility] [address] [place] [address] Sadie Reddy PA Pre-Op Exam (neck ) 01/25/2024 Travel 01/14/2024 Telephone [facility] [address] [place] [address] Ilia Connors MD Screening 01/08/2024 Refill [facility] [address] [address] Ilia Connors MD Refill Request (Ondansetron) 12/22/2023 Telephone [facility] [address] [place] [address] Heriberto Valencia PA ACC Order Request 12/22/2023 Refill [facility] [address] [place] [address] Ilia Connors MD Refill Request (Ondansetron) 12/21/2023 Orders Only INTERFACED 1 Link, Alex Richardson MD <No scans attached> 12/21/2023 Orders Only [facility] [address] [place] [address] Paul Baez MD <No scans attached> 12/14/2023 Orders Only [facility] Scanner 1 scan: (1-Ord) [facility], ABDOMEN/PELVIS, 12/14/2023 12/09/2023 2:30 PM CDT Office Visit [facility] [address] [facility] [[email or web address] [address] [place] [address] Paul Baez MD Follow Up (Discuss surgical options - cervical) 12/09/2023 Travel from Last 3 Months Immunizations Name Administration [...] of Communication with Friends and Fami ly Not on file 02/05/2024 Financial Resource Strain Answer Date R ecorded [...] Outcome GA Total Labor Labor/2nd/3rd Weight Sex Type Anes PTL Geetha A1 A5 Name Clin Term M Vag-Spo nt Term Last Filed Vital Signs Vital Sign Reading Time Taken Comments Blood Pressure 118/68 01/25/2024 1:42 PM CDT Pulse 91 01/25/2024 1:42 PM CDT Temperature 36.7 ??C (98.1 ??F) 02/04/2023 1:30 PM CD T Respiratory Rate 18 01/24/2020 1:11 PM CDT Oxygen Saturation 76% 01/25/2024 1:42 PM CDT Inhaled Oxygen Concentration - - Weight 49.9 kg (110 lb) 02/09/2024 2:12 PM CDT Height 175.3 cm (5' 9) 02/09/2024 2:12 PM CDT Body Mass Index 16.24 02/09/2024 2:12 PM CDT Plan of Treatment Upcoming Encounters Date Type Department Care Team (Late st Contact Info) Description 03/09/2024 2:15 PM CDT Ancillary Procedure [facility] [address] [place] [address] 03/09/2024 2:30 PM CDT Office Visit [facility] [address] [place] [address] Yasemin Harden PA [address] [place] [address] Health Maintenance Due Date Last Done Comments HIV for age 15-65 1990 Hepatitis C screening for ag e 18-79 1993 Pneumococcal series for age 6-64 (2 of 2 - PCV) 01/25/2013 01/26/2012 Mammogram for age 45-75 02/04/2022 02/05/20 21, 02/03/2020, 11/12/2018, Additional history exists Depression screening for age 12+ 04/16/2023 04/16/2022, 12/18/2021, 03/25/2021, Additional history exists COVID-19 vaccine series ( season) 2023 Lipids for age 45-75 11/09/2023 11/08/2018 Influenza for age 9-49 04/24/2024 0, 06/08/2019, 06/26/2018, Additional history exists BMI (ht and wt on same day) for age 18+ 02/08/2025 02/09/2024, 12/09/2023, 11/25/2023, Additional history exists Pap test for age 21-65 04/16/2025 2, 04/16/2022, 11/05/2017, Additional history exists Tetanus booster 11/08/2028 11/08/2018, 05/24, 06/11/2006, Additional history exists Colonoscopy through age 75 12/20/2033 12/21/2023 Tdap Completed 11/08/2018 Procedures Procedure Name Priority Date/Time Associated Diagnosis Comments XR SPINE CERVICAL 2 VIEWS Routine 02/09/2024 2:06 PM CDT S/P cervical spinal fusion HEMOGLOBIN Routine 01/25/2024 2:06 PM CDT Pre-op examination URINE Routine 01/25/2024 2:03 PM CDT Pre-op examination SCAN-OPERATIVE/PROCEDUR E REPORT 01/01/2024 1:30 PM CDT AMB CONSULT TO GASTROENTEROLOGY CRISTOFER 12/24/2023 7:08 PM CDT Unexplained weight loss Pancreatic lesion SCAN-COLONOSCOPY 12/21/2023 10:0 0 AM CDT SCAN-CT INTERPRETATION 12:00 AM CDT HPV THIN PREP Routine 04/16/2022 1:43 PM CDT Pap smear for cervical cancer screening XR MAMMO OKSANA BILAT SCREEN Routine 02/04/2021 3:18 PM CDT Visit for screening mammogram LIPID PANEL W REFLEX MEASURED LDL Routine 11/08/2018 11:23 AM CDT Lipid screening SURGICAL PROCEDURE (TYPE PROCEDURE DESCRIPTION BELOW) Spinal stenosis in cervical region Degeneration of intervertebral disc at C4-C5 level Degeneration of C5-C6 intervertebral disc from Last 3 Months or Most Recently Relevant to Health Maintenance Results * XR SPINE CERVICAL 2 VIEWS (02/09/2024 2:06 PM CDT) Anatomical Region Laterality Modality CERVICAL SPINE Computed Radiogr aphy 02/09/2024 2:06 PM CDT Impressions 02/10/2024 7:38 AM CDT Postsurgical changes ACDF C4-C6. No hardware complication. On the lateral view the C1/C2 junction is obscured by the patient's hearing's. The vertebral bodies of the cervical spine have normal stature and alignment. The disc spaces are well-maintained. No prevertebral soft tissue swelling. The partially imaged lung apices are unremarkable. Soft tissues unremarkable. Narrative 02/10/2024 7:38 AM CDT For Patients: As a result of the Century Cures Act, medical imaging exams and procedure reports are released immediately into your electronic medical record. You may view this report before your referring provider. If you have questions, please contact your health care provider. EXAM: XR SPINE CERVICAL 2 VIEWS LOCATION: [facility] DATE: 02/09/2024 INDICATION: S/p Cervical Spinal Fusion COMPARISON: None. Procedure Note Tab Ward MD - 02/10/2024 For Patients: As a result of the Cures Act, medical imagingexams and procedure reports are released immediately into your electronicmedical record. You may view this report before your referring provider.If you have questions, please contact your health care provider. EXAM: XR SPINE CERVICAL 2 VIEWS LOCATION: [facility] DATE: 02/09/2024 INDICATION: S/p Cervical Spinal Fusion COMPARISON: None. IMPRESSION: Postsurgical changes ACDF C4-C6. No hardware complication. On the lateralview the C1/C2 junction is obscured by the patient's hearing's. Thevertebral bodies of the cervical spine have normal stature and alignment.The disc spaces are well- maintained. No prevertebral soft tissue swelling.The partially imaged lung apices are unremarkable. Soft tissuesunremarkable. Yasemin [facility] * HEMOGLOBIN (01/25/2024 2:06 PM CDT) HEMOGLOBIN 13.6 12.0 - 16.0 g/dL 01/25/2024 2:26 PM CDT [facility] MCV 97 80 - 100 fL 01/25/2024 2:26 PM CDT [facility] Blood BLOOD SPECIMEN / Unknown Venipuncture / Unknown 01/25/2024 2:06 PM CDT 01/25/2024 2:23 PM CDT Sadie [facility]AS [facility]ATOLOG[facility] [address] [place] [address], * URINE (01/25/2024 2:03 PM CDT) ,URIN E Negative Negative 01/25/2024 2:40 PM CDT [facility] Urine URINE SPECIMEN / Unknown Non-Blood / Unknown 01/25/2024 2:03 PM CDT 01/25/2024 2:03 PM CDT Sadie LLAMAS URINE [facility] [address] [place] [address], * SCAN-OPERATIVE/PROCEDURE REPORT (01/01/2024 1:30 PM CDT) Narrative Procedure Note Alex Ivy MD - 01/01/2024 12:56 PM CDT [facility] [address] [facility], [address], [place] [address] Patient Name: Sandy Lemus Gender: Female Exam Date: 01/01/2024 Visit Number: [id number] Age: 48 Years Date of : 1975 Attending MD: Alex Ivy MD Medical Record#: [id number] ----- Procedure: Upper GI Endoscopy Indications: Nausea and Vomiting Provider: Alex Ivy MD Referring MD: Referral Self Primary MD: Ilia Connors MD Medications: Admitting Medication: 0.9% Normal Saline at [facility] Intra Procedure Medications: Patient received monitored anesthesia care. Complications: No immediate complications Procedure: An examination of the heart and lungs was performed within acceptablelimits. . The patient was therefore deemed a reasonable candidate forsedation. The risks and benefits were explained to the patient, who appeared tounderstand. After obtaining informed consent, the scope was passed underdirect vision. Throughout the procedure the patient's blood pressure,pulse and oxygen saturations were monitored. The scope was introducedthrough the mouth and advanced to the second portion of duodenum. Findings: Esophagus: The z-line is 40 centimeters from the incisors. Top of the gastric foldsis 40 centimeters from the incisors. Esophagitis. Location - Mid and distal esophagus. Description mucosalbreaks with bile staining. Biopsy taken. Stomach: H. Pylori biopsies taken. Previous surgical procedure:Gastric Bypass The diaphragm hiatus is at 40 centimeters from the incisors. Post Surgical Stomach. Previous Gastric Bypass. Finding - Ulcer. Location- anastomosis. Endoscope was advanced through the anastomosis. Also ableto enter the bypassed stomach and the duodenum. Significant amount of bilein bypassed stomach. Biopsies taken of gastric pouch and bypassedstomach. Duodenum: Normal duodenum. Celiac Sprue biopsies taken. Jejunum: Normal jejunum. Celiac Sprue biopsies taken. Impression: Nausea with vomiting, unspecified History of gastric bypass Anastomotic ulcer Pathology Results: A: DUODENUM, BIOPSY: 1. Normal duodenal mucosa 2. Negative for celiac disease and other enteropathy B: STOMACH, GASTRIC POUCH AND BYPASSED PORTION, BIOPSY: 1. Reactive gastropathy, endoscopically ulcerative (see comment) a. Sampling: Antral and body mucosae b. Distribution: Antral mucosa 2. Negative for inflammation, atrophy and Helicobacter C: ESOPHAGUS, BIOPSY: 1. Squamous mucosa with nonspecific regenerative change, cannotexclude reflux 2. Negative for eosinophilic esophagitis 3. Negative for columnar mucosa COMMENTS B. The likely etiology is an ongoing non-inflammatory type mucosal injurydue to a chemical type of injury; this may be due to ingestion ofnon-steroidal anti-inflammatory drugs, aspirin (via prostaglandin-mediatedinjury), excess alcohol, corticosteroids, or bile/alkaline reflux, thelatter usually in the setting of a gastroenteric anastomosis. MICROSCOPIC A: Performed B: Performed C: Performed Electronically signed by: Rudi Sloan MD Interpreted at [facility], [address] [place] [address] Orders Diagnostics: Procedure Comments Timeframe Assessment Xray Upper GI Series First Available Z98.84 Follow-up visit/Referral: Order Comments follow-up visit with Alex Ivy MD Additional Comments: Proceed with the barium study as we discussed. _Electronically signed by: Alex Ivy MD 01/01/2024 cc: Ilia Connors MD Alex Ivy MD OTHER * SCAN-COLONOSCOPY (12/21/2023 10:00 AM CDT) Narrative Procedure Note Alex Ivy MD - 12/21/2023 9:31 AM CDT [facility] [address] [address], [address], [place] [address] Patient Name: Sandy Lemus Gender: Female Exam Date: 12/21/2023 Visit Number: [id number] Age: 48 Years Date of : 1975 Attending MD: Alex Ivy MD Medical Record#: [id number] Procedure: Colonoscopy Indications: Weight loss Diarrhea Vomiting Referring MD: Ilia Connors MD Primary MD: Ilia Connors MD Medications: Admitting Medications: 0.9% Normal Saline at [facility] Intra Procedure Medications: Patient received monitored anesthesia care. Complications: No immediate complications Procedure: An examination of the heart and lungs was performed and found to be withinacceptable limits. . The patient was therefore deemed a reasonablecandidate for endoscopy and sedation. The risks and benefits of the procedure were explained to the patient.After obtaining informed consent, the patient received monitoredanesthesia care and I passed the scope without difficulty via the rectum to the ileum. The appendiceal orificeand ic valve were identified. The scope was retroflexed during theexamination The quality of the prep was good (Miralax/Gatorade/2 tabletsBisacodyl/Magnesium Citrate). This was a complete examination throughout the entire colon. Findings: Normal finding. Location - ileum. Polyp location: sigmoid. Quantity: 2. Size: 6-8 mm. Polyp shape:sessile. Maneuver: polypectomy was performed with a cold snare. Removal: complete. Retrieval: complete. Bleeding: none. Polyp location: sigmoid. Quantity: 2. Size: 10-12 mm. Polyp shape:sessile. Maneuver: polypectomy was performed with a cold snare. Removal: complete. Retrieval: complete. Bleeding: none. Random biopsies were taken throughout the colon to rule out microscopiccolitis. Impression: Colorectal polyps Weight loss Nausea with vomiting, unspecified Preliminary Plan: The patient and their physician will receive a copy of the pathologyreport as well as pathology-based recommendations for future screening orsurveillance. Pathology Results: A: COLON, RANDOM, BIOPSY: 1. Normal colonic mucosa 2. Negative for microscopic, active, and chronic colitis B: COLON, SIGMOID, POLYPS: 1. Tubular adenomas (3), two of which are advanced adenomas, andhyperplastic polyp (likely the smallest polyp) 2. Negative for high grade dysplasia 3. Per the colonoscopy report: a. Polyp sizes: 6-8 mm x2 and 10-12 mm x2 b. Resection: Complete c. Retrieval: Complete COMMENTS B. Advanced adenoma of the colorectum is defined by the [employer] [employer] (ACG) as an adenoma that is 1 cm or more in size,contains an appreciable villous component, or has high grade dysplasia(Cm PEREZ; Polyp Guideline: Diagnosis, Treatment, and Surveillance forPatients with Colorectal Polyps. Am J Agjczjszymyri3830;95(11):5867-7181). This polyp qualifies as such. Patients withadvanced adenomas are at increased risk for synchronous and metachronousadditional advanced adenomas. Appropriate follow-up is suggested. MICROSCOPIC A: Performed B: Performed Electronically signed by: Abhay Cast[place] [address] Orders Diagnostics: Procedure Comments Timeframe Assessment EGD First Available R11.2 Instruction(s)/Education: Instruction/Education Timeframe Assessment Colon Cancer Prevention K63.5 Colon Polyps K63.5 Final Plan: Repeat colonoscopy in 3 years for Polyp surveillance. We will attempt to contact you at appropriate intervals via U.S. mail. Wemay not be able to find you or contact you at that time, therefore youshould know that the responsibility for following our recommendation restswith you. If you don't hear from us at the time your procedure is due,please contact our office to schedule an appointment. If your contactinformation should change, please contact our office so that we can updateyour record. _Electronically signed by: Alex Ivy MD 12/21/2023 cc: Ilia Connors MD cc: Ilia Connors MD Alex Ivy MD OTHER * SCAN-CT INTERPRETATION (12/14/2023 12:00 AM CDT) Anatomical Region Laterality Modality Other Scanner OTHER * HPV HIGH RISK (04/16/2022 1:43 PM CDT) TYPE 16 Negative Negative 04/18/2022 5:13 PM CDT [facility] TYPE 18 Negative Negative 04/18/2022 5:13 PM CDT [facility] OTHER HIGH RISK TYPES Negative Negative 04/18/2022 5:13 PM CDT [facility] Other (Cervical) Non-Blood / Unknown 04/16/2022 1:43 PM CDT 04/17/2022 9:25 AM CDT Narrative [facility] - 04/18/2022 5:13 PM CDT HPV types 16, 18, 31, 33, 35, 39, 45, 51, 52, 56, 58, 59, 66 and 68 DNA were undetectable or below the pre-set threshold. Methodology: eMithilaHaat [place] 4800 HPV Test Guerita Romero MD [facility] [address] [place] [address], * XR MAMMO OKSANA BILAT SCREEN (02/04/2021 [...] PM CDT XR MAMMO OKSANA BILAT SCREEN [[id number]] CLINICAL HISTORY: ??This is an asymptomatic 45 [...] - 199 mg/dL 11/08/2018 7:14 PM CDT [facility] TRIGLYCERIDES 80 <150 mg/dL 11/08/2018 7:14 PM CDT [facility] HDL CHOLESTEROL 54 >40 mg/dL 9 7:14 PM T [facility] NON-HDL CHOLESTEROL 136 <145 mg/dl 11/08/2018 7:14 PM CDT [facility] CHOL/HDL RATIO 3.52 <4.50 11/08/2018 7:14 PM CDT [facility] LDL CHOLESTEROL 120 <=130 mg/dL 11/08/2018 7:14 PM T [facility] PROVIDER ORDERED STATUS RANDOM 11/08/2018 7:14 PM T [facility] Blood BLOOD SPECIMEN / Unknown Venipuncture / Unknown 11/08/2018 11:23 AM CDT 11/08/2018 11:23 AM CDT Guerita Romero MD CHEMISTRY [facility] [address] [place] [address], [place] from Last 3 Months or Most [...] 2:47 AM 11/10/2008 3:15 AM Care Teams Hand Button Splitter Relationship Specialty [place] [address] [place] [address] PCP - General Family Practice 07/02/22 Heriberto Valencia PA Neurosurgery 02/02/13 Wagner Dahl DO [address] [facility] [email or web address] [address] [place] [address] Endocrinology 10/14/22
--- OUTSIDE RECORDS SUMMARY | 2024-03-09 04:29 | XMS_ITS | Data Portability ---
Author Organization [place] - [facility], [facility] SURGERY - OP Address [address] [place] [address] Assessment Encounter Date Assessment Date Assessment LastModified [...] By Organization Details Last Modified Time 10/07/2019 09304 I will recommend further evaluation with CT [...] debora spine No observ ation record ed. [email or web address] [facility] [address], [place], [address], 01/19/2020 09:37:38 11/24/19 20 11/24/2019 XR, lumba r spine No observ ation record ed. [email or web address] Not Available 01/19/2020 09:37:38 11/24/19 20 11/24/2019 CT, cervi deboar spine , w/o contr ast No observ ation record ed. [email or web address] Not Available 01/19/2020 09:37:39 11/24/19 20 11/24/2019 CT, lumba r spine , w/o contr ast No observ ation record ed. [email or web address] Not Available 01/19/2020 09:37:39 Result Notes None recorded. Problems Name Status Onset Date Resolution Date Notes Provider Name and Address Organization Details Recorded Time Chronic back pain Active 0 [facility] [employer] [facility] 10/07/2019 10:55:48 Problem Notes None recorded. Procedures Surgical History None recorded. Imaging Results Imaging Date Name Status LastModified by Organiz [facility] Details LastModified Time 11/24/2019 XR, cervical spine completed [email or web address] [address], [place], [address], 01/19/2020 09:37:38 11/24/2019 XR, lumbar spine completed [...] Not available Not available 10/07/2019 4053 RxNorm Robert russell [facility] [employer] [facility] 0 10:52:53 3070 dexametha sone medicatio n Not available Not available Not available 10/07/2019 3264 RxNorm Robert russell [facility] [employer] [facility] 0 10:53:22 Medications Name Sig Start Date [...] Details Last Updated DateTime 0 97 /min 26978.8 2 g 99 % 99 % 95 mm[Hg] 66 mm[Hg] Robert López [place] [facility] 0 10:50:25 Social History None recorded. Functional Status None recorded. Mental Status None recorded. Family History Nothing Reported. Medical History No medical history recorded. Gynecological HistoryNo gynecological history recorded. Obstetrics History GPAL:G 0 P 0 0 0 0 Past Encounters Encounter ID Performer Location Encounter Start Date Encounter Closed Date Diagnosis/Indication Diagnosis SNOMED-CT Code [id number] Brandon Gregory MD [facility] [address] [facility] [place] [address] [facility] [address] [place] [address] 10/07/2019 10:29:33 10/10/2019 15:24:46 Health Concerns Section Related Observation LastModified by Organization Detai ls LastModified Time None Recorded Concern Status LastModified by Organization Details LastModified Time None Recorded Advance Directives Directive None Recorded Payers Encounter Date Sequence Insurance Name Policy Number Policy Garcia Covered Member ID Garcia Member ID Guarantor Name 10/07/2019 2 [employer] - OPEN ACCESS CHOICE (HMO) [id number] Sandy Lemus [id number] Sandy Nicoleill 10/07/2019 1 [place] Sandy Nicoleill [id number] Crystal Strafford Notes Date Note Type Note Provider Name [...] Gregory MD [address], [place], [address], [place] [facility] 10/07/2019 12:11:38 OBGyn Episode No OBEpisode recorded.
[2024-03-09 04:35] LABS: Lactate* 2.5 mmol/L (0.5-1.9)
[2024-03-09 04:36] LABS: Basophils Absolute Auto 0.09 K/uL (0.00-0.30); Basophils Percent Auto 0.9 % (0.0-3.0); Eosinophils Absolute Auto 0.07 K/uL (0.00-0.50); Eosinophils Percent Auto 0.7 % (0.0-7.0); Hemoglobin* 13.7 gm/dL (12.0-16.0); Immature Granulocytes Abs Auto 0.01 K/uL (0.00-0.30); Immature Granulocytes Pct Auto 0.1 %; Lymphocytes Absolute Auto 2.24 K/uL (0.90-2.90); Lymphocytes Percent Auto 23.2 % (20-44); Mean Corpuscular HGB Conc 33 gm/dL (32-36); Mean Corpuscular Hemoglobin 32 pg (26-34); Mean Corpuscular Volume 96 fL (80-100); Monocytes Percent Auto 2.6 % (0.0-11.0); Neutrophils Percent Auto 72.5 % (42.0-72.0); Platelet Count* 369 K/uL (140-440); RDW Coefficient of Variation % 13.4 % (11.5-15.5); Red Blood Count 4.26 m/uL (4.00-5.20); White Blood Count* 9.66 K/uL (4.50-11.00)
[2024-03-09] MEDS: 0.9 % SODIUM CHLORIDE 1000 ml 1,000 ML IV ×2 (04:36→05:20)
[2024-03-09 04:37] LABS: Slide Review Reflex No
[2024-03-09 04:59] LABS: Albumin* 4.6 g/dL (3.3-5.0); Chloride* 99 mmol/L (96-114)
[2024-03-09 05:00] LABS: Potassium* 3.7 mmol/L (3.6-5.1); Sodium* 135 mmol/L (135-149)
[2024-03-09 05:02] LABS: Alkaline Phosphatase* 102 U/L (40-150); Anion Gap 7 mEq/L (7-15); Aspartate Amino Transferase* 27 U/L (12-35); Bilirubin Total* 0.4 mg/dL (0.1-1.5); Blood Urea Nitrogen* 5 mg/dL (5-24); Carbon Dioxide* 29 mmol/L (20-32); Creatinine* 0.6 mg/dL (0.5-1.5); Est. Creatinine Clearance* 86.21; Estimated Glomerular Filt Rate 111 ml/min; Lipase* 97 U/L (23-300); Total Protein* 7.8 g/dL (6.0-8.3)
[2024-03-09 05:03] LABS: Alanine Aminotransferase* 18 U/L (4-35); Glucose* 107 mg/dL (60-115)
[2024-03-09] MEDS: GI COCKTAIL (VISC LIDO/ANTACID) 30 ML PO (05:20)
[2024-03-09] MEDS: HYDROmorphone 0.5 mg/0.5 ml inj 1 MG IVP ×2 (05:22→07:37)
[2024-03-09 06:15] LABS: Lactate* 0.8 mmol/L (0.5-1.9)
[2024-03-09] MEDS: HALOPERIDOL 5 MG/ML INJ 2.5 MG IV (06:54)
== END 2024-03-09 08:26 | disposition home or self-care (01) ==
PROVIDERS: Emergency Provider Emergency Medicine; PCP Family Medicine
DX: E86.0 Dehydration (principal); R10.9 Unspecified abdominal pain; G89.4 Chronic pain syndrome
CPT/HCPCS: 36415; 74177; 80053; 81001; 83605; 83690; 85025; 94761; 96374; 96375; 99284; 99285; A9270; J1170; J1630; J2405; J7030; Q9967

== ENCOUNTER 2024-03-16 09:09 | Outpatient (CLI) | payer MEDICARE, MEDICAID, SELFPAY ==
--- NOTE | 2024-03-16 09:15 | CRLHL7_ITS ---
For Patients: As a result of the Century Cures Act, medical imaging exams and procedure reports are released immediately into your electronic medical record. You may view this report before your referring provider. If you have questions, please contact your health care provider. Technique: Double-contrast upper GI performed after the uneventful administration of effervescent crystals and thick barium followed by thin barium. Fluoroscopy time 2 minutes 23 seconds. Indication: Comparison: None. Findings: Swallowing mechanism: Normal. Esophageal motility: Normal. Gastroesophageal reflux: None. Hernia: None. Esophagus, stomach and duodenal bulb mucosa: Esophageal mucosa normal. Postop changes Leonides-en-Y gastric bypass. Normal passage of contrast into the jejunum. Chronic mucosal changes to the gastric mucosa without acute ulceration or extravasation. Normal small bowel folds. Impression: No obstruction is present. 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 Dictated by Joe Rajan MD @ 03/16/2024 1:23:46 PM (Electronically Signed)
--- OUTSIDE RECORDS SUMMARY | 2024-03-16 09:27 | XMS_ITS | Referral Summary ---
Author Organization [place] Address [address] [place] [address]. [place] [address] Care Team Providers Care Hammer Heater Name Role Phone Unavailable Primary Care Provider [...] Active naloxone (NARCAN) 4 MG/0.1ML nasal spray [place] 4 mg into one nostril alternating nostrils [...] Overview: Added automatically from request for surgery [id number] Lumbago 11/05/2012 Hematemesis 04/09/2012 Rhabdomyolysis 09/13/2011 Foot [...] Comments Blood Pressure 97/68 09/30/2022 8:21 PM GYM TEACHER Pulse 81 09/30/2022 8:21 PM GYM TEACHER Temperature 36.7 ??C (98.1 ??F) 09/30/2022 4:57 PM CS T Respiratory Rate 22 09/30/2022 4:57 PM GYM TEACHER Oxygen Saturation 98% 09/30/2022 8:11 PM GYM TEACHER Inhaled Oxygen Concentration - - Weight 77.1 kg (170 lb) 03/01/2021 2:51 PM CDT Height 172.7 cm (5' 8) 09/30/2022 4:57 PM GYM TEACHER Body Mass Index 25.1 03/01/2021 2:51 PM CDT Plan of Treatment Not on file Procedures Procedure Name Priority Date/Time Associated Diagnosis Comments COMPREHENSIVE METABOLIC PANEL STAT 09/30/2022 5:05 PM GYM TEACHER from Last 3 Months or Most Recently Relevant to Health Maintenance Results * (ABNORMAL) Comprehensive metabolic panel (09/30/2022 5:05 PM GYM TEACHER) Sodium 139 136 - 145 mmol/L 09/30/2022 6:21 PM [facility] Potassium 3.8 3.4 - 5.3 mmol/L 09/30/2022 6:21 PM [facility] Chloride 101 98 - 107 mmol/L 09/30/2022 6:21 PM [facility] Carbon Dioxide (CO2) 28 22 - 29 mmol/L 09/30/2022 6:21 PM [facility] Anion Gap 10 7 - 15 mmol/L 09/30/2022 6:21 PM [facility] Urea Nitrogen 6.6 6.0 - 20.0 mg/dL 09/30/2022 6:21 PM [facility] Creatinine 0.73 0.51 - 0.95 mg/dL 09/30/2022 6:21 PM [facility] Calcium 9.2 8.6 - 10.0 mg/dL 09/30/2022 6:21 PM [facility] Glucose 95 70 - 99 mg/dL 09/30/2022 6:21 PM [facility] Alkaline Phosphatase 105(H) 35 - 104 U/L 09/30/2022 6:21 PM [facility] AST 76(H) 10 - 35 U/L 09/30/2022 6:21 PM [facility] ALT 147(H) 10 - 35 U/L 09/30/2022 6:21 PM [facility] Protein Total 6.6 6.4 - 8.3 g/dL 09/30/2022 6:21 PM [facility] Albumin 3.8 3.5 - 5.2 g/dL 09/30/2022 6:21 PM [facility] Bilirubin Total 0.3 <=1.2 mg/dL 09/30/2022 6:21 PM [facility] GFR Estimate >90 >60 mL/min/1.7 3m2 09/30/2022 6:21 PM [facility] Comment:eGFR calculated usin 2020 CKD-EPI equation. Blood VENOUS LINE / Unknown Venipuncture / Unknown 09/30/2022 5:05 PM GYM TEACHER 09/30/2022 5:23 PM GYM TEACHER Jose Murrell MD LAB - BLOOD ORDERABL ES LABORATORY [facility] Lab [address] (1st floor, no room number) [place] [address], [facility] [phone] from Last 3 Months or Most Recently Relevant to Health Maintenance Advance Directives For more information, please contact: [phone] * Full Code (Latest Code Status on [...]
--- OUTSIDE RECORDS SUMMARY | 2024-03-16 09:27 | XMS_ITS | Clinical Summary ---
Author Organization [place] Address [address] [place] [address]. [place] [address] Care Team Providers Care Workforce Management Coordinator Name Role Phone Unavailable Primary Care Provider [...] Active naloxone (NARCAN) 4 MG/0.1ML nasal spray [place] 4 mg into one nostril alternating nostrils [...] Overview: Added automatically from request for surgery [id number] Lumbago 11/05/2012 Hematemesis 04/09/2012 Rhabdomyolysis 09/13/2011 Foot [...] Comments Blood Pressure 97/68 09/30/2022 8:21 PM MILLER HELPER DISTILLERY Pulse 81 09/30/2022 8:21 PM MILLER HELPER DISTILLERY Temperature 36.7 ??C (98.1 ??F) 09/30/2022 4:57 PM CS T Respiratory Rate 22 09/30/2022 4:57 PM [employer] HELPER [employer]ILL[employer] Oxygen Saturation 98% 09/30/2022 8:11 PM MILLER HELPER DISTILLERY Inhaled Oxygen Concentration - - Weight 77.1 kg (170 lb) 03/01/2021 2:51 PM CDT Height 172.7 cm (5' 8) 09/30/2022 4:57 PM MILLER HELPER DISTILLERY Body Mass Index 25.1 03/01/2021 2:51 PM [...] COMPREHENSIVE METABOLIC PANEL STAT 09/30/2022 5:05 PM MILLER HELPER DISTILLERY from Last 3 Months or Most Recently Relevant to Health Maintenance Results * (ABNORMAL) Comprehensive metabolic panel (09/30/2022 5:05 PM MILLER HELPER DISTILLERY) Sodium 139 136 - 145 mmol/L 09/30/2022 6:21 PM [facility] Potassium 3.8 3.4 - 5.3 mmol/L 09/30/2022 6:21 PM [facility] Chloride 101 98 - 107 mmol/L 09/30/2022 6:21 PM [facility] Carbon Dioxide (CO2) 28 22 - 29 mmol/L 09/30/2022 6:21 PM [facility] Anion Gap 10 7 - 15 mmol/L 09/30/2022 6:21 PM [facility] Urea Nitrogen 6.6 6.0 - 20.0 mg/dL 09/30/2022 6:21 PM [facility] Creatinine 0.73 0.51 - 0.95 mg/dL 09/30/2022 6:21 PM [facility] Calcium 9.2 8.6 - 10.0 mg/dL 09/30/2022 6:21 PM [facility] Glucose 95 70 - 99 mg/dL 09/30/2022 6:21 PM [facility] Alkaline Phosphatase 105(H) 35 - 104 U/L 09/30/2022 6:21 PM [facility] AST 76(H) 10 - 35 U/L 09/30/2022 6:21 PM [facility] ALT 147(H) 10 - 35 U/L 09/30/2022 6:21 PM [facility] Protein Total 6.6 6.4 - 8.3 g/dL 09/30/2022 6:21 PM [facility] Albumin 3.8 3.5 - 5.2 g/dL 09/30/2022 6:21 PM [facility] Bilirubin Total 0.3 <=1.2 mg/dL 09/30/2022 6:21 PM [facility] GFR Estimate >90 >60 mL/min/1.7 3m2 09/30/2022 6:21 PM [facility] Comment:eGFR calculated usin g 2020 CKD-EPI equation. Blood VENOUS LINE / Unknown Venipuncture / Unknown 09/30/2022 5:05 PM MILLER HELPER DISTILLERY 09/30/2022 5:23 PM [facility] Jose Murrell MD LAB - BLOOD ORDERABL ES LABORATORY [facility] Acute Care Lab [address] Lab (1st floor, no room number) [place] [address], [facility] [phone] from Last 3 Months or Most Recently Relevant to Health Maintenance Advance Directives For more information, please contact: [phone] * Full Code (Latest Code Status on [...]
--- OUTSIDE RECORDS SUMMARY | 2024-03-16 09:27 | XMS_ITS | Clinical Summary ---
Author Organization [facility] Address [place], [place] [address] Care Team Providers Care Office Technologist Name Role Phone Heriberto Valencia PA Unavailable Ilia Connors MD Primary Care Provider Wagner Dahl DO Unavailable Allergies Active Allergy Reactions Criticality Noted Date [...] (ELAVIL) 10 mg tablet 01/21/2020 Act uche omeprazole (PRILOSEC) 20 mg Delayed-Release capsule Take [...] 04/27/2022 Active buprenorphine (Belbuca) 900 mcg buccal filmIndications:Chron ic prescription opiate use Place 1 Film (900 mcg) in mouth, between cheek & gum every 12 hours. 60 Each 01/02/2023 Active chlorhexidine (PERIDEX) 0.12 % solution RINSE WITH 1 CAPFUL TWICE DAILY* 03/26/2023 Active pantoprazole (PROTONIX) 40 mg delayed-release tablet Active ergocalciferol (VITAMIN D2; DRISDOL) 50,000 unit capsuleIndications:S/ P spinal fusion Take 1 Capsule (50,000 units) by mouth once weekly. 12 Capsule 3 12/22/2023 Active calcium carbonate (TUMS) 200 mg calcium (500 mg) chewable tabletIndications:S/P spinal fusion Chew 1 Tablet (500 mg) by mouth two times daily with meals. 180 Tablet 3 12/22/2023 Active ondansetron (ZOFRAN ODT) 4 mg disintegrating tabletIndications:Roberth sea Place 1 Tablet (4 mg) on the tongue every 8 hours if needed for Nausea/Vomiting. 30 Tablet 01/11/2024 Active OLANzapine (ZYPREXA) 5 [...] Active oxyCODONE (ROXICODONE) 5 mg immediate release tabletIndications:Pos t-op pain Take 1-2 Tablets (5-10 mg) by mouth every 4 hours if needed for Pain (max 6/day). 30 Tablet 02/12/2024 Active Active Problems Problem Noted Date Diagnosed [...] condition 11/12/2011 01/06/2012 Behavioral disorder 10/29/2011 11/10/19 Wound dehiscence 10/29/2011 02/02/2013 Encephalopathy 10/29/2011 11/10/2011 [...] Encounters Date Type Department Care Team Description 03/09/2024 Orders Only [facility] Scanner 1 scan: (1-Ord) [place], ABDOMEN PELVIS W CON, 03/09/2024 02/11/2024 Telephone [facility] [address] [place] [address] Heriberto Valencia PA Refill Request 02/09/2024 2:00 PM CDT Office Visit [facility] [address] [place] [phone] Yasemin Harden PA Post-op (C4-5 & C5-6 ACDF, RT Iliac crest bone marrow harvest DOS 01/28/24/(ward) at [place]) 02/09/2024 1:45 PM CDT Ancillary Procedure [facility] [address] [place] [phone] 02/09/2024 Travel 02/08/2024 Telephone [facility] [address] [place] [address] Heriberto Valencia PA Questions 02/04/2024 Telephone [facility] [address] [place] [address] Heriberto aVlencia PA Refill Request 02/01/2024 Telephone [facility] [address] [place] [address] Heriberto Valencia PA Refill Request 01/28/2024 6:55 AM CDT - 01/28/2024 11:59 PM CDT Hospital Encounter Paul Baez MD 01/28/2024 Surgery [facility] [address] [facility] [address] [place] [address] Paul Baez MD C4-5 AND C5-6 ANTERIOR CERVICAL DECOMPRESSION AND FUSION, RIGHT ILIAC CREST BONE MARROW HARVEST. 01/25/2024 1:35 PM CDT Preop Visit [facility] [address] [place] [address] Sadie Reddy PA Pre-Op Exam (neck ) 01/25/2024 Travel 01/14/2024 Telephone [facility] [address] [address] [place] [address] Ilia Connors MD Screening 01/08/2024 Refill [facility] [address] [address] [place] [address] Ilia Connors MD Refill Request (Ondansetron) 12/22/2023 Telephone [facility] [address] [place] [address] Heriberto Valencia PA ACC Order Request 12/22/2023 Refill [facility] [address] [place] [address] Ilia Connors MD Refill Request (Ondansetron) 12/21/2023 Orders Only INTERFACED 1 Link, Alex Richardson MD <No scans attached> 12/21/2023 Orders Only [facility] [address] [address] Paul Baez MD <No scans attached> from Last 3 Months Immunizations Name Administration [...] 02/09/2024 2:12 PM CDT Plan of Treatment Health Maintenance [...] exists Pap test for age 21-65 04/16/2025 , 04/16/2022, 11/05/2017, Additional history exists Tetanus booster 11/08/2028 11/08/2018, 05/24, 06/11/2006, Additional history exists Colonoscopy through age 75 12/20/2033 12/21/2023 Tdap Completed 11/08/2018 Procedures Procedure Name Priority Date/Time Associated Diagnosis Comments SCAN-CT INTERPRETATION 12:00 AM CDT XR SPINE CERVICAL 2 VIEWS Routine 02/09/2024 2:06 PM CDT S/P cervical spinal fusion HEMOGLOBIN Routine 01/25/2024 2:06 PM CDT Pre-op examination URINE Routine 01/25/2024 2:03 PM CDT Pre-op examination SCAN-OPERATIVE/PROCEDUR E REPORT 01/01/2024 1:30 PM CDT AMB CONSULT TO GASTROENTEROLOGY CRISTOFER 12/24/2023 7:08 PM CDT Unexplained weight loss Pancreatic lesion SCAN-COLONOSCOPY 12/21/2023 10:0 0 AM CDT HPV THIN PREP Routine 04/16/2022 [...] Recently Relevant to Health Maintenance Results * SCAN-CT INTERPRETATION (03/09/2024 12:00 AM CDT) Anatomical Region Laterality Modality Other Scanner OTHER * XR SPINE CERVICAL 2 VIEWS (02/09/2024 [...] a result of the Cures Act, medical imaging exams and procedure reports are released immediately into your electronic medical record. You may view this report before your referring provider. If you have questions, please contact your health care provider. EXAM: XR SPINE CERVICAL 2 VIEWS LOCATION: [facility] DATE: 02/09/2024 INDICATION: [...] EXAM: XR SPINE CERVICAL 2 VIEWS LOCATION: [facility] [place] DATE: 02/09/2024 INDICATION: S/p Cervical Spinal Fusion [...] - 16.0 g/dL 01/25/2024 2:26 PM CDT [facility] MCV 97 80 - 100 fL 01/25/2024 2:26 PM CDT [facility] Blood BLOOD SPECIMEN / Unknown Venipuncture / Unknown 01/25/2024 2:06 PM CDT 01/25/2024 2:23 PM CDT Sadie LLAMAS HEMATOLOGY Performing Organization Address City/[facility]/ZIP Co de Phone Number [facility] [address] [place] [address], * URINE (01/25/2024 2:03 PM CDT) ,URIN E Negative Negative 01/25/2024 2:40 PM CDT [facility] Urine URINE SPECIMEN / Unknown Non-Blood / Unknown 01/25/2024 2:03 PM CDT 01/25/2024 2:03 PM CDT Sadie LLAMAS URINE Performing Organization Address City/[facility]/ZIP Co de Phone Number [facility] [address] [place] [address], [place] [phone] * SCAN-OPERATIVE/PROCEDURE REPORT (01/01/2024 1:30 PM CDT) Narrative Procedure Note Alex Ivy MD - 01/01/2024 12:56 PM CDT [facility] [address], [address], [place] [address] Patient Name: Sandy Lemus Gender: Female Exam Date: 01/01/2024 Visit Number: [id number] Age: 48 Years Date of : 1975 Attending MD: Alex Ivy MD Medical Record#: [id number] ----- Procedure: Upper GI Endoscopy Indications: Nausea [...] signed by: Rudi Sloan [place] [address] Orders Diagnostics: Procedure Comments Timeframe Assessment Xray [...] Ivy MD - 12/21/2023 9:31 AM CDT [facility] [address], [address], [place] [address] Patient Name: Sandy Lemus Gender: Female Exam Date: 12/21/2023 Visit Number: [id number] Age: 48 Years Date of : 1975 Attending MD: Alex Ivy MD Medical Record#: [id number] Procedure: Colonoscopy Indications: Weight loss Diarrhea Vomiting Referring MD: Ilia Connors MD Primary MD: Ilia Connors MD Medications: Admitting Medications: 0.9% Normal Saline at TKO Intra Procedure [...] of the colorectum is defined by the [place] [employer] (ACG) as an adenoma that is 1 cm or more in size,contains an appreciable villous component, or has high grade dysplasia(Cm PEREZ; Polyp Guideline: Diagnosis, Treatment, and Surveillance forPatients with Colorectal Polyps. Am J Bvccbcrwhlpue1982;95(11):7668-7941). This polyp qualifies as such. Patients withadvanced adenomas are at increased risk for synchronous and metachronousadditional advanced adenomas. Appropriate follow-up is suggested. MICROSCOPIC A: Performed B: Performed Electronically signed by: Abhay Castillo MD Interpreted at [facility], [address] [place] [address] Orders Diagnostics: Procedure Comments Timeframe Assessment EGD [...] Connors MD Alex Ivy MD OTHER * HPV HIGH RISK (04/16/2022 1:43 PM CDT) TYPE 16 Negative Negative 04/18/2022 5:13 PM CDT [facility] TYPE 18 Negative Negative 04/18/2022 5:13 PM CDT [facility] OTHER HIGH RISK TYPES Negative Negative 04/18/2022 5:13 PM CDT [facility] Other (Cervical) Non-Blood / Unknown 04/16/2022 1:43 PM CDT 04/17/2022 9:25 AM CDT Narrative [facility] - 04/18/2022 5:13 PM CDT HPV types 16, 18, 31, 33, 35, 39, 45, 51, 52, 56, 58, 59, 66 and 68 DNA were undetectable or below the pre-set threshold. Methodology: Adriana Napoleon 4800 HPV Test Guerita Romero MD MICROBIOLOGY [facility] [address] [place] [address], [place] * XR MAMMO OKSANA BILAT SCREEN [...] PM CDT XR MAMMO OKSANA BILAT SCREEN [[id number]] CLINICAL HISTORY: ??This is an asymptomatic 45 [...] - 199 mg/dL 11/08/2018 7:14 PM CDT [facility] TRIGLYCERIDES 80 <150 mg/dL 11/08/2018 7:14 PM CDT [facility] HDL CHOLESTEROL 54 >40 mg/dL 9 7:14 PM CDT [facility] NON-HDL CHOLESTEROL 136 <145 mg/dl 11/08/2018 7:14 PM CDT [facility] CHOL/HDL RATIO 3.52 <4.50 11/08/2018 7:14 PM CDT [facility] LDL CHOLESTEROL 120 <=130 mg/dL 11/08/2018 7:14 PM CDT [facility] PROVIDER ORDERED STATUS RANDOM 11/08/2018 7:14 PM T [facility] Blood BLOOD SPECIMEN / Unknown Venipuncture / Unknown 11/08/2018 11:23 AM CDT 11/08/2018 11:23 AM CDT Guerita Romero MD CHEMISTRY [facility] [address] [place] [address], [place] from Last 3 Months or Most [...] 2:47 AM 11/10/2008 3:15 AM Care Teams Office Technologist Relationship Specialty [place] [address] [place] [address] PCP - General Family Practice 07/02/22 Heriberto Valencia PA Neurosurgery 02/02/13 Wagner Dahl DO [address] [facility] [address] [place] [address] Endocrinology 10/14/22
--- OUTSIDE RECORDS SUMMARY | 2024-03-16 09:27 | XMS_ITS | Continuity of Care Document ---
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 [address], [place], [id number], [place]. tel:[phone] OFFICE/OUTPA TIENT VISIT, EST [facility], [address], [place], [id number] , [place] tel:[phone] [facility] [place] low back pain (chief complaint) Neck pain (chief complaint) Other intervertebral disc displacement, lumbar regionPostlaminec allan syndrome, not elsewhere classifiedOther cervical disc degeneration at C5-C6 levelOther intervertebral disc displacement, lumbosacral regionLong term (current) use of opiate analgesic 9 Manny Dunn. [address] [place] [address], [id number], [place]. tel:[phone] Specialist: Heriberto VALENCIA, [address] [address], [place], [address]. tel:[phone] ring Provider: Manish Sweeney, [address] [place] [address], [address]. tel:[phone] OFFICE/OUTPA TIENT VISIT, [facility], [address] [place] [address], [id number] , [place] tel:[phone] [facility] low back pain (chief complaint) Neck Pain (chief complaint) assisted (current) use of opiate analgesicOther intervertebral disc displacement, lumbar regionPostlaminec allan syndrome, not elsewhere classifiedOther cervical disc degeneration at C5-C6 levelOther intervertebral disc displacement, lumbosacral regionEncounter for therapeutic drug level monitoring Manny Dunn. [address] [place] [address], [id number], [place]. tel:[phone] Specialist: Heriberto VALENCIA, [address] [place] [address] [address], [place], [address]. tel:[phone] ring Provider: Manish Sweeney, [address] [place] [address], [address]. tel:[phone] OFFICE/OUTPA TIENT VISIT, [facility], [address] [place] [address], [id number] , [place] tel:[phone] [facility] Low back pain (chief complaint) assisted (current) use of opiate analgesicOther intervertebral disc displacement, lumbar regionPostlaminec allan syndrome, not elsewhere classifiedOther cervical disc degeneration at C5-C6 levelOther intervertebral disc displacement, lumbosacral region Manny Mona. [address], [place], [id number], [place]. tel:[phone] Specialist: Heriberto VALENCIA, [address] [address], [place], [address]. tel:[phone] ring Provider: Manish Sweeney, [address] [place] [address], [address]. tel:[phone] OFFICE/OUTPA TIENT VISIT, [facility], [address] [place] [address], [id number] , [place] tel:[phone] [facility] low back pain (chief complaint) termite helper (current) use of opiate analgesicOther intervertebral disc displacement, lumbar regionPostlaminec allan syndrome, not elsewhere classifiedOther cervical disc degeneration at C5-C6 levelOther intervertebral disc displacement, lumbosacral region Jeramie-0 9-201 9 Manny Mona. [address] [place] [address], [id number], [place]. tel:[phone] Specialist: Heriberto VALENCIA, [address] [address], [place], [address]. tel:[phone] Provider: Manish Sweeney, [address] [place] [address], [address]. tel:[phone] OFFICE/OUTPA TIENT VISIT, [facility], [address] [place] [address], [id number] , [place] tel:[phone] [facility] low back pain (chief complaint) termite helper (current) use of opiate analgesicOther intervertebral disc displacement, lumbar regionPostlaminec allan syndrome, not elsewhere classifiedOther cervical disc degeneration at C5-C6 levelOther intervertebral disc displacement, lumbosacral region May-1 0-201 9 Manny Mona. [address] [place] [address], [id number], [place]. tel:[phone] Specialist: Heriberto VALENCIA, [address] [address], [place], [address]. tel:[phone] Provider: Manish Sweeney, [address] [place] [address], [address]. tel:[phone] OFFICE/OUTPA TIENT VISIT, [facility], [address] [place] [address], [id number] , [place] tel:[phone] [facility] low back pain (chief complaint) Neck Pain (chief complaint) Other intervertebral disc displacement, lumbar regionPostlaminec allan syndrome, not elsewhere classifiedOther cervical disc degeneration at C5-C6 levelOther intervertebral disc displacement, lumbosacral regionLong term (current) use of opiate analgesicEncounte r for therapeutic drug level monitoring Manny Mona. [address] [place] [address], [id number], [place]. tel:[phone] Specialist: Heriberto VALENCIA, [facility] [address] Prof Roger [address]Robert Bailey santosh [address], [address]. tel:[phone] ring Provider: Manish Sweeney, [address] [place] [address], [address]. tel:[phone] OFFICE/OUTPA TIENT VISIT, [facility], [address] [place] [address], [id number] , [place] tel:[phone] [facility] low back pain (chief complaint) Other intervertebral disc displacement, lumbar regionRadiculopat hy, cervical regionPostlaminec allan syndrome, not elsewhere classifiedOther cervical disc degeneration at C5-C6 levelOther intervertebral disc displacement, lumbosacral region 9 Manny Dunn. [address] [place] [address], [id number], [place]. tel:[phone] Specialist: Heriberto VALENCIA, [facility] [address] Prof Roger 67Robert [facility] Hospit[facility] [address], [address]. tel:[phone] ring Provider: Manish Sweeney, [address] [place] [address], [address]. tel:[phone] OFFICE/OUTPA TIENT VISIT, [facility], [address] [place] [address], [id number] , [place] tel:[phone] [facility] low back pain (chief complaint) Other intervertebral disc displacement, lumbar regionOther intervertebral disc displacement, lumbosacral regionOther cervical disc degeneration at C5-C6 levelRadiculopath y, cervical regionPostlaminec allan syndrome, not elsewhere classified 8 Manny Dunn. [address] [place] [address], [id number], [place]. tel:[phone] Specialist: Heriberto VALENCIA, [address] [address], [place], [address]. tel:[phone] Provider: Manish Sweeney, [address] [place] [address], [id number]. tel:[phone] OFFICE/OUTPA TIENT VISIT, EST [facility], [address] [place] [address], [id number] , [place] tel:[phone] [facility] low back pain (chief complaint) Radiculopathy, cervical regionPostlaminec allan syndrome, not elsewhere classifiedOther intervertebral disc displacement, lumbosacral regionOther cervical disc degeneration at C5-C6 levelOther intervertebral disc displacement, lumbar region 8 Manny Dunn. [address] [place] [address], [id number], [place]. tel:[phone] Specialist: Heriberto VALENCIA, [address] [address], [place], [address]. tel:[phone] Fredio Provider: Manish Sweeney, [address] [place] [address], [address]. tel:[phone] OFFICE/OUTPA TIENT VISIT, [facility], [address] [place] [address], [id number] , [place] tel:[phone] [facility] low back pain (chief complaint) Neck pain (chief complaint) Other intervertebral disc displacement, lumbar regionOther intervertebral disc displacement, lumbosacral regionLong term (current) use of opiate analgesicPostlami nectomy syndrome, not elsewhere classifiedOther cervical disc degeneration at C5-C6 levelRadiculopath y, cervical region 8 Manny Dunn. [address] [place] [address], [id number], [place]. tel:[phone] Specialist: Heriberto VALENCIA, [address], [address]. tel:[phone] ring Provider: Manish Sweeney, [address] [place] [address], [id number]. tel:[phone] OFFICE/OUTPA TIENT VISIT, [facility], [address] [place] [address], [id number] , [place] [phone] [facility] low back pain (chief complaint) Neck pain (chief complaint) Other intervertebral disc displacement, lumbosacral regionOther intervertebral disc displacement, lumbar regionPostlaminec allan syndrome, not elsewhere classifiedOther cervical disc degeneration at C5-C6 level 8 Manny Dunn. [address] [place] [address], [id number], [place]. tel:[phone] Specialist: Heriberto VALENCIA, [address] [address], [place], [address]. tel:[phone] ring Provider: Manish Sweeney, [address] [place] [address], [address]. tel:[phone] OFFICE/OUTPA TIENT VISIT, EST [facility], [address] [place] [address], [id number] , [place] tel:[phone] [facility] low back pain (chief complaint) Other intervertebral disc displacement, lumbar regionOther intervertebral disc displacement, lumbosacral regionPostlaminec allan syndrome, not elsewhere classifiedOther cervical disc degeneration at C5-C6 level 8 Manny Dunn. [address] [place] [address], [id number], [place]. tel:[phone] Specialist: Heriberto VALENCIA, [address] [facility], [place], [address]. tel:[phone] ring Provider: Manish Sweeney, [address] [place] [address], [address]. tel:[phone] OFFICE/OUTPA TIENT VISIT, [facility], [address] [place] [address], [id number] , [place] tel:[phone] [facility] low back pain (chief complaint) Other intervertebral disc displacement, lumbosacral regionOther intervertebral disc displacement, lumbar regionPostlaminec allan syndrome, not elsewhere classifiedOther cervical disc degeneration at C5-C6 level 8 Manny Dunn. [address] [place] [address], [id number], [place]. tel:[phone] Specialist: Heriberto VALENCIA, [address] [facility], [place], [address]. tel:[phone] ring Provider: Manish Sweeney, [address] [place] [address], [address]. tel:[phone] OFFICE/OUTPA TIENT VISIT, [facility], [address] [place] [address], [id number] , [place] tel:[phone] [facility] low back pain (chief complaint) Other intervertebral disc displacement, lumbosacral regionOther intervertebral disc displacement, lumbar regionPostlaminec allan syndrome, not elsewhere classifiedOther cervical disc degeneration at C5-C6 level 8 Manny Dunn. [address] [place] [address], [id number], [place]. tel:[phone] Specialist: Heriberto VALENCIA, [address] [place] [address], [place], [address]. tel:[phone] ring Provider: Manish Sweeney, [address] [place] [address], [address]. tel:[phone] OFFICE/OUTPA TIENT VISIT, [facility], [address] [place] [address], [id number] , [place] [phone] [facility] Back Pain (chief complaint) Other intervertebral disc displacement, lumbosacral regionPostlaminec allan syndrome, not elsewhere classifiedOther cervical disc degeneration at C5-C6 levelOther intervertebral disc degeneration, lumbar regionRadiculopat hy, cervical region Manny Mona. [address] [place] [address], [id number], [place]. tel:[phone] Specialist: Heriberto VALENCIA, [facility] [address] [address], [place], [address]. tel:[phone] ring Provider: Manish Sweeney, [address] [place] [address], [address]. tel:[phone] OFFICE/OUTPA TIENT VISIT, [facility], [address] [place] [address], [id number] , [place] tel:[phone] [facility] Back Pain (chief complaint) Postlaminectomy syndrome, not elsewhere classifiedOther intervertebral disc displacement, lumbar regionOther intervertebral disc displacement, lumbosacral regionOther cervical disc degeneration at C5-C6 level Manny Mona. [address] [place] [address], [id number], [place]. tel:[phone] Specialist: Heriberto VALENCIA, [facility] [address] [address], [place], [address]. tel:[phone] ring Provider: Manish Sweeney, [address] [place] [address], [address]. tel:[phone] OFFICE/OUTPA TIENT VISIT, [facility], [address] [place] [address], [id number] , [place] tel:[phone] [facility] [place] Back Pain (chief complaint) Postlaminectomy syndrome, not elsewhere classifiedOther intervertebral disc displacement, lumbar regionOther intervertebral disc displacement, lumbosacral regionOther cervical disc degeneration at C5-C6 level 0 8 Manny Dunn. [address] [place] [address], [id number], [place]. tel:[phone] Heriberto VALENCIA, [address] [facility] [address], [place], [address]. tel:[phone] ring Provider: Manish Sweeney, [address] [place] [address], [address]. tel:[phone] OFFICE/OUTPA TIENT VISIT, EST [facility], [address] [place] [address], [id number] , [place] [phone] [facility] [place] Back Pain (chief complaint) Postlaminectomy syndrome, not elsewhere classifiedOther intervertebral disc displacement, lumbar regionOther intervertebral disc displacement, lumbosacral regionOther cervical disc degeneration at C5-C6 level 8 Manny Dunn. [address] [place] [address], [id number], [place]. tel:[phone] Heriberto VALENCIA, [address] [address], [place], [address]. tel:[phone] ring Provider: Manish Sweeney, [address] [place] [address], [address]. tel:[phone] OFFICE/OUTPA TIENT VISIT, EST [facility], [address] [place] [address], [id number] , [place] tel:[phone] [facility] [place] Back Pain (chief complaint) Postlaminectomy syndrome, not elsewhere classifiedOther intervertebral disc displacement, lumbar regionOther intervertebral disc displacement, lumbosacral regionOther cervical disc degeneration at C5-C6 level 7 Manny Dunn. [address] [place] [address], [id number], [place]. tel:[phone] Heriberto Valencia PAC, [facility] [address], [place], [address]. tel:[phone] ring Provider: Manish Sweeney, [address] [place] [address], [address]. tel:[phone] OFFICE/OUTPA TIENT VISIT, [facility], [address] [place] [address], [id number] , [place] tel:[phone] [facility] low back pain (chief complaint) Neck pain (chief complaint) Postlaminectomy syndrome, not elsewhere classifiedOther intervertebral disc displacement, lumbosacral regionOther intervertebral disc displacement, lumbar regionOther cervical disc degeneration at C5-C6 level Manny Dunn. [address] [place] [address], [id number], [place]. tel:[phone] [facility], [address] [place] [address], [place], [address]. tel:[phone] ring Provider: Manish Sweeney, [address] [place] [address], [address]. tel:[phone] OFFICE/OUTPA TIENT VISIT, [facility], [address] [place] [address], [id number] , [place] tel:[phone] [facility] Back Pain (chief complaint) Lumbago with sciatica, right sideOther cervical disc degeneration at C5-C6 levelOther intervertebral disc degeneration, lumbar regionPostlaminec allan syndrome, not elsewhere classified Manny Dunn. [address] [place] [address], [id number], [place]. tel:[phone] , [address] [place] [address], [place], [address] [facility] Provider: Manish Sweeney, [address] [place] [address], [address]. tel:[phone] OFFICE/OUTPA TIENT VISIT, EST [facility], [address], [place], [id number] , [place] [phone] [facility] [place] Back Pain (chief complaint) Lumbago with sciatica, right sideOther cervical disc degeneration at C5-C6 levelOther intervertebral disc degeneration, lumbar regionPostlaminec allan syndrome, not elsewhere classifiedHeadach e Manny Dunn. [address], [place], [id number], [place]. tel:[phone] , [facility] [address], [place], [address].Refer ring Provider: Manish Sweeney, [address] [place] [address], [address]. tel:[phone] OFFICE/OUTPA TIENT VISIT, EST [facility], [address], [place], [id number] , [place] tel:[phone] [facility] [place] Back Pain (chief complaint) Lumbago with sciatica, right sidePostlaminecto my syndrome, not elsewhere classifiedOther cervical disc degeneration at C5-C6 levelOther intervertebral disc degeneration, lumbar regionHeadache [place]. [address] [place], [address], [place]. tel:[phone] , [address], [place], [address].Refer ring Provider: Manish Sweeney, [address] [place] [address], [address]. tel:[phone] [facility], [address] [place] [address], [id number] , [place] [phone] [facility] [place] Headache 7 Manny Dunn. [address], [place], [id number], [place]. tel:[phone] Referring Provider: Manish Sweeney, [address] [place] [address], [address]. tel:[phone] OFFICE/OUTPA TIENT VISIT, EST [facility], [address], [place], [id number] , [place] tel:[phone] [facility] [place] Back Pain (chief complaint) Lumbago with sciatica, right sidePostlaminecto my syndrome, not elsewhere classifiedOther cervical disc degeneration at C5-C6 levelOther intervertebral disc degeneration, lumbar regionHeadache Manny Dunn. [address], [place], [id number], [place]. tel:[phone] , [facility] [address], [place], [address].Refer ring Provider: Manish Sweeney, [address] [place] [address], [address]. tel:[phone] OFFICE/OUTPA TIENT VISIT, [facility], [address] [place] [address], [id number] , [place] tel:[phone] [facility] [place] Back Pain (chief complaint) Neck pain (chief complaint) CervicalgiaOther cervical disc degeneration at C5-C6 levelOther intervertebral disc degeneration, lumbar regionPostlaminec allan syndrome, not elsewhere classifiedLumbago with sciatica, right side Manny Dunn. [address], [place], [id number], [place]. tel:[phone] , [address], [place], [address].Refer ring Provider: Manish Sweeney, [address] [place] [address], [address]. tel:[phone] OFFICE/OUTPA TIENT VISIT, [facility], [address] [place] [address], [id number] , [place] [phone] [facility] [place] Back Pain (chief complaint) CervicalgiaLumbag o with sciatica, right sideOther cervical disc degeneration at C5-C6 levelOther intervertebral disc degeneration, lumbar regionPostlaminec allan syndrome, not elsewhere classified Manny Dunn. [address], [place], [id number], [place]. tel:[phone] , [address], [place], [address].Refer ring Provider: Manish Sweeney, [address] [place] [address], [address]. tel:[phone] OFFICE/OUTPA TIENT VISIT, [facility], [address] [place] [address], [id number] , [place] tel:[phone] [facility] [place] Back Pain (chief complaint) CervicalgiaLumbag o with sciatica, right sideOther cervical disc degeneration at C5-C6 levelOther intervertebral disc degeneration, lumbar regionPostlaminec allan syndrome, not elsewhere classified Manny Dunn. [address], [place], [id number], [place]. tel:[phone] , [address] [facility], [place], [address].Refer ring Provider: Manish Sweeney, [address] [place] [address], [address]. tel:[phone] OFFICE/OUTPA TIENT VISIT, [facility], [address] [place] [address], [id number] , [place] tel:[phone] [facility] [place] Back Pain (chief complaint) Other intervertebral disc displacement, lumbar regionPostlaminec allan syndrome, not elsewhere classifiedOther cervical disc degeneration at C5-C6 levelCervicalgiaL umbago with sciatica, right side Manny Dunn. [address], [place], [id number], [place]. tel:[phone] , [address], [place], [address].Refer ring Provider: Manish Sweeney, [address] [place] [address], [address]. tel:[phone] [facility], [address] [place] [address], [id number] , [place] tel:[phone] [facility] [place] No Information 0 Manny Dunn. [address] [place] [address], [id number], [place]. tel:[phone] OFFICE/OUTPA TIENT VISIT, EST [facility], [address] [place] [address], [id number] , [place] tel:[phone] [facility] [place] Back Pain (chief complaint) Other intervertebral disc displacement, lumbar regionPostlaminec allan syndrome, not elsewhere classified 2 Manny Mona. [address] [place] [address], [id number], [place]. tel:[phone] , [address] [place] [address], [address].Refer ring Provider: Manish Sweeney, [address] [place] [address], [address]. tel:[phone] OFFICE/OUTPA TIENT VISIT, [facility], [address] [place] [address], [id number] , [place] [phone] [facility]) Other intervertebral disc displacement, lumbar regionPostlaminec allan syndrome, not elsewhere classified 0 Te Aguilar. [address] [place] [address], [id number], [place]. tel:[phone] , [address], [place], [address].Refer ring Provider: Manish Sweeney, [address] [place] [address], [address]. tel:[phone] OFFICE/OUTPA TIENT VISIT, [facility], [address] [place] [address], [id number] , [place] [phone] [facility] Back Pain (chief complaint) Postlaminectomy syndrome, not elsewhere classifiedOther intervertebral disc displacement, lumbar region Manny Dunn. [address], [place], [id number], [place]. tel:[phone] , [facility] [address], [place], [place], [address].Refer ring Provider: Manish Sweeney, [address] [place] [address], [address]. tel:[phone] OFFICE/OUTPA TIENT VISIT, [facility], [address] [place] [address], [id number] , [place] tel:[phone] [facility] [place] Back Pain (chief complaint) Postlaminectomy syndrome, not elsewhere classifiedOther intervertebral disc displacement, lumbar region Manny Dunn. [address] [place] [address], [id number], [place]. tel:[phone] , [address] [facility], [place], [address].Refer ring Provider: Manish Sweeney, [address] [place] [address], [address]. tel:[phone] OFFICE/OUTPA TIENT VISIT, [facility], [address] [place] [address], [id number] , [place] tel:[phone] [facility] [place] Back Pain (chief complaint) Postlaminectomy syndrome, not elsewhere classifiedOther intervertebral disc displacement, lumbar region Manny Dunn. [address], [place], [id number], [place]. tel:[phone] , [address], [place], [address].Refer ring Provider: Manish Sweeney, [address] [place] [address], [address]. tel:[phone] OFFICE/OUTPA TIENT VISIT, [facility], [address] [place] [address], [id number] , [place] tel:[phone] [facility] [place] Back Pain (chief complaint) Other intervertebral disc displacement, lumbosacral regionOther intervertebral disc displacement, lumbar regionLumbago with sciatica, right sideOther cervical disc degeneration at C5-C6 level 6 6 Manny Dunn. [address], [place], [id number], [place]. tel:[phone] Heriberto VALENCIA, [address] [address], [place], [address]. tel:[phone] ring Provider: Manish Sweeney, [address] [place] [address], [address]. tel:[phone] OFFICE/OUTPA TIENT VISIT, [facility], [address] [place] [address], [id number] , [place] [phone] [facility] ([facility]) Other intervertebral disc displacement, lumbosacral regionOther intervertebral disc displacement, lumbar regionLumbago with sciatica, right side 6 Manny Dunn. [address], [place], [id number], [place]. tel:[phone] Heriberto VALENCIA, [address] [address], [place], [address]. tel:[phone] Fredio Provider: Manish Sweeney, [address] [place] [address], [address]. tel:[phone] OFFICE/OUTPA TIENT VISIT, [facility], [address] [place] [address], [id number] , [place] tel:[phone] [facility] [place] Back Pain (chief complaint) Other intervertebral disc displacement, lumbosacral regionOther intervertebral disc displacement, lumbar regionLumbago with sciatica, right sideOther muscle spasmMyalgiaInsom idalia Sep-2 0-201 6 [facility]. [address] [place], [address], [place]. tel:[phone] Heriberto VALENCIA, [facility] [address], [place], [address]. tel:[phone] ring Provider: Manish Sweeney, [address] [place] [address], [address]. [phone] OFFICE/OUTPA TIENT VISIT, [facility], [address] [place] [address], [id number] , [place] tel:[phone] [facility] [place] Back Pain (chief complaint) Other intervertebral disc degeneration, lumbar regionPostlaminec allan syndrome, not elsewhere classifiedOther cervical disc degeneration, mid-cervical region Manny Dunn. [address] [place] [address], [id number], [place]. tel:[phone] , [address] [facility], [place], [address].Refer ring Provider: Manish Sweeney, [address] [place] [address], [address]. [phone] OFFICE/OUTPA TIENT VISIT, [facility], [address] [place] [address], [id number] , [place] tel:[phone] [facility] [place] Back Pain (chief complaint) Other intervertebral disc degeneration, lumbar regionPostlaminec allan syndrome, not elsewhere classifiedOther cervical disc degeneration, mid-cervical region Manny Dunn. [address] [place] [address], [id number], [place]. tel:[phone] , [address], [place], [address].Refer ring Provider: Manish Sweeney, [address] [place] [address], [address]. tel:[phone] OFFICE/OUTPA TIENT VISIT, [facility], [address] [place] [address], [id number] , [place] [phone] [facility] [place] Back Pain (chief complaint) Other intervertebral disc degeneration, lumbar regionPostlaminec allan syndrome, not elsewhere classifiedOther cervical disc degeneration, mid-cervical region 6 Manny Dunn. [address] [place] [address], [id number], [place]. tel:[phone] , [facility] 675 [facility] 675 [facility] [address], [place], [address].Refer ring Provider: Manish Sweeney, [address] [place] [address], [address]. tel:[phone] OFFICE/OUTPA TIENT VISIT, [facility], [address] [place] [address], [id number] , [place] tel:[phone] [facility] [place] Back Pain (chief complaint) Low back painCervicalgia 6 Manny Dunn. [address] [place] [address], [id number], [place]. tel:[phone] Referring Provider: Manish Sweeney, [address] [place] [address], [address]. tel:[phone] OFFICE/OUTPA TIENT VISIT, [facility], [address] [place] [address], [id number] , [place] tel:[phone] [facility] [place] Back Pain (chief complaint) assisted (current) use of opiate analgesicOther cervical disc degeneration, mid-cervical regionPostlaminec allan syndrome, not elsewhere classifiedOther intervertebral disc degeneration, lumbar region 6 Elizabeth Wilks. [address] [place] [address], [id number], [place]. tel:[phone] Referring Provider: Manish Sweeney, [address] [place] [address], [address]. tel:[phone] OFFICE/OUTPA TIENT VISIT, [facility], [address] [place] [address], [id number] , [place] tel:[phone] [facility] [place] Back Pain (chief complaint) Postlaminectomy syndrome, not elsewhere classifiedOther intervertebral disc degeneration, lumbar regionLong term (current) use of opiate analgesic 6 Manny Dunn. [address], [place], [id number], [place]. tel:[phone] , [address] [address], [place], [address].Refer ring Provider: Manish Sweeney, [address] [place] [address], [address]. tel:[phone] OFFICE/OUTPA TIENT VISIT, [facility], [address] [place] [address], [id number] , [place] tel:[phone] [facility] [place] Back Pain (chief complaint) Postlaminectomy syndrome, not elsewhere classifiedOther intervertebral disc degeneration, lumbar region 6 Manny Dunn. [address], [place], [id number], [place]. tel:[phone] , [address] [facility] [address] [address], [place], [address].Refer ring Provider: Manish Sweeney, [address] [place] [address], [address]. tel:[phone] OFFICE/OUTPA TIENT VISIT, [facility], [address] [place] [address], [id number] , [place] tel:[phone] [facility] Back Pain (chief complaint) Other cervical disc degeneration, mid-cervical regionPostlaminec allan syndrome, not elsewhere classifiedOther intervertebral disc degeneration, lumbar region 6 Manny Mona. [address], [place], [id number], [place]. tel:[phone] Specialist: Heriberto VALENCIA, [facility] [address] [address], [place], [address]. tel:[phone] ring Provider: Manish Sweeney, [address] [place] [address], [address]. tel:[phone] OFFICE/OUTPA TIENT VISIT, [facility], [address] [place] [address], [id number] , [place] tel:[phone] [facility] [place] Back Pain (chief complaint) Other cervical disc degeneration, mid-cervical regionOther intervertebral disc degeneration, lumbar region No Nutrition Educator: Heriberto VALENCIA, [facility] [address] [address], [place], [address]. [phone] ring Provider: Manish Sweeney, [address] [place] [address], [address]. [phone] OFFICE/OUTPA TIENT VISIT, [facility], [address] [place] [address], [id number] , [place] tel:[phone] [facility] [place] Back Pain (chief complaint) Postlaminectomy syndrome, not elsewhere classifiedLong term (current) use of opiate analgesicOther cervical disc degeneration, mid-cervical regionOther intervertebral disc degeneration, lumbar region No Nutrition Educator: Heriberto VALENCIA, [facility] [address] [address], [place], [address]. tel:[phone] ring Provider: Manish Sweeney, [address] [place] [address], [address]. [phone] OFFICE/OUTPA TIENT VISIT, [facility], [address] [place] [address], [id number] , [place] tel:[phone] [facility] [place] Back Pain (chief complaint) Postlaminectomy syndrome, not elsewhere classified 5 No Information Referring Provider: Manish Sweeney, [address] [place] [address], [address]. [phone] OFFICE/OUTPA TIENT VISIT, [facility], [address] [place] [address], [id number] , [place] tel:[phone] [facility] [place] Back Pain (chief complaint) Degeneration of cervical intervertebral discDegeneration of lumbar or lumbosacral intervertebral discPostlaminecto my syndrome of lumbar regionMyalgia and myositis, unspecified 5 No Nutrition Educator: Heriberto VALENCIA, [address], [place], [address]. tel:[phone] ring Provider: Manish Sweeney, [address] [place] [address], [address]. tel:[phone] OFFICE/OUTPA TIENT VISIT, [facility], [address] [place] [address], [id number] , [place] tel:[phone] [facility] Back Pain (chief complaint) Displacement of cervical intervertebral disc without myelopathyPostlam inectomy syndrome of lumbar region Manny Dunn. [address], [place], [id number], [place]. tel:[phone] Specialist: Heriberto VALENCIA, [address] [facility], [place], [address]. tel:[phone] ring Provider: Manish Sweeney, [address] [place] [address], [address]. tel:[phone] OFFICE/OUTPA TIENT VISIT, [facility], [address] [place] [address], [id number] , [place] tel:[phone] [facility] [place] Back Pain (chief complaint) Displacement of cervical intervertebral disc without myelopathyPostlam inectomy syndrome of lumbar regionDegeneratio n of cervical intervertebral disc 5 Manny Dunn. [address], [place], [id number], [place]. tel:[phone] Specialist: Heriberto VALENCIA, [address], [place], [address]. tel:[phone] ring Provider: Manish Sweeney, [address] [place] [address], [address]. tel:[phone] OFFICE/OUTPA TIENT VISIT, [facility], [address] [place] [address], [id number] , [place] tel:[phone] [facility] [place] Back Pain (chief complaint) Degeneration of cervical intervertebral discPostlaminecto my syndrome of lumbar region Manny Dunn. [address] [place] [address], [id number], [place]. tel:[phone] Referring Provider: Manish Sweeney, [address] [place] [address], [address]. tel:[phone] [facility], [address] [place] [address], [id number] , [place] [phone] [facility] [place] Degeneration of cervical intervertebral disc Martinez Hammond. [address] [place] [address], [id number], [place]. tel:[phone] Referring Provider: Manish Sweeney, [address] [place] [address], [address]. tel:[phone] OFFICE/OUTPA TIENT VISIT, [facility], [address] [place] [address], [id number] , [place] tel:[phone] [facility] [place] Back Pain (chief complaint) Degeneration of cervical intervertebral discDisplacement of cervical intervertebral disc without myelopathyPostlam inectomy syndrome of lumbar region Manny Dunn. [address] [place] [address], [id number], [place]. tel:[phone] Referring Provider: Manish Sweeney, [address] [place] [address], [address]. tel:[phone] OFFICE/OUTPA TIENT VISIT, [facility], [address] [place] [address], [id number] , [place] tel:[phone] [facility] [place] Back Pain (chief complaint) Degeneration of lumbar or lumbosacral intervertebral discDegeneration of cervical intervertebral discHeadache 5 Manny Mona. [address], [place], [id number], [place]. tel:[phone] Referring Provider: Manish Sweeney, [address] [place] [address], [address]. tel:[phone] OFFICE/OUTPA TIENT VISIT, EST [facility], [address] [place] [address], [id number] , [place] tel:[phone] [facility] [place] Back Pain (chief complaint) Degeneration of lumbar or lumbosacral intervertebral discPostlaminecto my syndrome of lumbar regionDegeneratio n of cervical intervertebral discHeadache 5 Manny Mona. [address] [place] [address], [id number], [place]. tel:[phone] Referring Provider: Manish Sweeney, [address] [place] [address], [address]. tel:[phone] OFFICE/OUTPA TIENT VISIT, EST [facility], [address] [place] [address], [id number] , [place] tel:[phone] [facility] [place] low back pain (chief complaint) Degeneration of lumbar or lumbosacral intervertebral discUnspecified arthropathy involving other specified sitesPostlaminect kelly syndrome of lumbar region Oct-0 2- 5 Manny Mona. [address] [place] [address], [id number], [place]. tel:[phone] Referring Provider: Manish Sweeney, [address] [place] [address], [address]. tel:[phone] [facility], [address] [place] [address], [id number] , [place] tel:[phone] [facility] [place] Unspecified arthropathy involving other specified sites 0 5 Bryan Guillen. [address] [place] [address], [id number], [place]. tel:[phone] Referring Provider: Manish Sweeney, [address] [place] [address], [address]. tel:[phone] OFFICE/OUTPA TIENT VISIT, EST [facility], [address] [place] [address], [id number] , [place] tel:[phone] [facility] [place] low back pain (chief complaint) Displacement of lumbar intervertebral disc without myelopathyUnspeci fied arthropathy involving other specified sitesPostlaminect kelly syndrome of lumbar region 5 Manny Dunn. [address] [place] [address], [id number], [place]. tel:[phone] Referring Provider: Manish Sweeney, [address] [place] [address], [address]. tel:[phone] [facility], [address] [place] [address], [id number] , [place] tel:[phone] [facility] [place] Displacement of lumbar intervertebral disc without myelopathy 5 Bryan Guillen. [address] [place] [address], [id number], [place]. tel:[phone] Referring Provider: Manish Sweeney, [address] [place] [address], [address]. tel:[phone] OFFICE/OUTPA TIENT VISIT, EST [facility], [address] [place] [address], [id number] , [place] tel:[phone] [facility] [place] Back Pain (chief complaint) Sciatica Due To Displacement Of Lumbar DiscUnspecified arthropathy involving other specified sites 4 No Information Referring Provider: Manish Sweeney, [address] [place] [address], [address]. tel:[phone] [facility], [address] [place] [address], [id number] , [place] tel:[phone] [facility] [place] Unspecified arthropathy involving other specified sites 4 Will Manish. [address] [place] [address], [id number], [place]. tel:[phone] Referring Provider: Manish Sweeney, [address] [place] [address], [address]. tel:[phone] OFFICE/OUTPA TIENT VISIT, EST [facility], [address] [place] [address], [id number] , [place] tel:[phone] [facility] [place] low back pain (chief complaint) Degeneration of lumbar or lumbosacral intervertebral discUnspecified arthropathy involving other specified sites 4 Manny Dunn. [address] [place] [address], [id number], [place]. tel:[phone] Referring Provider: Manish Sweeney, [address] [place] [address], [address]. tel:[phone] OFFICE/OUTPA TIENT VISIT, EST [facility], [address] [place] [address], [id number] , [place] [phone] [facility] [place] neck pain (chief complaint) low back pain (chief complaint) Postlaminectomy syndrome of lumbar regionDegeneratio n of cervical intervertebral discUnspecified arthropathy involving other specified sites 4 Manny Dunn. [address] [place] [address], [id number], [place]. tel:[phone] Referring Provider: Manish Sweeney, [address] [place] [address], [address]. tel:[phone] OFFICE/OUTPA TIENT VISIT, EST [facility], [address] [place] [address], [id number] , [place] [phone] [facility] neck pain (chief complaint) Myalgia and myositis, unspecifiedPostla minectomy syndrome of lumbar regionDegeneratio n of cervical intervertebral disc 4 Manny Dunn. [address] [place] [address], [id number], [place]. tel:[phone] Referring Provider: Manish Sweeney, [address] [place] [address], [address]. tel:[phone] [facility], [address] [place] [address], [id number] , [place] tel:[phone] [facility] [place] back pain (chief complaint) neck pain (chief complaint) No Information Oct-0 1- 4 Cynthia Wilkins. [address] [place] [address], [id number], [place]. tel:[phone] Referring Provider: Manish Sweeney, [address] [place] [address], [address]. tel:[phone] [facility], [address] [place] [address], [id number] , [place] tel:[phone] [facility] [place] migraine (chief complaint) Myalgia and myositis, unspecified Sep-2 2-201 4 Manny Dunn. [address] [place] [address], [id number], [place]. tel:[phone] Referring Provider: Manish Sweeney, [address] [place] [address], [address]. tel:[phone] OFFICE/OUTPA TIENT VISIT, EST [facility], [address] [place] [address], [id number] , [place] tel:[phone] [facility] [place] low back pain (chief complaint) neck pain (chief complaint) Postlaminectomy syndrome of lumbar regionDegeneratio n of cervical intervertebral discSpasm of muscle Sep-1 8-201 4 Manny Dunn. [address] [place] [address], [id number], [place]. tel:[phone] Referring Provider: Manish Sweeney, [address] [place] [address], [address]. tel:[phone] [facility], [address] [place] [address], [id number] , [place] [phone] [facility] [place] back pain (chief complaint) neck pain (chief complaint) No Information Sep-0 - 4 Cynthia Wilkins. [address] [place] [address], [id number], [place]. tel:[phone] Referring Provider: Manish Sweeney, [address] [place] [address], [address]. tel:[phone] [facility], [address] [place] [address], [id number] , [place] tel:[phone] [facility] [place] Degeneration of cervical intervertebral disc 4 Adams Mindy. [address] [place] [address], [id number], [place]. tel:[phone] Referring Provider: Manish Sweeney, [address] [place] [address], [address]. tel:[phone] OFFICE/OUTPA TIENT VISIT, EST [facility], [address] [place] [address], [id number] , [place] [phone] [facility] [place] neck pain (chief complaint) low back pain (chief complaint) Postlaminectomy syndrome of lumbar regionDegeneratio n of cervical intervertebral discSpondylolisth esis, congenital 4 Manny Dunn. [address] [place] [address], [id number], [place]. tel:[phone] Referring Provider: Manish Sweeney, [address] [place] [address], [address]. tel:[phone] [facility], [address] [place] [address], [id number] , [place] tel:[phone] [facility] [place] Degeneration of lumbar or lumbosacral intervertebral disc 4 Adams Mindy. [address] [place] [address], [id number], [place]. tel:[phone] Referring Provider: Manish Sweeney, [address] [place] [address], [address]. tel:[phone] [facility], [address] [place] [address], [id number] , [place] tel:[phone] [facility] back pain (chief complaint) Sciatica Due To Displacement Of Lumbar Disc 4 Cynthia Wilkins. [address] [place] [address], [address], [place]. tel:[phone] Referring Provider: Manish Sweeney, [address] [place] [address], [address]. tel:[phone] OFFICE/OUTPA TIENT VISIT, [facility], [address] [place] [address], [id number] , tel:[phone] [facility] [place] left low back pain (chief complaint) left leg pain (chief complaint) Postlaminectomy syndrome of lumbar regionDegeneratio n of cervical intervertebral disc 4 Manny Mona. [address], [place], [id number], [place]. tel:[phone] Referring Provider: Manish Sweeney, [address] [place] [address], [address]. tel:[phone] OFFICE/OUTPA TIENT VISIT, [facility], [address] [place] [address], [id number] , tel:[phone] [facility] left low back pain (chief complaint) left leg pain (chief complaint) Spondylolisthesis , congenitalPostlam inectomy syndrome of lumbar regionDegeneratio n of lumbar or lumbosacral intervertebral discDegeneration of cervical intervertebral discTherapeutic Drug Monitoring 4 Manny Dunn. [address], [place], [id number], [place]. tel:[phone] Referring Provider: Manish Sweeney, [address] [place] [address], [phone]. tel:[phone] Family History Family Member Type Diagnosis Age At Onset Mother Problem (finding) discectomy Problem (finding) Family history of Back pain Brother Problem (finding) Discectomy Father Problem (finding) discectomy Brother Problem (finding) 2 discectomies Payers Payer name Insurance type Covered libertarian ID Lowell contreras(s) Medicare MB [id number] [id number] Social History Type Description Quantity Date Captured Comments Sex Female Smoking Status No Information Chief Complaint And Reason For Visit No Information Reason For Referral Reason For Referral No Information Plan Of Treatment Date Type Action Status Goal Tobacco cessation counseling completed Goal Tobacco cessation counseling completed Goal Tobacco cessation counseling completed Referral Ordered: [facility] -Family Medicine (related to Other cervical disc degeneration at C5-C6 level) ordered Referral Referred To: [facility] [address] [place], [address] [phone] Ordered: Referrals: Family Medicine. G.ho.st ordered Future Order: Lab Order COMPLIAN CE DRUG ANALYSIS, URINE, WITH MED REPORT ([id number]), Ordered on: Ordered Future Order: Lab Order Drug Madyson t Def 22+ Classes ([id number]), Ordered on: Ordered Future Order: Lab Order COMPLIAN CE DRUG ANALYSIS, URINE, WITH MED REPORT ([id number]), Ordered on: Ordered Future Order: Lab Order Drug Madyson t Def 22+ Classes ([id number]), Ordered on: Ordered Future Order: Lab Order COMPLIAN CE DRUG ANALYSIS, URINE, WITH MED REPORT ([id number]), Ordered on: Ordered Future Order: Lab Order COMPLIAN CE DRUG ANALYSIS, URINE, WITH MED REPORT ([id number]), Ordered on: Ordered History Of Present Illness [...] OV. Ongoing neck pain. Still working with [facility], who have recommended against additional injections [...] stiff. Denies radicular symptoms. Interventions done through [facility]. DId notice benefit from recent lumbar RFA, [...] is s/p bilateral lumbar RFA completed at [facility], right side completed 12/10 and left side [...] dizziness and slurred speech.S/p SI injection from [facility] with benefit. Currently pursing RFA with Dr. Brannon through [facility].She presents with #9 Percocet 10-325mg - [...] SI joint injections scheduled in September with [facility]. Considering repeat RFA and possibly surgery [...] refill. LESI completed 6 weeks ago at [facility] is providing significant relief. She continues to [...] Says she will contact FARHAD Christensen of [facility] if she is able to resume [...] stretching, rest and TENS. low back pain Severity level i s [...] rest, sitting, standing, TENS and changing positions. low back pain (comments) [...] due to number allready done this year. Neck pain Location of pain is bilateral [...] her neck and low back. Working with [facility] for interventions such as injections and [...] a Cervical and Lumbar MRI completed at [facility] since her last OV. low back pain [...] some benefit. continues with Asa Valencia at [facility] for injections and surgical consideration. Back Pain [...] two injections at L3 and L5 at [facility], which provided relief. Reported no relief from the lumbar RFA several months ago. [facility] has recommended surgery on her cervical spine. Patient declines at this time.Did discuss SCS with a provider at [facility]. Is considering a [employer] stimulator over a [employer] stimulator. Back [...] into bilateral legs. Saw Asa Valencia at [facility] yesterday, who recommended LESI at L3 [...] RFA of neck and lumbar spine through [facility], but needs to complete PT first. Reports the decrease in amitriptyline has not diminished pain relief, but has eliminated the drowsiness she used to feel. Continues to use CBD oil at bedtime for additional relief. Back Pain (comments) Crystal is here for follow up [...] effect, and a recent spinal tap at [facility] (Dr. Wiseman) came back normal, but [...] sitting, standing, walking, changing positions and TENS. Back Pain (comments) Patient is [...] to help with cervical tenderness and headaches. Back Pain Severity level i s 6. [...] walking, TENS and changing positions. Back Pain Severity level i s 5. [...] therapy, stretching, rest, sitting, walking and chiropractic. Neck pain Back Pain (comments) Patient is [...] day. Back Pain Severity level i s 6-8. [...] soon. Back Pain Severity level i s 6. 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 She rolls her own cigarettes. Denies smoking [...] Has completed cervical MICHAEL on 08/15 at [facility]. Back Pain Severity level i s 7. [...] are relieved by rest. Back Pain (comments) Sandy is here for follow up. Has #7 [...] headaches. No other concerns today. Back Pain Severity level i s 7. [...] start chiropractor and PT again. Back Pain (comments) Patient is here for [...] in physical therapy and chiropractic therapy at [facility] in [place]. She continues to be interested in pursuing [...] pain relief. 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 She will likely be repeating low [...] States that she saw Asa Valencia from [facility]; he recommended repeating cervical rhizotomy unless she [...] Flexeril.She is getting her injections completed at [facility] which has completed bilateral SI joint and [...] weeks ago. Patient is being seen at [facility] in [place] which she has had a great experience. [...] side effects. She states that Asa Valencia [facility] has referred her for one additional injection (possibly C5-6 discogram?), and she will them f/u with him to discuss possible cervical surgery. Continues to have Back Pain (comments) Patient is here for f/u. She has #7 Percocet left. Patient reports medications work well and denies side effects. Received minimal relief with C7-T1 MICHAEL, but had a C5-6 MICHAEL at [facility] last week, and feels that it has been offering some relief. She plans to f/u with Asa Valencia at [facility] to discuss cervical surgery, likely 04/2015. [...] is here for f/u. She has #1 [place] left, which is appropriate. She had lumbar rhizotomy 09/22/2014 and reports relief after the procedure. She had tried Percocet for pain relief following the procedure and felt it worked better than [place]. She denies side effects with either medication. low back pain (comments) Patient is here for f/u. She has #14 [place] left. Patient reports medications work well and denies side effects. She is scheduled for lumbar rhizotomy tomorrow. She is requesting to try Percocet as she does question the effectiveness of [place] at times. low back pain Onset: year [...] is here for f/u. She has #3 [place] left, which is a small surplus. Patient reports medications work well and denies side effects. She is requesting to have repeat bilateral lumbar rhizotomies, as she has previously had significant relief with this procedure. Functional Status Date Functional Assessmen t No Information Instructions Date Instruction Additional Infor mation New medication is prescribed Reviewed medications Continue current medication Medications counted, patient is on track. Continue [...]
--- OUTSIDE RECORDS SUMMARY | 2024-03-16 09:27 | XMS_ITS | Clinical Summary ---
Author Organization [facility] Address [address] [place] [address] Care Team Providers Care Manager Business Name Role Phone Unassigned, Provider Primary Care [...] for each transition of care or referral. [facility] Allergies Active Allergy Reactions Criticality Noted Date [...] sodium fluoride (AKA DENTA,PREVIDENT) 1.1 % cream [employer] 2x/day. Do not eat or drink for [...] 2,000 Units by mouth daily. Active Biotin [address] Melo Wort 300 MG Active sodium fluoride (PREVIDENT) 1.1 % cream [employer] 2x/day. Do not eat or drink for [...] Comments Blood Pressure 112/78 09/23/2018 12:15 PM COPS Pulse 83 03/28/2021 7:17 AM CDT Temperature [...] age to complete this topic Care Teams Manager Business Relationship Specialty Start Date End Date Unassigned, Provider [address] [place] [address] PCP - General 08/28/01
--- OUTSIDE RECORDS SUMMARY | 2024-03-16 09:27 | XMS_ITS | Encounter Summary ---
Author Organization [facility] Address [address] [place] [address]. [place] [address] Care Team Providers Care Manager Marketing Sales Name Role Phone Guerita Romero MD Primary Care Provider [phone] Jose Rabago MD Unavailable [phone] [facility] Primary Care Pr ovider Unavailable Encounter Details Date Type Department Care Team (Late st Contact Info) Description 03/01/2021 Documentation Only [facility] [address] [place] [address] Unknown, Provider Social History Tobacco Use Types [...] on filedocumented in this encounter Care Teams Manager Marketing Sales Relationship Specialty Start Date End Date Guerita Romero MD PCP - General 09/06/11 09/29/22 [facility] [address] [place] [address] PCP - General 09/30/22 11/28/22 Jose Rabago MD [address] [address] Assigned Surgical Provider 02/24/2108/29/22 documented as of this encounter
--- OUTSIDE RECORDS SUMMARY | 2024-03-16 09:27 | XMS_ITS | Encounter Summary ---
Author Organization [facility] Address [facility] [place] [address] Care Team Providers Care Pole Classifier Name Role Phone Guerita Romero MD Primary Care Provider [phone] Jose Rabago MD Unavailable [phone] Clinic, [facility] Primary Care Pr ovider Unavailable Encounter Details Date Type Department Care Team (Late st Contact Info) Description 03/18/2021 [facility] Medical Advice [facility] [place] [address] [place] [address] Shira Martins PA-C [address] [facility] [address] [place] [address] Social History Tobacco Use Types [...] on filedocumented in this encounter Care Teams Pole Classifier Relationship Specialty Start Date End Date Guerita Romero MD PCP - General 09/06/11 09/29/22 [facility] [address] [facility] [place] [address] PCP - General 09/30/22 11/28/22 Jose Rabago MD [address] [facility] [place] [id number] Assigned Surgical Provider 02/24/2108/29/22 documented as of this encounter
--- OUTSIDE RECORDS SUMMARY | 2024-03-16 09:28 | XMS_ITS | Continuity of Care Document ---
Author Organization [facility] Address [address] [address] [place] [address] Phone Care Team Providers Care Accounts Payable Professional Name Role Phone Jeff Ferrara MD Unavailable Unavailable Allergies, Adverse Reactions, Alerts Substance Reaction Status Criticality No Known Allergies Active No Inform ation erythromycin base ItchingItching Active No Infor mation erythromycin base Itching Active No Informa tion Medications Medication Instructions Dosage Effective Dates (start - stop) Status Comments lansoprazole 30 mg capsule,delayed release take 1 capsule by oral route 2 times every day before a meal 30 MG - Active Open capsule and sprinkle on apple sauce or yogurt. 90DS. Needs OV for further refills. sucralfate 1 gram tablet take 1 tablet [...] day with food 1 tablet - Active lansoprazole 30 mg capsule,delayed release take 1 capsule by oral route 2 times every day before a meal 30 MG - No Longer Active Open capsule and sprinkle on apple sauce or yogurt Procedures Procedure Date Ugi Endo; W/bx 1/mx Level Iv-surg Path Gross/micro 24 Colonoscopy Flex; W/remov Les- 24 Level Iv-surg Path Gross/micro 24 Ugi Endo; Dx W/wo Collec Specm 22 Established Level 4 Offic/outpt E&m Estab Low-mod [...] Diagnoses Date Provider Providers Copied on Encounter [facility], [address] [address], [place], [id number], [place] tel:[phone] [facility] No Information 4 Josias Aguilar. [address] [facility], [facility] [address], [place], [place], [id number], [place]. tel:[phone] [facility], [address] [address], [place], [id number], [place] tel:[phone] [facility] No Information 4 Te Edwards. [address] [facility], [facility] [address], [place], [address], [place]. tel:[phone] [facility], [address] [address], [place], [id number], [place] tel:[phone] [facility] Nausea with vomiting, unspecifiedHi story of gastric bypassAnastom otic ulcerOther diseases of stomach and duodenumBaria tric surgery statusGastroj ejunal ulcer, unsp as acute or chr, w/o hemor or perf 4 Biju Johnson. [address] [facility], [address], [id number], [place]. tel:[phone] Referring Provider: Referral Self, USE FOR SELF REFERRALS. [facility], [address] [address], [place], [id number], [place] tel:[phone] [facility] GI Symptoms or Concerns (chief complaint) Colorectal polypsWeight lossNausea with vomiting, unspecifiedBe nign neoplasm of sigmoid colonDiarrhea , unspecifiedNa usea with vomiting, unspecifiedAb normal weight loss 4 Biju Johnson. [address] [facility], [address], [id number], [place]. tel:[phone] Referring Provider: [place], [address] [place], [address]. tel:[phone] [facility], [address] [address], [place], [id number], [place] tel:[phone] [facility] No Information 3 Mart Balderrama. [address] [facility], [address], [id number], [place]. tel:[phone] [facility], [address] [address], [place], [id number], [place] tel:[phone] [facility] History of gastric bypassAnastom otic ulcerNausea with vomiting, unspecifiedHe artburn 2 Mart Balderrama. [address] [facility], [address], [id number], [place]. tel:[phone] Referring Provider: Referral Self, USE FOR SELF REFERRALS. Established Level 4 [facility], [address] [address], [place], [address], [place] tel:[phone] [facility] GI Symptoms or Concerns (chief complaint) Epigastric painBariatric surgery status 2 Jr VALENCIA Mona. [address] [facility], [address], [id number], [place]. tel:[phone] Referring Provider: Referral Self, USE FOR SELF REFERRALS. [facility], [address] [address], [place], [id number], [place] tel:[phone] [facility] No Information 2 Saud Roberts. [address] [facility], [facility] [address], [place], [id number], [place]. tel:[phone] [facility], [address] [address], [place], [id number], [place] tel:[phone] [facility] RUQ pain 1 Janet Madison. [address] [facility], [facility] [address], [place], [id number], [place]. tel:[phone] Referring Provider: Referral Self, USE FOR SELF REFERRALS. [facility], [address] [address], [place], [id number], [place] tel:[phone] [facility] Pancreas cyst 1 Janet Parrish [address], [id number], [place]. tel:[phone] [facility], [address] [address], [place], [address], [place] tel:[phone] [facility] No Information 1 Janet Parrish [address], [id number], [place]. [phone] Offic/outpt E&m Estab Low-mod [facility], [address] [address], [place], [place], [id number], [place] tel:[phone] [facility] GI Symptoms or Concerns (chief complaint) Chronic GERDPancreas cyst 1 Janet Parrish [address], [id number], [place]. tel:[phone] Referring Provider: Referral Self, USE FOR SELF REFERRALS. [facility], [address] [address], [place], [place], [id number], [place] tel:[phone] [facility] No Information 1 Janet Parrish [address], [id number], [place]. tel:[phone] [facility], [address] [address], [place], [place], [address], [place] tel:[phone] [facility] No Information 1 Saud Roberts. [address], [id number], [place]. tel:[phone] [facility], [address] [address], [place], [place], [id number], [place] tel:[phone] [facility] Pancreas cyst 0 Janet Parrish [address] [facility] [address], [place], [place], [id number], [place]. tel:[phone] [facility], [address] [address], [place], [place], [address], [place] tel:[phone] [facility] No Information Phill-0 9-202 0 Janet Madison. [address] [facility], [facility] [address], [place], [place], [address], [place]. tel:[phone] Referring Provider: Haley Gonzales MD, [address], [address]. tel:[phone] [facility], [address] [address], [place], [place], [address], [place] tel:[phone] [facility] Pancreas cyst Nov-0 8-201 9 Janet Parrish [address] [facility], [address], [id number], [place]. tel:[phone] [facility], [address] [address], [place], [place], [address], [place] tel:[phone] [facility] Unintentional weight lossPancreas cyst Nov-0 5-201 9 Janet Parrish [address] [facility], [facility] [address], [place], [id number], [place]. tel:[phone] Offic/outpt E&m Estab Mod-hi 2 [facility], [address] [address], [place], [place], [id number], [place] tel:[phone] [facility] GI Symptoms or Concerns (chief complaint) Unintentional weight lossGastric perforationPa ncreas cyst Nov-0 5-201 9 Janet Parrish [address] [facility], [facility] [address], [place], [address], [place]. tel:[phone] Referring Provider: Guerita Romero MD C, [address], [place], [address]. tel:[phone] [facility], [address] [address], [place], [id number], [place] tel:[phone] [facility] No Information 9 Saud Roberts. [address], [id number], . tel:[phone] Offic/outpt E&m Estab Low-mod [facility], [address] [address], [place], [id number], [place] tel:[phone] [facility] GI Symptoms or Concerns (chief complaint) Candidal esophagitisWe ight loss, abnormal 9 Laatsch PAC Sujata. [address] [place] [address], [id number], [place]. tel:[phone] Referring Provider: Referral Self, USE FOR SELF REFERRALS. [facility], [address] [address], [place], [id number], tel:[phone] [facility] Other somatoform disordersDysp hagia, unspecified typeBariatric surgery statusReflux esophagitisCa ndidal esophagitisDy sphagia, unspecifiedBa riatric surgery status 9 Eliot Camarillo. [address] [place] [address], [id number], [place]. tel:[phone] Referring Provider: Referral Self, USE FOR SELF REFERRALS. Offic/outpt E&m Estab Mod-hi 2 [facility], [address] [address], [place], [address], [place] tel:[phone] [facility] GI Symptoms or Concerns (chief complaint) Globus sensationWeig ht loss, abnormal 9 Laatsch PAC Sujata. [address] [place] [address], [id number], [place]. tel:[phone] Referring Provider: Referral Self, USE FOR SELF REFERRALS. Offic/outpt E&m Estab Low-mod [facility], [address] [address], [place], [id number], [place] tel:[phone] [facility] GI Symptoms or Concerns (chief complaint) HeartburnEpig astric painGlobus sensationDiet sandy counseling and surveillance 8 No Information Referring Provider: Guerita Romero MD C, [address], [place], [address]. tel:[phone] Offic/outpt E&m Estab Low-mod [facility], [address] [address], [place], [address], [place] tel:[phone] [facility] GI Symptoms or Concerns (chief complaint) Gastritis, unspecified, without bleedingLeft upper quadrant painBariatric surgery status 8 No Information [facility], [address] [address], [place], [address], [place] tel:[phone] [facility] Status post gastric banding surgeryGastri tis without bleeding, unspecified chronicity, unspecified gastritis typePeriumbil ical abdominal painDisease of stomach and duodenum, unspecifiedBa riatric surgery statusGastrit is, unspecified, without bleeding Shawn Haley. [address] [place] [address], [address], [id number], [place]. [phone] Referring Provider: Referral Self, USE FOR SELF REFERRALS. Offic/outpt E&m Estab Mod-hi [address] [facility] [address] [facility], [address] [address], [facility] [facility] [place], [address], [place] tel:[phone] [facility] GI Symptoms or Concerns (chief complaint) Periumbilical abdominal painDietary counseling and surveillance 7 No Information Referring Provider: Referral Self, USE FOR SELF REFERRALS. Offic/outpt E&m Estab Mod-hi [address] [facility] [address], [address] [address], [place], [place], [id number], [place] tel:[phone] [facility] GI Symptoms or Concerns (chief complaint) GERDAbdominal PainDietary Surveil/couns el 5 Shawn Haley. [address] [facility], [facility] [address], [place], [place], [id number], [place]. tel:[phone] Referring Provider: Guerita Gonzalez, [address], [place], [address]. tel:[phone] [facility], [address] [address], [place], [place], [id number], [place] tel:[phone] [facility] GastritisGast ritis, biopsy fpr H. pyloriGastrod uodenal Dis NosAbdominal Pain 5 Shawn Haley. [address] [facility] [address], [place], [id number], [place]. tel:[phone] Referring Provider: Guerita Gonzalez, [address], [place], [address]. tel:[phone] [facility], [address] [address], [place], [place], [address], [place] tel:[phone] [facility] External Referral 5 Biju Johnson. [address] [facility], [facility] [address], [place], [id number], [place]. tel:[phone] Referring Provider: Guerita Gonzalez, [address], [place], [address]. tel:[phone] Family History Family Member Type Diagnosis Age [...] Source: Other Provid er Influenza administered Note: [employer] bi-d irectional interface ; Source: Other Registry Influenza administered Note: [facility] bi-d irectional interface ; Source: Other Registry Influenza virus vaccine, injectable, quadrivalent, split virus, preservative free, 3 years or older Fluarix, Flulaval or Fluzone Quad administered Note: Invalid docume nted admin date was . ; Source: Other Provider Pneumovax 23 administered Note: [employer] bi-d irectional interface ; Source: Other Registry tetanus and diphtheria toxoi ds, adsorbed, preservative free, for adult use (5 Lf of tetanus toxoid and 2 Lf of diphtheria toxoid) administered Note: [employer] bi-direct ional interface ; Source: Other Registry measles, mumps and rubella virus vaccine administered Note: [employer] bi-direct ional interface ; Source: Other Registry Payers Payer name Insurance type Covered libertarian ID Authoriza tion(s) No Information Social History [...] education regardin g diet completed Referral Ordered: Xray Upper GI Series Appointment date/timeframe: 03/28/2024 ordered Referral Ordered: Hepatic Function Panel Appointment date/timeframe: -today ordered Referral Ordered: follow-up visit 1 Year Appointment date/timeframe: 1 Year ordered Referral Ordered: MRI Pancreas WITHOUT Contrast Appointment date/timeframe: 08/28/2019 ordered Referral Ordered: MRI Pancreas WITH Contrast Appointment date/timeframe: 07/12/2019 ordered Referral Ordered: EUS Appointment date/timeframe: 12/27/2019 ordered Referral Ordered: Colonoscopy Appointment date/timeframe: 08/30/2019 ordered Referral Ordered: CT Abdomen And Pelvis WITH Contrast Appointment date/timeframe: 05/24/2019 ordered Referral Ordered: Xray Chest; AP Lateral Appointment date/timeframe: 05/24/2019 ordered Referral Ordered: CT Abdomen And Pelvis WITHOUT And WITH Contrast Appointment date/timeframe: 02/12/2017 ordered Appointment Sandy Lemus BOOKED History Of Present Illness Encounter Date Complaint History Of Prese nt Illness GI Symptoms or Concerns GI Symptoms or Concerns Sandy is a [...] in followup. She was recently hospitalized at [facility] for hemoperitoneum. She was originally presented to [facility]. CT scan showed pneumoperitoneum likely originating from a gastric pouch. This was not certain. Her small bowel anastomotic loop was dilated to 4.4 cm. She was transferred to [place]. She was managed conservatively with antibiotics. She [...] Information Instructions Date Instruction Additional Infor anthony Colon Cancer Prevention Related to Colorectal polyps Colon Polyps Related to Color ectal polyps 1. 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
--- OUTSIDE RECORDS SUMMARY | 2024-03-16 09:28 | XMS_ITS | Data Portability ---
Author Organization [place] [facility], [facility] Address [address] [place] [address] Assessment Encounter Date Assessment Date Assessment LastModified [...] By Organization Details Last Modified Time 10/07/2019 [id number] I will recommend further evaluation with CT [...] spine No observ ation record ed. [facility] [address], [place], [address], 01/19/2020 09:37:38 11/24/19 20 11/24/2019 XR, lumba [...] Time Chronic back pain Active [facility] 10/07/2019 10:55:48 Problem Notes None recorded. Procedures Surgical History None recorded. Imaging Results Imaging Date Name Status LastModified by Organiz [facility] Details LastModified Time 11/24/2019 XR, cervical spine completed [facility] [address], [place], [address], 01/19/2020 09:37:38 11/24/2019 XR, lumbar spine completed [...] Not available 10/07/2019 4053 RxNorm Robert russell [facility] 0 10:52:53 3070 dexametha sone medicatio n Not available Not available Not available 10/07/2019 3264 RxNorm Robert russell [facility] 0 10:53:22 Medications Name Sig Start Date [...] Details Last Updated DateTime 0 97 /min 96486.8 2 g 99 % 99 % 95 [...] Encounter Closed Date Diagnosis/Indication Diagnosis SNOMED-CT Code [id number] Brandon Gregory MD [facility] [address] [facility] [address] [facility] [address] [place] [address] 10/07/2019 10:29:33 10/10/2019 15:24:46 Health Concerns Section Related Observation LastModified by Organization Detai ls LastModified Time None Recorded Concern Status LastModified by Organization Details LastModified Time None Recorded Advance Directives Directive None Recorded Payers Encounter Date Sequence Insurance Name Policy Number Policy Garcia Covered Member ID Garcia Member ID Guarantor Name 10/07/2019 2 [employer] - OPEN ACCESS CHOICE (HMO) [id number] Sandy Lemus [id number] Sandy Nicoleill 10/07/2019 1 [place]: [employer] Sandy Nicoleill [id number] 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
== END 2024-03-16 09:10 | disposition home or self-care (01) ==
LOC: RAD 09:11
PROVIDERS: PCP Family Medicine; Visit Provider Internal Medicine Gastroenterology
DX: R11.2 Nausea with vomiting, unspecified (principal); K28.9 Gastrojejunal ulcer, unspecified as acute or chronic, without hemorrhage or perforation; Z98.84 Bariatric surgery status
CPT/HCPCS: 74240